=== PATIENT | female | born 1955 | race Caucasian/White ===

== ENCOUNTER 2020-11-03 13:29 | Outpatient (REF) | payer BC, SELFPAY ==
[2020-11-03 14:36] LABS: MANUAL DIFF FLAG NO
[2020-11-03 14:41] LABS: Appearance Urine CLEAR; Color Urine YELLOW; Glucose Urine UA NEG (NEG); Leukocyte Esterase Urine NEG (NEG); Nitrite Urine NEG (NEG); Specific Gravity - Urine 1.025 (1.005-1.025); Urine Blood NEG (NEG); Urine Ketones 15 MG/DL (NEG); Urine Protein NEG (NEG-TRACE)
[2020-11-03 14:41] LABS: Basophils Percent Auto 0.2 % (0-2); Eosinophils Absolute Auto 0.1 X10*3/uL (0.0-0.4); Eosinophils Percent Auto 1.7 % (0-4); Hemoglobin 13.1 g/dl (12.0-16.0); Imm Gran Abs Auto 0.02 X10*3/uL (0.00-0.03); Imm Gran Pct Auto 0.4 % (0.0-0.4); Lymphocytes Absolute Auto 1.1 X10*3/uL (1.2-4.9); Lymphocytes Percent Auto 20.3 % (20-40); Mean Corpuscular HGB Conc 32.8 g/dl (31.0-35.0); Mean Corpuscular Hemoglobin 29.4 pg (27.0-33.0); Mean Corpuscular Volume 89.7 fL (80-98); Mean Platelet Volume 10.5 fL (9.4-12.3); Monocytes Absolute Auto 0.4 X10*3/uL (0.1-1.2); Monocytes Percent Auto 6.7 % (2-11); Neutrophils Absolute Auto 3.7 X10*3/uL (2.0-8.3); Neutrophils Percent Auto 70.7 % (45-73); Platelet Count 250 X10*3/uL (160-400); Red Blood Count 4.46 X10*6/uL (4.20-5.50); Red Cell Distribution Width 12.8 % (11.0-16.0); White Blood Count 5.2 X10*3/uL (4.8-10.8)
[2020-11-03 15:00] LABS: Alanine Aminotransferase 8 U/L (0-31); Albumin Level 3.9 g/dL (3.5-5.0); Alkaline Phosphatase 62 U/L (39-117); Anion Gap 11 (12-20); Aspartate Amino Transferase 11 U/L (5-31); Bilirubin Total 0.7 mg/dL (0.0-1.0); Blood Urea Nitrogen 13 mg/dL (9-16); C Reactive Protein 6.83 mg/dL (< or = 0.50); Calcium 10.1 mg/dL (8.4-10.2); Carbon Dioxide 29 mmol/L (22-29); Chloride 104 mmol/L (96-108); Estimated Glomerular Filt Rate > 60; Glucose Random 127 mg/dL (60-115); Potassium 3.8 mmol/L (3.3-5.1); Sodium 140 mmol/L (135-145); Total Protein 6.4 g/dL (6.5-8.0)
== END 2020-11-03 13:30 | disposition home or self-care (01) ==
LOC: HO.LAB 13:29
PROVIDERS: PCP Internal Medicine; Visit Provider Internal Medicine
DX: R10.9 Unspecified abdominal pain (principal); K57.90 Diverticulosis of intestine, part unspecified, without perforation or abscess without bleeding
CPT/HCPCS: 36415; 80053; 81003; 85025; 86140; 87086

== ENCOUNTER 2020-11-12 06:26 | Outpatient (REF) | payer BC, SELFPAY ==
--- NOTE | ~2020-11-12 | CT_ITS ---
EXAMINATION: CT ABDOMEN AND PELVIS WITH CONTRAST CLINICAL INFORMATION: Abdominal pain. History of diverticulitis. COMPARISON: None TECHNIQUE: Multidetector volumetric images were obtained from the superior aspect of the liver through the pubic symphysis following administration 85 mL of Omnipaque 350 intravenous contrast. Sagittal and coronal reformatted images were obtained on the technologist's workstation. Oral contrast: Yes This CT examination was performed using dose optimization techniques as appropriate, variously including the following: *Automated exposure control *Adjustment of mA and/or kV according to patient size (this includes techniques or standardized protocols for targeted exams where dose is matched to indication/reason for exam; i.e. extremities or head) *Use of iterative reconstruction technique DLP: 443 mGy-cm FINDINGS: LUNG BASES: There is linear scarring or subsegmental atelectasis at the lung bases. LIVER, GALLBLADDER, AND BILIARY TREE: The liver is normal in size, shape, and attenuation. No focal hepatic lesion or biliary ductal dilatation is present. The gallbladder is unremarkable with no evidence of radiopaque gallstones, gallbladder wall thickening, or obvious pericholecystic inflammatory changes. PANCREAS: Unremarkable. SPLEEN: The spleen is normal appearing. The spleen is no longer appears enlarged. Previously identified splenic lesions are not appreciated on noncontrast enhanced CT scan. ADRENAL GLANDS: Unremarkable. KIDNEYS AND URETERS: There are are small bilateral nonobstructing renal stones. There are bilateral low-attenuation renal lesions probably representing cysts. The largest measures 2.5 cm in the medial left kidney. BLADDER: Not optimally distended but appears unremarkable. GASTROINTESTINAL TRACT: There is diverticulosis of the colon. There is wall thickening of the sigmoid colon and stranding of the surrounding fat suggestive of mild sigmoid diverticulitis. There is stool throughout the colon suggestive of constipation. No evidence of obstruction, perforation or abscess is seen. Small and large bowel is otherwise unremarkable. The appendix is unremarkable. The stomach is unremarkable. ABDOMINAL WALL: No significant hernia is appreciated. LYMPH NODES: There are no enlarged lymph nodes. The previously identified left retroperitoneal lymph nodes on February 2013 exam longer seen. There is no ascites. There is no evidence of peritoneal disease. VASCULAR: There is evidence of mild atherosclerotic disease. No aneurysm is seen. PELVIC VISCERA: Unremarkable. OSSEOUS STRUCTURES: There is degenerative disc disease at L5-S1. CT/CT abdomen pelvis w con IMPRESSION: Sigmoid diverticulitis. Constipation. Small bilateral renal stones. Bilateral renal cysts. Previously identified splenomegaly, lymphadenopathy and peritoneal disease on February 2013 exam is no longer seen. Findings will be communicated by the [employer] work flow automatic driller and reamer Jasmin Hernandez.
[2020-11-12] MEDS: Barium Sulfate Oral (Mocha) 450 ML ORAL.SUSP 900 ML PO (08:45)
== END 2020-11-12 06:27 | disposition home or self-care (01) ==
LOC: HO.CT 06:26
PROVIDERS: PCP Internal Medicine; Visit Provider Internal Medicine
DX: R10.0 Acute abdomen (principal); K57.32 Diverticulitis of large intestine without perforation or abscess without bleeding
CPT/HCPCS: 74177

== ENCOUNTER 2021-01-11 16:45 | Outpatient (REF) | payer BC, SELFPAY ==
[2021-01-11 17:29] LABS: Influenza A PCR NEGATIVE (Negative); Influenza B PCR NEGATIVE (Negative); Resp Syncy Virus RNA Qual PCR NEGATIVE (Negative); SARS COV2 PCR INHOUSE NEGATIVE (Negative)
== END 2021-01-11 16:46 | disposition home or self-care (01) ==
LOC: HO.LNP 16:45
PROVIDERS: Visit Provider Internal Medicine
DX: Z20.822 Contact with and (suspected) exposure to COVID-19 (principal)
CPT/HCPCS: 0241U

== ENCOUNTER 2022-01-20 11:53 | Outpatient (REF) | payer BC, SELFPAY ==
--- NOTE | ~2022-01-20 | XR_ITS ---
EXAMINATION: XR PELVIS CLINICAL INFORMATION: Pain COMPARISON: None TECHNIQUE: AP view of the pelvis. FINDINGS: Bone alignment is normal. No fracture or dislocation or bone lesion. There is bilateral hip arthritis, left greater than right. The sacroiliac joints are normal. Soft tissues are normal. There are degenerative changes of the visualized lower lumbar spine. XR/XR pelvis 1-2V IMPRESSION: Bilateral hip arthritis, left greater than right.
[2022-01-20 14:08] LABS: MANUAL DIFF FLAG NO
[2022-01-20 14:20] LABS: Basophils Percent Auto 0.4 % (0-2); Eosinophils Absolute Auto 0.1 X10*3/uL (0.0-0.4); Eosinophils Percent Auto 1.7 % (0-4); Hematocrit 40.8 % (37.0-47.0); Hemoglobin 13.6 g/dl (12.0-16.0); Imm Gran Abs Auto 0.01 X10*3/uL (0.00-0.03); Imm Gran Pct Auto 0.2 % (0.0-0.4); Lymphocytes Absolute Auto 1.2 X10*3/uL (1.2-4.9); Lymphocytes Percent Auto 22.3 % (20-40); Mean Corpuscular HGB Conc 33.3 g/dl (31.0-35.0); Mean Corpuscular Hemoglobin 29.4 pg (27.0-33.0); Mean Corpuscular Volume 88.3 fL (80.0-98.0); Mean Platelet Volume 9.5 fL (9.4-12.3); Monocytes Absolute Auto 0.7 X10*3/uL (0.1-1.2); Monocytes Percent Auto 12.8 % (2-11); Neutrophils Absolute Auto 3.3 x10*3/uL (2.0-8.3); Neutrophils Percent Auto 62.6 % (45-73); Platelet Count 249 X10*3/uL (160-400); Red Blood Count 4.62 X10*6/uL (4.20-5.50); Red Cell Distribution Width 12.8 % (11.0-16.0); White Blood Count 5.3 X10*3/uL (4.8-10.8)
[2022-01-20 14:37] LABS: Alanine Aminotransferase 8 U/L (0-31); Albumin Level 3.8 g/dL (3.5-5.0); Alkaline Phosphatase 64 U/L (39-117); Anion Gap 13 (12-20); Aspartate Amino Transferase 10 U/L (5-31); Bilirubin Total 0.5 mg/dL (0.0-1.0); Blood Urea Nitrogen 11 mg/dL (9-16); C Reactive Protein 5.24 mg/dL (< or = 0.50); Calcium 9.6 mg/dL (8.4-10.2); Carbon Dioxide 25 mmol/L (22-29); Chloride 105 mmol/L (96-108); Estimated Glomerular Filt Rate > 60; Glucose Random 90 mg/dL (60-115); Potassium 4.3 mmol/L (3.3-5.1); Sodium 139 mmol/L (135-145); Total Protein 6.6 g/dL (6.5-8.0)
[2022-01-21 21:16] LABS: Lyme Abs Screen <0.90 index
== END 2022-01-20 11:54 | disposition home or self-care (01) ==
LOC: HO.HMGCX 11:53
PROVIDERS: PCP Internal Medicine; Visit Provider Internal Medicine
DX: M79.10 Myalgia, unspecified site (principal); R10.2 Pelvic and perineal pain
CPT/HCPCS: 36415; 72170; 80053; 85025; 86140; 86617; 86618

== ENCOUNTER 2022-01-28 10:27 | Outpatient (REF) | payer BC, SELFPAY ==
[2022-01-28 11:20] LABS: Appearance Urine Clear; Color Urine Yellow; Glucose Urine UA Negative (Negative); Leukocyte Esterase Urine Trace (Negative); Nitrite Urine Negative (Negative); Specific Gravity - Urine 1.015 (1.005-1.025); Urine Blood Negative (Negative); Urine Ketones Negative (Negative); Urine Protein Negative (Neg-Trace)
[2022-01-28 11:23] LABS: Bacteria Urine None Seen (None Seen); Hyaline Casts Urine 0-2 /LPF (0-2); Squamous Epithelial Cell Urine 0-2 /HPF (0-2); WBC Urine 0-5 /HPF (0-5)
[2022-01-28 12:25] LABS: Vitamin D 25-OH Total 24.1 ng/mL (>30)
[2022-01-28 12:28] LABS: Cholesterol 280 mg/dL; HDL Cholesterol 56 mg/dL; LDL Cholesterol Calculated 198 mg/dl; Rheumatoid Factor < 15.0 IU/mL (<15.0); Triglycerides 132 mg/dL
[2022-02-01 22:32] LABS: Anti Nuclear Antibody Screen POSITIVE (NEGATIVE)
== END 2022-01-28 10:28 | disposition home or self-care (01) ==
LOC: HO.10HDL 10:27
PROVIDERS: Visit Provider Internal Medicine
DX: Z00.00 Encounter for general adult medical examination without abnormal findings (principal); R79.82 Elevated C-reactive protein (CRP); M25.559 Pain in unspecified hip; R30.0 Dysuria; E78.00 Pure hypercholesterolemia, unspecified
CPT/HCPCS: 36415; 80061; 81001; 82306; 86038; 86039; 86431; 87086; 87088; 87186

== ENCOUNTER 2022-03-10 17:13 | Emergency (ER) | payer BC, SELFPAY ==
--- NOTE | ~2022-03-10 | CT_ITS ---
EXAMINATION: CT BRAIN AND CT CERVICAL SPINE WITHOUT CONTRAST. CLINICAL INFORMATION: Status post fall. COMPARISON: None TECHNIQUE: 5 mm thin axial and reformatted 2 mm thin sagittal and coronal images of brain were obtained. Subsequently axial 3 mm thin and reformatted 2 mm thin sagittal and coronal images of cervical spine were obtained. DLP 1109 mGy FINDINGS: BRAIN: There is no acute intra-axial, extra-axial bleed, masses or midline shift. There is no acute infarction evolution. There is no edema. The saldana to white matter differentiation is maintained normal. The lateral ventricles are symmetrical in size and configuration without enlargement. There is no abnormality seen in the posterior fossa. Bone windows reveal no calvarial or scalp abnormality. Bilateral paranasal sinuses and mastoid air cells are well-aerated. CERVICAL SPINE: There is normal cervical lordosis. The vertebral heights and alignment is normal. There is loss of C5-C6, C6-C7 and C7-T1 disc heights with mild posterior spondylosis. The craniovertebral junction and the C1-C2 alignment is normal. There is no visible acute fracture, dislocation or subluxation. No aggressive lytic or sclerotic process seen. The prevertebral and paravertebral soft tissues are normal. CT/CT cervical spine wo IV con IMPRESSION: No acute intracranial process seen. No acute fracture, dislocation or subluxation seen in cervical spine. There are degenerative disc changes C5-C6, C6-C7 and C7-T1 disc levels.
--- NOTE | ~2022-03-10 | XR_ITS ---
Indication: Pain, fall EXAMINATION: Left hand, left ankle, left hip. Single view of the pelvis and 2 views of the left hip are obtained. Comparison previous dated 01/20/2022 No acute finding in the pelvic image. Detailed imaging of the left hip demonstrates degenerative change. The femoral head contour is smooth. There is a sclerotic density coursing in the region of the junction of the femoral head with the femoral neck. This was present previously and therefore may be chronic. Stress injury cannot be excluded 3 views of left ankle demonstrate degenerative changes. No convincing evidence for an acute fracture or dislocation. Point palpation would be recommended the level of the lateral malleolus. There is minimal lucency here in one view only. Degenerative changes are noted 3 views of left hand does not demonstrate evidence for an acute fracture or dislocation. XR/XR hip LT min 2V IMPRESSION: Multiple studies. Minimal lucency in the region of the distal fibula on one view only. Avulsion fracture distally cannot be completely excluded here but there is no significant overlying soft tissue change. Point palpation would be recommended Other findings are described above
--- NOTE | ~2022-03-10 | CT_ITS ---
EXAMINATION: CT BRAIN AND CT CERVICAL SPINE WITHOUT CONTRAST. CLINICAL INFORMATION: Status post fall. COMPARISON: None TECHNIQUE: 5 mm thin axial and reformatted 2 mm thin sagittal and coronal images of brain were obtained. Subsequently axial 3 mm thin and reformatted 2 mm thin sagittal and coronal images of cervical spine were obtained. DLP 1109 mGy FINDINGS: BRAIN: There is no acute intra-axial, extra-axial bleed, masses or midline shift. There is no acute infarction evolution. There is no edema. The saldana to white matter differentiation is maintained normal. The lateral ventricles are symmetrical in size and configuration without enlargement. There is no abnormality seen in the posterior fossa. Bone windows reveal no calvarial or scalp abnormality. Bilateral paranasal sinuses and mastoid air cells are well-aerated. CERVICAL SPINE: There is normal cervical lordosis. The vertebral heights and alignment is normal. There is loss of C5-C6, C6-C7 and C7-T1 disc heights with mild posterior spondylosis. The craniovertebral junction and the C1-C2 alignment is normal. There is no visible acute fracture, dislocation or subluxation. No aggressive lytic or sclerotic process seen. The prevertebral and paravertebral soft tissues are normal. CT/CT head/brain wo IV con IMPRESSION: No acute intracranial process seen. No acute fracture, dislocation or subluxation seen in cervical spine. There are degenerative disc changes C5-C6, C6-C7 and C7-T1 disc levels.
--- NOTE | ~2022-03-10 | XR_ITS ---
Indication: Pain, fall EXAMINATION: Left hand, left ankle, left hip. Single view of the pelvis and 2 views of the left hip are obtained. Comparison previous dated 01/20/2022 No acute finding in the pelvic image. Detailed imaging of the left hip demonstrates degenerative change. The femoral head contour is smooth. There is a sclerotic density coursing in the region of the junction of the femoral head with the femoral neck. This was present previously and therefore may be chronic. Stress injury cannot be excluded 3 views of left ankle demonstrate degenerative changes. No convincing evidence for an acute fracture or dislocation. Point palpation would be recommended the level of the lateral malleolus. There is minimal lucency here in one view only. Degenerative changes are noted 3 views of left hand does not demonstrate evidence for an acute fracture or dislocation. XR/XR hand LT min 3V IMPRESSION: Multiple studies. Minimal lucency in the region of the distal fibula on one view only. Avulsion fracture distally cannot be completely excluded here but there is no significant overlying soft tissue change. Point palpation would be recommended Other findings are described above
--- NOTE | ~2022-03-10 | XR_ITS ---
Indication: Pain, fall EXAMINATION: Left hand, left ankle, left hip. Single view of the pelvis and 2 views of the left hip are obtained. Comparison previous dated 01/20/2022 No acute finding in the pelvic image. Detailed imaging of the left hip demonstrates degenerative change. The femoral head contour is smooth. There is a sclerotic density coursing in the region of the junction of the femoral head with the femoral neck. This was present previously and therefore may be chronic. Stress injury cannot be excluded 3 views of left ankle demonstrate degenerative changes. No convincing evidence for an acute fracture or dislocation. Point palpation would be recommended the level of the lateral malleolus. There is minimal lucency here in one view only. Degenerative changes are noted 3 views of left hand does not demonstrate evidence for an acute fracture or dislocation. XR/XR ankle LT min 3V IMPRESSION: Multiple studies. Minimal lucency in the region of the distal fibula on one view only. Avulsion fracture distally cannot be completely excluded here but there is no significant overlying soft tissue change. Point palpation would be recommended Other findings are described above
[2022-03-10 17:26] VITALS: BP 192/83; PULSE 64; RESP 18; TEMP 36.4; O2SAT 98; BMI 25.8
--- NOTE | 2022-03-10 17:36 | ECG_ITS ---
Test Reason : fall Blood Pressure : / mmHG Vent. Rate : 063 BPM Atrial Rate : 063 BPM P-R Int : 156 ms QRS Dur : 130 ms QT Int : 432 ms P-R-T Axes : 047 -46 068 degrees QTc Int : 442 ms Normal sinus rhythm Right bundle branch block Left anterior fascicular block Bifascicular block Cannot rule out Inferior infarct (masked by fascicular block?) , age undetermined Abnormal ECG No previous ECGs available Referred By: Generic ED Physician Electronically Signed By:MICHELLE MCALLISTER MD
[2022-03-10 18:06] LABS: MANUAL DIFF FLAG NO
[2022-03-10 18:07] LABS: Basophils Percent Auto 0.3 % (0-2); Eosinophils Percent Auto 0.5 % (0-4); Hematocrit 42.5 % (37.0-47.0); Hemoglobin 14.5 g/dl (12.0-16.0); Imm Gran Abs Auto 0.01 X10*3/uL (0.00-0.03); Imm Gran Pct Auto 0.1 % (0.0-0.4); Lymphocytes Absolute Auto 0.9 X10*3/uL (1.2-4.9); Lymphocytes Percent Auto 10.3 % (20-40); Mean Corpuscular HGB Conc 34.1 g/dl (31.0-35.0); Mean Corpuscular Hemoglobin 29.7 pg (27.0-33.0); Mean Corpuscular Volume 86.9 fL (80.0-98.0); Mean Platelet Volume 8.9 fL (9.4-12.3); Monocytes Absolute Auto 0.3 X10*3/uL (0.1-1.2); Monocytes Percent Auto 3.4 % (2-11); Neutrophils Absolute Auto 7.5 x10*3/uL (2.0-8.3); Neutrophils Percent Auto 85.4 % (45-73); Platelet Count 260 X10*3/uL (160-400); Red Blood Count 4.89 X10*6/uL (4.20-5.50); Red Cell Distribution Width 12.9 % (11.0-16.0); White Blood Count 8.8 X10*3/uL (4.8-10.8)
[2022-03-10 18:30] LABS: Troponin-I High Sensitivity 4.7 ng/L (<3.5-17.0)
[2022-03-10 18:31] LABS: Alanine Aminotransferase 11 U/L (0-31); Albumin Level 4.4 g/dL (3.5-5.0); Alkaline Phosphatase 73 U/L (39-117); Anion Gap 16 (12-20); Aspartate Amino Transferase 15 U/L (5-31); Bilirubin Direct < 0.2 mg/dL (0.0-0.5); Bilirubin Total 0.5 mg/dL (0.0-1.0); Blood Urea Nitrogen 16 mg/dL (9-16); Calcium 10.5 mg/dL (8.4-10.2); Carbon Dioxide 25 mmol/L (22-29); Chloride 101 mmol/L (96-108); Creatinine Clr Calc Pharmacy 81.3; Estimated Glomerular Filt Rate > 60; Glucose Random 140 mg/dL (60-115); Lipase 32 U/L (8-78); Potassium 3.6 mmol/L (3.3-5.1); Sodium 138 mmol/L (135-145); Total Protein 7.3 g/dL (6.5-8.0)
[2022-03-10 21:19] VITALS: BP 176/82; PULSE 66; RESP 19; TEMP 36.8; O2SAT 97
--- OUTSIDE RECORDS SUMMARY | 2022-03-10 22:36 | XMS_ITS ---
:1955 Author Allergies Code Code System Name Reaction Severity Status Onset NKDA ? Medications None recorded. Problems None recorded. Procedures None recorded. Results Lab Results Date Name Specimen Result Interpretation Description Value Range Status Address ? 01/24/2021 SARS CoV 2 RNA ? Result negative ? ? [facility] [place] (COVID-19), QL, [place]: [address], [address] , Respiratory [place] Specimen Past Encounters 01/24/2021 Exposure to SARS-CoV-2 LINA Steward: [address], [place] [address], Ph. Social History Tobacco Smoking Status Never Smoker Vaccine List None recorded. Plan of Care Reminders Provider Appointments None recorded. ? ? Lab None recorded. ? ? Referral None recorded. ? ? Procedures None recorded. ? ? Surgeries None recorded. ? ? Imaging None recorded. ? ? Vitals None recorded.
[2022-03-10] MEDS: Butalb/Acetamin/Caff 50/325/40 TABLET 1 TAB PO (23:04)
--- NOTE | 2022-03-10 23:33 | ED_ITS ---
HPI - Fall General Chief Complaint: Fall Stated Complaint: fell of ladder today Time Seen by Provider: 03/10/22 22:45 Source: patient Mode of arrival: ambulatory Limitations: no limitations History of Present Illness HPI Narrative: Averted patient was standing on smaller 5 ft high lost balance fell hitting wall 1st and landed on her left side complaining of pain in left ankle left hand and left hip no loss of consciousness no chest pain no palpitation incident happened at 11:00 o'clock. Patient denies any head injury or loss of systems. Since 1300 patient complaining of headache mostly in the frontal area does with photosensitivity nausea patient does have history of migraine denies any neck pain Related Data Previous Rx's Medication Instructions Recorded yvaozlxnyh-xllnpkhwwybwp-cgajmiya 1 cap PO Q6H PRN headache #20 caps 03/10/22 50 mg-300 mg-40 mg capsule (Fioricet) Allergies Allergy/AdvReac Type Severity Reaction Status Date / Time No Known Allergies Allergy Mild Unverified 02/13/20 15:55 Review of Systems Review of Systems: Yes all other systems are reviewed and are negative [facility] Social History Social History Advance Directives: No Advance Directives Information Provided: No Physical Exam Vital Signs: Vital Signs: Last Vital Signs Temp 98.0 F 03/10/22 23:34 Pulse 74 03/10/22 23:34 Resp 16 03/10/22 23:34 BP 185/85 H 03/10/22 23:34 Pulse Ox 98 03/10/22 23:34 O2 Del Method 03/10/22 23:34 BMI result Body Mass Index 25.8 Appearance: Alert. Oriented X3. No acute distress. Eyes: PERRLA, No Nystagmus ENT: Pharynx normal. Oral Mucosa moist Neck: Normal inspection. Neck supple. CVS: Normal heart rate and rhythm. Pulses normal. Respiratory: No respiratory distress. Equal air entry bilateral, no wheezing/rales/rhonchi Abdomen: Soft and nontender. Bowel sounds are present, no mass palpable, no CVA tenderness Skin: Skin warm and dry. Normal skin color. Normal skin turgor. Extremities: No lower extremity edema. No calf tenderness, left hand 4th finger soft tissue swelling good range of movement Neuro: Oriented X 3. No motor deficit. No sensory deficit.No cerebellar signs , cranial nerves II-XII intact MDM - Fall Lab Data Attestation: I reviewed the patient's lab results. Result diagrams: 03/10/22 18:02 03/10/22 18:02 Labs: Lab Results 03/10/22 03/10/22 03/10/22 Range/Units 18:02 18:02 18:02 WBC 8.8 (4.8-10.8) X10*3/uL RBC 4.89 (4.20-5.50) X10*6/uL Hgb 14.5 (12.0-16.0) g/dl Hct 42.5 (37.0-47.0) % MCV 86.9 (80.0-98.0) fL MCH 29.7 (27.0-33.0) pg MCHC 34.1 (31.0-35.0) g/dl RDW 12.9 (11.0-16.0) % Plt Count 260 (160-400) X10*3/uL MPV 8.9 L (9.4-12.3) fL Immature Gran % (Auto) 0.1 (0.0-0.4) % Neut % (Auto) 85.4 H (45-73) % Lymph % (Auto) 10.3 L (20-40) % Hendricks % (Auto) 3.4 (2-11) % Eos % (Auto) 0.5 (0-4) % Baso % (Auto) 0.3 (0-2) % Lymph # (Auto) 0.9 L (1.2-4.9) X10*3/uL Hendricks # (Auto) 0.3 (0.1-1.2) X10*3/uL Eos # (Auto) 0.0 (0.0-0.4) X10*3/uL Baso # (Auto) 0.0 (0.0-0.2) X10*3/uL Abs Immat Gran (auto) 0.01 (0.00-0.03) X10*3/uL Absolute Neuts (auto) 7.5 (2.0-8.3) x10*3/uL Absolute Nucleated RBC 0.000 (0.0-0.012) X10*3/uL Nucleated RBC % (auto) 0.0 (0.0-0.2) /100WBC Sodium 138 (135-145) mmol/L Potassium 3.6 (3.3-5.1) mmol/L Chloride 101 (96-108) mmol/L Carbon Dioxide 25 (22-29) mmol/L Anion Gap 16 (12-20) BUN 16 (9-16) mg/dL Creatinine 0.73 (0.5-1.4) mg/dL Estim Creat Clear Calc 81.3 Estimated GFR > 60 Random Glucose 140 H (60-115) mg/dL Calcium 10.5 H D (8.4-10.2) mg/dL Total Bilirubin 0.5 (0.0-1.0) mg/dL Direct Bilirubin < 0.2 (0.0-0.5) mg/dL AST 15 D (5-31) U/L ALT 11 (0-31) U/L Alkaline Phosphatase 73 (39-117) U/L Troponin I High Sens 4.7 (<3.5-17.0) ng/L Total Protein 7.3 (6.5-8.0) g/dL Albumin 4.4 (3.5-5.0) g/dL Lipase 32 (8-78) U/L ECG Data Attestation: I personally reviewed and interpreted this ECG as follows: Interpretation: Normal sinus rhythm right bundle-branch block normal interval normal axis no acute ST wave changes Discharge Plan Discharge Clinical Impression: Fall (on) (from) other stairs and steps, initial encounter, Migraine Patient Disposition: Home, Self-Care Instructions: Migraine Headache (ED), Fall Prevention (ED) Additional Instructions: Rest at home Apply ice on the left hand fingers Fioricet for headaches Follow-up with PCP as needed Prescriptions: New gznwfggqyk-qwhudzszpqjln-vnlw [Fioricet] 50-300-40 mg capsule 1 cap PO Q6H PRN (Reason: headache) Qty: 20 0RF Interventions: ED Discharge Assessment Last Done: 03/10/22 23:38
[2022-03-10 23:34] VITALS: BP 185/85; PULSE 74; RESP 16; TEMP 36.7; O2SAT 98
== END 2022-03-10 23:39 | disposition home or self-care (01) ==
PROVIDERS: Emergency Provider Internal Medicine; PCP Internal Medicine
DX: Z04.3 Encounter for examination and observation following other accident (principal); M25.572 Pain in left ankle and joints of left foot; M79.642 Pain in left hand; M25.552 Pain in left hip; G43.909 Migraine, unspecified, not intractable, without status migrainosus
CPT/HCPCS: 36415; 70450; 72125; 73130; 73502; 73610; 80053; 82248; 83690; 84484; 85025; 93005; 99284

== ENCOUNTER 2022-06-22 11:44 | Outpatient (REF) | payer BC, SELFPAY ==
--- NOTE | ~2022-06-22 | XR_ITS ---
EXAMINATION: XR LUMBOSACRAL SPINE CLINICAL INFORMATION: Lower back pain COMPARISON: None TECHNIQUE: Three views of the lumbosacral spine. FINDINGS: No acute fracture or subluxation. Grade 1 anterolisthesis of L4 on L5. Disc space narrowing at L4-L5 and L5-S1. Facet arthropathy throughout. Small endplate osteophytes are noted. The sacroiliac joints are symmetric. The visualized sacrum is intact. Normal bowel gas pattern. XR/XR lumbar spine 2-3V IMPRESSION: Mild to moderate degenerative changes of the lower lumbar spine.
== END 2022-06-22 11:45 | disposition home or self-care (01) ==
LOC: HO.HMGCX 11:44
PROVIDERS: PCP Internal Medicine; Visit Provider Internal Medicine
DX: M54.50 Low back pain, unspecified (principal)
CPT/HCPCS: 72100

== ENCOUNTER 2022-11-02 16:13 | Outpatient (REF) | payer BC, SELFPAY ==
--- NOTE | ~2022-11-02 | XR_ITS ---
EXAMINATION: XR CHEST CLINICAL INFORMATION: Cough Pain, cough COMPARISON: Chest 02/11/2013 TECHNIQUE: 2 views of the chest were obtained. FINDINGS: The lungs are well expanded. Mild linear density at the left lung bases consistent with atelectasis and/or scar. No focal consolidation, interstitial pulmonary edema or pneumothorax. No significant abnormality is noted involving the heart, mediastinum, bony thorax or soft tissues. XR/XR chest 2V IMPRESSION: No acute disease.
== END 2022-11-02 16:14 | disposition home or self-care (01) ==
LOC: HO.XRAY 16:13
PROVIDERS: PCP Internal Medicine; Visit Provider Internal Medicine
DX: R05.9 Cough, unspecified (principal)
CPT/HCPCS: 71046

== ENCOUNTER 2022-12-14 12:04 | Day surgery (SDC) | payer BC, SELFPAY ==
--- NOTE | 2022-12-13 13:26 | HO.ANESPROP2 ---
Documented by User: Rola Mason NP 12/13/22 13:26 HPI - Anesthesia Eval Consult details Narrative: 67yo F for Colonoscopy [facility] Past Medical History Medical History (Updated 12/13/22 @ 12:29 by Samaria Maher RN) Elevated cholesterol HTN (hypertension) Lymphoma, splenic Surgical History Surgical History (Updated 12/13/22 @ 12:29 by Samaria Maher RN) H/O colonoscopy History of left hip replacement Social History Social History Advance Directives: No Advance Directives Information Provided: Yes Meds Allergies Allergy/AdvReac Type Severity Reaction Status Date / Time No Known Allergies Allergy Mild Unverified 02/13/20 15:55 Home Medications Medication Instructions Recorded Confirmed Last Taken Type Fish Oil 12/13/22 12/13/22 Unknown History aspirin 81 mg tablet,delayed 81 mg PO BID 12/13/22 12/13/22 Unknown History release losartan 25 mg tablet mg 12/13/22 Unknown History meloxicam 15 mg tablet 15 mg PO DAILY 12/13/22 12/13/22 Unknown History pravastatin 20 mg tablet 20 mg PO QPM 12/13/22 12/13/22 Unknown History prednisone 20 mg tablet 20 mg PO DAILY 12/13/22 12/13/22 Unknown History Exam Exam Date and Time: December 13, 20221325 Assessment and Plan Assessment Anesthesia Assessment: Chart Reviewed Documented by User: Car Arellano MD 12/14/22 12:36 [facility] Past Medical History Medical History (Updated 12/13/22 @ 12:29 by Samaria Maher RN) Elevated cholesterol HTN (hypertension) Lymphoma, splenic Family History Family history of problems with anesthesia: No Surgical History Surgical History (Updated 12/13/22 @ 12:29 by Samaria Maher RN) H/O colonoscopy History of left hip replacement History of Problems with Anesthesia: No Social History Social History Advance Directives: No Advance Directives Information Provided: Yes Meds Allergies Allergy/AdvReac Type Severity Reaction Status Date / Time No Known Allergies Allergy Mild Unverified 02/13/20 15:55 Home Medications Medication Instructions Recorded Confirmed Last Taken Type Fish Oil 12/13/22 12/13/22 Unknown History aspirin 81 mg tablet,delayed 81 mg PO BID 12/13/22 12/13/22 Unknown History release losartan 25 mg tablet mg 12/13/22 Unknown History meloxicam 15 mg tablet 15 mg PO DAILY 12/13/22 12/13/22 Unknown History pravastatin 20 mg tablet 20 mg PO QPM 12/13/22 12/13/22 Unknown History prednisone 20 mg tablet 20 mg PO DAILY 12/13/22 12/13/22 Unknown History Exam Airway Mallampati Class: II TM Dist: >3cm Neck ROM: Limited Heart: rrr Lungs: cta Assessment and Plan Assessment Anesthesia Assessment: Anesthesia Plan Discussed Final Anesthetic Review Family History of Problems with Anesthesia: No History of Problems with Anesthesia: No NPO: Yes ASA Class: II Patient Risk: Intermediate Procedure Risk: Low Anesthetic Plan Anesthetic Plan: MAC: and Agree w/ Assess. and Plan Disposition: Standard PACU
[2022-12-14] MEDS: Lactated Ringers 1,000 ML 100 ML IVCONT (12:54)
[2022-12-14 12:55] VITALS: BP 160/67; PULSE 68; RESP 18; TEMP 36.3; O2SAT 96
--- NOTE | 2022-12-14 13:01 | MHC.SHP ---
Pre-Procedural Eval Section A Date of Service: 12/14/22 The patient is an INPATIENT: No Changes since office visit: No Cold of Flu in the past 2 weeks, No New Medical Problems, No Changes in Medication and No Patient answered all questions The History & Physical has been completed within 30 days and I have reviewed it.: Yes Section B Chief Complaint: Encounter for screening for malignant neoplasm Allergies: Allergies Allergy/AdvReac Type Severity Reaction Status Date / Time No Known Allergies Allergy Mild Unverified 02/13/20 15:55 Plan I have reviewed the history and physical and performed a pertinent physical examination on my patient. No changes have occurred unless specified. Time Spent With Patient Time: Total time managing care of this patient today ____ minutes.
--- NOTE | 2022-12-14 13:30 | P.BOP_ITS ---
Brief Operative Note Date of Service: 12/14/22 Pre-op diagnosis: screening Post-op diagnosis: same Procedure: colonoscopy Surgeon: Gilson Farfan Anesthesia: MAC Was an Director Erp used for this Procedure?: No Estimated blood loss (mL): 0 Pathology: none sent Condition: stable Disposition: PACU
[2022-12-14 13:34] VITALS: BP 111/51; PULSE 63; RESP 16; TEMP 36.1; O2SAT 97
[2022-12-14 13:49] VITALS: BP 117/75; PULSE 73; RESP 16; TEMP 37; O2SAT 95
--- NOTE | 2022-12-14 13:53 | OP_ITS ---
DATE OF SERVICE: 12/14/2022 SURGEON: Gilson Farfan MD INDICATIONS: Colon cancer screening and personal history of colon polyps. PREOPERATIVE DIAGNOSIS: POSTOPERATIVE DIAGNOSIS: PROCEDURE PERFORMED: Colonoscopy to the terminal ileum. ESTIMATED BLOOD LOSS: COMPLICATIONS: ANESTHESIA: Monitored anesthesia care. ASSISTANTS: SPECIMENS: DESCRIPTION OF PROCEDURE: A history and physical was performed. The risks and benefits of the procedure were explained to the patient. Informed consent was obtained. The patient was placed in the left lateral decubitus position. A digital rectal exam was performed and was found to be normal. The Olympus pediatric video colonoscope was introduced into the rectum and advanced to the cecum without difficulty. The cecum was identified by transillumination, palpation, and identification of ileocecal valve. Examination was performed. The scope was removed. She tolerated the procedure well and was returned to the recovery area in stable condition. FINDINGS: The terminal ileum was examined and appeared normal. The visualized colonic mucosa was normal. The quality of the prep was good. No polyps were identified. There was mild diverticulosis in the distal transverse colon and moderate diverticulosis in the descending and sigmoid colon. Retroflexed examination was normal. IMPRESSION: Normal colonoscopy. RECOMMENDATION: 1. Follow up as needed. 2. Repeat colonoscopy should be considered in 5 years because of family history of colon polyps. MD JOHNATHAN Benavides/TARSHA / [id number]
[2022-12-14 14:03] VITALS: BP 133/75; PULSE 76; RESP 16; O2SAT 95
== END 2022-12-14 14:15 | disposition home or self-care (01) ==
PROVIDERS: PCP Internal Medicine; Visit Provider Internal Medicine Gastroenterology
PROC: 0DJD8ZZ Inspection of Lower Intestinal Tract, Via Natural or Artificial Opening Endoscopic (ICD-10-PCS; CPT 45378; principal; 2022-12-14 13:00)
DX: Z12.11 Encounter for screening for malignant neoplasm of colon (principal); K57.30 Diverticulosis of large intestine without perforation or abscess without bleeding; I10 Essential (primary) hypertension; E78.5 Hyperlipidemia, unspecified; Z86.010 Personal history of colon polyps; Z79.82 Long term (current) use of aspirin; Z79.899 Other long term (current) drug therapy
CPT/HCPCS: 45378

== ENCOUNTER 2023-01-05 13:05 | Outpatient (REF) | payer BC, SELFPAY ==
[2023-01-05 14:45] LABS: MANUAL DIFF FLAG NO
[2023-01-05 14:55] LABS: Basophils Percent Auto 0.4 % (0-2); Eosinophils Absolute Auto 0.1 X10*3/uL (0.0-0.4); Eosinophils Percent Auto 1.3 % (0-4); Hematocrit 43.1 % (37.0-47.0); Hemoglobin 14.2 g/dl (12.0-16.0); Imm Gran Abs Auto 0.01 X10*3/uL (0.00-0.03); Imm Gran Pct Auto 0.2 % (0.0-0.4); Lymphocytes Absolute Auto 0.9 X10*3/uL (1.2-4.9); Mean Corpuscular HGB Conc 32.9 g/dl (31.0-35.0); Mean Corpuscular Hemoglobin 29.8 pg (27.0-33.0); Mean Corpuscular Volume 90.4 fL (80.0-98.0); Mean Platelet Volume 10.4 fL (9.4-12.3); Monocytes Absolute Auto 0.5 X10*3/uL (0.1-1.2); Monocytes Percent Auto 9.1 % (2-11); Neutrophils Absolute Auto 3.8 x10*3/uL (2.0-8.3); Platelet Count 228 X10*3/uL (160-400); Red Blood Count 4.77 X10*6/uL (4.20-5.50); Red Cell Distribution Width 13.3 % (11.0-16.0); White Blood Count 5.3 X10*3/uL (4.8-10.8)
[2023-01-05 15:18] LABS: Alanine Aminotransferase 9 U/L (0-31); Albumin Level 4.1 g/dL (3.5-5.0); Alkaline Phosphatase 64 U/L (39-117); Anion Gap 13 (12-20); Aspartate Amino Transferase 14 U/L (5-31); Bilirubin Total 0.5 mg/dL (0.0-1.0); Blood Urea Nitrogen 12 mg/dL (9-16); C Reactive Protein 3.44 mg/dL (< or = 0.50); Calcium 10.7 mg/dL (8.4-10.2); Carbon Dioxide 28 mmol/L (22-29); Chloride 104 mmol/L (96-108); Estimated Glomerular Filt Rate > 60; Glucose Random 105 mg/dL (60-115); Sodium 141 mmol/L (135-145); Total Protein 7.7 g/dL (6.5-8.0)
[2023-01-05 15:24] LABS: Free T4 (Free Thyroxine) 1.05 ng/dL (0.71-1.85); Thyroid Stimulating Hormone 0.72 uIU/mL (0.32-4.0)
[2023-01-05 15:30] LABS: Vitamin B12 319 pg/mL (200-900)
[2023-01-05 15:38] LABS: Erythrocyte Sedimentation Rate 25 MM/HR (0-20)
[2023-01-09 17:53] LABS: Lyme Abs Screen <0.90 index
== END 2023-01-05 13:06 | disposition home or self-care (01) ==
LOC: HO.10HDL 13:05
PROVIDERS: Visit Provider Internal Medicine
DX: R53.83 Other fatigue (principal); E78.00 Pure hypercholesterolemia, unspecified; R63.5 Abnormal weight gain; T14.8XXD Other injury of unspecified body region, subsequent encounter; W57.XXXD Bitten or stung by nonvenomous insect and other nonvenomous arthropods, subsequent encounter
CPT/HCPCS: 36415; 80053; 82607; 84439; 84443; 85025; 85652; 86140; 86617; 86618

== ENCOUNTER 2023-03-13 11:56 | Outpatient (REF) | payer MEDICARE, SELFPAY ==
[2023-03-13 13:48] LABS: Appearance Urine Clear; Color Urine Yellow; Glucose Urine UA Negative (Negative); Leukocyte Esterase Urine Small (1+) (Negative); Nitrite Urine Negative (Negative); Specific Gravity - Urine <= 1.005 (1.005-1.025); UMIC TRIGGER UACC YES; Urine Blood Moderate (2+) (Negative); Urine Ketones Negative (Negative); Urine Protein Negative (Neg-Trace)
[2023-03-13 13:57] LABS: Bacteria Urine None Seen (None Seen); Hyaline Casts Urine 0-2 /LPF (0-2); RBC Urine 0-2 /HPF (0-2); Squamous Epithelial Cell Urine 0-2 /HPF (0-2); UACC Culture Trigger YES
== END 2023-03-13 11:57 | disposition home or self-care (01) ==
LOC: HO.10HDLNP 11:56
PROVIDERS: Visit Provider Internal Medicine
DX: R30.0 Dysuria (principal)
CPT/HCPCS: 81001; 87086

== ENCOUNTER 2023-03-15 09:14 | Outpatient (REF) | payer MEDICARE, SELFPAY ==
[2023-03-15 10:22] LABS: Urine Cytology See Pathology rpt
== END 2023-03-15 09:15 | disposition home or self-care (01) ==
LOC: HO.LAB 09:14
PROVIDERS: PCP Internal Medicine; Visit Provider Internal Medicine
DX: R30.0 Dysuria (principal)
CPT/HCPCS: 88112; 88305

== ENCOUNTER 2023-04-12 09:06 | Outpatient (REF) | payer MEDICARE, SELFPAY ==
[2023-04-12 11:14] LABS: MANUAL DIFF FLAG NO
[2023-04-12 11:25] LABS: Appearance Urine Cloudy; Color Urine Yellow; Glucose Urine UA Negative (Negative); Leukocyte Esterase Urine Large (3+) (Negative); Nitrite Urine Negative (Negative); PH 7.5 (5.0-9.0); UMIC TRIGGER UACC YES; Urine Blood Moderate (2+) (Negative); Urine Ketones Negative (Negative); Urine Protein 30 (1+) mg/dL (Neg-Trace)
[2023-04-12 11:41] LABS: Bacteria Urine 1+ (None Seen); RBC Urine >20 /HPF (0-2); Squamous Epithelial Cell Urine 0-2 /HPF (0-2); UACC Culture Trigger YES; WBC Urine >50 /HPF (0-5)
[2023-04-12 11:54] LABS: Basophils Percent Auto 0.7 % (0-2); Eosinophils Absolute Auto 0.1 X10*3/uL (0.0-0.4); Hematocrit 41.7 % (37.0-47.0); Hemoglobin 13.8 g/dl (12.0-16.0); Imm Gran Abs Auto 0.01 X10*3/uL (0.00-0.03); Imm Gran Pct Auto 0.2 % (0.0-0.4); Lymphocytes Absolute Auto 1.1 X10*3/uL (1.2-4.9); Lymphocytes Percent Auto 25.5 % (20-40); Mean Corpuscular HGB Conc 33.1 g/dl (31.0-35.0); Mean Corpuscular Hemoglobin 29.2 pg (27.0-33.0); Mean Corpuscular Volume 88.2 fL (80.0-98.0); Mean Platelet Volume 9.8 fL (9.4-12.3); Monocytes Absolute Auto 0.4 X10*3/uL (0.1-1.2); Neutrophils Absolute Auto 2.7 x10*3/uL (2.0-8.3); Neutrophils Percent Auto 61.6 % (45-73); Platelet Count 286 X10*3/uL (160-400); Red Blood Count 4.73 X10*6/uL (4.20-5.50); Red Cell Distribution Width 12.8 % (11.0-16.0); White Blood Count 4.3 X10*3/uL (4.8-10.8)
[2023-04-12 12:12] LABS: Alanine Aminotransferase 6 U/L (0-31); Albumin Level 3.8 g/dL (3.5-5.0); Alkaline Phosphatase 72 U/L (39-117); Anion Gap 9 (12-20); Aspartate Amino Transferase 13 U/L (5-31); Bilirubin Total 0.5 mg/dL (0.0-1.0); Blood Urea Nitrogen 8 mg/dL (9-16); C Reactive Protein 1.13 mg/dL (< or = 0.50); Calcium 9.5 mg/dL (8.4-10.2); Carbon Dioxide 28 mmol/L (22-29); Chloride 107 mmol/L (96-108); Cholesterol 228 mg/dL (<200); Estimated Glomerular Filt Rate > 60; Glucose Fasting 88 mg/dL (60-99); HDL Cholesterol 54 mg/dL (>40); LDL Cholesterol Calculated 160 mg/dL (<100); Potassium 3.8 mmol/L (3.3-5.1); Sodium 140 mmol/L (135-145); Total Protein 6.9 g/dL (6.5-8.0); Triglycerides 71 mg/dL (<150)
[2023-04-12 12:25] LABS: Rheumatoid Factor < 13.0 IU/mL (<15.0)
[2023-04-12 12:36] LABS: Erythrocyte Sedimentation Rate 25 MM/HR (0-20)
[2023-04-19 14:19] LABS: Anti Nuclear Antibody Screen POSITIVE (NEGATIVE)
== END 2023-04-12 09:07 | disposition home or self-care (01) ==
LOC: HO.HMGCLDS 09:06
PROVIDERS: PCP Internal Medicine; Visit Provider Internal Medicine
DX: E78.00 Pure hypercholesterolemia, unspecified (principal); M35.3 Polymyalgia rheumatica; K57.90 Diverticulosis of intestine, part unspecified, without perforation or abscess without bleeding; Z85.72 Personal history of non-Hodgkin lymphomas; R82.90 Unspecified abnormal findings in urine
CPT/HCPCS: 36415; 80053; 80061; 81001; 85025; 85652; 86038; 86039; 86140; 86431; 87086; 87088; 87186

== ENCOUNTER 2023-05-12 12:15 | Outpatient (REF) | payer MEDICARE, SELFPAY ==
[2023-05-12 13:03] LABS: Appearance Urine Cloudy; Color Urine Yellow; Glucose Urine UA Negative (Negative); Leukocyte Esterase Urine Large (3+) (Negative); Nitrite Urine Negative (Negative); UMIC TRIGGER UACC YES; Urine Blood Moderate (2+) (Negative); Urine Ketones Negative (Negative); Urine Protein 30 (1+) mg/dL (Neg-Trace)
[2023-05-12 13:06] LABS: Bacteria Urine None Seen (None Seen); Hyaline Casts Urine 0-2 /LPF (0-2); RBC Urine >20 /HPF (0-2); Squamous Epithelial Cell Urine 0-2 /HPF (0-2); UACC Culture Trigger YES; WBC Urine >50 /HPF (0-5)
== END 2023-05-12 12:16 | disposition home or self-care (01) ==
LOC: HO.10HDLNP 12:15
PROVIDERS: Visit Provider Internal Medicine
DX: R30.0 Dysuria (principal)
CPT/HCPCS: 81001; 87086

== ENCOUNTER 2023-05-31 14:13 | Outpatient (REF) | payer MEDICARE, SELFPAY ==
[2023-05-31 16:46] LABS: Anion Gap 12 (12-20); Blood Urea Nitrogen 13 mg/dL (9-16); C Reactive Protein 0.19 mg/dL (< or = 0.50); Calcium 10.2 mg/dL (8.4-10.2); Carbon Dioxide 29 mmol/L (22-29); Chloride 105 mmol/L (96-108); Estimated Glomerular Filt Rate > 60; Glucose Random 95 mg/dL (60-115); Sodium 142 mmol/L (135-145)
== END 2023-05-31 14:14 | disposition home or self-care (01) ==
LOC: HO.HMGCLDS 14:13
PROVIDERS: PCP Internal Medicine; Visit Provider Internal Medicine
DX: R30.0 Dysuria (principal); N39.0 Urinary tract infection, site not specified
CPT/HCPCS: 36415; 80048; 81001; 86140; 87086; 87088; 87186

== ENCOUNTER 2023-06-29 16:39 | Outpatient (REF) | payer MEDICARE, SELFPAY ==
[2023-06-29 17:22] LABS: Appearance Urine Cloudy; Color Urine Yellow; Glucose Urine UA Negative (Negative); Leukocyte Esterase Urine Large (3+) (Negative); Nitrite Urine Positive (Negative); PH 6.5 (5.0-9.0); UMIC TRIGGER UACC YES; Urine Blood Small (1+) (Negative); Urine Ketones Negative (Negative); Urine Protein 30 (1+) mg/dL (Neg-Trace)
[2023-06-29 17:23] LABS: Anion Gap 10 (12-20); Blood Urea Nitrogen 12 mg/dL (9-16); Calcium 9.7 mg/dL (8.4-10.2); Carbon Dioxide 27 mmol/L (22-29); Chloride 107 mmol/L (96-108); Estimated Glomerular Filt Rate > 60; Glucose Random 97 mg/dL (60-115); Magnesium 2.2 mg/dL (1.6-2.6); Potassium 3.8 mmol/L (3.3-5.1); Sodium 140 mmol/L (135-145)
[2023-06-29 17:39] LABS: Free T4 (Free Thyroxine) 1.03 ng/dL (0.71-1.85); Thyroid Stimulating Hormone 0.81 uIU/mL (0.32-4.0)
[2023-06-29 18:03] LABS: Bacteria Urine 4+ (None Seen); Calcium Oxalate Crystals Urine Present; Hyaline Casts Urine 0-2 /LPF (0-2); Squamous Epithelial Cell Urine 0-2 /HPF (0-2); UACC Culture Trigger YES; WBC Urine >50 /HPF (0-5)
== END 2023-06-29 16:40 | disposition home or self-care (01) ==
LOC: HO.LAB 16:39
PROVIDERS: PCP Internal Medicine; Visit Provider Internal Medicine
DX: R30.0 Dysuria (principal); R00.2 Palpitations
CPT/HCPCS: 36415; 80048; 81001; 83735; 84439; 84443; 87086; 87088; 87186

== ENCOUNTER → 2023-07-21 07:44 | Outpatient (REF) | payer MEDICARE, SELFPAY ==
--- NOTE | 2023-07-21 07:58 | CA_ITS ---
Transthoracic Echocardiogram Patient (Last, First, Middle): Lynne Martinez S Gender: Female Date of : 1955 Age: 68 Procedure Date: 07/21/2023 Procedure Type: Transthoracic Echocardiogram Location: OP Height: 175.26 cm Weight: 77.11 kg BSA: 1.93 m2 Heart Rate: 58 bpm BP: 122 / 78 mmHg Program Manager: SB Referring MD: Shawn Valderrama MD Repairer Hairspring: Joe Rivera MD Symptoms: I45.10 RBBB PALPITATIONS Study Quality: Good ECG Rhythm: Bradycardia Conclusions: - 1. Low normal LV ejection fraction 50-55% with impaired relaxation filling pattern 2. Mildly dilated left atrium 3. Mild mitral regurgitation 4. Upper limits of normal ascending aortic size 5. No gross pericardial effusion Findings Left Ventricle Normal left ventricular cavity size. There is normal left ventricular wall thickness. The left ventricular systolic function is low normal. The visually estimated ejection fraction is between 50-55%. Spectral Doppler is indicative of an impaired relaxation filling pattern. E/E prime ratio is between 8 and 15 consistent with indeterminate filling pressures. There is mild septal asymmetric hypertrophy. Peak GLS is -13.5%, which is moderately reduced. Right Ventricle Normal right ventricular cavity size and systolic function. Atria The left atrium is mildly dilated. There is no evidence of interatrial shunt. The right atrium is normal in size. Aortic Valve Normal aortic valve structure and function. There is no aortic valve stenosis. There is no aortic valve regurgitation. Mitral Valve There is mild anterior and posterior mitral leaflet thickening. There is mild mitral annular calcification. There is mild mitral valve regurgitation. There is no mitral valve stenosis. Pulmonic Valve The pulmonic valve is likely normal. There is trace pulmonic valve regurgitation. Tricuspid Valve Normal tricuspid valve structure. Tricuspid regurgitation envelope is inadequate for calculation of right ventricular systolic pressure. Normal right atrial pressure. Great Vessels The pulmonary artery was not well visualized. There is no dilatation of the ascending aorta measuring 3.60 cm. Venous The inferior vena cava is normal in size and collapses greater than 50% with inspiration. Pericardium/Pleural There is no evidence of pericardial effusion. Prior Study Comparison no previous study in the last 5 years for comparison Measurements 2D Linear Measurements IVSd: 1.26 0.6-0.9/0.6-1.0 cm LVIDd: 5.28 3.9-5.3/4.2-5.9 cm LVIDd Index: 2.74 2.4-3.2/2.2-3.1 cm/m2 LVIDs: 3.18 2.0-3.6 cm LVPWd: 0.93 0.7-1.1 cm LA Diam: 3.80 2.7-3.8/3.0-4.0 cm LAIDs Index: 1.97 1.5-2.3 cm/m2 LV Mass: 280.07 67-162/88-224 g LV Mass Index: 145.12 43-95/49-115 g/m2 LVOT Diam: 2.10 3.0+(-)1.3 cm 2D Systolic Function EF 4C: 54.20 >55% EF 2C: 52.10 >55% EF BiP: 52.30 >55% Mitral Valve MV Pk E: 0.59 MV PK A: 0.94 MV Decel Time: 293.00 E/A: 0.60 E'Lateral: 5.27 E'Medial: 3.24 E/E' Med: 18.10 E/E' Lat: 11.10 PHT: 86.00 MVA PHT: 2.56 Decel O'Brien: 2.00 Aortic Valve AoV Pk Parish: 1.22 AoV Pk Grad: 6.00 LVOT LVOT Pk Parish: 0.95 LVOT Mn Parish: 0.60 LVOT VTI: 0.20 LVOT Pk Grad: 4.00 LVOT Mn Grad: 2.00 LVOT Diam: 2.10 LVOT Area: 3.46 Diastolic Function MV Pk E: 0.59 MV Pk A: 0.94 E/A: 0.60 E'Medial: 3.24 E/E' Med: 18.10 E' Laterial: 5.27 E/E' Lat: 11.10 Right Ventricle TAPSE (mm): 17.00 TVS' Parish: 13.20 Tricuspid Valve RA Press: 3.00 Great Vessels Aorta Sinus of Valsalva: 3.50 2.0-3.5 cm Ao Asc: 3.60 2.1-3.4 cm Pulmonary Veins Pulm Vein S/D 2.00 Pulmonary Valve PV Pk Parish: 0.95 Peak PV Grad: 4.00 Updated in Other Vendor System with Status of Final Joe Rivera MD electronically signed on 07/22/2023 12:11:24 PM with status of Final
== END ==
LOC: HO.CARD 07:44
PROVIDERS: PCP Internal Medicine; Visit Provider Internal Medicine
DX: I45.10 Unspecified right bundle-branch block (principal)
CPT/HCPCS: 93306; 93356

== ENCOUNTER → 2023-07-21 07:58 | Outpatient (BNV) | payer MEDICARE, SELFPAY | PROVIDERS: PCP Internal Medicine; Visit Provider Internal Medicine Cardiovascular Disease | DX: I34.0 Nonrheumatic mitral (valve) insufficiency (principal) | CPT/HCPCS: 93306 ==

== ENCOUNTER 2023-08-15 13:40 | Outpatient (REF) | payer MEDICARE, SELFPAY ==
[2023-08-15 16:24] LABS: Appearance Urine Cloudy; Color Urine Yellow; Glucose Urine UA Negative (Negative); Leukocyte Esterase Urine Small (1+) (Negative); Nitrite Urine Negative (Negative); PH 5.5 (5.0-9.0); UMIC TRIGGER UACC YES; Urine Blood Small (1+) (Negative); Urine Ketones Trace mg/dL (Negative); Urine Protein 30 (1+) mg/dL (Neg-Trace)
[2023-08-15 16:28] LABS: Bacteria Urine 4+ (None Seen); Hyaline Casts Urine 0-2 /LPF (0-2); RBC Urine >20 /HPF (0-2); Squamous Epithelial Cell Urine 0-2 /HPF (0-2); UACC Culture Trigger YES; WBC Urine >50 /HPF (0-5)
== END 2023-08-15 13:41 | disposition home or self-care (01) ==
LOC: HO.HMGCLDS 13:40
PROVIDERS: PCP Internal Medicine; Visit Provider Internal Medicine
DX: R30.0 Dysuria (principal)
CPT/HCPCS: 81001; 87086; 87088; 87186

== ENCOUNTER → 2024-02-13 15:48 | Outpatient (REF) | payer MEDICARE, SELFPAY | LOC: HO.SL 15:48 | PROVIDERS: PCP Internal Medicine; Visit Provider Internal Medicine | DX: G47.33 Obstructive sleep apnea (adult) (pediatric) (principal) | CPT/HCPCS: 95806 ==

== ENCOUNTER → 2024-02-13 19:00 | Outpatient (BNV) | payer MEDICARE, SELFPAY | PROVIDERS: PCP Internal Medicine; Visit Provider Psychiatry & Neurology Neurology | DX: G47.33 Obstructive sleep apnea (adult) (pediatric) (principal) | CPT/HCPCS: 95806 ==

== ENCOUNTER 2024-04-08 12:58 | Outpatient (REF) | payer MEDICARE, SELFPAY ==
[2024-04-08 16:46] LABS: Anion Gap 14 (12-20); Blood Urea Nitrogen 13 mg/dL (9-16); Calcium 10.1 mg/dL (8.4-10.2); Carbon Dioxide 23 mmol/L (22-29); Chloride 107 mmol/L (96-108); Estimated Glomerular Filt Rate > 60; Glucose Random 87 mg/dL (60-115); Potassium 3.9 mmol/L (3.3-5.1); Sodium 140 mmol/L (135-145)
== END 2024-04-08 12:59 | disposition home or self-care (01) ==
LOC: HO.HMGCLDS 12:58
PROVIDERS: PCP Internal Medicine; Visit Provider Internal Medicine
DX: I10 Essential (primary) hypertension (principal)
CPT/HCPCS: 36415; 80048

== ENCOUNTER 2024-04-30 13:25 | Outpatient (REF) | payer MEDICARE, SELFPAY ==
--- NOTE | ~2024-04-30 | CT_ITS ---
EXAMINATION: CT ANGIOGRAM BRAIN, HEAD CLINICAL INFORMATION: Left temporal headache with cough or sneezing, rule out aneurysm COMPARISON: CT scan of brain on 03/10/2022 TECHNIQUE: Test bolus sequences followed by intravenous administration of 75 mL of Omnipaque 350 intravenous contrast. Helical imaging was performed in the axial plane from the skull base to the vertex. Delayed postcontrast imaging of the head was also performed. The data was processed at the system technologist workstation for generation of MIP sequences. Three-dimensional volume rendered reformatted images were also generated at an offline 3-D workstation. The degree of stenosis determined by NASCET criteria. This CT examination was performed using dose optimization techniques as appropriate, variously including the following: *Automated exposure control *Adjustment of mA and/or kV according to patient size (this includes techniques or standardized protocols for targeted exams where dose is matched to indication/reason for exam; i.e. extremities or head) *Use of iterative reconstruction technique DLP: 3217 mGy-cm EXAMINATION: CT brain. COMPARISON: None available. FINDINGS: Ventricles, sulci and cisterns are normal. There is no midline shift, no abnormal intra- or extra- axial fluid accumulation. [place] and white matter differentiation is normal. Postcontrast images show normal enhancement of major intracerebral blood vessels. No enhancing intracranial mass lesion or abnormal meningeal enhancement is seen. At the level of the wing of sphenoid, a skin calcification is seen in anterior left temporal, measuring 0.4 cm in diameter. Bone window images show no evidence of skull fracture. CT/CT angio head IMPRESSION: 1. Unchanged Normal CT scan of the brain. 2. No intracranial hemorrhage or skull fracture is seen. 3. No evidence of space occupying or enhancing intracranial mass lesion could be found. 4. The current plain CT scan of the brain shows no diagnostic evidence of acute cerebral infarction. EXAMINATION: CT angiogram of brain. COMPARISON: None available. FINDINGS: There is normal visualization of bilateral anterior, middle and posterior cerebral arteries, internal carotid arteries, basilar artery and terminal portions of bilateral vertebral arteries. Anterior communicating artery is normal. Bilateral posterior communicating arteries are normal. Bilateral internal carotid siphons are smoothly patent. The visualized bilateral superficial temporal arteries are symmetric, normal in caliber without inflammatory stranding. Timing of the bolus allows assessment of the major dural venous sinuses. The major cerebral venous sinuses show normal contrast filling. IMPRESSION: 1. Normal CT angiogram of the brain. 2. No focal cerebral arterial lesion or significant arterial stenosis is seen. 3. No evidence of superficial temporal arteritis or aneurysm could be found. Electronically signed by: Stephan Ascencio MD 05/01/2024 10:50 AM [facility]
[2024-04-30] MEDS: iohexoL 350 MG/ML 100 ML INFUS..BTL IV (14:14)
--- OUTSIDE RECORDS SUMMARY | 2024-05-07 14:27 | XMS_ITS ---
Author Name [facility] Organization Unknown History of Medication Use Medication Directions Dispensed Refills Start Date End Date [facility] sulfamethoxazole 800 mg-trimethoprim 160 mg tablet TAKE ONE TABLET BY MOUTH TWICE A DAY 09/03/2023 active methocarbamol 750 mg tablet TAKE 1 TABLET BY MOUTH EVERY 6 HOURS NEEDED 09/03/2023 completed cyclobenzaprine 10 mg tablet TAKE 1 TABLET BY MOUTH EVERY DAY AT BEDTIME NEEDED 09/03/2023 completed Senexon-S 8.6 mg-50 mg tablet TAKE 1 TABLET BY MOUTH TWICE A DAY 09/03/2023 completed pravastatin 09/03/2023 active tramadol 50 mg tablet TAKE 1 TABLET BY MOUTH TWICE A DAY NEEDED FOR PAIN 09/03/2023 completed pravastatin 20 mg tablet TAKE 1 TABLET BY MOUTH EVERY DAY IN THE EVENING 09/03/2023 active meloxicam 15 mg tablet TAKE 1 TABLET (15 MG) EVERY DAY BY ORAL ROUTE FOR 30 DAYS. 09/03/2023 active ciprofloxacin 500 mg tablet TAKE ONE TABLET BY MOUTH TWICE A DAY 09/03/2023 active aspirin 81 mg tablet,delayed release TAKE 1 TABLET BY MOUTH TWICE A DAY FOR 28 DAYS 09/03/2023 completed diazepam 2 mg tablet TAKE 1 TABLET BY MOUTH TWICE A DAY NEEDED FOR PAIN 09/03/2023 completed oxycodone 5 mg tablet TAKE 1-2 TABLETS BY MOUTH EVERY 4 HOURS NEEDED FOR PAIN 09/03/2023 completed estradiol 0.01% (0.1 mg/gram) vaginal cream 09/03/2023 ac tive cephalexin 500 mg capsule TAKE 1 CAPSULE BY MOUTH THREE TIMES A DAY 09/03/2023 completed ondansetron HCl 8 mg tablet DISSOLVE 1 TAB UNDER THE TONGUE EVERY 8 HOURS NEEDED FOR NAUSEA. 09/03/2023 completed prednisone 10 mg tablet TAKE 1 TABLET BY MOUTH EVERY DAY 09/03/2023 active amoxicillin 500 mg tablet TAKE FOUR TABLETS ONE HOUR PRIOR TO DENTAL PROCEDURE 09/03/2023 active pantoprazole 40 mg tablet,delayed release TAKE 1 TABLET BY MOUTH EVERY DAY 09/03/2023 completed Flowflex COVID-19 Antigen Home Test kit USE DIRECTED PER PACKAGE 09/03/2023 completed lansoprazole 30 mg capsule,delayed release 09/03/2023 active prednisone 20 mg tablet TAKE 1 TABLET BY MOUTH EVERY DAY 09/03/2023 completed vitamin E 09/03/2023 active Pain Relief Extra Strength (acetaminophen) 500 mg tablet TAKE 2 TABS BY MOUTH EVERY 8 HOURS X 28 DAYS 09/03/2023 completed omeprazole 40 mg capsule,delayed release Take 1 capsule every day by oral route for 28 days. 09/03/2023 completed prednisone 2.5 mg tablet PLEASE SEE ATTACHED FOR DETAILED DIRECTIONS 09/03/2023 active omeprazole 40 mg capsule,delayed release Take 1 capsule every day by oral route for 28 days. 11/17/2022 completed methocarbamol 750 mg tablet TAKE 1 TABLET BY MOUTH EVERY 6 HOURS NEEDED 11/17/2022 completed cyclobenzaprine 10 mg tablet TAKE 1 TABLET BY MOUTH EVERY DAY AT BEDTIME NEEDED 11/17/2022 completed vitamin E 11/17/2022 active amoxicillin 500 mg tablet TAKE FOUR TABLETS ONE HOUR PRIOR TO DENTAL PROCEDURE 11/17/2022 active Vitamin C 11/17/2022 active Senexon-S 8.6 mg-50 mg tablet TAKE 1 TABLET BY MOUTH TWICE A DAY 11/17/2022 completed pravastatin 11/17/2022 active Pain Relief Extra Strength (acetaminophen) 500 mg tablet TAKE 2 TABS BY MOUTH EVERY 8 HOURS X 28 DAYS 11/17/2022 completed meloxicam 15 mg tablet TAKE 1 TABLET (15 MG) EVERY DAY BY ORAL ROUTE FOR 30 DAYS. 11/17/2022 active pantoprazole 40 mg tablet,delayed release TAKE 1 TABLET BY MOUTH EVERY DAY 11/17/2022 completed tramadol 50 mg tablet TAKE 1 TABLET BY MOUTH TWICE A DAY NEEDED FOR PAIN 11/17/2022 completed aspirin 81 mg tablet,delayed release TAKE 1 TABLET BY MOUTH TWICE A DAY FOR 28 DAYS 11/17/2022 completed cephalexin 500 mg capsule TAKE 1 CAPSULE BY MOUTH THREE TIMES A DAY 11/17/2022 completed pravastatin 20 mg tablet TAKE 1 TABLET BY MOUTH EVERY DAY IN THE EVENING 11/17/2022 active ondansetron HCl 8 mg tablet DISSOLVE 1 TAB UNDER THE TONGUE EVERY 8 HOURS NEEDED FOR NAUSEA. 11/17/2022 completed oxycodone 5 mg tablet TAKE 1-2 TABLETS BY MOUTH EVERY 4 HOURS NEEDED FOR PAIN 11/17/2022 completed prednisone 10 mg tablet TAKE 1 TABLET BY MOUTH EVERY DAY 01/19/2023 active lansoprazole 30 mg capsule,delayed release 11/17/2022 active meloxicam 15 mg tablet 11/17/2022 active diazepam 2 mg tablet TAKE 1 TABLET BY MOUTH TWICE A DAY NEEDED FOR PAIN 11/17/2022 completed prednisone 20 mg tablet TAKE 1 TABLET BY MOUTH EVERY DAY 11/17/2022 completed Problems Problem Status Onset Date Problem Type Date of Resoluti on Source Osteoarthritis of left hip joint active 2022-08-11 ProblemAct [facility] Lumbar spondylolisthesis active 2022-12-05 ProblemAct [facility] Trochanteric bursitis of right hip active 2022-12-05 ProblemAct [facility] Low back pain active 2022-11-15 ProblemAct [facility] Lumbar spondylosis active 2022-12-05 ProblemAct [facility]
== END 2024-04-30 13:26 | disposition home or self-care (01) ==
LOC: HO.CT 13:25
PROVIDERS: PCP Internal Medicine; Visit Provider Internal Medicine
DX: G44.221 Chronic tension-type headache, intractable (principal)
CPT/HCPCS: 70496; Q9967

== ENCOUNTER 2024-08-14 14:08 | Outpatient (REF) | payer MEDICARE, SELFPAY ==
[2024-08-14 16:28] LABS: C Reactive Protein 0.18 mg/dL (< or = 0.50)
[2024-08-14 17:04] LABS: Erythrocyte Sedimentation Rate 12 MM/HR (0-20)
== END 2024-08-14 14:09 | disposition home or self-care (01) ==
LOC: HO.HMGCLDS 14:08
PROVIDERS: PCP Internal Medicine; Visit Provider Registered Nurse
DX: G44.209 Tension-type headache, unspecified, not intractable (principal)
CPT/HCPCS: 36415; 85652; 86140

== ENCOUNTER 2024-09-27 15:06 | Outpatient (AMB) | payer MEDICARE, SELFPAY ==
--- NOTE | 2024-09-27 15:08 | A.OFFVIS_ITS ---
Vital Signs 09/27/24 15:09 Height 5 ft 9 in Weight 189 lb 9.561 oz BMI 28.0 BP 158/82 H Blood Pressure Location Lt brachial Position Sitting Pulse 78 Pulse Source Pulse Oximeter Pulse Oximetry (%) 95 Oxygen Delivery Method Room Air Intake Visit Reasons: Obstructive sleep apnea Childbirth Educator Required: No Accompanied by: Self / Same As Patient Allergies No Known Allergies Allergy (Mild, Verified 09/27/24 15:12) HPI Comments Details: The patient is here for pulmonary evaluation. The patient is a 69 year woman with a known history of sleep apnea in addition to allergies presenting for further follow-up. Patient states that she was developing significant daytime drowsiness and apneic episodes that would wake her up short of breath. Ultimately, had a sleep study done on home. Had an AHI of 30 and has significant hypoxia. She was placed on APAP 6-20 with a fullface mask. She has been working closely with [employer]. She has been tolerating and now the AHI is down to less than 1. However, her mask has been uncomfortable. She did have a fullface mask that was initially rubbing her nasal bridge and then had a fullface mask below the nose that was irritating her nose that she keeps alternating back and forth. She went back to operative to try to find a mask t hat will work better but has not been able to do so. She is very happy overall with her CPAP therapy. I did adjust the pressure down to 6-14. In addition to that they provide her with an N30 I mask that she can use hopefully with a chinstrap. I will request 1 from [employer]. I am hopeful that with the AirTouch and 30 this often material will not irritate her nose as much. She has already try the AirTouch F 20 that does irritate her nasal bridge after little bit of time. She also has underlying allergies. Right now she is doing okay. She can try [id number] antiallergy medications and also nasal sprays. If however the nasal mask bothers her allergies and congestion she can always call and we can make further adjustments. The patient will follow-up in 6 months to assess her progress. If she has any issues prior to that she will call for an earlier assessment. [facility] Medical History (Updated 09/29/24 @ 21:58 by Dionisio Ventura MD) Chronic allergic rhinitis FARIDA (obstructive sleep apnea) Lymphoma, splenic HTN (hypertension) Elevated cholesterol Surgical History (Updated 12/13/22 @ 12:29 by Samaria Maher RN) History of left hip replacement H/O colonoscopy Social History (Updated 09/27/24 @ 15:17 by Graciela Ho CMA) Patient Tobacco Use Status: Never used Tobacco Review of Systems Const Denies chills, Denies fatigue, Denies fever(s), Denies weight gain and Denies weight loss Eyes Denies loss of vision ENT Denies dizziness, Reports nasal congestion and Reports nasal discharge Card Denies chest pain, Denies leg edema, Denies lightheadedness, Denies palpitations, Denies dyspnea on exertion, Denies orthopnea and Denies other Resp Denies cough, Denies dyspnea on exertion and Denies wheezing GI Reports no additional complaints Musc Denies abnormal gait, Denies muscle weakness, Denies numbness, Denies radiating pain into limb and Denies tingling Skin/Breast Denies nail changes and Denies rash Neuro Denies Abnormal speech present, Denies abnormal gait, Denies dizziness, Denies loss of vision, Denies memory loss, Denies numbness and Denies tingling Psych Denies depression and Denies memory loss Endo Denies fatigue and Denies palpitations Kurtis/Lymph Denies easy bruising Aller/Immun Denies wheezing Physical Exam Vital Signs: Last Vital Signs Pulse 78 09/27/24 15:09 BP 158/82 H 09/27/24 15:09 Pulse Ox 95 09/27/24 15:09 Oxygen Delivery Method Room Air 09/27/24 15:09 BMI result Body Mass Index 28.0 Const General: comfortable HEENT Head: Yes normocephalic Neck Neck: Yes supple Chest Chest palpation & inspection: normal inspection of the chest Resp Effort & Inspection: normal respiratory effort Auscultation: clear to auscultation bilaterally Cardio Rate: regular rate Heart sounds: S1 normal heart sound present and S2 normal heart sound present GI Palpation (GI): Soft to palpation Skin General skin exam: no rashes or lesions noted Neuro Speech: No Abnormal speech present Extrem General: Yes no clubbing, cyanosis or edema Assessment & Plan Assessment & Plan (1) FARIDA (obstructive sleep apnea): Code(s): G47.33 - Obstructive sleep apnea (adult) (pediatric) Category: Medical (2) Chronic allergic rhinitis: Code(s): J30.9 - Allergic rhinitis, unspecified Category: Medical Plan Continue APAP, pressures Trial N30i airtouch mask with chin strap (F40 and F20 Foam airtouch both irritate her nose) nasal rinsing allergy OTC medicine F/U 4-6 months Medications: Discontinued [id number]-ghfo 50-300-40 mg (Fioricet) Discontinued Reason: Patient no longer taking 1 cap PO Q6H PRN 20 caps 0RF headache Coding Level of Care Code New Pt Level 4 (00916) Diagnoses FARIDA (obstructive sleep apnea) G47.33 Chronic allergic rhinitis J30.9
[2024-09-27 15:09] VITALS: BP 158/82; PULSE 78; O2SAT 95; BMI 28.0
== END 2024-09-27 15:40 | disposition home or self-care (01) ==
LOC: HO.HPS 15:06
PROVIDERS: PCP Internal Medicine; Referring Provider Internal Medicine; Visit Provider Hospitalist
DX: G47.33 Obstructive sleep apnea (adult) (pediatric) (principal); J30.9 Allergic rhinitis, unspecified
CPT/HCPCS: 99204

== ENCOUNTER → 2024-09-27 15:06 | Outpatient (BNVA) | payer MEDICARE, SELFPAY | PROVIDERS: PCP Internal Medicine; Referring Provider Internal Medicine; Visit Provider Hospitalist | DX: G47.33 Obstructive sleep apnea (adult) (pediatric) (principal); J30.9 Allergic rhinitis, unspecified | CPT/HCPCS: 99202 ==

== ENCOUNTER 2024-10-25 14:40 | Outpatient (REF) | payer MEDICARE, SELFPAY ==
--- NOTE | ~2024-10-25 | XR_ITS ---
EXAMINATION: XR CHEST CLINICAL INFORMATION: R05.9 - Cough, unspecified COMPARISON: 11/02/2022. TECHNIQUE: 2 views of the chest were obtained. FINDINGS: The cardiac, hilar, and mediastinal contours are normal. Lungs demonstrate minimal linear type atelectasis left base. Lungs otherwise clear. No consolidations. There is no pneumothorax or pleural effusion. There is no focal osseous or soft tissue abnormality. There are mild spinal degenerative changes. XR/XR chest 2V IMPRESSION: No active pulmonary disease. Electronically signed by: Noel Odom MD 10/25/2024 03:25 PM EDT
== END 2024-10-25 14:41 | disposition home or self-care (01) ==
LOC: HO.HMGCX 14:40
PROVIDERS: PCP Internal Medicine; Visit Provider Physician Assistant
DX: R05.3 Chronic cough (principal); R19.7 Diarrhea, unspecified
CPT/HCPCS: 71046; 99212

== ENCOUNTER 2024-10-25 14:40 | Outpatient (AMB) | payer MEDICARE, SELFPAY ==
[2024-10-25 14:42] VITALS: BP 138/94; PULSE 73; TEMP 36.6; O2SAT 95; BMI 27.5
--- NOTE | 2024-10-25 14:42 | AM.OFFWIN_ITS ---
Intake Vital Signs 10/25/24 14:42 Height 5 ft 9 in Weight 186 lb 4 oz BMI 27.5 BP 138/94 H Blood Pressure Location Lt brachial Position Sitting Pulse 73 Pulse Source Pulse Oximeter Temp 97.8 F Temp Source Oral Pulse Oximetry (%) 95 Oxygen Delivery Method Room Air Intake Visit Reasons: EP shakes, nausea, vomiting, diarrhea Intake Note: Pt presents to the office today for c/o shakes,nausea,vomiting, diarrhea, headache, SOB x4 days. Patient Tobacco Use Status: Never used Tobacco Allergies No Known Allergies Allergy (Mild, Verified 10/25/24 14:45) HPI HPI Comments History of Present Illness Details History of Present Illness - The patient is a 69-year-old female pr esenting with shaking episodes with nausea and diarrhea. - Reported two episodes, the first at [facility]'s beginning, current episode started four days ago. - Symptoms include body tremors, nausea, vomiting, diarrhea, no fever. Diarrhea not bloody, black or watery. - Denies recent antibiotics, new medicat ions, except stopped suspected medications. - History of treatment for temporal head aches by Neurologist with amitriptyline, Topamax, meloxicam. - Ceased Topamax and meloxicam due to se mike side effects. - Reduced appetite, only minor food inta ke during episodes. - Similar episode resolved in September; denie s diabetes or hypoglycemia. - Persistent cough since Mar, was told i t was bronchitis, denies hx of GERD Physical Exam General: Cooperative, healthy appearing, comfortable, no acute distress and well developed Orientation: Patient oriented x3 Limitations: No limitations Head: Normal to inspection Ears: Hearing grossly normal bilaterally Nose: Normal External nose present Face and sinus: Normal facial exam Eyes: Appearance normal, both eyes and all related structures Neck: Normal visual inspection and Yes full ROM Respiratory: Normal respiratory effort and able to speak in complete sentences. GI: soft, no TTP, negative Jackson's, negative McBurney's, no guarding Skin: No rashes or lesions noted Neuro: Patient oriented x3 Extremities: Normal to inspection [facility] Medical History Chronic allergic rhinitis FARIDA (obstructive sleep apnea) Lymphoma, splenic HTN (hypertension) Elevated cholesterol Surgical History History of left hip replacement H/O colonoscopy Social History Patient Tobacco Use Status: Never used Tobacco Review of Systems Const All systems reviewed & are unremarkable except as noted in HPI and below Physical Exam Vital Signs: Last Vital Signs Temp 97.8 F 10/25/24 14:42 Pulse 73 10/25/24 14:42 BP 138/94 H 10/25/24 14:42 Pulse Ox 95 10/25/24 14:42 Oxygen Delivery Method Room Air 10/25/24 14:42 BMI result Body Mass Index 27.5 Assessment & Plan Assessment & Plan (1) Chronic cough: Code(s): R05.3 - Chronic cough Plan: Initiate omeprazole 20 mg twice daily for suspected reflux-related cough, adjusting to once daily after one week. If no improvement in cough noted, can stop omeprazole. Perform chest x-ray to exclude pulmonary complications from chronic cough. Conduct GI panel to assess diarrhea etiology; collect stool samples. Should omeprazole worsen diarrhea, modify to once daily dosing. Success with omeprazole may warrant a discussion about an upper endoscopy consultation with her primary care provider. Further steps will depend on test outcomes and symptom progression. Patient was informed and verbally consented to the use of an ambient scribe for clinic note documentation during this visit. (2) Diarrhea: Code(s): R19.7 - Diarrhea, unspecified Qualifiers: Diarrhea type: unspecified type Qualified Code(s): R19.7 - Diarrhea, unspecified Plan: as above Orders: Orders XR chest 2V Today R05.9 - Cough, unspecified GI Panel Today R19.7 - Diarrhea, unspecified Coding Level of Care Code Est Pt Level 4 (52763) Diagnoses Chronic cough R05.3 Diarrhea, unspecified type R19.7 Diarrhea type: unspecified type
--- OUTSIDE RECORDS SUMMARY | 2024-10-25 14:42 | XMS_ITS | Data Portability ---
Author Organization [place] [facility] [place] Address [address] [place] [address] Care Team Providers Care Cut Off Saw Tender Metal Name Role Phone REJI MCALLISTER Primary Care Provider [phone] REJI MCALLISTER Referring Provider [phone] REJI MCALLISTER Primary Care Provider [phone] Assessment Encounter Date Assessment Date Assessment LastModified by Organization Details LastModified Time 12/05/2022 12/05/2022 HPi: Jerilyn is a 67-year-old female who presents today for evaluation of her lumbar spine. She is status post a left total hip arthroplasty on August 16, [address] Abarca. Patient is doing very well in regards to her hip. In September 2022 she was making her bed and developed severe low back discomfort that she describes as back spasms . She was in bed for 1.5 weeks after that and started physical therapy. She had a similar flareup in May that improved after 1 week of rest and activity modification. Today, she note that the tightness in her back has improved, however she has right greater trochanteric pain and intermittent anterior groin discomfort. Her pain does not radiate down her leg. She does not have distal paresthesias. She describes some weakness of her right leg. She was evaluated by Dr. Abarca who recommended further evaluation of her lumbar spine. She gets improvement from meloxicam. Her pain is worse with transitioning positions. Pain disturbs sleep. No saddle anesthesia. No bowel or bladder incontinence. No fevers, chills, or unexplained weight loss. Today include vckg-btj-epugvnd medications, physical therapy, home exercises, traction, and activity modification. Plan Generally healthy 67-year-old female she has a grade 1 mobile spondylolisthesis at L4-5, she has severe disc space narrowing at L5-S1 with lower lumbar facet arthrosis. He has a right greater trochanteric pain greater than low back pain. She does not have distal radiculopathy or weakness. At this time we believe her symptoms are multifactorial. Her primary right greater trochanteric discomfort appears to be related to a right greater trochanteric bursitis. We did kallie bursitis including stretching, anti-inflammatories , conservative care, ice. Ambulate with a cane on the left. If her pain does not improve, bursal injection can be considered. She feels that her pain is improving. She would like to continue with physical therapy and stretching. We will send in a new prescription to meloxicam for her pharmacy. Risk and benefits were discussed. She will avoid other anti-inflammatories will take this medication. In addition, she should avoid noxious back activities due to her lumbar spine. She will follow-up with us in 3 to 4 weeks to update us on her progress [email or web address] Not available 12/05/2022 15:48:25 01/16/2023 01/16/2023 HPI: Jerilyn is a 67-year-old female who returns for continued mangement of her lumbar spine. She is status post a left total hip arthroplasty on August 16, [address] Abarca. she has a grade 1 mobile spondylolisthesis at L4-5, she has severe disc space narrowing at L5-S1 with lower lumbar facet arthrosis. She has a right greater trochanteric pain greater than low back pain. She does not have distal radiculopathy or weakness. Today, she informs me that she has been evaluated by her PCP and they diagnosed her with PMR. She had blood work with a CRP of 3.44 and ESR of 25. He started her on 10 mg of prednisone, this has significantly helped her pain. Her back pain and leg weakness have significantly improved. Since starting this regimen. She is scheduled to follow-up with them today. From an orthopedic standpoint she feels that her symptoms are well controlled. In addition, she notes that since starting the prednisone, she has had increased nocturia. She notes a history of nocturia, but now she has increased urgency at bedtime with dribbling if she cannot make it to the restroom fast enough. She does not have saddle anesthesia or bowel incontinence. Plan: Jerilyn has a grade 1 mobile spondylolisthesis at L4-5, she has severe disc space narrowing at L5-S1 with lower lumbar facet arthrosis. Since her last visit her PCP has diagnosed her with PMR. She is taking prednisone with great relief in her symptoms. She is scheduled to follow-up with her PCP today. We reviewed appropriate activity modification, she will continue self-directed care as indicated. She will follow-up with her PCP. We are happy to see her at anytime in the future for her lumbar spine. We reviewed kallie her orthopedic symptoms and her spondylolisthesis. We discussed her urinary symptoms, she does not have saddle anesthesia. She does not have marcela sphincter disorder. We recommended a rectal exam and MRI of her lumbar spine for completeness due to her new urinary symptoms since starting the prednisone. She declined and does not wish to proceed with this. Like to continue to follow-up with her PCP and follow-up with us on an as-needed basis. She was given strict emergency room precautions if she develops any worsening of her incontinence or develops saddle anesthesia. [email or web address] Not available 01/16/2023 12:01:43 09/01/2023 09/01/2023 HPI : ? Patient is here for 1 year follow-up from left total hip replacement. She is recovering well. Overall she feels great. Her main complaint is just some mild lateral sided tenderness. Overall she is functioning well. Overall, ?Patient reports good pain relief in the hip and satisfactory anabaptism of function in terms of activities of daily living. Physical Exam : Patient is well nourished, well-developed, in no acute distress, with appropriate mood and affect. The patient is oriented to time, place, and person. Respirations are even and unlabored. There is no inguinal adenopathy. Examination of the contralateral hip shows normal range of motion, strength, no tenderness, and intact skin. The operative limb is well-perfused, with well healed skin incision. The patient demonstrates good hip motion, stability, and strength. There is no pain with ROM Muscle strength is normal. Some mild tenderness along the greater trochanter area. Pedal pulses are palpable. Assessment/Plan : This patient is functioning well after LEFT total hip arthroplasty. She has mild IT band tendinitis. We are giving her IT band stretching exercises for this. Continue to work on hip conditioning exercises. Gmky-qdk-ckuowis medications as needed. Ultimate failure may occur due to mechanical wear, loosening or breakage. Follow-up is recommended to assess for the possibility of failure. Follow-up at 5 years from surgery with repeat x-rays of the left hip at that time. Not available 09/01/2023 13:22:43 10/11/2024 10/11/2024 69-year-old fema le with right knee pain. 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 She also has some mild osteoarthritis of the knee but the xray findings are focal to the medial compartment where clinically she is not having any symptoms. After discussion regarding treatment options she can trial Voltaren gel topically, routine ice applications, activity level modification and a course of physical therapy. Follow-up with me in 2 months. This patient was seen and evaluated by Queenie Hall MS, MADELYN in indirect conjunction with documenting/supervi sing provider Steven Abarca MD. He agrees with history, physical examination, tests/diagnostic imaging, and treatment plan. This document was generated using voice recognition software. As a result, there may be unintended spelling, grammatical and/or textual errors. [email or web address] Not available 10/11/2024 09:45:28 Plan of Treatment Reminders Order Date Submit Date Provider Last Modified By Organization Details Last Modified Time Details Appointments FOLLOW UP 2024 09:30A M QUEENIE HALL PA-C Not available Not available Not available Lab None recorded. Referral None recorded. Procedures None recorded. Surgeries None recorded. Imaging XR, knee, 4 or more view 2024 025 [email or web address] [facility], [address], [place], [address], 10/11/2024 11:38:19 XR, hip, unilatera l, 2 or 3 view 2023 024 [email or web address] [facility], [address], [place], [address], 09/01/2023 14:52:19 XR, lumbosacr al spine, 2 or 3 view 2022 023 [email or web address] [facility], [address], [place], [address], 12/05/2022 15:56:39 XR, lumbosacr al spine, 2 or 3 view, bending only 2022 023 [email or web address] [facility], [address], [place], [address], 12/05/2022 15:56:39 XR, hip, unilatera l, 2 or 3 view 2022 023 [email or web address] [facility], [address], [place], [address], 11/15/2022 16:39:40 XR, hip, unilatera l, 2 or 3 view 2022 023 [email or web address] [facility], [address], [place], [address], 11/15/2022 16:39:40 Medication Orders meloxicam 15 mg tablet 2022 023 [email or web address] [id number], [address] [place], [address], 09/01/2023 13:48:40 meloxicam 15 mg tablet 2022 023 [email or web address] [id number], [address] [place], [address], 09/01/2023 13:48:40 Patient TargetsNo targets recorded. Patient Instructions Encounter Date Encounter Id Patient Instructions Last Modified By Organization Details Last Modified Time 09/01/2023 [id number] AP pelvis, AP an d lateral radiographs of the left hip taken today demonstrate a left total hip replacement with components in appropriate position without any signs of hardware related complication. Not available 09/01/2023 13:22:54 10/11/2024 [id number] physical therapy * - Right knee pain secondary to IT band tendinitis/fricti on syndrome Evaluate and treat as indicated to reduce pain and to improve strength, mobility, stability, range of motion, and function. Please teach a home exercise plan and incorporate PT into patient's exercise routine. 2-3 sessions weekly for 6-8 weeks. [email or web address] Not available 10/18/2024 08:38:40 Reason for Referral None Reported. Problems Name Problem SNOMED Code Status Onset Date Resolution Date Notes Provider Name and Address Organization Details Recorded Time Low back pain 718456669 Active 2022 Steven Abarca MD [address], [place], [address], [place] [facility] 3 16:24:49 Trochanteri c bursitis of right hip 1599989798495 00 Active 2022 ESTHER ZARATE PA-C [address], [place], [address], [place] [facility] 3 15:43:36 Lumbar spondylolis thesis 8558103532826 02 Active 2022 ESTHER ZARATE PA-C [address], [place], [address], [place] [facility] 3 15:43:37 Lumbar spondylosis 354726342 Active 2022 ESTHER ZARATE PA-C [address], [place], [address], [place] [facility] 3 15:43:44 Osteoarthri tis of left hip joint 5932174356443 08 Active 2022 Steven Abarca MD [address], [place], [address], [place] [facility] 3 13:20:50 Iliotibial band friction syndrome of right knee 4760938198045 04 Active 2024 QUEENIE HALL PA-C [address], [place], [address], [place] [facility], 5 09:41:53 Problem Notes None recorded. Medical Equipment None Reported. Allergies No known drug allergies Medications Name Sig Start Date Stop Date Status Note LastModified by Organization Details LastModified Time cyclobenzap rine 10 mg tablet TAKE 1 TABLET BY MOUTH EVERY DAY AT BEDTIME NEEDED 11/15 completed Not Available Not Available Not Available prednisone 10 mg tablet TAKE 1 TABLET BY MOUTH EVERY DAY 08/31 completed Not Available Not Available Not Available ondansetron HCl 8 mg tablet DISSOLVE 1 TAB UNDER THE TONGUE EVERY 8 HOURS NEEDED FOR NAUSEA. 11/15 completed Not Available Not Available Not Available meloxicam 15 mg tablet TAKE 1 TABLET BY MOUTH DAILY active Not Available Not Available No t Available prednisone 20 mg tablet TAKE 1 TABLET BY MOUTH EVERY DAY 11/15 completed Not Available Not Available Not Available topiramate 25 mg tablet TAKE 1 TABLET BY MOUTH DAILY AT BEDTIME active Not Available Not Available No t Available trimethopri m 100 mg tablet TAKE 1 TABLET BY MOUTH DAILY NEEDED FOR UTI PREVENTIO N START AFTER YOU FINISH THE BACTRIM active Not Available Not Available No t Available ciprofloxac in 500 mg tablet TAKE ONE TABLET BY MOUTH TWICE A DAY active Not Available Not Available No t Available sulfamethox azole 800 mg-trimetho prim 160 mg tablet TAKE ONE TABLET BY MOUTH TWICE A DAY FOR 5 DAYS active Not Available Not Available No t Available omeprazole 40 mg capsule,del ayed release Take 1 capsule every day by oral route for 28 days. 11/15 completed Not Available Not Available Not Available aspirin 81 mg tablet,dale yed release TAKE 1 TABLET BY MOUTH TWICE A DAY FOR 28 DAYS 11/15 completed Not Available Not Available Not Available tramadol 50 mg tablet TAKE 1 TABLET BY MOUTH TWICE A DAY NEEDED FOR PAIN 11/15 completed Not Available Not Available Not Available amoxicillin 500 mg tablet TAKE FOUR TABLETS ONE HOUR PRIOR TO DENTAL PROCEDURE 08/31 completed Not Available Not Available Not Available methocarbam ol 750 mg tablet TAKE 1 TABLET BY MOUTH EVERY 6 HOURS NEEDED 11/15 completed Not Available Not Available Not Available amitriptyli ne 10 mg tablet TAKE TWO TABLETS BY MOUTH DAILY AT BEDTIME active Not Available Not Available No t Available diazepam 2 mg tablet TAKE 1 TABLET BY MOUTH TWICE A DAY NEEDED FOR PAIN 11/15 completed Not Available Not Available Not Available prednisone 2.5 mg tablet PLEASE SEE ATTACHED FOR DETAILED DIRECTION S 08/31 completed Not Available Not Available Not Available cephalexin 500 mg capsule TAKE 1 CAPSULE BY MOUTH THREE TIMES A DAY 11/15 completed Not Available Not Available Not Available pantoprazol e 40 mg tablet,dale yed release TAKE 1 TABLET BY MOUTH EVERY DAY 11/15 completed Not Available Not Available Not Available nortriptyli ne 10 mg capsule TAKE ONE CAPSULE BY MOUTH DAILY AT BEDTIME active Not Available Not Available No t Available lansoprazol e 30 mg capsule,del ayed release active Not Available Not Available Not Available pravastatin 20 mg tablet TAKE 1 TABLET BY MOUTH EVERY DAY IN THE EVENING active Not Available Not Available No t Available estradiol 0.01% (0.1 mg/gram) vaginal cream INSERT 1 GRAM VAGINALLY DAILY AT BEDTIME FOR 2 WEEKS, THEN USE TWICE WEEKLY active Not Available Not Available No t Available oxycodone 5 mg tablet TAKE 1-2 TABLETS BY MOUTH EVERY 4 HOURS NEEDED FOR PAIN 11/15 completed Not Available Not Available Not Available nitrofurant oin monohydrate /macrocryst als 100 mg capsule TAKE ONE CAPSULE BY MOUTH TWICE A DAY FOR 5 DAYS active Not Available Not Available No t Available Pain Relief Extra Strength (acetaminop hen) 500 mg tablet TAKE 2 TABS BY MOUTH EVERY 8 HOURS X 28 DAYS 11/15 completed Not Available Not Available Not Available Vitamin C active Not Available Not Katelin ilable Not Available vitamin E 08/31 completed Not Available Not Available Not Available Fish Oil active Not Available Not Avai lable Not Available flaxseed oil active Not Available Not Available Not Available Vitamin D active Not Available Not Katelin ilable Not Available pravastatin 08/31 completed Not Available Not Available Not Available Senexon-S 8.6 mg-50 mg tablet TAKE 1 TABLET BY MOUTH TWICE A DAY 11/15 completed Not Available Not Available Not Available Flowflex COVID-19 Antigen Home Test kit USE DIRECTED PER PACKAGE 11/15 completed Not Available Not Available Not Available Vitals Date Recorded Body height Body mass index (BMI) Body weight Provider Name and Address Organization Details Last Updated DateTime 01/16/2023 175.26 cm 25.7 kg/m2 60857.[address] [place] [facility] 01/16/2023 11:42:36 Social History None recorded. Functional Status None recorded. Mental Status None recorded. Family History Nothing Reported. Medical History No medical history recorded. Gynecological HistoryNo gynecological history recorded. Obstetrics History GPAL:G 0 P 0 0 0 0 Past Encounters Encounter ID Performer Location Encounter Start Date Encounter Closed Date Diagnosis/Indication Diagnosis SNOMED-CT Code Diagnosis ICD10 Code Diagnosis Note [id number] MD RAD [facility] [address] [address] 09/02/2022 09:57:31 09/02/2022 10:47:49 Aftercare 528051706 Z47.1 [id number] Steven Abarca MD [place] [id number] 11/15/2022 15:41:24 11/15/2022 16:29:07 History of total replacement of left hip joint 5813256799 236545 Z96.642 Pain of ri ght hip joint 5354841472 97541 M25.551 Aftercare 744831203 Z47. 1 Low back pain 106557515 M54.[id number] [address] 12/05/2022 14:24:52 12/05/2022 15:47:44 Low back pain 238061825 M54.50 Lumbar spondylolisthesis 5874483618 87900 M43.16 Trochanter ic bursitis of right hip 6492993877 18486 M70.61 Lumbar spondylosis 35305 0009 M47.[id number] [address] 01/16/2023 11:30:53 01/16/2023 12:02:55 Low back pain 768635957 M54.50 Lumbar spondylolisthesis 6453663830 71082 M43.16 Trochanter ic bursitis of right hip 6649437305 33931 M70.61 Lumbar spondylosis 19728 0009 M47.896 [id number] MD RAD [facility] [address] [facility] [address] [place] [address] 09/01/2023 12:48:42 09/01/2023 13:26:12 History of repair of hip joint 544602109 Z96.642 Additional diagnosis detail: History of left hip replacemen t Surgical follow-up 75441 4000 Z47.1 Z96.642 Additional diagnosis detail: Aftercare following left hip joint replacemen t surgery [id number] MADELYN NARAYAN [place] [address] [facility] [address] [place] [address] 10/11/2024 09:12:28 10/11/2024 11:38:19 Pain of right knee joint 3788833756 77038 M25.561 Iliotibial band friction syndrome of right knee 0715555982 88819 M76.31 Health Concerns Section Related Observation LastModified by Organization Detai ls LastModified Time None Recorded Concern Status LastModified by Organization Details LastModified Time None Recorded Advance Directives Directive None Recorded Payers Encounter Date Sequence Insurance Name Policy Number Policy Charles Covered Member ID Charles Member ID Guarantor Name 12/05/2022 1 [employer] [id number] Lazaro Martinez [id number] Lynne Martinez 01/16/2023 1 [place] [id number] Lazaro Martinez [id number] Lynne Martinez 09/01/2023 1 [place] (MEDICARE REPLACEMENT PPO) [id number] Lynne Martinez [id number] Lynne Martinez 10/11/2024 1 [place] - [place]) [id number] Lynne Martinez [id number] Lynne Martinez Notes Date Note Type Note Provider Name and Address Organization Details Recorded Time 11/15/2022 text/html HPI:Jerilyn comes in for follow-up for her left total hip replacement approximately 3 months, as well as new right-sided leg pain. Regarding her left hip she is recovering well. She reports minimal pain on the side. She is working on strengthening. She was happy with her progress on this left side. Unfortunate over the last few weeks she developed significant back pain. This back pain radiated now to the right leg. It goes down the right lower extremity. This pain is significant in intensity. The pain limits some activities of daily living. Pain and restriction of function are moderate at this time. Review of systems is negative for other rapidly progressive neurological disorder, chest pain, shortness of breath, fevers, chills, or any signs of active or persistent local or systemic infection. Physical Exam: Patient is well nourished, well-developed, in no acute distress, with appropriate mood and affect. The patient is oriented to time, place, and person. Respirations are even and unlabored. There is no inguinal adenopathy. Examination of the left hip shows a well-healed skin incision. Good range of motion and strength of the left hip. No hip range of motion pain. The right limb shows intact skin. Grossly normal motor and sensory examination. Some tenderness to palpation along the IT band. Mild pain with internal rotation of the hip. Pedal pulses are palpable. Assessment/Plan: Patient is 3 months from her left total hip replacement and is recovering well in regards to the left hip. Continue hip conditioning exercises. She will follow-up at 1 year from surgery. Her main issue at this time is low back pain radiating down to the right lower extremity. I do not think this is a intra-articular issue. She does have some IT band tendinitis, but this does not seem to be her main issue either. I would like her evaluated by our spine team. I am going to prescribe her meloxicam in the meantime. Steven Abarca MD [address], [place], [address], [place] [facility] 11/15/2022 16:25:18 01/16/2023 text/html prior visit 12/05 HPi: Jerilyn is a 67-year-old female who presents today for evaluation of her lumbar spine. She is status post a left total hip arthroplasty on August 16, [address] Abarca. Patient is doing very well in regards to her hip. In September 2022 she was making her bed and developed severe low back discomfort that she describes as back spasms . She was in bed for 1.5 weeks after that and started physical therapy. She had a similar flareup in May that improved after 1 week of rest and activity modification. Today, she note that the tightness in her back has improved, however she has right greater trochanteric pain and intermittent anterior groin discomfort. Her pain does not radiate down her leg. She does not have distal paresthesias. She describes some weakness of her right leg. She was evaluated by Dr. Abarca who recommended further evaluation of her lumbar spine. She gets improvement from meloxicam. Her pain is worse with transitioning positions. Pain disturbs sleep. No saddle anesthesia. No bowel or bladder incontinence. No fevers, chills, or unexplained weight loss. Today include kynz-mof-zjnukby medications, physical therapy, home exercises, traction, and activity modification. Plan Generally healthy 67-year-old female she has a grade 1 mobile spondylolisthesis at L4-5, she has severe disc space narrowing at L5-S1 with lower lumbar facet arthrosis. SHe has a right greater trochanteric pain greater than low back pain. She does not have distal radiculopathy or weakness. At this time we believe her symptoms are multifactorial. Her primary right greater trochanteric discomfort appears to be related to a right greater trochanteric bursitis. We did kallie bursitis including stretching, anti-inflammatories, conservative care, ice. Ambulate with a cane on the left. If her pain does not improve, bursal injection can be considered. She feels that her pain is improving. She would like to continue with physical therapy and stretching. We will send in a new prescription to meloxicam for her pharmacy. Risk and benefits were discussed. She will avoid other anti-inflammatories will take this medication. In addition, she should avoid noxious back activities due to her lumbar spine. She will follow-up with us in 3 to 4 weeks to update us on her progress ESTHER ZARATE PA-C [address], [place], [address], [place] [facility] 01/16/2023 12:03:00 10/11/2024 text/html 69-year-old fema jefferson presents with chief complaint of right knee pain. She reports the onset of her symptoms as far back as 1 year ago. There is no specific injury accident or trauma. Her symptoms are exclusively at the lateral aspect of the joint. She reports that early on if she changed into newer sneakers she would have resolution of her symptoms but more recently the symptoms have become persistent. She reports paddling her e-bike recently as reliably aggravating the pain. Getting in and out of the car aggravates pain as well. She took a recent dose of meloxicam and while it helped with the pain it caused upset stomach so she had to stop it. She denies a history of any prior surgery, injections or need for medical attention to the right knee in the past. QUEENIE HALL PA-C [address], [place], [address], [place] [facility] 10/11/2024 09:45:48 OBGyn Episode No OBEpisode recorded.
== END 2024-10-25 15:11 | disposition home or self-care (01) ==
PROVIDERS: PCP Internal Medicine; Visit Provider Physician Assistant
DX: R05.3 Chronic cough (principal); R19.7 Diarrhea, unspecified

== ENCOUNTER → 2024-10-25 15:09 | Outpatient (BNV) | payer MEDICARE, SELFPAY | PROVIDERS: PCP Internal Medicine; Visit Provider Radiology Diagnostic Radiology | DX: R05.9 Cough, unspecified (principal) | CPT/HCPCS: 71046 ==

== ENCOUNTER 2024-10-26 09:30 | Outpatient (REF) | payer MEDICARE, SELFPAY ==
[2024-10-27 13:10] LABS: Adenovirus F 40/41 Not Detected (Not Detect.); Astrovirus Not Detected (Not Detect.); Campylobacter Not Detected (Not Detect.); Cryptosporidium Not Detected (Not Detect.); Cyclospora cayetanensis Not Detected (Not Detect.); E. coli EAEC Not Detected (Not Detect.); E. coli EPEC Not Detected (Not Detect.); E. coli ETEC Not Detected (Not Detect.); E. coli STEC Not Detected (Not Detect.); Entamoeba histolytica Not Detected (Not Detect.); Giardia lamblia Not Detected (Not Detect.); Norovirus GI/GII Not Detected (Not Detect.); Plesiomonas shigelloides Not Detected (Not Detect.); Rotavirus A Not Detected (Not Detect.); Salmonella Not Detected (Not Detect.); Sapovirus Not Detected (Not Detect.); Shigella sp./EIEC Not Detected (Not Detect.); Vibrio Not Detected (Not Detect.); Vibrio Cholerae Not Detected (Not Detect.); Yersinia enterocolitica Not Detected (Not Detect.)
== END 2024-10-26 09:31 | disposition home or self-care (01) ==
LOC: HO.HMGCLNP 09:30
PROVIDERS: Visit Provider Physician Assistant
DX: R19.7 Diarrhea, unspecified (principal)
CPT/HCPCS: 87507

== ENCOUNTER 2024-10-30 15:15 | Outpatient (AMB) | payer MEDICARE, SELFPAY ==
--- OUTSIDE RECORDS SUMMARY | 2024-10-30 15:26 | XMS_ITS | Data Portability ---
Author Organization [place] [facility] Cathi Mark [place] Address [address] [place] [address] Care Team Providers Care Yard Hostler Name Role Phone REJI MCALLISTER Primary Care Provider REJI MCALLISTER Referring Provider [phone] REJI MCALLISTER Primary Care Provider Assessment Encounter Date Assessment Date Assessment LastModified [...] chills, or unexplained weight loss. Today include jtuc-blq-znfuwuy medications, physical therapy, home exercises, traction, and [...] weeks to update us on her progress [email or web address] Not available 12/05/2022 15:48:25 01/16/2023 01/16/2023 HPI: [...] of her incontinence or develops saddle anesthesia. Not available 01/16/2023 12:01:43 09/01/2023 09/01/2023 HPI : ? Patient is here for 1 year follow-up from left total hip replacement. She is recovering well. Overall she feels great. Her main complaint is just some mild lateral sided tenderness. Overall she is functioning well. Overall, ?Patient reports good pain relief in the hip and satisfactory jehovah's witness of function in terms of activities of [...] Continue to work on hip conditioning exercises. Edod-zkc-oipsdhc medications as needed. Ultimate failure may occur [...] more view 2024 025 [email or web address] [facility], [address], [place], [address], 10/11/2024 11:38:19 XR, hip, unilatera l, 2 or 3 view 2023 024 [email or web address] [facility], [address], [place], [address], 09/01/2023 14:52:19 XR, lumbosacr al spine, 2 or 3 view 2022 023 [facility], [address], [place], [address], 12/05/2022 15:56:39 XR, lumbosacr al spine, 2 or 3 view, bending only 2022 023 [email or web address] [facility], [address], [place], [address], 12/05/2022 15:56:39 XR, hip, unilatera l, 2 or 3 view 2022 023 [email or web address] [facility], [address], [place], [address], 11/15/2022 16:39:40 XR, hip, unilatera l, 2 or 3 view 2022 023 [email or web address] [facility], [address], [place], [address], 11/15/2022 16:39:40 Medication Orders meloxicam 15 mg tablet 2022 023 [email or web address] [id number], [address] [place], [address], 09/01/2023 13:48:40 meloxicam 15 mg tablet 2022 023 [email or web address] [id number], [address] [place], [address], 09/01/2023 13:48:40 Patient TargetsNo targets recorded. Patient Instructions Encounter Date Encounter Id Patient Instructions Last Modified By Organization Details Last Modified Time 09/01/2023 [id number] AP pelvis, AP an d lateral radiographs of the left hip taken today demonstrate a left total hip replacement with components in appropriate position without any signs of hardware related complication. Not available 09/01/2023 13:22:54 10/11/2024 [id number] physical therapy * - Right knee pain secondary to IT band tendinitis/fricti on syndrome Evaluate and treat as indicated to reduce pain and to improve strength, mobility, stability, range of motion, and function. Please teach a home exercise plan and incorporate PT into patient's exercise routine. 2-3 sessions weekly for 6-8 weeks. [email or web address] Not available 10/18/2024 08:38:40 Reason for Referral None Reported. Problems Name Problem SNOMED Code Status Onset Date Resolution Date Notes Provider Name and Address Organization Details Recorded Time Low back pain 538023542 Active 2022 Steven Abarca MD [address], [place], [address], [place] [facility] 3 16:24:49 Trochanteri c bursitis of right hip 6043765713475 00 Active 2022 ESTHER ZARATE PA-C [address], [place], [address], [place] [facility] 3 15:43:36 Lumbar spondylolis thesis 8698816431822 02 Active 2022 ESTHER ZARATE PA-C [address], [place], [address], [place] [facility] 3 15:43:37 Lumbar spondylosis 040372912 Active 2022 ESTHER ZARATE PA-C [address], [place], [address], [place] [facility] 3 15:43:44 Osteoarthri tis of left hip joint 7614837596376 08 Active 2022 Steven Abarca MD [address], [place], [address], [place] [facility] 3 13:20:50 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 Medical [...] Updated DateTime 01/16/2023 175.26 cm 25.7 kg/m2 63316.[address] [place] [facility] 01/16/2023 11:42:36 Social History None recorded. [...] Code Diagnosis Note [id number] MD RAD [facility] [address] [address] 09/02/2022 09:57:31 09/02/2022 10:47:49 Aftercare [id number] Z47.1 [id number] Steven Abarca MD [place] [address] 11/15/2022 15:41:24 11/15/2022 16:29:07 History of total replacement of left hip joint 6364256896 157972 Z96.642 Pain of ri ght hip joint 3295381104 62894 M25.551 Aftercare 662931963 Z47. 1 Low back pain 595187731 M54.[id number] [address] 12/05/2022 14:24:52 12/05/2022 15:47:44 Low back pain 918940474 M54.50 Lumbar spondylolisthesis 2873433861 99326 M43.16 Trochanter ic bursitis of right hip 5261681012 22916 M70.61 Lumbar spondylosis 33009 0009 M47.[id number] [address] 01/16/2023 11:30:53 01/16/2023 12:02:55 Low back pain 851508724 M54.50 Lumbar spondylolisthesis 3836029595 51188 M43.16 Trochanter ic bursitis of right hip 0692707725 83879 M70.61 Lumbar spondylosis 01218 0009 M47.896 [id number] MD RAD [facility] [address] [facility] [address] [place] [address] 09/01/2023 12:48:42 09/01/2023 13:26:12 History of repair of hip joint 223073293 Z96.642 Additional diagnosis detail: History of left hip replacemen t Surgical follow-up 62070 4000 Z47.1 Z96.642 Additional diagnosis detail: Aftercare following left hip joint replacemen t surgery [id number] MADELYN NARAYAN [place] [address] [facility] [address] [place] [address] 10/11/2024 09:12:28 10/11/2024 11:38:19 Pain of right knee joint 7191061731 01189 M25.561 Iliotibial band friction syndrome of right knee 5624801298 24866 M76.31 Health Concerns Section Related Observation LastModified by Organization Detai ls LastModified Time None Recorded Concern Status LastModified by Organization Details LastModified Time None Recorded Advance Directives Directive None Recorded Payers Encounter Date Sequence Insurance Name Policy Number Policy Charles Covered Member ID Charles Member ID Guarantor Name 12/05/2022 1 [place] [id number] Lazaro Martinez [id number] Lynne Martinez 01/16/2023 1 [place] [id number] Lazaro Martinez [id number] Lynne Martinez 09/01/2023 1 [place] (MEDICARE [place] PPO) [id number] Lynne Martinez [id number] Lynne Martinez 10/11/2024 1 [place] - [place]) [id number] Lynne Martinez [id number] Lynne Martinez Notes Date Note Type [...] Steven Abarca MD [address], [place], [address], [place] [facility] 11/15/2022 16:25:18 01/16/2023 text/html prior visit [...] chills, or unexplained weight loss. Today include haza-ijk-heuajos medications, physical therapy, home exercises, traction, and [...] ESTHER ZARATE PA-C [address], [place], [address], [place] [facility] 01/16/2023 12:03:00 10/11/2024 text/html 69-year-old fema [...] QUEENIE HALL PA-C [address], [place], [address], [place] [facility] 10/11/2024 09:45:48 OBGyn Episode No OBEpisode recorded.
--- NOTE | 2024-10-30 15:27 | MHC.PC.OV ---
Vital Signs 10/30/24 15:29 Height 5 ft 9 in Weight 86.183 kg BMI 28.1 BP 144/88 H Respiration 16 Pulse 77 Pulse Source Pulse Oximeter Temp 98.9 F Temp Source Temporal Artery Scan Pulse Oximetry (%) 94 Oxygen Delivery Method Room Air Intake Visit Reasons: Not feeling too well NO FEVER Heating And Ventilating Tender Required: No Accompanied by: Self / Same As Patient Allergies No Known Allergies Allergy (Mild, Verified 10/30/24 15:30) HPI HPI Comments History of Present Illness Details 69 year old female with history of hypercholesterolemia, hypertension, obstructive sleep apnea, splenic lymphoma presents to the office today for evaluation and to establish care. The patient reports she has been experiencing a chronic dry cough as well as temporal headache ongoing since March. She is following with neurology for the headache who believes it is secondary to the cough. She has been taking antihistamine for allergies which has not relieved her cough. She does also follow with Dr. Ventura in pulmonology for FARIDA, for which she is compliant with CPAP, but not the chronic cough. She reports over the last month she has had 2 episodes lasting about a week where she has had low-grade fevers around 99.8 with nausea, vomiting, myalgias/arthralgias, and fatigue. She states that she feels awful. She presented to an urgent care for evaluation and performed a chest x-ray which was negative. GI panel was also ordered and was negative. At that time, omeprazole 20 mg daily was recommended to see if this helped with the cough which could possibly be related to uncontrolled GERD. He does endorse a history of reflux. States the cough does worsen at night. She states the CPAP machine has actually improved the cough as well as the reflux. She does report that she is often outside but denies any known tick bites. She also follows with urogynecology, Ciara Jama NP, at [facility] for incontinence/recurrent UTI, now on estradiol and d-mannose with full relief of symptoms. ROS: General: see hpi HEENT: No blurred vision, diplopia. No sore throat, nasal congestion, rhinorrhea, sinus pain, ear pain Cardiovascular: No chest pain, palpitations, or leg edema Respiratory: No shortness of breath, wheezing. see hpi GI: see hpi : No dysuria, hematuria, increased urinary frequency, decreased urinary output MSK: see hpi Neuro: see hpi Skin: No rashes or lesions EXAM: Constitutional - Awake and Alert, No apparent distress Eyes - PERRLA, EOMI Cardiovascular - S1S2, RRR, No edema Respiratory - Normal lung expansion, Normal respiratory effort, No respiratory distress, CTA bilaterally Extremities - no calf tenderness bilaterally, no swelling Skin - Warm/Dry Neurological - Alert & oriented x3 Psychological - Appropriate affect PFSH Medical History (Updated 10/30/24 @ 16:30 by LINA Jean) Chronic allergic rhinitis FARIDA (obstructive sleep apnea) Lymphoma, splenic HTN (hypertension) Elevated cholesterol Surgical History (Updated 10/30/24 @ 16:11 by Tesha Paz) History of left hip replacement H/O colonoscopy (~12/14/22) Social History Patient Tobacco Use Status: Never used Tobacco Physical exam (Primary Care) Vital Signs: Last Vital Signs Temp 98.9 F 10/30/24 15:29 Pulse 77 10/30/24 15:29 Resp 16 10/30/24 15:29 BP 144/88 H 10/30/24 15:29 Pulse Ox 94 10/30/24 15:29 Oxygen Delivery Method Room Air 10/30/24 15:29 BMI result Body Mass Index 28.1 Tobacco/Smoking Status: Tobacco use Status Patient Tobacco Use Status Never used Tobacco 10/30/24 15:36 Coding Level of Care Code New Pt Level 4 (58012) Complex EM visit Add On G2211 Diagnoses Fatigue R53.83 Chronic cough R05.3 FARIDA (obstructive sleep apnea) G47.33 HTN (hypertension) I10 Elevated cholesterol E78.00 Assessment & Plan Assessment & Plan (1) Fatigue: Code(s): R53.83 - Other fatigue Category: Medical Plan: Given associated sx including myalgias, arthralgia, low-grade fever, nausea, malaise, concern for tick-borne illness. CBC and tick panel ordered. Additional labs including vitamin levels and TSH ordered given the ongoing fatigue. Ondansetron given for nausea (2) Chronic cough: Code(s): R05.3 - Chronic cough Category: Medical Plan: Possibly related to uncontrolled GERD. Advised to continue omeprazole 20 mg every morning and can increase to by daily dosing with 2nd dose taken around 16:00. Advised to take the medication and not eat or drink except water for about 30-60 minutes. Continue with loratadine. Recommend follow-up with pulmonology should symptoms persist (3) FARIDA (obstructive sleep apnea): Code(s): G47.33 - Obstructive sleep apnea (adult) (pediatric) Category: Medical Plan: Continue with CPAP. Follow-up with pulmonology as scheduled (4) HTN (hypertension): Code(s): I10 - Essential (primary) hypertension Category: Medical Plan: Uncontrolled but borderline, however was previously controlled through diet and exercise. However given ongoing malaise and fatigue she has not been as active. She will monitor her blood pressures at home and reach out should blood pressure is remain greater than 140/90. Low-sodium diet (5) Elevated cholesterol: Code(s): E78.00 - Pure hypercholesterolemia, unspecified Category: Medical Plan: Lipid panel ordered. Plan Follow up as scheduled. Labs to be completed today. Monitor bp Orders: Orders Basic Metabolic Panel Today R05.3 - Chronic cough, R11.0 - Nausea, R19.7 - Diarrhea, unspecified, R53.83 - Other fatigue Complete Blood Count Auto Diff Today R05.3 - Chronic cough, R11.0 - Nausea, R19.7 - Diarrhea, unspecified, R53.83 - Other fatigue TSH reflex Free T4 Today R05.3 - Chronic cough, R11.0 - Nausea, R19.7 - Diarrhea, unspecified, R53.83 - Other fatigue Tick-borne Disease Molecular Today R05.3 - Chronic cough, R11.0 - Nausea, R19.7 - Diarrhea, unspecified, R53.83 - Other fatigue Lipid Panel Today R05.3 - Chronic cough, R11.0 - Nausea, R19.7 - Diarrhea, unspecified, R53.83 - Other fatigue Vitamin B12 Today R05.3 - Chronic cough, R11.0 - Nausea, R19.7 - Diarrhea, unspecified, R53.83 - Other fatigue Vitamin D 25-OH Total Today R05.3 - Chronic cough, R11.0 - Nausea, R19.7 - Diarrhea, unspecified, R53.83 - Other fatigue Medications: New ondansetron 4 mg PO Q8H PRN 30 tabs 0RF nausea and vomiting
[2024-10-30 15:29] VITALS: BP 144/88; PULSE 77; RESP 16; TEMP 37.2; O2SAT 94; BMI 28.1
== END 2024-10-30 15:59 | disposition home or self-care (01) ==
LOC: HO.HMCHD 15:15
PROVIDERS: PCP Internal Medicine; Visit Provider Physician Assistant
DX: R53.83 Other fatigue (principal); R05.3 Chronic cough; G47.33 Obstructive sleep apnea (adult) (pediatric); I10 Essential (primary) hypertension; E78.00 Pure hypercholesterolemia, unspecified

== ENCOUNTER → 2024-10-30 15:15 | Outpatient (BNVA) | payer MEDICARE, SELFPAY | PROVIDERS: PCP Internal Medicine; Visit Provider Physician Assistant | DX: R05.3 Chronic cough (principal); G47.33 Obstructive sleep apnea (adult) (pediatric); E78.00 Pure hypercholesterolemia, unspecified; I10 Essential (primary) hypertension; R51.9 Headache, unspecified; R53.83 Other fatigue; R11.0 Nausea; R19.7 Diarrhea, unspecified; Z99.89 Dependence on other enabling machines and devices | CPT/HCPCS: 99202 ==

== ENCOUNTER 2024-10-31 09:23 | Outpatient (REF) | payer MEDICARE, SELFPAY ==
[2024-10-31 13:31] LABS: MANUAL DIFF FLAG NO
[2024-10-31 13:40] LABS: Basophils Percent Auto 0.5 % (0-2); Eosinophils Absolute Auto 0.1 X10*3/uL (0.0-0.4); Eosinophils Percent Auto 2.4 % (0-4); Hematocrit 36.4 % (37.0-47.0); Hemoglobin 11.8 g/dl (12.0-16.0); Imm Gran Abs Auto 0.01 X10*3/uL (0.00-0.03); Imm Gran Pct Auto 0.2 % (0.0-0.4); Lymphocytes Absolute Auto 1.1 X10*3/uL (1.2-4.9); Lymphocytes Percent Auto 19.7 % (20-40); Mean Corpuscular HGB Conc 32.4 g/dl (31.0-35.0); Mean Corpuscular Volume 89.4 fL (80.0-98.0); Mean Platelet Volume 10.2 fL (9.4-12.3); Monocytes Absolute Auto 0.5 X10*3/uL (0.1-1.2); Monocytes Percent Auto 8.9 % (2-11); Neutrophils Absolute Auto 3.9 x10*3/uL (2.0-8.3); Neutrophils Percent Auto 68.3 % (45-73); Platelet Count 327 X10*3/uL (160-400); Red Blood Count 4.07 X10*6/uL (4.20-5.50); Red Cell Distribution Width 13.8 % (11.0-16.0); White Blood Count 5.7 X10*3/uL (4.8-10.8)
[2024-10-31 15:02] LABS: Anion Gap 11 (12-20); Blood Urea Nitrogen 9 mg/dL (9-16); Calcium 9.5 mg/dL (8.4-10.2); Carbon Dioxide 26 mmol/L (22-29); Chloride 106 mmol/L (96-108); Cholesterol 184 mg/dL (<200); Estimated Glomerular Filt Rate > 60; Glucose Random 85 mg/dL (60-115); HDL Cholesterol 41 mg/dL (>40); LDL Cholesterol Calculated 128 mg/dL (<100); Sodium 139 mmol/L (135-145); Triglycerides 77 mg/dL (<150)
[2024-10-31 15:09] LABS: TSH reflex Free T4 0.83 uIU/mL (0.32-4.0); Vitamin D 25-OH Total 40.5 ng/mL (>30)
[2024-10-31 15:10] LABS: Vitamin B12 296 pg/mL (200-900)
[2024-11-01 14:42] LABS: A. Phagocytphilium DNA,RT-PCR NOT DETECTED (NOT DETECTED); Babesia Microti DNA, RT-PCR NOT DETECTED (NOT DETECTED); Borrelia Miyamotoi,DNA RT-PCR NOT DETECTED (NOT DETECTED); E.Chaffeensis DNA RT-PCR NOT DETECTED (NOT DETECTED); Lyme(Borrelia ssp)DNA RT-PCR NOT DETECTED (NOT DETECTED)
== END 2024-10-31 09:24 | disposition home or self-care (01) ==
LOC: HO.HMGCLDS 09:23
PROVIDERS: Visit Provider Physician Assistant
DX: R19.7 Diarrhea, unspecified (principal); R05.3 Chronic cough; R53.83 Other fatigue; R11.0 Nausea
CPT/HCPCS: 36415; 80048; 80061; 82306; 82607; 84443; 85025; 87468; 87469; 87478; 87484; 87798

== ENCOUNTER 2024-11-03 19:41 | Inpatient (IN) | payer MEDICARE, SELFPAY ==
--- NOTE | ~2024-11-03 | XR_ITS ---
CLINICAL HISTORY: fever, shortness of breath 2 view chest x-ray Comparison: 10/25/2024 Findings: Lungs are clear without acute infiltrates. No pneumothorax. Heart size enlarged. No acute bony abnormalities. Impression: No acute processes This document has been electronically signed by: Gt Eaton MD on 11/03/2024 21:28:17
--- NOTE | ~2024-11-03 | CT_ITS ---
EXAMINATION: CT ABDOMEN PELVIS WITHOUT IV CONTRAST HISTORY: recurrent uti COMPARISON: There are no prior studies available for comparison. TECHNIQUE: CT scan of the abdomen and pelvis was performed without contrast using standard departmental protocol. Coronal and sagittal reformatted images were generated and reviewed. Oral contrast material was not administered per department protocol. This CT exam was performed with one or more of the following dose reduction techniques: automated exposure control, adjustment of the mA and/or kV according to patient size, use of iterative reconstruction technique. DLP: 600 mGy-cm FINDINGS: LOWER CHEST: The visualized lung bases are clear. There is no pleural effusion. CARDIOVASCULATURE: The heart is mildly enlarged. There is no pericardial effusion. LIVER: The liver is normal in size and contour. The liver has an unremarkable unenhanced appearance. GALLBLADDER / BILE DUCTS: The gallbladder is unremarkable. There is no intra or extrahepatic biliary ductal dilatation. SPLEEN: The spleen is normal in size and has an unremarkable unenhanced appearance. PANCREAS: The pancreas has an unremarkable unenhanced appearance. ADRENAL GLANDS: Unremarkable. KIDNEYS/RETROPERITONEUM: There is a staghorn calculus at the upper pole of the right kidney. There is a 1.9 x 0.8 cm calculus in the renal pelvis. Additional smaller calculi are noted at the lower pole. There is a 2.4 cm cyst at the lower pole. On the left, there is a 3.1 cm cyst in the interpolar region and a 3.1 cm cyst at the lower pole. There is a small amount of excreted contrast in the bilateral renal collecting systems and ureters from a CT angiogram of the chest performed 11/03/2024. There is no hydronephrosis. LYMPH NODES: No retroperitoneal lymphadenopathy is identified in the abdomen or pelvis. VASCULATURE: The abdominal aorta demonstrates atherosclerotic calcification, but is normal in caliber. MESENTERY/PERITONEUM: No free fluid. No masses. There is no free intraperitoneal gas. STOMACH: There is a small hiatal hernia. The remainder of the stomach is collapsed. SMALL BOWEL: The small bowel is normal in caliber. COLON: There is extensive diverticulosis of the colon, without evidence of diverticulitis APPENDIX: Normal. URINARY BLADDER/PELVIC ORGANS: The urinary bladder is collapsed, limiting evaluation. The uterus has an unremarkable unenhanced appearance. BONES / SOFT TISSUES: The patient is status post left total hip arthroplasty. There is slight anterolisthesis of L4 on L5. There is degenerative disc disease at the L5-S1 level. CT/CT abdomen pelvis wo IV con IMPRESSION: 1. Staghorn calculus at the upper pole of the right kidney. 1.9 x 0.8 cm calculus in the right renal pelvis. Additional subcentimeter nonobstructing calculi at the lower pole of the right kidney. 2. Bilateral renal cysts as described. 3. Colonic diverticulosis without evidence of diverticulitis. Small hiatal hernia. Electronically signed by: Romain Mims MD 11/04/2024 09:24 AM EDT
--- NOTE | ~2024-11-03 | CT_ITS ---
CLINICAL HISTORY: low sats, high d-dimer, clear CXR CT angiogram chest/pulmonary arteries with contrast Multiplanar reconstructions and MIPS Comparison: None Findings: No filling defects are noted to suggest pulmonary embolus. Main pulmonary artery normal in caliber. Thoracic aorta normal caliber without dissection. Heart size enlarged. Great vessel origins patent. Dense coronary calcifications. Trace bilateral pleural effusions noted. Bilateral lower lobe subsegmental atelectasis. Emphysema without other abnormalities. No significant mediastinal or hilar adenopathy. No acute bony abnormality noted. Impression: No evidence of pulmonary embolus Trace pleural effusions with lower lobe atelectasis This document has been electronically signed by: Gt Eaton MD on 11/03/2024 23:17:13
[2024-11-03 19:43] VITALS: BP 166/86; PULSE 80; O2SAT 94
[2024-11-03 19:49] VITALS: BP 131/49; PULSE 92; RESP 16; TEMP 37.6; O2SAT 89; BMI 27.3
[2024-11-03 20:02] VITALS: TEMP 40; O2SAT 91
--- NOTE | 2024-11-03 20:04 | ED_ITS ---
HPI - General Adult General Chief complaint: General Medical Stated complaint: uncontrolled shakes since september 27 Time Seen by Provider: 11/03/24 20:04 History of Present Illness ED Provider: Joan ASH narrative: The patient is a 69-year-old woman who says that a month ago on September 27 she had an episode of shaking chills and she felt unwell for several days, possibly 5-7 days. She then started to feel better. She did not seek medical care at that time. She had a similar episode of shaking chills and felt unwell for a few days at the end of September, on October 22. She says that she ultimately went to an urgent care center a few days after that on October 25 and then again on October 30, 4 days ago. She had several tests done but did not receive a diagnosis. She says today at around 6:15 PM this evening she again had a sense of shaking chills. This time she also felt short of breath. She called an ambulance and was brought to the hospital. Here she was found to have a rectal temperature of 104. This is the first time with these episodes that she has had a documented fever. She denies any recent travel. No definite tick bites. No urinary discomfort or urgency or frequency. No chest pressure. Related Data Home Medications ?Medication ?Instructions ?Recorded ?Confirmed Fish Oil 1,000 mg PO DAILY 09/27/24 ascorbic acid (vitamin C) 500 mg mg PO 09/27/24 capsule (Vitamin C With Natalya Hips) tcracsd-tgstosnzirspm-esqcbdiq 250 2 tab PO Q6H PRN 09/27/24 mg-250 mg-65 mg tablet (Excedrin Migraine) calcium carbonate (Tums) 650 mg PO ONCE PRN 09/27/24 cholecalciferol (vitamin D3) 25 25 mcg PO 3XW 09/27/24 mcg (1,000 unit) capsule estradiol 0.01% (0.1 mg/gram) 1 g vaginal 2XW 09/27/24 vaginal cream flaxseed oil 1,000 mg capsule 1,000 mg PO DAILY 09/27/24 d-mannose 500 mg capsule (AZO mg PO 10/25/24 D-Mannose) loratadine 10 mg tablet (Claritin) 10 mg PO DAILY 10/30/24 omeprazole 20 mg capsule,delayed 20 mg PO DAILY 10/30/24 release Previous Rx's ?Medication ?Instructions ?Recorded ondansetron 4 mg disintegrating 4 mg PO Q8H PRN nausea and 10/30/24 tablet vomiting #30 tabs Allergies Allergy/AdvReac Type Severity Reaction Status Date / Time No Known Allergies Allergy Mild Verified 11/03/24 19:59 Review of Systems 2 Review of Systems: Yes all other systems are reviewed and are negative [facility] Past Medical History Medical History (Updated 11/04/24 @ 00:47 by Naif Quijano MD) Chronic allergic rhinitis FARIDA (obstructive sleep apnea) Lymphoma, splenic HTN (hypertension) Elevated cholesterol Surgical History (Updated 10/30/24 @ 16:11 by Tesha Paz) History of left hip replacement H/O colonoscopy (~12/14/22) Social History Social History Patient Tobacco Use Status: Never used Tobacco Smoked in Last 30 Days: No Use of substances other than those prescribed or required for medical reasons: No Advance Directives: No Advance Directives Information Provided: No Do you have a plan to hurt others: No Plan Physical Exam ED Vital Signs: Vital Signs - 24 hr 11/03/24 19:49 11/03/24 20:02 11/03/24 21:30 Temperature 99.7 F 104 F H 102.8 F H Pulse Rate 92 88 Respiratory Rate 16 17 Blood Pressure 131/49 L 126/66 Pulse Oximetry 89 L 91 L 95 Oxygen Delivery Method Room Air Nasal Cannula Nasal Cannula Oxygen Flow Rate 2 3 11/03/24 22:26 Temperature 100.8 F H Pulse Rate 85 Respiratory Rate 16 Blood Pressure 111/61 Pulse Oximetry 96 Oxygen Delivery Method Nasal Cannula Oxygen Flow Rate 3 BMI result Body Mass Index 27.6 Const Other: The patient was awake and alert. She looks mildly unwell but not in acute distress. Orientation/consciousness: patient oriented x3 HENMT Other: Face is symmetrical, mucous membranes moist, pharynx is unremarkable Eyes General: appearance normal, both eyes and all related structures Conjunctivae: conjunctivae normal Pupils: Equal, round and reactive pupils present EOM: EOMs intact bilaterally Neck Neck: Yes normal visual inspection, Yes full ROM, Yes no meningeal signs and Yes no JVD Resp Effort & Inspection: normal respiratory effort Auscultation: clear to auscultation bilaterally Cardio Rate: regular rate Rhythm: regular rhythm Heart sounds: S1 normal heart sound present, S2 normal heart sound present and Murmur heart sound present (No murmur heard) GI Other: Abdomen is soft and nontender Skin Other: Skin is dry and unremarkable Neuro General: patient oriented x3, tone normal, moves all extremities, no meningeal signs, no focal motor deficits and CN's II-XI intact bilaterally Cranial nerves: Yes Equal, round and reactive pupils present Extrem General: Yes no pedal edema and Yes no calf tenderness Medications Administered Generic Name Dose Route Start Last Admin Trade Name Freq PRN Reason Stop Dose Admin Heparin Sodium/Sodium Chloride 25,000 unit in 250 mls @ 0 mls/hr 11/04/24 01:00 11/04/24 01:22 Heparin Sodium,Porcine/1/2ns IVCONT 11.81 units/kg/hr .Q0M DERICK 10 mls/hr Administration Protocol Per Protocol Discontinued Medications Generic Name Dose Route Start Last Admin Trade Name Freq PRN Reason Stop Dose Admin Ceftriaxone Sodium 1 gm 11/03/24 21:15 11/03/24 21:29 Ceftriaxone Sodium 1 Gm Vial IVPUSH 11/03/24 21:16 1 gm ONCE ONE Administration Heparin Sodium (Porcine) 4,000 unit 11/04/24 00:51 11/04/24 01:20 Heparin Sodium,Porcine 5,000 Unit/Ml Vial IVPUSH 11/04/24 00:52 4,000 unit ONCE ONE Administration Sodium Chloride 1,000 mls @ 999 mls/hr 11/03/24 20:15 11/03/24 21:29 Ns IV 11/03/24 21:15 Infused .Q1H1M DERICK Infusion Acetaminophen 1,000 mg in 100 mls @ 400 mls/hr 11/03/24 20:15 11/03/24 20:59 Ofirmev IV 11/03/24 20:29 Infused ONCE ONE Infusion Doxycycline Hyclate 100 mg/ 250 mls @ 166.67 mls/hr 11/03/24 21:15 11/03/24 23:15 Sodium Chloride IV 11/03/24 22:44 Infused ONCE ONE Infusion Lactated Ringer's 1,000 mls @ 999 mls/hr 11/04/24 00:15 11/04/24 01:02 Lr IV 11/04/24 01:15 999 mls/hr .Q1H1M DERICK Administration Iohexol 65 ml 11/03/24 22:18 11/03/24 22:19 Iohexol 350 Mg/Ml 100 Ml Infus..Btl IV 11/03/24 22:19 65 ml ONCE ONE Administration Medical Decision Making Medical Decision Making [facility] Narrative: The patient is a 69-year-old female who presents with shaking chills and a rectal temperature of a 104 degrees. These symptoms began today in the evening rather abruptly. However she describes similar symptoms only less severe twice in the last month. She had outpatient lab work that was unremarkable 4 days ago. The patient is workup in the emergency [place] [address]. Somewhat elevated CRP of 6. No definite source of infection on exam however. Her chest x-ray was read as clear. Her abdomen is benign. Her urinalysis is abnormal but she denies urinary symptoms. I had ordered empiric IV fluids and antibiotics as my 1st impression was that the patient might have pneumonia. She was given IV ceftriaxone and doxycycline. Ultimately I also ordered a CT pulmonary angiogram since the patient has oxygen saturations were somewhat low and her D-dimer was elevated. A CT pulmonary angiogram did not show any definite pulmonary source of infection. A troponin has been drawn as part of her initial evaluation. This was elevated at 110. A repeat troponin was 319. The patient has an old right bundle branch block on her EKG but no definite new ischemic changes. I do not feel she describes an anginal syndrome so I do not have a high suspicion for a true acute coronary syndrome. I consulted the hospitalist for admission. The patient will be admitted to the medical service. The hospitalist has requested that the patient be started on heparin given the elevated troponin levels. The patient was admitted to telemetry. Lab Data 11/04/24 01:08 11/03/24 20:21 Labs: Lab Results 11/03/24 11/03/24 11/03/24 Range/Units 20:20 20:21 20:28 WBC 16.1 H (4.8-10.8) X10*3/uL RBC 4.09 L (4.20-5.50) X10*6/uL Hgb 11.9 L (12.0-16.0) g/dl Hct 35.4 L (37.0-47.0) % MCV 86.6 (80.0-98.0) fL MCH 29.1 (27.0-33.0) pg MCHC 33.6 (31.0-35.0) g/dl RDW 13.5 (11.0-16.0) % Plt Count 353 (160-400) X10*3/uL MPV 9.4 (9.4-12.3) fL Immature Gran % (Auto) 0.4 (0.0-0.4) % Neut % (Auto) 94.7 H (45-73) % Lymph % (Auto) 2.4 L (20-40) % [place] % (Auto) 2.1 (2-11) % Eos % (Auto) 0.2 (0-4) % Baso % (Auto) 0.2 (0-2) % Lymph # (Auto) 0.4 L (1.2-4.9) X10*3/uL [place] # (Auto) 0.3 (0.1-1.2) X10*3/uL Eos # (Auto) 0.0 (0.0-0.4) X10*3/uL Baso # (Auto) 0.0 (0.0-0.2) X10*3/uL Abs Immat Gran (auto) 0.06 H (0.00-0.03) X10*3/uL Absolute Neuts (auto) 15.2 H (2.0-8.3) x10*3/uL Absolute Nucleated RBC 0.000 (0.0-0.012) X10*3/uL Nucleated RBC % (auto) 0.0 (0.0-0.2) /100WBC PT 13.3 H (10.9-12.4) SEC INR 1.2 H (0.9-1.1) APTT 27.5 (26.0-36.8) SEC D-Dimer High Sensitivty 607 NG/ML Hold Blue Top SEE NOTE Sodium 139 (135-145) mmol/L Potassium 3.5 (3.3-5.1) mmol/L Chloride 107 (96-108) mmol/L Carbon Dioxide 24 (22-29) mmol/L Anion Gap 12 (12-20) BUN 10 (9-16) mg/dL Creatinine 0.70 (0.5-1.4) mg/dL Estim Creat Clear Calc 90.6 Estimated GFR > 60 Random Glucose 126 H (60-115) mg/dL Lactic Acid 1.2 (0.5-2.0) mmol/L Calcium 9.2 (8.4-10.2) mg/dL Magnesium 1.9 (1.6-2.6) mg/dL Total Bilirubin 0.5 (0.0-1.0) mg/dL Direct Bilirubin 0.2 (0.0-0.5) mg/dL AST 18 (5-31) U/L ALT 12 (0-31) U/L Alkaline Phosphatase 52 (39-117) U/L Troponin I High Sens 110.0 H* (<3.5-17.0) ng/L C-Reactive Protein 6.97 H (< or = 0.50) mg/dL Total Protein 6.9 (6.5-8.0) g/dL Albumin 3.6 (3.5-5.0) g/dL Hold Green Top See Note Urine Color Urine Appearance Urine pH (5.0-9.0) Ur Specific [place] (1.005-1.025) Urine Protein (Neg-Trace) mg/dL Urine Glucose (UA) (Negative) mg/dL Urine Ketones (Negative) mg/dL Urine Blood (Negative) Urine Nitrite (Negative) Ur Leukocyte Esterase (Negative) Urine RBC (0-2) /HPF Urine WBC (0-5) /HPF Ur Squamous Epith Cells (0-2) /HPF Urine Bacteria (None Seen) Hyaline Casts (0-2) /LPF Influenza Type A (PCR) NEGATIVE (Negative) Influenza Type B (PCR) NEGATIVE (Negative) RSV RNA Qual (PCR) NEGATIVE (Negative) SARS-CoV-2 RNA (RT-PCR) NEGATIVE (Negative) 11/03/24 11/03/24 Range/Units 20:49 23:42 WBC (4.8-10.8) X10*3/uL RBC (4.20-5.50) X10*6/uL Hgb (12.0-16.0) g/dl Hct (37.0-47.0) % MCV (80.0-98.0) fL MCH (27.0-33.0) pg MCHC (31.0-35.0) g/dl RDW (11.0-16.0) % Plt Count (160-400) X10*3/uL MPV (9.4-12.3) fL Immature Gran % (Auto) (0.0-0.4) % Neut % (Auto) (45-73) % Lymph % (Auto) (20-40) % [place] % (Auto) (2-11) % Eos % (Auto) (0-4) % Baso % (Auto) (0-2) % Lymph # (Auto) (1.2-4.9) X10*3/uL [place] # (Auto) (0.1-1.2) X10*3/uL Eos # (Auto) (0.0-0.4) X10*3/uL Baso # (Auto) (0.0-0.2) X10*3/uL Abs Immat Gran (auto) (0.00-0.03) X10*3/uL Absolute Neuts (auto) (2.0-8.3) x10*3/uL Absolute Nucleated RBC (0.0-0.012) X10*3/uL Nucleated RBC % (auto) (0.0-0.2) /100WBC PT (10.9-12.4) SEC INR (0.9-1.1) APTT (26.0-36.8) SEC D-Dimer High Sensitivty NG/ML Hold Blue Top Sodium (135-145) mmol/L Potassium (3.3-5.1) mmol/L Chloride (96-108) mmol/L Carbon Dioxide (22-29) mmol/L Anion Gap (12-20) BUN (9-16) mg/dL Creatinine (0.5-1.4) mg/dL Estim Creat Clear Calc Estimated GFR Random Glucose (60-115) mg/dL Lactic Acid (0.5-2.0) mmol/L Calcium (8.4-10.2) mg/dL Magnesium (1.6-2.6) mg/dL Total Bilirubin (0.0-1.0) mg/dL Direct Bilirubin (0.0-0.5) mg/dL AST (5-31) U/L ALT (0-31) U/L Alkaline Phosphatase (39-117) U/L Troponin I High Sens 319.5 H* D (<3.5-17.0) ng/L C-Reactive Protein (< or = 0.50) mg/dL Total Protein (6.5-8.0) g/dL Albumin (3.5-5.0) g/dL Hold Green Top Urine Color Yellow Urine Appearance Cloudy Urine pH 5.5 (5.0-9.0) Ur Specific [place] 1.015 (1.005-1.025) Urine Protein 30 (1+) H (Neg-Trace) mg/dL Urine Glucose (UA) Negative (Negative) mg/dL Urine Ketones Negative (Negative) mg/dL Urine Blood Moderate (2+) H (Negative) Urine Nitrite Positive H (Negative) Ur Leukocyte Esterase Moderate (2+) H (Negative) Urine RBC 6-10 H (0-2) /HPF Urine WBC >50 H (0-5) /HPF Ur Squamous Epith Cells 0-2 (0-2) /HPF Urine Bacteria Trace (None Seen) Hyaline Casts 0-2 (0-2) /LPF Influenza Type A (PCR) (Negative) Influenza Type B (PCR) (Negative) RSV RNA Qual (PCR) (Negative) SARS-CoV-2 RNA (RT-PCR) (Negative) Critical Care Time Critical Care Time Critical Care Time: Yes Total Critical Care Time: 35 Attestation: The patient was critically ill with a high probability of imminent or life- threatening deterioration. ?I spent greater than 30 minutes of discontinuous time evaluating the patient, delivering critical care at the bedside, discussing evaluating data with consultants. ?Critical care time does not include time spent performing separately billable procedures or teaching. ?Time spent performing critical care with 35 minutes. Discharge Plan Discharge Clinical Impression: Elevated troponin Fever Qualifiers: Fever type: unspecified Qualified Code(s): R50.9 - Fever, unspecified Patient Disposition: Admitted As Inpatient
--- NOTE | 2024-11-03 20:13 | ECG_ITS ---
Test Reason : sob Blood Pressure : */* mmHG Vent. Rate : 99 BPM Atrial Rate : 99 BPM P-R Int : 150 ms QRS Dur : 128 ms QT Int : 346 ms P-R-T Axes : 48 -31 31 degrees QTcB Int : 444 ms Sinus rhythm with sinus arrhythmia with occasional Premature ventricular complexes Left axis deviation Right bundle branch block Abnormal ECG When compared with ECG of 10-Mar-2022 17:46, Premature ventricular complexes are now Present Vent. rate has increased by 36 bpm Left anterior fascicular block is no longer Present Referred By: Jesus Franco Electronically Signed By: KAREEM CHA MD
[2024-11-03 20:32] LABS: MANUAL DIFF FLAG NO
[2024-11-03 20:34] LABS: Basophils Percent Auto 0.2 % (0-2); Eosinophils Percent Auto 0.2 % (0-4); Hematocrit 35.4 % (37.0-47.0); Hemoglobin 11.9 g/dl (12.0-16.0); Imm Gran Abs Auto 0.06 X10*3/uL (0.00-0.03); Imm Gran Pct Auto 0.4 % (0.0-0.4); Lymphocytes Absolute Auto 0.4 X10*3/uL (1.2-4.9); Lymphocytes Percent Auto 2.4 % (20-40); Mean Corpuscular HGB Conc 33.6 g/dl (31.0-35.0); Mean Corpuscular Hemoglobin 29.1 pg (27.0-33.0); Mean Corpuscular Volume 86.6 fL (80.0-98.0); Mean Platelet Volume 9.4 fL (9.4-12.3); Monocytes Absolute Auto 0.3 X10*3/uL (0.1-1.2); Monocytes Percent Auto 2.1 % (2-11); Neutrophils Absolute Auto 15.2 x10*3/uL (2.0-8.3); Neutrophils Percent Auto 94.7 % (45-73); Platelet Count 353 X10*3/uL (160-400); Red Blood Count 4.09 X10*6/uL (4.20-5.50); Red Cell Distribution Width 13.5 % (11.0-16.0); SCAN SMEAR FLAG 1; White Blood Count 16.1 X10*3/uL (4.8-10.8)
[2024-11-03] MEDS: Acetaminophen 1,000 MG/100 ML PIGGYBACK 400 MG IV (20:44)
[2024-11-03] MEDS: 0.9 % Sodium Chloride 1,000 ML 999 ML IV (20:44)
[2024-11-03 20:45] VITALS: BMI 27.6
[2024-11-03 20:51] LABS: Alanine Aminotransferase 12 U/L (0-31); Albumin Level 3.6 g/dL (3.5-5.0); Alkaline Phosphatase 52 U/L (39-117); Anion Gap 12 (12-20); Aspartate Amino Transferase 18 U/L (5-31); Bilirubin Direct 0.2 mg/dL (0.0-0.5); Bilirubin Total 0.5 mg/dL (0.0-1.0); Blood Urea Nitrogen 10 mg/dL (9-16); C Reactive Protein 6.97 mg/dL (< or = 0.50); Calcium 9.2 mg/dL (8.4-10.2); Carbon Dioxide 24 mmol/L (22-29); Chloride 107 mmol/L (96-108); Creatinine Clr Calc Pharmacy 90.6; Estimated Glomerular Filt Rate > 60; Glucose Random 126 mg/dL (60-115); Magnesium 1.9 mg/dL (1.6-2.6); Potassium 3.5 mmol/L (3.3-5.1); Sodium 139 mmol/L (135-145); Total Protein 6.9 g/dL (6.5-8.0)
--- OUTSIDE RECORDS SUMMARY | 2024-11-03 20:53 | XMS_ITS | Data Portability ---
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 Today include vcyt-tks-qxkmllc medications, physical therapy, home exercises, traction, and [...] weeks to update us on her progress [email or web address] Not available 12/05/2022 15:48:25 01/16/2023 01/16/2023 HPI: [...] of her incontinence or develops saddle anesthesia. [email or web address] Not available 01/16/2023 12:01:43 09/01/2023 09/01/2023 HPI : ? Patient is here for 1 year follow-up from left total hip replacement. She is recovering well. Overall she feels great. Her main complaint is just some mild lateral sided tenderness. Overall she is functioning well. Overall, ?Patient reports good pain relief in the hip and satisfactory congregational of function in terms of activities of [...] Continue to work on hip conditioning exercises. Gbon-prc-wdldqsi medications as needed. Ultimate failure may occur [...] more view 2024 025 [email or web address] [facility], [address], [place], [address], 10/11/2024 11:38:19 XR, hip, unilatera l, 2 or 3 view 2023 024 [email or web address] [facility], [address], [place], [address], 09/01/2023 14:52:19 XR, lumbosacr al spine, 2 or 3 view 2022 023 [facility], [address], [place], [address], 12/05/2022 15:56:39 XR, lumbosacr al spine, 2 or 3 view, bending only 2022 023 [email or web address] [facility], [address], [place], [address], 12/05/2022 15:56:39 XR, hip, unilatera l, 2 or 3 view 2022 023 [email or web address] [facility], [address], [place], [address], 11/15/2022 16:39:40 XR, hip, unilatera l, 2 or 3 view 2022 023 [email or web address] [facility], [address], [place], [address], 11/15/2022 16:39:40 Medication Orders meloxicam 15 mg tablet 2022 023 [email or web address] [id number], [address] [place], [address], 09/01/2023 13:48:40 meloxicam 15 mg tablet 2022 023 [email or web address] [id number], [address] [place], [address], 09/01/2023 13:48:40 Patient TargetsNo targets recorded. Patient Instructions Encounter Date Encounter Id Patient Instructions Last Modified By Organization Details Last Modified Time 09/01/2023 [id number] AP pelvis, AP an d lateral radiographs of the left hip taken today demonstrate a left total hip replacement with components in appropriate position without any signs of hardware related complication. Not available 09/01/2023 13:22:54 10/11/2024 [id number] physical therapy * - Right knee pain secondary to IT band tendinitis/fricti on syndrome Evaluate and treat as indicated to reduce pain and to improve strength, mobility, stability, range of motion, and function. Please teach a home exercise plan and incorporate PT into patient's exercise routine. 2-3 sessions weekly for 6-8 weeks. [email or web address] Not available 10/18/2024 08:38:40 Reason for Referral None Reported. Problems Name Problem SNOMED Code Status Onset Date Resolution Date Notes Provider Name and Address Organization Details Recorded Time Low back pain 187346039 Active 2022 Steven Abarca MD [address], [place], [address], [place] [facility] 3 16:24:49 Trochanteri c bursitis of right hip 7743731302866 00 Active 2022 ESTHER ZARATE PA-C [address], [place], [address], [place] [facility], [facility] 3 15:43:36 Lumbar spondylolis thesis 4797031014505 02 Active 2022 ESTHER ZARATE PA-C [address], [place], [address], [place] [facility], P 3 15:43:37 Lumbar spondylosis 437498966 Active 2022 ESTHER ZARATE PA-C [address], [place], [address], [place] [facility], P 3 15:43:44 Osteoarthri tis of left hip joint 4859842229427 08 Active 2022 Steven Abarca MD [address], [place], [address], [place] [facility], P 3 13:20:50 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 Medical [...] Updated DateTime 01/16/2023 175.26 cm 25.7 kg/m2 57460.[address] [place] [facility] P 01/16/2023 11:42:36 Social History None recorded. [...] Code Diagnosis Note [id number] MD RAD [facility] [address] [address] 09/02/2022 09:57:31 09/02/2022 10:47:49 Aftercare [id number] Z47.1 [id number] Steven Abarca MD [place] [id number] 11/15/2022 15:41:24 11/15/2022 16:29:07 History of total replacement of left hip joint 1192376539 542830 Z96.642 Pain of ri ght hip joint 2339656750 05574 M25.551 Aftercare 473618712 Z47. 1 Low back pain 614034839 M54.[id number] [address] 12/05/2022 14:24:52 12/05/2022 15:47:44 Low back pain 377020673 M54.50 Lumbar spondylolisthesis 3612303807 13638 M43.16 Trochanter ic bursitis of right hip 3936882218 79813 M70.61 Lumbar spondylosis 60324 0009 M47.896 [id number] [address] 01/16/2023 11:30:53 01/16/2023 12:02:55 Low back pain 268665954 M54.50 Lumbar spondylolisthesis 1019267519 79039 M43.16 Trochanter ic bursitis of right hip 2778563753 03741 M70.61 Lumbar spondylosis 31059 0009 M47.896 [id number] MD RAD [facility] [address] [facility] [address] [place] [address] 09/01/2023 12:48:42 09/01/2023 13:26:12 History of repair of hip joint 518300894 Z96.642 Additional diagnosis detail: History of left hip replacemen t Surgical follow-up 69546 4000 Z47.1 Z96.642 Additional diagnosis detail: Aftercare following left hip joint replacemen t surgery [id number] MADELYN NARAYAN [place] [address] [facility] [address] [place] [address] 10/11/2024 09:12:28 10/11/2024 11:38:19 Pain of right knee joint 8120317129 94107 M25.561 Iliotibial band friction syndrome of right knee 8208102197 07231 M76.31 Health Concerns Section Related Observation LastModified by Organization Detai ls LastModified Time None Recorded Concern Status LastModified by Organization Details LastModified Time None Recorded Advance Directives Directive None Recorded Payers Encounter Date Sequence Insurance Name Policy Number Policy Charles Covered Member ID Charles Member ID Guarantor Name 12/05/2022 1 [place] [id number] Lazaro Martinez [id number] Lynne Martinez 01/16/2023 1 [place] [id number] Lazaro Martinez [id number] Lynne Martinez 09/01/2023 1 [place] (MEDICARE REPLACEMENT PPO) [id number] Lynne Martinez [id number] Lynne Martinez 10/11/2024 1 [place] - [place]PO) [id number] Lynne Martinez [id number] Lynne Martinez Notes Date Note Type [...] Steven Abarca MD [address], [place], [address], [place] [facility], P 11/15/2022 16:25:18 01/16/2023 text/html prior visit [...] chills, or unexplained weight loss. Today include ocpg-iwt-oqtbxqq medications, physical therapy, home exercises, traction, and [...] ESTHER ZARATE PA-C [address], [place], [address], [place] [facility], P 01/16/2023 12:03:00 10/11/2024 text/html 69-year-old fema [...] QUEENIE HALL PA-C [address], [place], [address], [place] [facility] 10/11/2024 09:45:48 OBGyn Episode No OBEpisode recorded.
[2024-11-03 20:54] LABS: Lactic Acid 1.2 mmol/L (0.5-2.0)
[2024-11-03 21:13] LABS: Influenza A PCR NEGATIVE (Negative); Influenza B PCR NEGATIVE (Negative); Resp Syncy Virus RNA Qual PCR NEGATIVE (Negative); SARS COV2 PCR INHOUSE NEGATIVE (Negative)
[2024-11-03 21:13] LABS: Appearance Urine Cloudy; Color Urine Yellow; Glucose Urine UA Negative (Negative); Leukocyte Esterase Urine Moderate (2+) (Negative); Nitrite Urine Positive (Negative); PH 5.5 (5.0-9.0); Specific Gravity - Urine 1.015 (1.005-1.025); UMIC TRIGGER UACC YES; Urine Blood Moderate (2+) (Negative); Urine Ketones Negative (Negative); Urine Protein 30 (1+) mg/dL (Neg-Trace)
[2024-11-03] MEDS: Doxycycline Hyclate 100 MG in 0.9 % Sodium Chloride 250 ML 166.67 MG IV (21:28)
[2024-11-03] MEDS: cefTRIAXone sodium 1 GM VIAL IVPUSH (21:29)
[2024-11-03 21:30] VITALS: BP 126/66; PULSE 88; RESP 17; TEMP 39.3; O2SAT 95
[2024-11-03 21:40] LABS: D Dimer High Sensitivity 607 NG/ML
[2024-11-03] MEDS: iohexoL 350 MG/ML 100 ML INFUS..BTL 65 ML IV (22:19)
[2024-11-03 22:26] VITALS: BP 111/61; PULSE 85; RESP 16; TEMP 38.2; O2SAT 96
[2024-11-03 22:53] LABS: Bacteria Urine Trace (None Seen); Hyaline Casts Urine 0-2 /LPF (0-2); Squamous Epithelial Cell Urine 0-2 /HPF (0-2); UACC Culture Trigger YES; WBC Urine >50 /HPF (0-5)
[2024-11-04] VITALS (8 sets, daily range): BP systolic 99–133; BP diastolic 57–71; PULSE 69–87; RESP 15–22; TEMP 36.4–37.6; O2SAT 93–99; BMI 28.2
[2024-11-04 00:09] LABS: Troponin-I High Sensitivity 319.5 ng/L (<3.5-17.0)
--- NOTE | 2024-11-04 00:45 | PM.IMHP ---
History of Present Illness Date of Service: 11/04/24 Chief Complaint: Chills 69-year-old female with a past medical history of hypertension presented to the hospital with a chief complaint of chills and rigors. Patient reports that she intermittently has been having episodes of chills and rigors at least 3 times in the past 6-8 weeks. Today hip she felt chills hence presented to the ER for further evaluation. Also reports that over the past few months he has been having cough without any sputum production. Reports she has a history of tension headaches. Ativan if she coughs she feels like she is having headache. Denies any sick contacts. Recently has seen PCP and ordered for tick panel which were negative. Denies any chest pain or palpitations. Denies any lightheadedness or dizziness. Denies any urinary symptoms. Patient reports that she has history of recurrent UTIs. Review of all other systems is negative except mentioned above ER course: Per ER team, patient's exam was benign; EKG showed old right bundle branch block. EKG unchanged from prior. Troponins elevated 119-319. Empirically started on heparin drip. Urinalysis abnormal. Given ceftriaxone. CT chest showed no evidence of PE. [facility] Medical History (Updated 11/04/24 @ 00:47 by Naif Quijano MD) Chronic allergic rhinitis FARIDA (obstructive sleep apnea) Lymphoma, splenic HTN (hypertension) Elevated cholesterol Surgical History (Updated 10/30/24 @ 16:11 by Tesha Paz) History of left hip replacement H/O colonoscopy (~12/14/22) Social History Patient Tobacco Use Status: Never used Tobacco Smoked in Last 30 Days: No Use of substances other than those prescribed or required for medical reasons: No Advance Directives: No Advance Directives Information Provided: No Do you have a plan to hurt others: No Plan Meds Allergies Allergy/AdvReac Type Severity Reaction Status Date / Time No Known Allergies Allergy Mild Verified 11/03/24 19:59 Active Medications: Current Medications Lactated Ringer's (Lr) 1,000 mls @ 999 mls/hr IV .Q1H1M DERICK Stop: 11/04/24 01:15 Home Medications ?Medication ?Instructions ?Recorded ?Confirmed ?Last Taken ?Type Fish Oil 1,000 mg PO DAILY 09/27/24 Unknown History ascorbic acid (vitamin C) 500 mg mg PO 09/27/24 Unknown History capsule (Vitamin C With Natalya Hips) [id number]-[id number]-[id number] 250 2 tab PO Q6H PRN 09/27/24 Unknown History mg-250 mg-65 mg tablet (Excedrin Migraine) calcium carbonate (Tums) 650 mg PO ONCE PRN 09/27/24 Unknown History cholecalciferol (vitamin D3) 25 25 mcg PO 3XW 09/27/24 Unknown History mcg (1,000 unit) capsule estradiol 0.01% (0.1 mg/gram) 1 g vaginal 2XW 09/27/24 Unknown History vaginal cream flaxseed oil 1,000 mg capsule 1,000 mg PO DAILY 09/27/24 Unknown History d-mannose 500 mg capsule (AZO mg PO 10/25/24 Unknown History D-Mannose) loratadine 10 mg tablet (Claritin) 10 mg PO DAILY 10/30/24 Unknown History omeprazole 20 mg capsule,delayed 20 mg PO DAILY 10/30/24 Unknown History release Physical Exam Vital Signs and Narrative: Vital Signs: Last Vital Signs Temp 100.8 F H 11/03/24 22:26 Pulse 85 11/03/24 22:26 Resp 16 11/03/24 22:26 BP 111/61 11/03/24 22:26 Pulse Ox 96 11/03/24 22:26 O2 Del Method Nasal Cannula 11/03/24 22:26 O2 Flow Rate 3 11/03/24 22:26 BMI result Body Mass Index 27.6 Gen: Appears be in no acute distress HEENT: NCAT, Moist mucosa. Pulmonary: Vesicular breath sounds, fair air entry CVS: Normal S1-S2 Abdomen: BS+, Soft, Nontender Extremities: Warm well perfused Neuro: Alert and awake. Results Labs 11/03/24 20:21 11/03/24 20:21 Labs: Laboratory Results - last 24 hr 11/03/24 11/03/24 11/03/24 20:20 20:21 20:28 MCV 86.6 MCH 29.1 MCHC 33.6 RDW 13.5 Plt Count 353 MPV 9.4 Immature Gran % (Auto) 0.4 Neut % (Auto) 94.7 H Lymph % (Auto) 2.4 L Spink % (Auto) 2.1 Eos % (Auto) 0.2 Baso % (Auto) 0.2 Lymph # (Auto) 0.4 L Spink # (Auto) 0.3 Eos # (Auto) 0.0 Baso # (Auto) 0.0 Abs Immat Gran (auto) 0.06 H Absolute Neuts (auto) 15.2 H Absolute Nucleated RBC 0.000 Nucleated RBC % (auto) 0.0 D-Dimer High Sensitivty 607 Hold Blue Top SEE NOTE Anion Gap 12 Estim Creat Clear Calc 90.6 Estimated GFR > 60 Random Glucose 126 H Lactic Acid 1.2 Calcium 9.2 Magnesium 1.9 Total Bilirubin 0.5 Direct Bilirubin 0.2 AST 18 ALT 12 Alkaline Phosphatase 52 Troponin I High Sens 110.0 H* C-Reactive Protein 6.97 H Total Protein 6.9 Albumin 3.6 Hold Green Top See Note Urine Color Urine Appearance Urine pH Ur Specific [place] Urine Protein Urine Glucose (UA) Urine Ketones Urine Blood Urine Nitrite Ur Leukocyte Esterase Urine RBC Urine WBC Ur Squamous Epith Cells Urine Bacteria Hyaline Casts Influenza Type A (PCR) NEGATIVE Influenza Type B (PCR) NEGATIVE RSV RNA Qual (PCR) NEGATIVE SARS-CoV-2 RNA (RT-PCR) NEGATIVE 11/03/24 11/03/24 20:49 23:42 MCV MCH MCHC RDW Plt Count MPV Immature Gran % (Auto) Neut % (Auto) Lymph % (Auto) Spink % (Auto) Eos % (Auto) Baso % (Auto) Lymph # (Auto) Spink # (Auto) Eos # (Auto) Baso # (Auto) Abs Immat Gran (auto) Absolute Neuts (auto) Absolute Nucleated RBC Nucleated RBC % (auto) D-Dimer High Sensitivty Hold Blue Top Anion Gap Estim Creat Clear Calc Estimated GFR Random Glucose Lactic Acid Calcium Magnesium Total Bilirubin Direct Bilirubin AST ALT Alkaline Phosphatase Troponin I High Sens 319.5 H* D C-Reactive Protein Total Protein Albumin Hold Green Top Urine Color Yellow Urine Appearance Cloudy Urine pH 5.5 Ur Specific [place] 1.015 Urine Protein 30 (1+) H Urine Glucose (UA) Negative Urine Ketones Negative Urine Blood Moderate (2+) H Urine Nitrite Positive H Ur Leukocyte Esterase Moderate (2+) H Urine RBC 6-10 H Urine WBC >50 H Ur Squamous Epith Cells 0-2 Urine Bacteria Trace Hyaline Casts 0-2 Influenza Type A (PCR) Influenza Type B (PCR) RSV RNA Qual (PCR) SARS-CoV-2 RNA (RT-PCR) Assessment and Plan (1) Elevated troponin: Status: Acute (2) Fever: Qualifiers: Fever type: unspecified Qualified Code(s): R50.9 - Fever, unspecified Status: Acute Plan 69-year-old female with a past medical history of hypertension presented to the hospital with a chief complaint of chills and rigors. Admitted for following Fever: UTI: Patient has prior history of recurrent UTIs Currently asymptomatic Patient was febrile to 104, has leukocytosis. Blood pressure is stable. Continue ceftriaxone NSTEMI: Patient troponins elevated from 119-319. Patient denies any chest pain. EKG nonischemic. CT chest showed no evidence of PE. Echocardiogram Telemetry Cardiology consult Patient empirically started on heparin drip Aspirin. Will obtain lipid panel, TSH, A1c Headaches: Patient has known history of tension headaches. Denies any headache at the time of my interview. Neck is supple. No meningeal signs. Patient follows with neurology for her headaches. Takes Excedrin at home. DVT prophylaxis: Patient on heparin drip Code status: Full code Quality Stroke Does the patient have a stroke diagnosis?: No VTE Prior VTE?: No VTE Risk Level:: Medical - moderate - high VTE Device Contraindication: Treatment Not Indicated VTE Drug Contraindication: N/A - Med Ordered
[2024-11-04] MEDS: Lactated Ringers 1,000 ML 999 ML IV (01:02)
[2024-11-04 01:10] LABS: Hematocrit 33.7 % (37.0-47.0); Hemoglobin 11.2 g/dl (12.0-16.0); Mean Corpuscular HGB Conc 33.2 g/dl (31.0-35.0); Mean Corpuscular Hemoglobin 28.9 pg (27.0-33.0); Mean Corpuscular Volume 86.9 fL (80.0-98.0); Mean Platelet Volume 9.4 fL (9.4-12.3); Platelet Count 332 X10*3/uL (160-400); Red Blood Count 3.88 X10*6/uL (4.20-5.50); Red Cell Distribution Width 13.5 % (11.0-16.0); White Blood Count 15.8 X10*3/uL (4.8-10.8)
[2024-11-04 01:13] LABS: INTERNATIONAL NORM RATIO 1.2 (0.9-1.1); Partial Thromboplastin Time 27.5 SEC (26.0-36.8); Prothrombin Time 13.3 SEC (10.9-12.4)
[2024-11-04] MEDS: Heparin Sodium,Porcine 5,000 UNIT/ML VIAL 4000 UNIT IVPUSH (01:20)
[2024-11-04] MEDS: Heparin Sodium,Porcine/1/2NS 25,000 UNIT/250 ML IV.SOLN 10 UNIT IVCONT (01:22)
--- NOTE | 2024-11-04 01:37 | PC.NURSE ---
LATE ENTRY pt reports approx 1815 started feeling shakes/chills, states this happens frequently since september 27. seen here a few times for same with negative workups. states usually feels better after vomiting. c/o GRAVES, (chronic) cough, body aches currently. uses cpap for FARIDA. states has had multiple imaging, labs, etc. was seen at [facility] and PCP this past week. #20gLAC via ems, received 200 cc fluids. on arrival oral temp was 99.8F, pt was in agreement with obtaining rectal temp which was 104.0F. MD was notified and orders were placed. EMS obtained 20gLAC and 20gR forearm was placed on arrival. labs/ua/ekg were also obtained. ivf and iv tylenol given per jul with improvement to temp. ice packs also paced on pt to promote reducing temp. pt was 86-88% on RA on arrival was placed on 2LNC with improvement to 91%, then to 3L NC with improvement to 95%. trop resulted to be elevated, this RN spoke with MD and decision to order d-dimer was made then CTA for PE. pt and at bedside was educated on POC by this RN and MD. since arrival pt is axox4 ambulatory with steady gait. repeat troponin ordered per MD verbal at 2330. per result MD Quijano ordered heparin drip which was initiated per jul. accurate weight in chart obtained by this RN using standing scale. pt remains comfortable in ed25 at this time. denied cp since arrival, sob has improved. since approx 2315 pt has been on RA at 95%. pt is requesting to set up own CPAP machine, RT notified. call bhagat within reach.
--- NOTE | 2024-11-04 04:07 | PC.NURSE ---
pt verbalized discomfort in ed stretcher and noise within the ed. head charger confirmed pt will be in the ed overnight d/t bed unavailability on M/T unit. hospital bed obtained and pt moved to ed27 with door. cpap shrinking machine operator for pt and RT notified. pt is on continuous cardiac and o2 monitoring. extra pillows given for comfort. pt verbalizes being more comfortable and requested for lights to be turned off and door to be closed. pt uses call bhagat appropriately. all belongings within reach. pt does verbalize feeling better and denies cp/sob/n/d at this time. call bhagat also within reach.
[2024-11-04 05:31] LABS: Alanine Aminotransferase < 6 U/L (0-31); Albumin Level 2.9 g/dL (3.5-5.0); Alkaline Phosphatase 43 U/L (39-117); Anion Gap 10 (12-20); Aspartate Amino Transferase 13 U/L (5-31); Bilirubin Total 0.4 mg/dL (0.0-1.0); Blood Urea Nitrogen 8 mg/dL (9-16); Calcium 8.4 mg/dL (8.4-10.2); Carbon Dioxide 25 mmol/L (22-29); Chloride 111 mmol/L (96-108); Creatinine Clr Calc Pharmacy 107.4; Estimated Glomerular Filt Rate > 60; Glucose Random 116 mg/dL (60-115); Potassium 3.7 mmol/L (3.3-5.1); Sodium 142 mmol/L (135-145); Total Protein 5.6 g/dL (6.5-8.0)
--- NOTE | 2024-11-04 06:04 | PC.NURSE ---
contacted about ?repeat troponin, order placed for now.
--- NOTE | 2024-11-04 06:17 | PC.NURSE ---
Addendum entered by Chetna Bowser 11/04/24 06:48: suggested fiorecet which pt was agreeable for, notified. ordered and medicated per jul. pt requested saltines and water which also help migraine, given. pt also provided breakfast tray, sitting up and eating at this time. call bhagat within reach. Original Note: pt states woke up suddenly with GRAVES, 12/05, hx frequent migraines, states prn tylenol usually does not help. MD notified. pt requests excedrin unsure of availability in hospital.
[2024-11-04] MEDS: Butalb/Acetamin/Caff 50/325/40 TABLET 1 TAB PO ×3 (06:33→20:50)
--- NOTE | 2024-11-04 07:00 | CA_ITS ---
Transthoracic Echocardiogram Patient (Last, First, Middle): Lynne Martinez S Gender: Female Date of : 1955 Age: 69 Procedure Date: 11/04/2024 Procedure Type: Transthoracic Echocardiogram Location: ER Height: 175.26 cm Weight: 84.37 kg BSA: 2.00 m2 Heart Rate: 68 bpm BP: 99 / 57 mmHg [employer] Worker: SUSANNA Referring MD: Naif Quijano MD General Freight Agent: Joe Rivera MD Symptoms: Elevated troponins Study Quality: Adequate ECG Rhythm: Sinus Conclusions: - 1. Mildly reduced LV ejection fraction 45-50% 2. Mild mitral regurgitation 3. No gross pericardial effusion Findings Left Ventricle Normal left ventricular cavity size. There is mildly increased left ventricular wall thickness. The left ventricular systolic function is mildly decreased. The visually estimated ejection fraction is between 45-50%. Spectral Doppler is indicative of a normal filling pattern. E/E prime ratio is between 8 and 15 consistent with indeterminate filling pressures. Wall Motion Rest Echo Findings The basal inferior and basal inferoseptal segments are hypokinetic. All other scored wall segments showed normal motion. Right Ventricle Normal right ventricular cavity size and systolic function. Atria The left atrium is normal in size. Interatrial shunt cannot be excluded. The right atrium is normal in size. Aortic Valve Normal aortic valve structure and function. There is no aortic valve stenosis. There is no aortic valve regurgitation. Mitral Valve There is mild anterior and posterior mitral leaflet thickening. There is mild mitral valve regurgitation. There is no mitral valve stenosis. Pulmonic Valve The pulmonic valve was not well visualized. Tricuspid Valve Likely normal tricuspid valve structure and function. The right ventricular systolic pressure is not calculated. Indeterminate right atrial pressure. Great Vessels All visible segments of the aorta are normal in size. The pulmonary artery was not well visualized. There is no dilatation of the ascending aorta measuring 3.30 cm. Venous The inferior vena cava is moderately dilated. Pericardium/Pleural There is no evidence of pericardial effusion. Prior Study Comparison Changes noted compared to prior study dated: 07/21/2023. LV ejection fraction has marginally reduced Measurements 2D Linear Measurements IVSd: 1.21 0.6-0.9/0.6-1.0 cm LVIDd: 4.80 3.9-5.3/4.2-5.9 cm LVIDd Index: 2.40 2.4-3.2/2.2-3.1 cm/m2 LVIDs: 3.32 2.0-3.6 cm LVPWd: 1.01 0.7-1.1 cm LA Diam: 3.70 2.7-3.8/3.0-4.0 cm LAIDs Index: 1.85 1.5-2.3 cm/m2 LV Mass: 244.77 67-162/88-224 g LV Mass Index: 122.39 43-95/49-115 g/m2 LVOT Diam: 2.10 3.0+(-)1.3 cm 2D Systolic Function EF 4C: 49.40 >55% EF 2C: 46.60 >55% EF BiP: 48.30 >55% Mitral Valve MV Pk E: 0.91 MV PK A: 0.60 MV Decel Time: 246.00 E/A: 1.50 E'Lateral: 5.98 E'Medial: 4.90 E/E' Med: 18.60 E/E' Lat: 15.30 PHT: 72.00 MVA PHT: 3.06 Decel [place]: 3.70 Aortic Valve AoV Pk Parish: 1.21 AoV Pk Grad: 6.00 TANESHA: 2.84 LVOT LVOT Pk Parish: 0.96 LVOT Mn Parish: 0.66 LVOT VTI: 0.18 LVOT Pk Grad: 4.00 LVOT Mn Grad: 2.00 LVOT Diam: 2.10 LVOT Area: 3.46 Diastolic Function MV Pk E: 0.91 MV Pk A: 0.60 E/A: 1.50 E'Medial: 4.90 E/E' Med: 18.60 E' Laterial: 5.98 E/E' Lat: 15.30 Right Ventricle TAPSE (mm): 23.80 TVS' Parish: 11.50 Tricuspid Valve TR Pk Parish: 2.85 TR Pk Grad: 32.00 Great Vessels Aorta Sinus of Valsalva: 3.60 2.0-3.5 cm Ao Asc: 3.30 2.1-3.4 cm Pulmonary Valve PV Pk Parish: 0.80 Peak PV Grad: 3.00 Updated in Other Vendor System with Status of Final Joe Rivera MD electronically signed on 11/04/2024 12:26:30 PM with status of Final
--- NOTE | 2024-11-04 07:04 | PC.NURSE ---
assumed care of pt at 0700, pt resting quietly in bed, eating breakfast independently, vss, reports improvement in headache to 2/10. next PTT-HD due at 721. heparin running per JUL. no new orders at this time.
[2024-11-04 08:01] LABS: PTT Heparin Drip 44.1 SEC (53-77.9)
[2024-11-04 08:10] LABS: Troponin-I High Sensitivity 114.1 ng/L (<3.5-17.0)
[2024-11-04] MEDS: 0.9 % Sodium Chloride Flush 3 ML SYRINGE IVFLUSH ×3 (08:20→20:51)
[2024-11-04] MEDS: Heparin Sodium,Porcine 5,000 UNIT/ML VIAL 3400 UNIT IVPUSH (08:20)
--- NOTE | 2024-11-04 09:30 | P.CONCA_ITS ---
History of Present Illness History of Present Illness Date of Service: 11/04/24 Requesting physician: Slava Norman Consult reason: troponin elevation Chief complaint: UTI Narrative: I was consulted to see Lynne in cardiology consultation today for elevated troponin. 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 She came to the hospital with fever and chills. She says she has been having ongoing fever and chills for many months or weeks. She says she gets severe chills and came to the hospital. She was noted to be febrile with a temperature of 104 degrees. UA shows presence of infection but she does not think she has UTI as she says she has had UTIs in the past. She said she also gets a cough and with after coughing she develops headache on the left side and see neurologist and felt like this was attention/muscular headache. Patient has been started on antibiotics. Fevers improved. Troponins were drawn for unclear reason. She denies having absolutely no chest pain. She has no shortness of breath. She has no palpitations. EKGs does not show any ischemic changes shows old right bundle-branch block. Patient troponin was elevated initially in the 100 range subsequently in the 300 range and then downtrended to the 100 range. As clear rise and fall suggestive of myocardial injury. She was started on IV heparin yesterday. She says in between these episodes she is completely functional. She has no exertional chest pain or shortness of breath. She has a history of hyperlipidemia for which she is currently not on any statin therapy. Review of Systems 2 Constitutional: Constitutional: Reports chills, Reports fever(s), Reports headache(s), Denies lethargy and Denies weakness Eyes: Eyes: Denies no additional eye complaints ENT: Denies system reviewed and no additional complaints, except as documented and Reports headache(s) Cardiovascular: Cardiovascular: Denies no additional cardiovascular complaints Respiratory: Respiratory: Reports cough Gastrointestinal: Gastrointestinal: Reports no additional gastrointestinal complaints Genitourinary: Genitourinary: Reports no additional female genitourinary complaints Musculoskeletal: Musculoskeletal: Reports no additional musculoskeletal complaints Integumentary/Breasts: Skin/Breast: Reports system reviewed and no additional complaints, except as docu Neurologic: Reports headache(s) and Denies weakness [facility] Past Medical History Medical History Chronic allergic rhinitis FARIDA (obstructive sleep apnea) Lymphoma, splenic HTN (hypertension) Elevated cholesterol Surgical History Surgical History History of left hip replacement H/O colonoscopy (~12/14/22) Social History Social History Patient Tobacco Use Status: Never used Tobacco Smoked in Last 30 Days: No Use of substances other than those prescribed or required for medical reasons: No Advance Directives: No Advance Directives Information Provided: No Do you have a plan to hurt others: No Plan Nutrition Risks: No Nutritional Risk Meds Allergies Allergy/AdvReac Type Severity Reaction Status Date / Time No Known Allergies Allergy Mild Verified 11/03/24 19:59 Active Medications: Current Medications Acetaminophen (Acetaminophen 325 Mg Tablet) 650 mg PO Q6H PRN PRN Reason: Pain, Mild 1-3,fever,headache Calcium Carbonate (Calcium Carbonate 750 Mg Tab.Chew) 750 mg PO Q4H PRN PRN Reason: Heartburn Ceftriaxone Sodium (Ceftriaxone Sodium 1 Gm Vial) 1 gm IVPUSH Q24H DERICK Heparin Sodium (Porcine) (Heparin Sodium,Porcine 5,000 Unit/Ml Vial) 3,400 unit 40 unit/kg (3400 unit) IVPUSH PROTOCOL BOLUS PRN; Protocol PRN Reason: 40 unit/kg - Heparin Protocol Last Admin: 11/04/24 08:20 Dose: 3,400 unit Heparin Sodium (Porcine) (Heparin Sodium,Porcine 5,000 Unit/Ml Vial) 6,800 unit 80 unit/kg (6800 unit) IVPUSH PROTOCOL BOLUS PRN; Protocol PRN Reason: 80 unit/kg - Heparin Protocol Heparin Sodium/Sodium Chloride (Heparin Sodium,Porcine/1/2ns) 25,000 unit in 250 mls @ 0 mls/hr IVCONT .Q0M DERICK; Protocol Last Titration: 11/04/24 08:21 Dose: 13.81 units/kg/hr, 11.7 mls/hr Magnesium Hydroxide (Milk Of Magnesia 30 Ml Oral.Susp) 30 ml PO DAILY PRN PRN Reason: Constipation Melatonin (Melatonin 3 Mg Tablet) 6 mg PO BEDTIME PRN PRN Reason: Insomnia Sodium Chloride (0.9 % Sodium Chloride Flush 3 Ml Syringe) 3 ml IVFLUSH QSHIFT [facility] Last Admin: 11/04/24 08:20 Dose: 3 ml Home Medications ?Medication ?Instructions ?Recorded ?Confirmed ?Last Taken ?Type ascorbic acid (vitamin C) 500 mg mg PO 09/27/24 Unknown History capsule (Vitamin C With Natalya Hips) cholecalciferol (vitamin D3) 25 25 mcg PO 3XW 09/27/24 Unknown History mcg (1,000 unit) capsule estradiol 0.01% (0.1 mg/gram) 1 g vaginal 2XW 09/27/24 Unknown History vaginal cream flaxseed oil 1,000 mg capsule 1,000 mg PO DAILY 09/27/24 Unknown History d-mannose 500 mg capsule (AZO mg PO 10/25/24 Unknown History D-Mannose) omeprazole 20 mg capsule,delayed 20 mg PO DAILY 10/30/24 Unknown History release omega 7-aio-bhp-fish oil 1,000 mg 1 cap PO DAILY 11/04/24 11/04/24 11/03/24 History (120 mg-180 mg) capsule (Fish Oil) Physical Exam 2 Vital Signs: Vital Signs: Last Vital Signs Temp 98 F 11/04/24 06:17 Pulse 77 11/04/24 06:17 Resp 22 H 11/04/24 06:17 BP 133/67 11/04/24 06:17 Pulse Ox 99 11/04/24 06:17 O2 Del Method Room Air 11/04/24 06:17 O2 Flow Rate 3 11/03/24 22:26 BMI result Body Mass Index 27.6 Const: General: cooperative, comfortable, no acute distress, alert, awake and Physically active Nutritional Appearance: overweight O rientation/consciousness: patient oriented x3 Limitations: no limitations HEENT: Head: Yes normocephalic and Yes atraumatic Neck: Neck: Yes trachea midline, Yes supple and Yes no JVD Resp: Effort & Inspection: normal respiratory effort Auscultation: clear to auscultation bilaterally Cardio: Jugular venous distension: no JVD Palpation: normal PMI Rate: r egular rate Rhythm: regular rhythm Heart sounds: S1 normal heart sound present, S2 normal heart sound present, no click, no gallops and no murmurs GI: Auscultation: normal bowel sounds Skin: General skin exam: no rashes or lesions noted Neuro: General: patient oriented x3 and no focal motor deficits Extrem: General: Yes no clubbing, cyanosis or edema Psych: Appearance: grossly normal Objective Labs and Meds 11/04/24 01:08 11/04/24 04:26 Lab results: Laboratory Results - last 24 hr 11/03/24 11/03/24 11/03/24 20:20 20:21 20:28 WBC 16.1 H RBC 4.09 L Hgb 11.9 L Hct 35.4 L MCV 86.6 MCH 29.1 MCHC 33.6 RDW 13.5 Plt Count 353 MPV 9.4 Immature Gran % (Auto) 0.4 Neut % (Auto) 94.7 H Lymph % (Auto) 2.4 L [place] % (Auto) 2.1 Eos % (Auto) 0.2 Baso % (Auto) 0.2 Lymph # (Auto) 0.4 L [place] # (Auto) 0.3 Eos # (Auto) 0.0 Baso # (Auto) 0.0 Abs Immat Gran (auto) 0.06 H Absolute Neuts (auto) 15.2 H Absolute Nucleated RBC 0.000 Nucleated RBC % (auto) 0.0 PT 13.3 H INR 1.2 H APTT 27.5 aPTT Heparin Protocol D-Dimer High Sensitivty 607 Hold Blue Top SEE NOTE Sodium 139 Potassium 3.5 Chloride 107 Carbon Dioxide 24 Anion Gap 12 BUN 10 Creatinine 0.70 Estim Creat Clear Calc 90.6 Estimated GFR > 60 Random Glucose 126 H Lactic Acid 1.2 Calcium 9.2 Magnesium 1.9 Total Bilirubin 0.5 Direct Bilirubin 0.2 AST 18 ALT 12 Alkaline Phosphatase 52 Troponin I High Sens 110.0 H* C-Reactive Protein 6.97 H Total Protein 6.9 Albumin 3.6 Hold Green Top See Note Urine Color Urine Appearance Urine pH Ur Specific [place] Urine Protein Urine Glucose (UA) Urine Ketones Urine Blood Urine Nitrite Ur Leukocyte Esterase Urine RBC Urine WBC Ur Squamous Epith Cells Urine Bacteria Hyaline Casts Influenza Type A (PCR) NEGATIVE Influenza Type B (PCR) NEGATIVE RSV RNA Qual (PCR) NEGATIVE SARS-CoV-2 RNA (RT-PCR) NEGATIVE 11/03/24 11/03/24 11/04/24 20:49 23:42 01:08 WBC 15.8 H RBC 3.88 L Hgb 11.2 L Hct 33.7 L MCV 86.9 MCH 28.9 MCHC 33.2 RDW 13.5 Plt Count 332 MPV 9.4 Immature Gran % (Auto) Neut % (Auto) Lymph % (Auto) [place] % (Auto) Eos % (Auto) Baso % (Auto) Lymph # (Auto) [place] # (Auto) Eos # (Auto) Baso # (Auto) Abs Immat Gran (auto) Absolute Neuts (auto) Absolute Nucleated RBC 0.000 Nucleated RBC % (auto) 0.0 PT INR APTT aPTT Heparin Protocol D-Dimer High Sensitivty Hold Blue Top Sodium Potassium Chloride Carbon Dioxide Anion Gap BUN Creatinine Estim Creat Clear Calc Estimated GFR Random Glucose Lactic Acid Calcium Magnesium Total Bilirubin Direct Bilirubin AST ALT Alkaline Phosphatase Troponin I High Sens 319.5 H* D C-Reactive Protein Total Protein Albumin Hold Green Top Urine Color Yellow Urine Appearance Cloudy Urine pH 5.5 Ur Specific [place] 1.015 Urine Protein 30 (1+) H Urine Glucose (UA) Negative Urine Ketones Negative Urine Blood Moderate (2+) H Urine Nitrite Positive H Ur Leukocyte Esterase Moderate (2+) H Urine RBC 6-10 H Urine WBC >50 H Ur Squamous Epith Cells 0-2 Urine Bacteria Trace Hyaline Casts 0-2 Influenza Type A (PCR) Influenza Type B (PCR) RSV RNA Qual (PCR) SARS-CoV-2 RNA (RT-PCR) 11/04/24 11/04/24 04:26 07:42 WBC RBC Hgb Hct MCV MCH MCHC RDW Plt Count MPV Immature Gran % (Auto) Neut % (Auto) Lymph % (Auto) [place] % (Auto) Eos % (Auto) Baso % (Auto) Lymph # (Auto) [place] # (Auto) Eos # (Auto) Baso # (Auto) Abs Immat Gran (auto) Absolute Neuts (auto) Absolute Nucleated RBC Nucleated RBC % (auto) PT INR APTT aPTT Heparin Protocol 44.1 L D-Dimer High Sensitivty Hold Blue Top Sodium 142 Potassium 3.7 Chloride 111 H Carbon Dioxide 25 Anion Gap 10 L BUN 8 L Creatinine 0.59 Estim Creat Clear Calc 107.4 Estimated GFR > 60 Random Glucose 116 H Lactic Acid Calcium 8.4 D Magnesium Total Bilirubin 0.4 Direct Bilirubin AST 13 ALT < 6 Alkaline Phosphatase 43 Troponin I High Sens 114.1 H* D C-Reactive Protein Total Protein 5.6 L Albumin 2.9 L Hold Green Top Urine Color Urine Appearance Urine pH Ur Specific [place] Urine Protein Urine Glucose (UA) Urine Ketones Urine Blood Urine Nitrite Ur Leukocyte Esterase Urine RBC Urine WBC Ur Squamous Epith Cells Urine Bacteria Hyaline Casts Influenza Type A (PCR) Influenza Type B (PCR) RSV RNA Qual (PCR) SARS-CoV-2 RNA (RT-PCR) Imaging Radiologist's impression: Impressions Abdomen/Pelvis CT 11/04/24 07:32 IMPRESSION: 1. Staghorn calculus at the upper pole of the right kidney. 1.9 x 0.8 cm calculus in the right renal pelvis. Additional subcentimeter nonobstructing calculi at the lower pole of the right kidney. 2. Bilateral renal cysts as described. 3. Colonic diverticulosis without evidence of diverticulitis. Small hiatal hernia. Electronically signed by: Romain Mims MD 11/04/2024 09:24 AM EDT Assessment and Plan (1) Myocardial injury: Status: Acute Myocardial injury in this elderly woman with history of hypertension hyperlipidemia coming in for fever and chills. Possible differential diagnose include second-degree NSTEMI related to medical illness and possibly presence of underlying obstructive CAD, stress-induced cardiomyopathy and/or myocarditis which is less likely. At current point time does not appear to be a primary acute coronary syndrome event and I do not think this need for IV heparin at this point time. I would suggest an echocardiogram to evaluate LV function as well as any regional wall motion abnormality that may further guide therapy. She will eventually need ischemic workup to evaluate for obstructive coronary artery disease given her risk factors. Suggest aspirin and statins. Will sign of the case and follow as need be. Thank you for allowing me to partake in her care Procedures Date of Service Date of Service: 11/04/24
--- NOTE | 2024-11-04 09:34 | PHA.MEDREC ---
Addendum entered by Pema Campa RPh 11/04/24 13:08: Med rec was reviewed by [facility]. Addendum entered by Evan Garner 11/04/24 12:55: Spoke with pt about Meloxicam 15mg tabs and Topiramate 25mg tabs too see if she still takes these since the last fill for both was 09/26 for 30 days. PT states she is not taking either of those due to the Meloxicam creating a hole in her stomach and the Topiramate taking her taste buds away. Original Note: Pharmacy Consult ? Medication Reconciliation Pharmacy has completed the medication reconciliation. Spoke with pt and she was able to confirm her medications. Pt takes Estradiol Cream still twice a week on Mondays and . Pt confirmed she takes Omeprazole 20mg OTC and stated she was taking 1 (20mg) QD, but just recently started she taking 2 (40mg) BID. PT also confirmed she is/has been taking Vitamin D3 25mcg once a day now instead of 3XW.
--- NOTE | 2024-11-04 10:18 | HO.PM.IMPN ---
Subjective Subjective Date of Service: 11/04/24 Interval History: feeling better Physical Exam Vital Signs: Vital Signs: Last Vital Signs Temp 98.7 F 11/04/24 10:10 Pulse 69 11/04/24 10:10 Resp 15 11/04/24 10:10 BP 99/57 L 11/04/24 10:10 Pulse Ox 97 11/04/24 10:10 O2 Del Method Room Air 11/04/24 10:10 O2 Flow Rate 3 11/03/24 22:26 BMI result Body Mass Index 27.6 General: AO X 3, no acute distress Resp: CTA bilateral, no accessory muscles used CVS: S1,S2,RRR GI: soft, non tender, non distended Neuro: motor grossly intact, alert Psych: appropriate affect, appropriate insight Objective Data Active Medications Acetaminophen (Acetaminophen 325 Mg Tablet) 650 mg PO Q6H PRN PRN Reason: Pain, Mild 1-3,fever,headache Ascorbic Acid (Ascorbic Acid 500 Mg Tablet) 1,000 mg PO DAILY DERICK Calcium Carbonate (Calcium Carbonate 750 Mg Tab.Chew) 750 mg PO Q4H PRN PRN Reason: Heartburn Ceftriaxone Sodium (Ceftriaxone Sodium 1 Gm Vial) 1 gm IVPUSH Q24H DERICK Magnesium Hydroxide (Milk Of Magnesia 30 Ml Oral.Susp) 30 ml PO DAILY PRN PRN Reason: Constipation Melatonin (Melatonin 3 Mg Tablet) 6 mg PO BEDTIME PRN PRN Reason: Insomnia Non-Formulary Medication (Flaxseed Oil) 1,000 mg PO DAILY DERICK Non-Formulary Medication ([place] 4-Utt-Nbw-Fish Oil [Fish Oil]) 1 cap PO DAILY [facility] Omeprazole (Omeprazole 40 Mg Capsule.) 40 mg PO BID@0630,1630 [facility] Sodium Chloride (0.9 % Sodium Chloride Flush 3 Ml Syringe) 3 ml IVFLUSH QSHIFT [facility] Last Admin: 11/04/24 08:20 Dose: 3 ml Documented By: SUKHI Vitamin D (Cholecalciferol (Vitamin D3) 25 Mcg Tablet) 25 mcg PO DAILY [facility] Labs 11/04/24 01:08 11/04/24 04:26 Labs: Laboratory Results - last 24 hr 11/03/24 11/03/24 11/03/24 20:20 20:21 20:28 MCV 86.6 MCH 29.1 MCHC 33.6 RDW 13.5 Plt Count 353 MPV 9.4 Immature Gran % (Auto) 0.4 Neut % (Auto) 94.7 H Lymph % (Auto) 2.4 L [place] % (Auto) 2.1 Eos % (Auto) 0.2 Baso % (Auto) 0.2 Lymph # (Auto) 0.4 L [place] # (Auto) 0.3 Eos # (Auto) 0.0 Baso # (Auto) 0.0 Abs Immat Gran (auto) 0.06 H Absolute Neuts (auto) 15.2 H Absolute Nucleated RBC 0.000 Nucleated RBC % (auto) 0.0 PT 13.3 H INR 1.2 H APTT 27.5 aPTT Heparin Protocol D-Dimer High Sensitivty 607 Hold Blue Top SEE NOTE Anion Gap 12 Estim Creat Clear Calc 90.6 Estimated GFR > 60 Random Glucose 126 H Lactic Acid 1.2 Calcium 9.2 Magnesium 1.9 Total Bilirubin 0.5 Direct Bilirubin 0.2 AST 18 ALT 12 Alkaline Phosphatase 52 Troponin I High Sens 110.0 H* C-Reactive Protein 6.97 H Total Protein 6.9 Albumin 3.6 Hold Green Top See Note Urine Color Urine Appearance Urine pH Ur Specific [place] Urine Protein Urine Glucose (UA) Urine Ketones Urine Blood Urine Nitrite Ur Leukocyte Esterase Urine RBC Urine WBC Ur Squamous Epith Cells Urine Bacteria Hyaline Casts Influenza Type A (PCR) NEGATIVE Influenza Type B (PCR) NEGATIVE RSV RNA Qual (PCR) NEGATIVE SARS-CoV-2 RNA (RT-PCR) NEGATIVE 11/03/24 11/03/24 11/04/24 20:49 23:42 01:08 MCV 86.9 MCH 28.9 MCHC 33.2 RDW 13.5 Plt Count 332 MPV 9.4 Immature Gran % (Auto) Neut % (Auto) Lymph % (Auto) [place] % (Auto) Eos % (Auto) Baso % (Auto) Lymph # (Auto) [place] # (Auto) Eos # (Auto) Baso # (Auto) Abs Immat Gran (auto) Absolute Neuts (auto) Absolute Nucleated RBC 0.000 Nucleated RBC % (auto) 0.0 PT INR APTT aPTT Heparin Protocol D-Dimer High Sensitivty Hold Blue Top Anion Gap Estim Creat Clear Calc Estimated GFR Random Glucose Lactic Acid Calcium Magnesium Total Bilirubin Direct Bilirubin AST ALT Alkaline Phosphatase Troponin I High Sens 319.5 H* D C-Reactive Protein Total Protein Albumin Hold Green Top Urine Color Yellow Urine Appearance Cloudy Urine pH 5.5 Ur Specific [place] 1.015 Urine Protein 30 (1+) H Urine Glucose (UA) Negative Urine Ketones Negative Urine Blood Moderate (2+) H Urine Nitrite Positive H Ur Leukocyte Esterase Moderate (2+) H Urine RBC 6-10 H Urine WBC >50 H Ur Squamous Epith Cells 0-2 Urine Bacteria Trace Hyaline Casts 0-2 Influenza Type A (PCR) Influenza Type B (PCR) RSV RNA Qual (PCR) SARS-CoV-2 RNA (RT-PCR) 11/04/24 11/04/24 04:26 07:42 MCV MCH MCHC RDW Plt Count MPV Immature Gran % (Auto) Neut % (Auto) Lymph % (Auto) [place] % (Auto) Eos % (Auto) Baso % (Auto) Lymph # (Auto) [place] # (Auto) Eos # (Auto) Baso # (Auto) Abs Immat Gran (auto) Absolute Neuts (auto) Absolute Nucleated RBC Nucleated RBC % (auto) PT INR APTT aPTT Heparin Protocol 44.1 L D-Dimer High Sensitivty Hold Blue Top Anion Gap 10 L Estim Creat Clear Calc 107.4 Estimated GFR > 60 Random Glucose 116 H Lactic Acid Calcium 8.4 D Magnesium Total Bilirubin 0.4 Direct Bilirubin AST 13 ALT < 6 Alkaline Phosphatase 43 Troponin I High Sens 114.1 H* D C-Reactive Protein Total Protein 5.6 L Albumin 2.9 L Hold Green Top Urine Color Urine Appearance Urine pH Ur Specific [place] Urine Protein Urine Glucose (UA) Urine Ketones Urine Blood Urine Nitrite Ur Leukocyte Esterase Urine RBC Urine WBC Ur Squamous Epith Cells Urine Bacteria Hyaline Casts Influenza Type A (PCR) Influenza Type B (PCR) RSV RNA Qual (PCR) SARS-CoV-2 RNA (RT-PCR) Assessment and Plan (1) Fever: Status: Acute Plan 69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, JASON, presented with fevers and chills recurrent fevers, chills SIRS differential includes - sepsis due to UTI - though patient denies dysuria and is chronically colonized, continue empiric Rocephin, follow up cultures tick panel was negative, follow up repeat autoimmune - check ESR, if elevated will consider temporal US CT chest and abd unrevealing NSTEMI type II cardio appreciated, dc iv heparin echo jason cpap dvt prophylaxis - lovenox full code reason for continued hospitalization:fever work up Quality Stroke Does the patient have a stroke diagnosis?: No VTE Prior VTE?: No VTE Risk Level:: Medical - moderate - high VTE Device Contraindication: Treatment Not Indicated VTE Drug Contraindication: N/A - Med Ordered
--- NOTE | 2024-11-04 10:44 | PC.NURSE ---
pt a&ox4, ambulated independently to restroom - educated on unplugging and re-plugging media monitor back in. heparin d/c'd per MAR per provider order. med rec completed by pharmacy. echo at bedside. pending bed assignment.
--- NOTE | 2024-11-04 11:05 | PC.NURSE ---
critical lab : 05/30 (+) blood culture gram (-) rods. MD. Norman notifed via [employer] no new orders at this time.
[2024-11-04 11:32] LABS: Erythrocyte Sedimentation Rate 63 MM/HR (0-20)
[2024-11-04] MEDS: Ascorbic Acid 500 MG TABLET 1000 MG PO (16:25)
[2024-11-04] MEDS: Omeprazole 40 MG CAPSULE.DR PO (16:26)
--- NOTE | 2024-11-04 16:26 | MHC.CM.PN ---
PT REPORTS SHE LIVES WITH HER AND IS INDEPENDENT WITH CARE SHE HAS NO DME AND NO SERVICES COPY OF HCP REQUESTED, HER WILL BRING IT IN PCP: FATOU BAINS IMM DELIVERED DCP: HOME NO SERVICE VIA PRIVATE TRANSPORT
[2024-11-04] MEDS: Benzonatate 100 MG CAPSULE 200 MG PO (20:50)
[2024-11-04] MEDS: guaiFENesin 100 MG/5 ML 5 ML LIQUID PO (20:50)
[2024-11-05] VITALS: BP 108/63; PULSE 60; RESP 18; TEMP 36.3; O2SAT 97
[2024-11-05 03:12] VITALS: BP 103/47; PULSE 60; RESP 18; TEMP 36.4; O2SAT 97
[2024-11-05] MEDS: Omeprazole 40 MG CAPSULE.DR PO ×2 (06:12→15:58)
[2024-11-05 06:44] LABS: Hematocrit 31.3 % (37.0-47.0); Hemoglobin 10.2 g/dl (12.0-16.0); Mean Corpuscular HGB Conc 32.6 g/dl (31.0-35.0); Mean Corpuscular Hemoglobin 28.8 pg (27.0-33.0); Mean Corpuscular Volume 88.4 fL (80.0-98.0); Mean Platelet Volume 9.8 fL (9.4-12.3); Platelet Count 290 X10*3/uL (160-400); Red Blood Count 3.54 X10*6/uL (4.20-5.50); Red Cell Distribution Width 13.8 % (11.0-16.0); White Blood Count 4.8 X10*3/uL (4.8-10.8)
[2024-11-05 07:02] LABS: Anion Gap 10 (12-20); Blood Urea Nitrogen 8 mg/dL (9-16); Calcium 9.1 mg/dL (8.4-10.2); Carbon Dioxide 26 mmol/L (22-29); Chloride 110 mmol/L (96-108); Creatinine Clr Calc Pharmacy 98.5; Estimated Glomerular Filt Rate > 60; Glucose Random 97 mg/dL (60-115); Sodium 142 mmol/L (135-145)
[2024-11-05 08:00] VITALS: BP 128/60; PULSE 65; RESP 20; TEMP 36.3; O2SAT 95
[2024-11-05] MEDS: guaiFENesin 100 MG/5 ML 5 ML LIQUID PO ×2 (08:14→20:54)
[2024-11-05] MEDS: Ascorbic Acid 500 MG TABLET 1000 MG PO (08:14)
[2024-11-05] MEDS: Benzonatate 100 MG CAPSULE 200 MG PO ×2 (08:14→20:54)
[2024-11-05] MEDS: Cholecalciferol (Vitamin D3) 25 MCG TABLET PO (08:15)
[2024-11-05] MEDS: 0.9 % Sodium Chloride Flush 3 ML SYRINGE IVFLUSH ×3 (08:17→20:54)
[2024-11-05 11:54] VITALS: BP 130/60; PULSE 64; RESP 20; TEMP 36.3; O2SAT 97
--- NOTE | 2024-11-05 12:34 | HO.PM.IMPN ---
Subjective Subjective Date of Service: 11/05/24 Interval History: feels better Physical Exam Vital Signs: Vital Signs: Last Vital Signs Temp 97.4 F 11/05/24 11:54 Pulse 64 11/05/24 11:54 Resp 20 11/05/24 11:54 BP 130/60 11/05/24 11:54 Pulse Ox 97 11/05/24 11:54 O2 Del Method Room Air 11/05/24 11:54 O2 Flow Rate 3 11/03/24 22:26 BMI result Body Mass Index 28.2 General: AO X 3, no acute distress Resp: CTA bilateral, no accessory muscles used CVS: S1,S2,RRR GI: soft, non tender, non distended Neuro: motor grossly intact, alert Psych: appropriate affect, appropriate insight Objective Data Active Medications Acetaminophen (Acetaminophen 325 Mg Tablet) 650 mg PO Q6H PRN PRN Reason: Pain, Mild 1-3,fever,headache Acetaminophen/Butalbital/Caffeine (Butalb/Acetamin/Caff 50/325/40 Tablet) 1 tab PO Q4H PRN PRN Reason: Headache Last Admin: 11/04/24 20:50 Dose: 1 tab Documented By: ALEX Ascorbic Acid (Ascorbic Acid 500 Mg Tablet) 1,000 mg PO DAILY DERICK Last Admin: 11/05/24 08:14 Dose: 1,000 mg Documented By: REYNALDO Benzonatate (Benzonatate 100 Mg Capsule) 200 mg PO TID PRN PRN Reason: Cough Last Admin: 11/05/24 08:14 Dose: 200 mg Documented By: REYNALDO Calcium Carbonate (Calcium Carbonate 750 Mg Tab.Chew) 750 mg PO Q4H PRN PRN Reason: Heartburn Ceftriaxone Sodium (Ceftriaxone Sodium 1 Gm Vial) 1 gm IVPUSH Q24H DERIKC Enoxaparin Sodium (Enoxaparin Sodium 40 Mg/0.4 Ml Syringe) 40 mg SUBCUT Q24H [facility] Last Admin: 11/05/24 08:15 Dose: Not Given Documented By: REYNALDO Non-Admin Reason: Patient Refused Guaifenesin (Guaifenesin 100 Mg/5 Ml 5 Ml Liquid) 5 ml PO Q6H PRN PRN Reason: Cough Last Admin: 11/05/24 08:14 Dose: 5 ml Documented By: HO.RICCIAV Magnesium Hydroxide (Milk Of Magnesia 30 Ml Oral.Susp) 30 ml PO DAILY PRN PRN Reason: Constipation Melatonin (Melatonin 3 Mg Tablet) 6 mg PO BEDTIME PRN PRN Reason: Insomnia Non-Formulary Medication (Estradiol) 1 gm VAGINAL MOTH [facility] Omeprazole (Omeprazole 40 Mg Capsule.Dr) 40 mg PO BID@0630,1630 [facility] Last Admin: 11/05/24 06:12 Dose: 40 mg Documented By: ALEX Sodium Chloride (0.9 % Sodium Chloride Flush 3 Ml Syringe) 3 ml IVFLUSH QSHIFT [facility] Last Admin: 11/05/24 08:17 Dose: 3 ml Documented By: REYNALDO Vitamin D (Cholecalciferol (Vitamin D3) 25 Mcg Tablet) 25 mcg PO DAILY [facility] Last Admin: 11/05/24 08:15 Dose: 25 mcg Documented By: REYNALDO Labs 11/05/24 06:03 11/05/24 06:03 Labs: Laboratory Results - last 24 hr 11/05/24 06:03 MCV 88.4 MCH 28.8 MCHC 32.6 RDW 13.8 Plt Count 290 MPV 9.8 Absolute Nucleated RBC 0.000 Nucleated RBC % (auto) 0.0 Anion Gap 10 L Estim Creat Clear Calc 98.5 Estimated GFR > 60 Random Glucose 97 Calcium 9.1 D Microbiology Microbiology Results: Microbiology 11/03/24 Unknown Urine Culture - Preliminary Urine clean catch - Clean Catch Midstream Gram negative dylan 11/03/24 20:23 Blood Culture - Preliminary Blood - Venous Gram negative dylan 11/03/24 20:20 Blood Culture - Preliminary Blood - Venous Gram negative dylan Assessment and Plan (1) Fever: Status: Acute Plan 69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, FARIDA, presented with fevers and chills sepsis due to acute pylenephritis complicated by gnr bacteremia contineu rocephin, follow up cultures NSTEMI type II with basal infer hypokinesis, ef 45% cardio appreciated, dc iv heparin likely underlyin cAD with demand ischemic outpatient MIBI farida cpap dvt prophylaxis - lovenox full code reason for continued hospitalization: culture Quality Stroke Does the patient have a stroke diagnosis?: No VTE Prior VTE?: No VTE Risk Level:: Medical - moderate - high VTE Device Contraindication: Treatment Not Indicated VTE Drug Contraindication: N/A - Med Ordered
[2024-11-05 15:35] VITALS: BP 128/60; PULSE 65; RESP 16; TEMP 36.2; O2SAT 95
[2024-11-05] MEDS: D MANNOSE 1 EACH PO (15:56)
[2024-11-05 19:57] VITALS: BP 132/62; PULSE 70; RESP 16; TEMP 36.4; O2SAT 96
[2024-11-05] MEDS: cefTRIAXone sodium 1 GM VIAL IVPUSH (20:54)
[2024-11-06] VITALS: BP 127/64; PULSE 62; RESP 16; TEMP 36.5; O2SAT 96
[2024-11-06 00:28] LABS: A. Phagocytphilium DNA,RT-PCR NOT DETECTED (NOT DETECTED); Babesia Microti DNA, RT-PCR NOT DETECTED (NOT DETECTED); Borrelia Miyamotoi,DNA RT-PCR NOT DETECTED (NOT DETECTED); E.Chaffeensis DNA RT-PCR NOT DETECTED (NOT DETECTED); Lyme(Borrelia ssp)DNA RT-PCR NOT DETECTED (NOT DETECTED)
[2024-11-06 04:00] VITALS: BP 111/54; PULSE 58; RESP 18; TEMP 36.2; O2SAT 96
[2024-11-06] MEDS: Omeprazole 40 MG CAPSULE.DR PO (06:33)
[2024-11-06] MEDS: Butalb/Acetamin/Caff 50/325/40 TABLET 1 TAB PO (06:35)
[2024-11-06 07:08] VITALS: BP 145/80; PULSE 66; RESP 18; TEMP 36.5; O2SAT 96
[2024-11-06 07:54] LABS: Hematocrit 35.4 % (37.0-47.0); Hemoglobin 11.8 g/dl (12.0-16.0); Mean Corpuscular HGB Conc 33.3 g/dl (31.0-35.0); Mean Corpuscular Hemoglobin 28.8 pg (27.0-33.0); Mean Corpuscular Volume 86.3 fL (80.0-98.0); Mean Platelet Volume 9.7 fL (9.4-12.3); Platelet Count 376 X10*3/uL (160-400); Red Cell Distribution Width 13.7 % (11.0-16.0); White Blood Count 3.7 X10*3/uL (4.8-10.8)
[2024-11-06 08:14] LABS: Anion Gap 12 (12-20); Blood Urea Nitrogen 12 mg/dL (9-16); Calcium 9.9 mg/dL (8.4-10.2); Carbon Dioxide 25 mmol/L (22-29); Chloride 108 mmol/L (96-108); Cholesterol 191 mg/dL (<200); Creatinine Clr Calc Pharmacy 103.3; Estimated Glomerular Filt Rate > 60; Glucose Random 91 mg/dL (60-115); HDL Cholesterol 36 mg/dL (>40); Potassium 4.2 mmol/L (3.3-5.1); Sodium 141 mmol/L (135-145)
[2024-11-06 08:23] LABS: LDL Cholesterol Calculated 131 mg/dL (<100); Triglycerides 124 mg/dL (<150)
[2024-11-06] MEDS: Benzonatate 100 MG CAPSULE 200 MG PO (09:02)
[2024-11-06] MEDS: Ascorbic Acid 500 MG TABLET 1000 MG PO (09:02)
[2024-11-06] MEDS: Aspirin Enteric Coated 81 MG TABLET.DR PO (09:02)
[2024-11-06] MEDS: Cholecalciferol (Vitamin D3) 25 MCG TABLET PO (09:02)
[2024-11-06] MEDS: guaiFENesin 100 MG/5 ML 5 ML LIQUID PO (09:02)
[2024-11-06] MEDS: 0.9 % Sodium Chloride Flush 3 ML SYRINGE IVFLUSH (09:08)
--- NOTE | 2024-11-06 09:36 | PM.DS ---
DS: Providers Provider Date of Service: 11/06/24 Date of admission: 11/04/24 00:43 Date of discharge: 11/06/24 Primary care physician: Ana Bass MD Consults: 11/04/24 00:43 Consult to Cardiology Routine Consulting Provider: [facility] Reason for consultation: NSTEMI Has provider been notified: No DS: Diagnosis Discharge Diagnosis (1) Fever: Status: Acute DS: Summary Hospital Course Hospital Course: from initial hpi: 69-year-old female with a past medical history of hypertension presented to the hospital with a chief complaint of chills and rigors. Patient reports that she intermittently has been having episodes of chills and rigors at least 3 times in the past 6-8 weeks. Today hip she felt chills hence presented to the ER for further evaluation. Also reports that over the past few months he has been having cough without any sputum production. Reports she has a history of tension headaches. Ativan if she coughs she feels like she is having headache. Denies any sick contacts. Recently has seen PCP and ordered for tick panel which were negative. Denies any chest pain or palpitations. Denies any lightheadedness or dizziness. Denies any urinary symptoms. Patient reports that she has history of recurrent UTIs. Review of all other systems is negative except mentioned above ER course: Per ER team, patient's exam was benign; EKG showed old right bundle branch block. EKG unchanged from prior. Troponins elevated 119-319. Empirically started on heparin drip. Urinalysis abnormal. Given ceftriaxone. CT chest showed no evidence of PE. hospital course: Patient was admitted for sepsis due to acute pyelonephritis complicated by bacteremia due to pansensitive E coli. Was treated ceftriaxone sepsis resolved. We will be discharged on 1 week of levofloxacin. Course complicated by type 2 NSTEMI with basal inferior hypokinesis seen on echo with EF of 45%. Was seen by Cardiology who recommended aspirin, statin and outpatient follow-up for stress test. For obstructive sleep apnea was continued on CPAP. Patient is feeling better will be discharged home. Time Attestation Discharge Coordination Time (in mins): 32 Quality: Safe Use of Opioids Does Pt have an Active Cancer Diagnosis on the Problem List?: No Quality: Stroke Does the patient have a stroke diagnosis?: No Physical Exam Vital Signs: Vital Signs: Last Vital Signs Temp 97.7 F 11/06/24 07:08 Pulse 66 11/06/24 07:08 Resp 18 11/06/24 07:08 BP 145/80 H 11/06/24 07:08 Pulse Ox 96 11/06/24 07:08 O2 Del Method Room Air 11/06/24 07:08 O2 Flow Rate 3 11/03/24 22:26 BMI result Body Mass Index 28.2 General: AO X 3, no acute distress Resp: CTA bilateral, no accessory muscles used CVS: S1,S2,RRR GI: soft, non tender, non distended Neuro: motor grossly intact, alert Psych: appropriate affect, appropriate insight DS: Data Data Completed and Pending Labs on day of discharge: Laboratory Results - last 24 hr 11/03/24 11/06/24 20:21 07:01 WBC 3.7 L RBC 4.10 L Hgb 11.8 L Hct 35.4 L MCV 86.3 MCH 28.8 MCHC 33.3 RDW 13.7 Plt Count 376 D MPV 9.7 Absolute Nucleated RBC 0.000 Nucleated RBC % (auto) 0.0 Sodium 141 Potassium 4.2 Chloride 108 Carbon Dioxide 25 Anion Gap 12 BUN 12 Creatinine 0.62 Estim Creat Clear Calc 103.3 Estimated GFR > 60 Random Glucose 91 Calcium 9.9 D Triglycerides 124 Cholesterol 191 LDL Cholesterol, Calc 131 H HDL Cholesterol 36 L A.phagocytophil DNA PCR NOT DETECTED Babesia microti DNA PCR NOT DETECTED Borrelia sp DNA (PCR) NOT DETECTED Borrelia miyamotoi (PCR) NOT DETECTED E.chaffeensis DNA (PCR) NOT DETECTED Tick-borne Disease PCR SEE NOTE Discharge Plan Discharge Anticipated Discharge Date/Time: 11/06/24 09:30 Patient Disposition: Home, Self-Care Discharge Diagnosis: sepsis, uti, bacteremia, type II nstemi Referrals: Ana Bass MD [Primary Care Provider] - 1 Week Discharge Medications: New levofloxacin 750 mg tablet 750 mg PO DAILY Qty: 7 0RF rosuvastatin 10 mg tablet 10 mg PO BEDTIME Qty: 90 0RF aspirin 81 mg tablet 81 mg PO DAILY Qty: 90 0RF Continued omega 7-kcy-efr-fish oil [Fish Oil] 1,000 (120-180) mg Capsule 1 cap PO DAILY ascorbic acid (vitamin C) [Vitamin C With Natalya Hips] 500 mg capsule 1,000 mg PO DAILY flaxseed oil 1,000 mg capsule 1,000 mg PO DAILY Rx Instructions: administer with a meal cholecalciferol (vitamin D3) 25 mcg (1,000 unit) capsule 25 mcg PO DAILY estradiol 0.01 % (0.1 mg/gram) cream 1 g vaginal MOTH omeprazole 20 mg capsule,delayed release(DR/EC) 40 mg PO BID@0630,1630 AZO D-Mannose 500 mg capsule 1,000 mg PO DAILY Discharge Orders: Discharge Order (Routine); Ordered 11/06/24 Ordered By: Slava Norman Diet: Advance to usual diet Activity on Discharge: As tolerated Stand Alone Forms: Patient Portal Discharge page Print Language: Mosotho Care Plan Goals: recovery Health Concerns: uti, bacteremia, likely cad Plan of Treatment: 1 week of levofloxacin - watch for diarrhea, tendon pain, recurrent fever starting on aspirin and statin - watch for muscle pains, bleeding follow up with cardiology for stress test Assessment: see above
--- NOTE | 2024-11-06 12:17 | MHC.CM.PN ---
IMM 11/04/24 Patient discharged to home self care. She has arranged for transportation home.
== END 2024-11-06 10:53 | disposition home or self-care (01) | DRG 871 ==
LOC: HO.ED 11-04 00:28 → HO.EDOVER 11-04 00:55 → HO.IMC 11-04 11:38
PROVIDERS: Admitting Provider Hospitalist; Emergency Provider Emergency Medicine; PCP Internal Medicine; Visit Provider Internal Medicine
DX: A41.9 Sepsis, unspecified organism (principal); I21.A1 Myocardial infarction type 2; N10 Acute pyelonephritis; I25.10 Atherosclerotic heart disease of native coronary artery without angina pectoris; B96.20 Unspecified Escherichia coli [E. coli] as the cause of diseases classified elsewhere; G47.33 Obstructive sleep apnea (adult) (pediatric); Z20.822 Contact with and (suspected) exposure to COVID-19; Z85.72 Personal history of non-Hodgkin lymphomas; Z87.440 Personal history of urinary (tract) infections; Z79.899 Other long term (current) drug therapy
CPT/HCPCS: 0241U; 36415; 71046; 71275; 74176; 80048; 80053; 80061; 80076; 81001; 83605; 83735; 84484; 85025; 85027; 85379; 85610; 85652; 85730; 86140; 87040; 87077; 87086; 87088; 87186; 87205; 87468; 87469; 87478; 87484; 87798; 93005; 93306; 99285; J0131; J0696; J1271; J1644; J7120; Q9967

== ENCOUNTER → 2024-11-03 20:13 | Outpatient (BNV) | payer MEDICARE, SELFPAY | PROVIDERS: Admitting Provider Hospitalist; Emergency Provider Emergency Medicine; PCP Internal Medicine; Visit Provider Internal Medicine Cardiovascular Disease | DX: I49.3 Ventricular premature depolarization (principal); I49.9 Cardiac arrhythmia, unspecified; I45.10 Unspecified right bundle-branch block | CPT/HCPCS: 93010 ==

== ENCOUNTER → 2024-11-03 20:44 | Outpatient (BNV) | payer MEDICARE, SELFPAY | PROVIDERS: Emergency Provider Emergency Medicine; PCP Internal Medicine; Visit Provider Radiology Diagnostic Radiology | DX: R06.02 Shortness of breath (principal) | CPT/HCPCS: 71046 ==

== ENCOUNTER 2024-11-04 00:43 | Outpatient (BNV) | payer MEDICARE, SELFPAY | END 2024-11-04 07:32 | PROVIDERS: Admitting Provider Hospitalist; Emergency Provider Emergency Medicine; PCP Internal Medicine; Visit Provider Radiology Diagnostic Radiology | DX: N28.1 Cyst of kidney, acquired (principal) | CPT/HCPCS: 74176 ==

== ENCOUNTER → 2024-11-04 00:43 | Outpatient (BNV) | payer MEDICARE, SELFPAY | PROVIDERS: Admitting Provider Hospitalist; Emergency Provider Emergency Medicine; PCP Internal Medicine; Visit Provider Internal Medicine Cardiovascular Disease | DX: I34.0 Nonrheumatic mitral (valve) insufficiency (principal); I5A Non-ischemic myocardial injury (non-traumatic) | CPT/HCPCS: 93306; 99222 ==

== ENCOUNTER → 2024-11-04 00:43 | Outpatient (BNV) | payer MEDICARE, SELFPAY | PROVIDERS: Admitting Provider Hospitalist; Emergency Provider Emergency Medicine; PCP Internal Medicine; Visit Provider Internal Medicine | DX: R50.9 Fever, unspecified (principal) | CPT/HCPCS: 99499 ==

== ENCOUNTER 2024-11-18 13:02 | Outpatient (AMB) | payer MEDICARE, SELFPAY ==
--- NOTE | 2024-11-18 13:04 | MHC.PC.OV ---
Vital Signs 11/18/24 13:09 11/18/24 13:42 Height 5 ft 9 in Weight 85.729 kg BMI 27.9 BP 162/90 H 150/90 H Respiration 16 Pulse 71 Pulse Source Pulse Oximeter Temp 97.1 F Temp Source Temporal Artery Scan Pulse Oximetry (%) 96 Oxygen Delivery Method Room Air Intake Visit Reasons: ED F/U [employer] Required: No Accompanied by: Self / Same As Patient Allergies No Known Allergies Allergy (Mild, Verified 11/18/24 13:04) Medication List - Last Reconciled 11/18/24 by LINA Jean ascorbic acid (vitamin C) (Vitamin C With Natalya Hips) 1,000 mg PO DAILY aspirin 81 mg PO DAILY cholecalciferol (vitamin D3) 25 mcg PO DAILY d-mannose (AZO D-Mannose) 1,000 mg PO DAILY estradiol 0.01%(0.1mg/gram) 1 g vaginal MOTH flaxseed oil 1,000 mg PO DAILY loratadine (Claritin) 10 mg PO DAILY losartan 25 mg PO DAILY omega 1-xwi-vgj-fish oil 1,000 (120-180) mg (Fish Oil) 1 cap PO DAILY omeprazole 40 mg PO BID@0630,1630 rosuvastatin 10 mg PO BEDTIME HPI HPI Comments History of Present Illness Details 69 year old female with history of htn and recurrent UTi presents to the office for hospital discharge follow up. Presented to [facility] ED due to multiple episodes of rigors though she had not noted fevers at home. As previously noted in the former prior visit, for several weeks, the patient had been experiencing dry cough, chills though not rigors, headaches and myalgias. Had had extensive negative workup. At that time, no urinary symptoms. 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 In the ED, rectal temperature showed T-max 104 and leukocytosis of 16.1, consistent with sepsis. Lactic acid within normal limits. Urinalysis was significant for 2+ leukocytes, 2+ blood, positive nitrites, significant urinary sediment trace bacteria. CT of the abdomen/pelvis showed a staghorn calculus upper pole of the right kidney measuring 1.9 x 0.8 cm as well as several nonobstructing calculi. Was treated empirically with IV ceftriaxone for acute pyelonephritis with blood cultures ultimately growing E coli bacteria. Course was also complicated by elevated troponins ranging 119-319, likely type 2 NSTEMI with echocardiogram showing basilar inferior hypokinesis with decreased ejection fraction of 45%. She was evaluated by Cardiology and was initially treated with heparin drip per protocol. LDL elevated at 131. She was started on rosuvastatin 10 mg daily as well as a baby aspirin and was recommended for outpatient follow-up with nuclear stress test. She had not had any chest pain. She does have history of hypertension but has not been on antihypertensive agents and recent history. She does report she does not like taking medication. She is not keen on being on the Crestor or aspirin. We did discuss the low risk of side effects against the benefits of being on the medications and reducing further cardiovascular risk. She does have upcoming appointment for nuclear stress test as well as Cardiology appointment. She does report a chronic cough that she had been experiencing has resolved with the increase in omeprazole. Imaging in the ED did show a small hiatal hernia. Denies any dysphagia or globus sensation. She also tells me that she was recently seen by [facility] for pain in the right knee which showed osteoarthritis of the right knee and was also diagnosed with ITP band dysfunction. She will continue following. ROS: General: No fevers, malaise, unintentional weight loss HEENT: No blurred vision, diplopia. No sore throat, nasal congestion, rhinorrhea, sinus pain, ear pain Cardiovascular: No chest pain, palpitations, or leg edema Respiratory: No shortness of breath, wheezing. see hpi GI: No abdominal pain, nausea, vomiting, diarrhea, constipation, melena, hematochezia : No dysuria, hematuria, increased urinary frequency, decreased urinary output. +see hpi MSK: No myalgia, back pain Neuro: No headaches, weakness, paresthesias Skin: No rashes or lesions EXAM: Constitutional - Awake and Alert, No apparent distress Eyes - PERRL Cardiovascular - S1S2, RRR, No edema Respiratory - Normal lung expansion, Normal respiratory effort, No respiratory distress, CTA bilaterally Extremities - no calf tenderness bilaterally, no swelling Skin - Warm/Dry Neurological - Alert & oriented x3 Psychological - Appropriate affect [facility] Medical History (Updated 06/23/25 @ 14:23 by LINA Jean) HFrEF (heart failure with reduced ejection fraction) Chronic allergic rhinitis FARIDA (obstructive sleep apnea) Lymphoma, splenic HTN (hypertension) Elevated cholesterol Surgical History History of left hip replacement H/O colonoscopy (~12/14/22) Social History Household Members: Spouse Housing: House Do you presently have visiting nurse or other home services: Yes Patient Tobacco Use Status: Never used Tobacco service: No Questionnaire Thrive Questionnaire Date Thrive assessed: 11/04/24 Physical exam (Primary Care) Vital Signs: Last Vital Signs Temp 97.1 F 11/18/24 13:09 Pulse 71 11/18/24 13:09 Resp 16 11/18/24 13:09 BP 162/90 H 11/18/24 13:09 Pulse Ox 96 11/18/24 13:09 Oxygen Delivery Method Room Air 11/18/24 13:09 BMI result Body Mass Index 27.9 Tobacco/Smoking Status: Tobacco use Status Patient Tobacco Use Status Never used Tobacco 11/18/24 13:05 Thrive Assessment: Date of Thrive Assessment Date Thrive assessed 11/04/24 11/18/24 13:05 Coding Level of Care Code Est Pt Level 5 (56183) Complex EM visit Add On G2211 Diagnoses HTN (hypertension) I10 Myocardial injury I5A Elevated cholesterol E78.00 FARIDA (obstructive sleep apnea) G47.33 Hospital discharge follow-up Z09 Assessment & Plan Assessment & Plan (1) HTN (hypertension): Code(s): I10 - Essential (primary) hypertension Category: Medical Plan: Uncontrolled. Add losartan 25 mg daily. Counseled on dosing and side effects. Also recommend checking blood pressures at home (2) Myocardial injury: Code(s): I5A - Non-ischemic myocardial injury (non-traumatic) Category: Medical Plan: No anginal chest pain. Follow-up with cardiology and for nuclear stress test as scheduled (3) Elevated cholesterol: Code(s): E78.00 - Pure hypercholesterolemia, unspecified Category: Medical Plan: Uncontrolled with LDL 131, goal less than 70. Discussed the risks and benefits of statin medication. Will recheck cholesterol levels at upcoming visit. Diet low in saturated fats and highly processed foods as well as regular exercise recommended (4) FARIDA (obstructive sleep apnea): Code(s): G47.33 - Obstructive sleep apnea (adult) (pediatric) Category: Medical Plan: Continue CPAP usage (5) Hospital discharge follow-up: Code(s): Z09 - Encounter for follow-up examination after completed treatment for conditions other than malignant neoplasm Plan: Reviewed ED provider note, H&P, discharge summary, CT abdomen/pelvis, labs, Cardiology consult. Plan Follow up in the office as scheduled for annual physical exam. Labs to be completed several days prior to visit Time spent with patient 35 minutes. Time spent reviewing and documenting 10 minutes Orders: Orders Basic Metabolic Panel 2 Months D64.9 - Anemia, unspecified, E78.00 - Pure hypercholesterolemia, unspecified, I10 - Essential (primary) hypertension Lipid Panel 2 Months D64.9 - Anemia, unspecified, E78.00 - Pure hypercholesterolemia, unspecified, I10 - Essential (primary) hypertension Liver Panel 2 Months D64.9 - Anemia, unspecified, E78.00 - Pure hypercholesterolemia, unspecified, I10 - Essential (primary) hypertension Complete Blood Count Auto Diff 2 Months D64.9 - Anemia, unspecified, E78.00 - Pure hypercholesterolemia, unspecified, I10 - Essential (primary) hypertension IRON PROFILE 2 Months D64.9 - Anemia, unspecified, E78.00 - Pure hypercholesterolemia, unspecified, I10 - Essential (primary) hypertension Medications: New losartan 25 mg PO DAILY 90 tabs 1RF
[2024-11-18 13:09] VITALS: BP 162/90; PULSE 71; RESP 16; TEMP 36.2; O2SAT 96; BMI 27.9
[2024-11-18 13:42] VITALS: BP 150/90
--- OUTSIDE RECORDS SUMMARY | 2024-11-18 14:28 | XMS_ITS | Data Portability ---
Author Organization [place] [facility] Cathi Mark [place] [place] Address [address] [place] [address] Care Team Providers Care Dean Of Instruction Name Role Phone REJI MCALLISTER Primary Care Provider [phone] REJI MCALLISTER Referring Provider [phone] REJI MCALLISTER Primary Care Provider [phone] Assessment Encounter Date Assessment Date Assessment LastModified [...] chills, or unexplained weight loss. Today include hnum-osu-dquytwh medications, physical therapy, home exercises, traction, and [...] weeks to update us on her progress [email or web address] Not available 12/05/2022 15:48:25 01/16/2023 01/16/2023 HPI: [...] of her incontinence or develops saddle anesthesia. [email or web address] Not available 01/16/2023 12:01:43 09/01/2023 09/01/2023 HPI : Patient is here for 1 year follow-up from left total hip replacement. She is recovering well. Overall she feels great. Her main complaint is just some mild lateral sided tenderness. Overall she is functioning well. Overall, Patient reports good pain relief in the hip and satisfactory roman catholic of function in terms of activities of [...] Continue to work on hip conditioning exercises. Btqb-xkp-xaatvct medications as needed. Ultimate failure may occur [...] Hall MS, MADELYN in indirect conjunction with [facility] sing provider Steven Abarca MD. He agrees [...] more view 2024 025 [email or web address] [facility], [address], [place], [address], 10/11/2024 11:38:19 XR, hip, unilatera l, 2 or 3 view 2023 024 [email or web address] [facility], [address], [place], [address], 09/01/2023 14:52:19 XR, lumbosacr al spine, 2 or 3 view 2022 023 [email or web address] [facility], [address], [place], [address], 12/05/2022 15:56:39 XR, lumbosacr al spine, 2 or 3 view, bending only 2022 023 [email or web address] [facility], [address], [place], [address], 12/05/2022 15:56:39 XR, hip, unilatera l, 2 or 3 view 2022 023 [email or web address] [facility], [address], [place], [address], 11/15/2022 16:39:40 XR, hip, unilatera l, 2 or 3 view 2022 023 [email or web address] [facility], [address], [place], [address], 11/15/2022 16:39:40 Medication Orders meloxicam 15 mg tablet 2022 023 [email or web address] [id number], [address] [place], [address], 09/01/2023 13:48:40 meloxicam 15 mg tablet [id number], [address] [place], [address], 09/01/2023 13:48:40 Patient TargetsNo targets recorded. Patient Instructions Encounter Date Encounter Id Patient Instructions Last Modified By Organization Details Last Modified Time 09/01/2023 [id number] AP pelvis, AP an d lateral radiographs of the left hip taken today demonstrate a left total hip replacement with components in appropriate position without any signs of hardware related complication. Not available 09/01/2023 13:22:54 10/11/2024 [id number] physical therapy * - Right knee pain secondary to IT band tendinitis/fricti on syndrome Evaluate and treat as indicated to reduce pain and to improve strength, mobility, stability, range of motion, and function. Please teach a home exercise plan and incorporate PT into patient's exercise routine. 2-3 sessions weekly for 6-8 weeks. [email or web address] Not available 10/18/2024 08:38:40 Reason for Referral None Reported. Problems Name Problem SNOMED Code Status Onset Date Resolution Date Notes Provider Name and Address Organization Details Recorded Time Low back pain 805778803 Active [address], [place], [address], [place] [facility], P 3 16:24:49 Trochanteri c bursitis of right hip 5649738703930 00 Active 2022 ESTHER ZARATE PA-C [address], [place], [address], [place] [facility], P 3 15:43:36 Lumbar spondylolis thesis 3494963915427 02 Active 2022 ESTHER ZARATE PA-C [address], [place], [address], [place] [facility], P 3 15:43:37 Lumbar spondylosis 030783939 Active 2022 ESTHER ZARATE PA-C [address], [place], [address], [place] [facility], P 3 15:43:44 Osteoarthri tis of left hip joint 1576248795651 08 Active 2022 Steven Abarca MD [address], [place], [address], [place] [facility], P 3 13:20:50 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 Medical [...] Updated DateTime 01/16/2023 175.26 cm 25.7 kg/m2 45727.[address] [facility], 01/16/2023 11:42:36 Social History None recorded. Functional Status None recorded. Mental Status None recorded. Family History Nothing Reported. Medical History No medical history recorded. Gynecological HistoryNo gynecological history recorded. Obstetrics History GPAL:G 0 P 0 0 0 0 Past Encounters Encounter ID Performer Location Encounter Start Date Encounter Closed Date Diagnosis/Indication Diagnosis SNOMED-CT Code Diagnosis ICD10 Code Diagnosis Note [id number] MD RAD Medrano [facility] [address] [facility] [address] [facility] [place] [address] 09/02/2022 09:57:31 09/02/2022 10:47:49 Aftercare 462376020 Z47.1 [id number] [place] [address] 11/15/2022 15:41:24 11/15/2022 16:29:07 History of total replacement of left hip joint 4686645763 939770 Z96.642 Pain of ri ght hip joint 3463314528 75413 M25.551 Aftercare 080375135 Z47. 1 Low back pain 439113660 M54.50 [id number] [place] [address] 12/05/2022 14:24:52 12/05/2022 15:47:44 Low back pain 078722749 M54.50 Lumbar spondylolisthesis 8901881683 55023 M43.16 Trochanter ic bursitis of right hip 6570734347 96119 M70.61 Lumbar spondylosis 45811 0009 M47.896 [id number] [place] [address] 01/16/2023 11:30:53 01/16/2023 12:02:55 Low back pain 931546155 M54.50 Lumbar spondylolisthesis 2324606937 83039 M43.16 Trochanter ic bursitis of right hip 1313346370 22948 M70.61 Lumbar spondylosis 70697 0009 M47.896 [id number] MD RAD Medrano [facility] [address] [facility] [address] [facility] [place] [address] 09/01/2023 12:48:42 09/01/2023 13:26:12 History of repair of hip joint 627422708 Z96.642 Additional diagnosis detail: History of left hip replacemen t Surgical follow-up 97389 4000 Z47.1 Z96.642 Additional diagnosis detail: Aftercare following left hip joint replacemen t surgery [id number] MADELYN NARAYAN Whitt [address] [facility] [address] [place] [address] 10/11/2024 09:12:28 10/11/2024 11:38:19 Pain of right knee joint 0402852832 60805 M25.561 Iliotibial band friction syndrome of right knee 2034382411 06576 M76.31 Health Concerns Section Related Observation LastModified by Organization Detai ls LastModified Time None Recorded Concern Status LastModified by Organization Details LastModified Time None Recorded Advance Directives Directive None Recorded Payers Insurance Date Sequence Insurance Name Policy Number Policy Charles Covered Member ID Charles Member ID Guarantor Name 10/09/[address] [facility]: MEDIC[facility] PPO BLUE (MEDICARE REPLACEMENT PPO) [id number] Lynne Martinez [id number] Lynne Martinez 09/01/2023 1 ALBER (PPO) [id number] Lazaro Martinez [id number] Lynne Martinez Notes Date Note Type Note [...] meloxicam in the meantime. Steven Abarca MD [address], [place], [address], [place] [facility] 11/15/2022 16:25:18 01/16/2023 text/html prior visit [...] chills, or unexplained weight loss. Today include rqzr-bpc-osqliib medications, physical therapy, home exercises, traction, and [...] ESTHER ZARATE PA-C [address], [place], [address], [place] [facility] P 01/16/2023 12:03:00 10/11/2024 text/html 69-year-old [place] paulino presents with chief complaint of right knee [...] QUEENIE HALL PA-C [address], [place], [address], [place] [facility] 10/11/2024 09:45:48 OBGyn Episode No OBEpisode recorded.
== END 2024-11-18 14:14 | disposition home or self-care (01) ==
LOC: HO.HMCHD 13:03
PROVIDERS: PCP Internal Medicine; Visit Provider Physician Assistant
DX: I10 Essential (primary) hypertension (principal); I5A Non-ischemic myocardial injury (non-traumatic); E78.00 Pure hypercholesterolemia, unspecified; G47.33 Obstructive sleep apnea (adult) (pediatric); Z09 Encounter for follow-up examination after completed treatment for conditions other than malignant neoplasm

== ENCOUNTER → 2024-11-18 13:02 | Outpatient (BNVA) | payer MEDICARE, SELFPAY | PROVIDERS: PCP Internal Medicine; Visit Provider Physician Assistant | DX: Z09 Encounter for follow-up examination after completed treatment for conditions other than malignant neoplasm (principal); I10 Essential (primary) hypertension; I5A Non-ischemic myocardial injury (non-traumatic); G47.33 Obstructive sleep apnea (adult) (pediatric); E78.00 Pure hypercholesterolemia, unspecified | CPT/HCPCS: 99212 ==

== ENCOUNTER 2024-12-07 09:17 | Outpatient (REF) | payer MEDICARE, SELFPAY ==
[2024-12-07 13:35] LABS: Binax Now Covid-19 Ag Negative (Negative); Binax Performed by: HO.TORG
[2024-12-07 13:36] LABS: Binax Internal Control QC Valid; Binax Lot number: 869104
[2024-12-07 13:38] LABS: Resp Syncy Virus RNA Qual PCR NEGATIVE (Negative); SARS COV2 PCR INHOUSE NEGATIVE (Negative)
== END 2024-12-07 09:18 | disposition home or self-care (01) ==
LOC: HO.HMGCLDS 09:17
PROVIDERS: Physician Assistant Medical; PCP Internal Medicine; Visit Provider Internal Medicine
DX: J02.9 Acute pharyngitis, unspecified (principal); J06.9 Acute upper respiratory infection, unspecified; Z20.822 Contact with and (suspected) exposure to COVID-19
CPT/HCPCS: 87637; 87811; 87880; 99212

== ENCOUNTER 2024-12-07 09:17 | Outpatient (AMB) | payer MEDICARE, SELFPAY ==
--- OUTSIDE RECORDS SUMMARY | 2024-12-07 09:18 | XMS_ITS | Data Portability ---
Author Organization [place] [facility] [place] Address [address] [place] [address] Care Team Providers Care Campaign Management Senior Manager Name Role Phone REJI MCALLISTER Primary Care Provider REJI MCALLISTER Referring Provider [phone] REJI MCALLISTER Primary Care Provider Assessment Encounter [...] chills, or unexplained weight loss. Today include xslg-vll-qtwzuri medications, physical therapy, home exercises, traction, and [...] weeks to update us on her progress [email or web address] Not available 12/05/2022 15:48:25 01/16/2023 01/16/2023 HPI: [...] of her incontinence or develops saddle anesthesia. [email or web address] Not available 01/16/2023 12:01:43 09/01/2023 09/01/2023 HPI : Patient is here for 1 year follow-up from left total hip replacement. She is recovering well. Overall she feels great. Her main complaint is just some mild lateral sided tenderness. Overall she is functioning well. Overall, Patient reports good pain relief in the hip and satisfactory mu-ism of function in terms of activities of [...] Continue to work on hip conditioning exercises. Hisd-hsd-bcmiebt medications as needed. Ultimate failure may occur [...] seen and evaluated by Queenie Hall MS, PA-C in indirect conjunction with [facility] provider Steven Abarca MD. He agrees with history, physical examination, tests/diagnostic imaging, and treatment plan. This document was generated using voice recognition software. As a result, there may be unintended spelling, grammatical and/or textual errors. [email or web address] Not available 10/11/2024 09:45:28 Plan of Treatment Reminders Order Date Submit Date Provider Last Modified By Organization Details Last Modified Time Details Appointments None recorded. Lab None recorded. Referral None recorded. Procedures None recorded. Surgeries None recorded. Imaging XR, knee, 4 or more view 2024 025 [email or web address] [facility], [address], [place], [address], 5 11:38:19 XR, hip, unilateral, 2 or 3 view 2023 024 [email or web address] [facility], [address], [place], [address], 4 14:52:19 XR, lumbosacral spine, 2 or 3 view 2022 023 [email or web address] [facility], [address], [place], [address], 3 15:56:39 XR, lumbosacral spine, 2 or 3 view, bending only 2022 023 [email or web address] [facility], [address], [place], [address], 3 15:56:39 XR, hip, unilateral, 2 or 3 view 2022 023 [email or web address] [facility], [address], [place], [address], 3 16:39:40 XR, hip, unilateral, 2 or 3 view 2022 023 [email or web address] [facility], [address], [place], [address], 3 16:39:40 Medication Orders meloxicam 15 mg tablet 2022 023 [email or web address] [id number], [address] [place], [address], 4 13:48:40 meloxicam 15 mg tablet 2022 023 [email or web address] [id number], [address] [place], [address], 4 13:48:40 Patient TargetsNo targets recorded. Patient Instructions Encounter Date Encounter Id Patient Instructions Last Modified By Organization Details Last Modified Time 09/01/2023 [id number] AP pelvis, AP an d lateral radiographs of the left hip taken today demonstrate a left total hip replacement with components in appropriate position without any signs of hardware related complication. Not available 09/01/2023 13:22:54 10/11/2024 [id number] physical therapy * - Right knee pain secondary to IT band tendinitis/fricti on syndrome Evaluate and treat as indicated to reduce pain and to improve strength, mobility, stability, range of motion, and function. Please teach a home exercise plan and incorporate PT into patient's exercise routine. 2-3 sessions weekly for 6-8 weeks. [email or web address] Not available 10/18/2024 08:38:40 Reason for Referral None Reported. Problems Name Problem SNOMED Code Status Onset Date Resolution Date Notes Provider Name and Address Organization Details Recorded Time Low back pain 927770953 Active 2022 Steven Abarca MD [address], [place], [address], [place] [facility] 3 16:24:49 Trochanteri c bursitis of right hip 3900187835226 00 Active 2022 ESTHER ZARATE PA-C [address], [place], [address], [place] [facility] 3 15:43:36 Lumbar spondylolis thesis 5348604894998 02 Active 2022 ESTHER ZARATE PA-C [address], [place], [address], [place] [facility] 3 15:43:37 Lumbar spondylosis 133007902 Active 2022 ESTHER ZARATE PA-C [address], [place], [address], [place] [facility] 3 15:43:44 Osteoarthri tis of left hip joint 9027839779497 08 Active [address], [place], [address], [place] [facility] 3 13:20:50 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 [...] Updated DateTime 01/16/2023 175.26 cm 25.7 kg/m2 30466.[address] [facility] 01/16/2023 11:42:36 Social History None recorded. Functional Status None recorded. Mental Status None recorded. Family History Nothing Reported. Medical History No medical history recorded. Gynecological HistoryNo gynecological history recorded. Obstetrics History GPAL:G 0 P 0 0 0 0 Past Encounters Encounter ID Performer Location Encounter Start Date Encounter Closed Date Diagnosis/Indication Diagnosis SNOMED-CT Code Diagnosis ICD10 Code Diagnosis Note [id number] MD RAD [facility] [place] [address] 09/02/2022 09:57:31 09/02/2022 10:47:49 Aftercare [id number] Z47.1 [id number] MD RAD Medrano [address] [address] 11/15/2022 15:41:24 11/15/2022 16:29:07 History of total replacement of left hip joint 9074018244 586115 Z96.642 Pain of ri ght hip joint 4042503012 20203 M25.551 Aftercare 970138011 Z47. 1 Low back pain 174364397 M54.[id number] [address] 12/05/2022 14:24:52 12/05/2022 15:47:44 Low back pain 087622870 M54.50 Lumbar spondylolisthesis 3475211747 05707 M43.16 Trochanter ic bursitis of right hip 9795932768 59531 M70.61 Lumbar spondylosis 00166 0009 M47.896 [id number] MADELYN JANG [address] [address] 01/16/2023 11:30:53 01/16/2023 12:02:55 Low back pain 689120922 M54.50 Lumbar spondylolisthesis 0123651901 87320 M43.16 Trochanter ic bursitis of right hip 7536184845 26602 M70.61 Lumbar spondylosis 44170 0009 M47.896 [id number] MD RAD [facility]wna maldonado [address] [place] [address] 09/01/2023 12:48:42 09/01/2023 13:26:12 History of repair of hip joint 473551848 Z96.642 Additional diagnosis detail: History of left hip replacemen t Surgical follow-up 09600 4000 Z47.1 Z96.642 Additional diagnosis detail: Aftercare following left hip joint replacemen t surgery [id number] QUEENIE HALL PA-C [facility] [address] [facility] [address] [place] [address] 10/11/2024 09:12:28 10/11/2024 11:38:19 Pain of right knee joint 3237342425 43352 M25.561 Iliotibial band friction syndrome of right knee 7828156299 61749 M76.31 Health Concerns Section Related Observation LastModified by Organization Detai ls LastModified Time None Recorded Concern Status LastModified by Organization Details LastModified Time None Recorded Advance Directives Directive None Recorded Payers Insurance Date Sequence Insurance Name Policy Number Policy Charles Covered Member ID Charles Member ID Guarantor Name 10/09/2024 1 [facility]: MEDICARE PPO BLUE (MEDICARE REPLACEMENT PPO) [id number] Lynne Martinez [id number] Lynne Martinez 09/01/2023 1 [facility] [id number] Lazaro Martinez [id number] Lynne Martinez Notes Date Note Type [...] Steven Abarca MD [address], [place], [address], [place] [facility] 11/15/2022 16:25:18 01/16/2023 text/html prior visit [...] chills, or unexplained weight loss. Today include dhur-aea-pgstcoy medications, physical therapy, home exercises, traction, and [...] ESTHER ZARATE PA-C [address], [place], [address], [place] [facility] 01/16/2023 12:03:00 10/11/2024 text/html 69-year-old fema [...] QUEENIE HALL PA-C [address], [place], [address], [place] [facility] 10/11/2024 09:45:48 OBGyn Episode No OBEpisode recorded.
--- OUTSIDE RECORDS SUMMARY | 2024-12-07 09:18 | XMS_ITS | Patient Health Record ---
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 Name Role Phone Shawn Valderrama MD Primary Care Provider Gislon Mondragon Jr Unavailable Allergies No Known Allergies Reason For Referral No Information Medications Medication SIG (Take, Route, Frequency, Duration) Notes Start Date End Date Status Losartan Potassium 25 MG 1/2 tablet Oral ly Once a day Active Pravastatin Sodium 20 MG 1 tablet Orally Once a day for 30 day(s) Active Vitamin C 500 MG 1 tablet Orally Once a day Active AZO Cranberry 250-30 MG as directed Orally Active Vitamin D 50 MCG (1999) 1 tablet Oral ly Once a day Active Excedrin Migraine prn Ac tive Fish Oil Active Immunizations Vaccine Route Administration Date Status Comme nts Influenza Unknown 04/19/2022 Administered Problems Problem Type SNOMED Code ICD Code Onset Dates Problem Status W/U Status Risk Notes Problem 134513801 Colon cancer screening (Z12.11) Active confirmed Problem 15309620 Encounter for other preprocedural examination (Z01.818) Active confirmed Problem 008714583 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) Active confirmed Plan Of Treatment Future Test Test Name Order Date COLONOSCOPY 09/19/2012 COLONOSCOPY 11/15/2017 COLONOSCOPY 11/14/2022 Insurance Providers Payer Name Payer Address Payer Phone Subscriber Number Group Number Insured Name Patient Relationship to Insured Coverage Start Date Coverage End Date [facility] [address] [place], [place] [id number] CHICHI CHANDLER Self - patient is the insured Medical (General) History Medical History History ICD Code colonoscopy 02/13, benign polyps, five-ye ar followup migraine headaches elevated Cholesterol hypertension splenic lymphoma 2012, status post R. [facility] OP hip replacement left Surgical History Surgery Date(Month/Year) section left hip replacement 08/18
--- OUTSIDE RECORDS SUMMARY | 2024-12-07 09:19 | XMS_ITS ---
Author Name [facility] Organization Unknown History of Medication Use Medication Directions Dispensed Refills Start Date End Date [facility] meloxicam 15 mg tablet TAKE 1 TABLET (15 MG) EVERY DAY BY ORAL ROUTE FOR 30 DAYS. 11/15/2022 active prednisone 2.5 mg tablet PLEASE SEE ATTACHED FOR DETAILED DIRECTIONS 4 completed aspirin 81 mg tablet,delayed release TAKE 1 TABLET BY MOUTH TWICE A DAY FOR 28 DAYS 3 completed diazepam 2 mg tablet TAKE 1 TABLET BY MOUTH TWICE A DAY NEEDED FOR PAIN 3 completed methocarbamol 750 mg tablet TAKE 1 TABLET BY MOUTH EVERY 6 HOURS NEEDED 3 completed methocarbamol 750 mg tablet TAKE 1 TABLET BY MOUTH EVERY 6 HOURS NEEDED 3 completed ondansetron HCl 8 mg tablet DISSOLVE 1 TAB UNDER THE TONGUE EVERY 8 HOURS NEEDED FOR NAUSEA. 3 completed oxycodone 5 mg tablet TAKE 1-2 TABLETS BY MOUTH EVERY 4 HOURS NEEDED FOR PAIN 3 completed pravastatin 20 mg tablet TAKE 1 TABLET BY MOUTH EVERY DAY IN THE EVENING 3 active Senexon-S 8.6 mg-50 mg tablet TAKE 1 TABLET BY MOUTH TWICE A DAY 3 completed tramadol 50 mg tablet TAKE 1 TABLET BY MOUTH TWICE A DAY NEEDED FOR PAIN 3 completed Vitamin C 3 active amitriptyline 10 mg tablet TAKE TWO TABLETS BY MOUTH DAILY AT BEDTIME active amoxicillin 500 mg tablet TAKE FOUR TABLETS ONE HOUR PRIOR TO DENTAL PROCEDURE active ciprofloxacin 500 mg tablet TAKE ONE TABLET BY MOUTH TWICE A DAY active ciprofloxacin 500 mg tablet TAKE ONE TABLET BY MOUTH TWICE A DAY active estradiol 0.01% (0.1 mg/gram) vaginal cream INSERT 1 GRAM VAGINALLY DAILY AT BEDTIME FOR 2 WEEKS, THEN USE TWICE WEEKLY active lansoprazole 30 mg capsule,delayed release active nitrofurantoin monohydrate/macrocryst als 100 mg capsule TAKE ONE CAPSULE BY MOUTH TWICE A DAY FOR 5 DAYS active nortriptyline 10 mg capsule TAKE ONE CAPSULE BY MOUTH DAILY AT BEDTIME active pravastatin active prednisone 10 mg tablet TAKE 1 TABLET BY MOUTH EVERY DAY active sulfamethoxazole 800 mg-trimethoprim 160 mg tablet TAKE ONE TABLET BY MOUTH TWICE A DAY active sulfamethoxazole 800 mg-trimethoprim 160 mg tablet TAKE ONE TABLET BY MOUTH TWICE A DAY FOR 5 DAYS active topiramate 25 mg tablet TAKE 1 TABLET BY MOUTH DAILY AT BEDTIME active trimethoprim 100 mg tablet TAKE 1 TABLET BY MOUTH DAILY NEEDED FOR UTI PREVENTION START AFTER YOU FINISH THE BACTRIM active vitamin E active Problems Problem Status Onset Date Problem Type Date of Resoluti on Source Low back pain active 2022-11-15 ProblemAct [facility] Osteoarthritis of left hip joint active 2022-08-11 ProblemAct [facility] Lumbar spondylosis active 2022-12-05 ProblemAct [facility] Iliotibial band friction syndrome of right knee active 2024-10-11 ProblemAct [facility] Lumbar spondylolisthesis active 2022-12-05 ProblemAct [facility] Trochanteric bursitis of right hip active 2022-12-05 ProblemAct [facility] Encounters Encounter Type Encounter Reason Primary Diagnosis Location Date Ambulatory [facility] 10/11/2024 Ambulatory [facility] 10/09/2024 Ambulatory [facility] 10/09/2024 Ambulatory [facility] 09/04/2023 Ambulatory [facility] 09/01/2023 Ambulatory [facility] 08/31/2023 Ambulatory [facility] 08/31/2023 Ambulatory [facility] 01/16/2023 Ambulatory [facility] 12/29/2022 Ambulatory [facility] 12/29/2022 Ambulatory [facility] 12/02/2022 Ambulatory [facility] 12/02/2022 Ambulatory [facility] 11/15/2022 Ambulatory [facility] 11/15/2022 Ambulatory [facility] 11/15/2022 Ambulatory [facility] 10/14/2022 Ambulatory [facility] 09/02/2022 Care Team Organization Name Specialty Phone Email Start Date End Da te [facility] REJI MCALLISTER Primary Care 04/28/202201/14
--- OUTSIDE RECORDS SUMMARY | 2024-12-07 09:19 | XMS_ITS | Clinical Summary ---
Author Organization [facility] Address [address] [place] [address] Care Team Providers Care Bailiff Name Role Phone Shawn Valderrama MD Primary Care Provider [phone] Allergies No known active allergies Medications Medication Sig Dispensed Refills Start Date End Date Status pravastatin (PRAVACHOL) tablet 20 mg Take 1 tablet (20 mg total) by mouth every evening. 0 04/04/2022 Active ascorbic acid (VITAMIN C) 500 MG tablet Take 1 tablet (500 mg total) by mouth daily. With neno hips 0 Active Pumpkin Seed-Soy Germ (AZO BLADDER CONTROL/GO-LESS PO) Take by mouth daily as needed. 0 Active Cholecalciferol (D3) 50 MCG (1999 UT) TABS Take by mouth. 0 Active Aspirin-Acetaminophen- Caffeine (EXCEDRIN MIGRAINE PO) Take by mouth daily as needed. 0 Active Active Problems No known active problems Family History Medical History Relation Name Comments Hyperlipidemia Father Hypertension Father Cancer Mother lymphoma Hyperlipidemia Mother Hypertension Mother Crohn's disease Sister No Sig Med Hx Son 1 No Sig Med Hx Son 2 No Sig Med Hx Son 3 Relation Name Status Comments Father Mother Sister Son 1 Alive Son 2 Alive Son 3 Alive Social History Tobacco Use Types Packs/Day Years Used Date Smoking Tobacco: Never Alcohol Use Standard Drinks/Week Comments Not Asked 0 (1 standard drink = 0.6 oz pur e alcohol) socially Sex and Gender Information Value Date Recorded Sex Assigned at Not on file Gender Identity Not on file Sexual Orientation Not on file Job Start Date Occupation Industry Not on file Not on file Not on file Last Filed Vital Signs Vital Sign Reading Time Taken Comments Blood Pressure 158/86 08/12/2022 10:13 AM EDT Pulse 60 08/12/2022 10:13 AM EDT Temperature 35.7 C (96.2 F) 08/12/2022 10:13 AM EDT Respiratory Rate 16 08/12/2022 10:13 AM EDT Oxygen Saturation 99% 08/12/2022 10:13 AM EDT Inhaled Oxygen Concentration - - Weight 76.7 kg (169 lb) 08/12/2022 10:13 AM EDT Height 172 cm (5' 7.72 ) 08/12/2022 10:13 AM EDT Body Mass Index 25.91 08/12/2022 10:13 AM EDT Plan of Treatment Health Maintenance Due Date Last Done Comments Hepatitis C Screening 1957 COVID-19 Vaccine (#1) 1957 Depression Screening 1969 BMI Counseling 1975 Preventative Health Evaluation 1975 DTap / Tdap / Td (1 - Tdap) 1976 Colon Cancer Screening (Colonoscopy) 2002 Breast Cancer Screening (Mammogram) 2007 Shingrix-Zoster Vaccine (1 of 2) 2007 Fall Risk Assessment 2022 Osteoporosis Screening (DEXA Scan) 2022 Pneumococcal Vaccine (1 of 1 - PCV) 2022 Influenza Vaccine (#1) 2025 RSV Adult > 60+ Yrs or Pregn ant (1 - 1-dose 75+ series) 2032 Hepatitis B Vaccines Aged Out No long er eligible based on patient's age to complete this topic RSV Ped < 20 months Aged Out No longe r eligible based on patient's age to complete this topic Care Teams Bailiff Relationship Specialty Start Date End Date Shawn Valderrama MD [address] [place] [address] [address] [place] [address] PCP - General Quote Clerk 03/25/22
--- OUTSIDE RECORDS SUMMARY | 2024-12-07 09:19 | XMS_ITS | Patient Health Record ---
Author Organization [facility] Address [address] [facility] [place] [address] Care Team Providers Care Wireless Retail Manager Name Role Phone Shawn Valderrama MD Primary Care Provider Unavaila Meg Wan Unavailable [phone] Reason For Referral No Information Medications Medication SIG (Take, Route, Frequency, Duration) Notes Start Date End Date Status Excedrin Migraine 250-250-65 MG 2 tablets as needed Orally every 6 hrs Not-Taking Flax Seed Oil Active Zinc 100 MG 1 tablet with a meal Orally Once a day; Duration: 30 day(s) Not-Taking Keflex 500 MG 1 capsule Orally every 12 hrs; Duration: 10 day(s) 01/30/2020 Active Ciclopirox Olamine 0.77 % 1 application to affected area Externally Twice a day; Duration: 30 days 12/10/2012 Not-Taking Vitamin B Complex as directed Orally Not-Taking hydroCHLOROthiazide 12.5 MG 1 capsule Or ally Once a day; Duration: 30 day(s) Not-Taking Vitamin C 250 MG 1 tablet Orally Once a day; Duration: 30 day(s) Active Lisinopril 2.5 MG 1 tablet Orally Once a day; Duration: 30 day(s) Not-Taking Fish Oil 500 MG 1 capsule Orally Twice a day; Duration: 30 day(s) Active Nortriptyline HCl 10 MG 1 capsule Orally Three times a day; Duration: 30 day(s) Not-Taking Vitamin D3 Active Iron 28 MG 1 tablet Orally Once a day; Duration: 30 day(s) Not-Taking Calcium 150 MG as directed Orally Not-Taking Losartan Potassium N ot-Taking Social History Alcohol Screen Question Answer Notes Did you have a drink containing alcohol in the p ast year? No Points 0 Interpretation Negative Tobacco use other than smoking: Question Answer Notes Are you an other tobacco user? No Problems Problem Type SNOMED Code ICD Code Onset Dates Problem Status W/U Status Risk Notes Problem Acquired hammer toe of right foot (931809105520 9105) Other hammer toe(s) (acquired), right foot (M20.41) Active confirmed Problem PlantarFlexion o f metatarsal of right foot (M21.6X1) Active confirmed Plan Of Treatment Pending Test Test Name Order Date X ray : Foot, right 3V 12/10/2012 [id number] NAIL, 1-01/19/2015 [id number] NAIL, -06/03/2015 [id number] NAIL, -09/30/2015 [id number] NAIL, -01/20/2016 [id number] Plate 01/20/2016 [id number] Plate 09/26/2019 [id number] Plate 01/19/2015 [id number] 01/30/2020 27523- Debride <25 sq cm 02/13/2020 59770- Debride <25 sq cm 02/05/2015 Insurance Providers Payer Name Payer Address Payer Phone Subscriber Number Group Number Insured Name Patient Relationship to Insured Coverage Start Date Coverage End Date [facility] [address] [place] [address] [phone] [id number] Rian Martinezlas Spouse - patient is the spouse of the insured Medical (General) History Medical History History ICD Code headaches/migraines high blood pressure measles mumps chicken pox Lymphoma Surgical History Surgery Date(Month/Year) section
--- NOTE | 2024-12-07 09:23 | MHC.OFFWIV ---
Intake Vital Signs 12/07/24 09:24 Height 5 ft 9 in Weight 189 lb BMI 27.9 BP 134/72 Blood Pressure Location Lt brachial Position Sitting Respiration 15 Pulse 87 Pulse Source Pulse Oximeter Temp 98.1 F Temp Source Oral Pulse Oximetry (%) 96 Oxygen Delivery Method Room Air Intake Visit Reasons: EP sore throat Intake Note: Pt is here today c/o S/T x2 days just came back from vacation Patient Tobacco Use Status: Never used Tobacco Allergies No Known Allergies Allergy (Mild, Verified 11/18/24 13:04) PFSH Medical History HFrEF (heart failure with reduced ejection fraction) Chronic allergic rhinitis FARIDA (obstructive sleep apnea) Lymphoma, splenic HTN (hypertension) Elevated cholesterol Surgical History History of left hip replacement H/O colonoscopy (~12/14/22) Social History Household Members: Spouse Housing: House Do you presently have visiting nurse or other home services: Yes Patient Tobacco Use Status: Never used Tobacco service: No Review of Systems Const All systems reviewed & are unremarkable except as noted in HPI and below Physical Exam Vital Signs: Last Vital Signs Temp 98.1 F 12/07/24 09:24 Pulse 87 12/07/24 09:24 Resp 15 12/07/24 09:24 BP 134/72 12/07/24 09:24 Pulse Ox 96 12/07/24 09:24 Oxygen Delivery Method Room Air 12/07/24 09:24 BMI result Body Mass Index 27.9 Results AMB Rapid Strep AMB Rapid Strep Negative Last Edit by Audrey Jacobs CMA on 12/07/24 09:47 Results Reviewed Results Reviewed: Laboratory Last Values Strep Scn Rapid Clinic Negative 12/07/24 09:24 Assessment & Plan Assessment & Plan Orders: Orders AMB Rapid Strep Screen Today Z13.9 - Encounter for screening, unspecified BinaxNOW Covid-19 Ag Today Z20.822 - Contact with and (suspected) exposure to COVID-19 SARS-CoV2/FLU/RSV Today J06.9 - Acute upper respiratory infection, unspecified Medications: New Magic Mouthwash Diphen/Lido/Antacid 1:1:1 Lidocaine Viscous 2 % 80mL; diphenhydramine 12.5 mg/5 mL 80mL; aluminum-mag hydrox-simeth 228xe-973th-31qu/5mL 80mL Swishing around mouth and then spit it 10 mL PO TID 240 mL 0RF 5 days Coding Level of Care Code Est Pt Level 4 (67169)
[2024-12-07 09:24] VITALS: BP 134/72; PULSE 87; RESP 15; TEMP 36.7; O2SAT 96; BMI 27.9
== END 2024-12-07 10:14 | disposition home or self-care (01) ==
PROVIDERS: PCP Internal Medicine; Visit Provider Physician Assistant Medical
DX: Z13.9 Encounter for screening, unspecified (principal)

== ENCOUNTER → 2024-12-27 08:15 | Outpatient (REF) | payer MEDICARE, SELFPAY ==
--- NOTE | ~2024-12-27 | NM_ITS ---
EXERCISE MYOCARDIAL PERFUSION STUDY INDICATION: Coronary artery disease TECHNIQUE: The patient was brought in for an exercise perfusion study on 12/27/2024. Patient performed exercise as per Edwin protocol and was injected 30 mCi of sestamibi once target heart rate was achieved. Images were obtained using the SPECT gamma camera interlaced with the gating device. Images were obtained in supine position. Resting perfusion study was performed on 12/30/2024. Patient was administered 30 mCi of sestamibi intravenously at rest. Images were then obtained in supine position. Total DLP 152 mGy-cm. Arms by the patient's side. Images were processed with the software and compared side to side in short axis, horizontal long axis and vertical long axis views. FINDINGS: Raw aquisition reviewed. The stress perfusion study showed diminished tracer uptake along the inferior wall. There is also reduced tracer uptake in the mid anterior wall. With CT attenuation correction, there is improved uptake in the inferior wall which could indicate components of diaphragmatic attenuation artifact. The gated study shows normal LV systolic function with calculated LVEF of 54%. LV cavity is normal in size. The gated study shows diminished contractility in the inferior wall. Resting study shows diminished tracer uptake in the inferior wall. Some improvement with CT attenuation correction suggestive of diaphragmatic attenuation artifact. Gating at rest reveals reduced inferior wall contractility and ejection fraction of 50%. The findings are consistent with fixed inferior perfusion defect. Mild midanterior reversible defect. NM/NM cardiolite stress test IMPRESSION: 1. Myocardial perfusion imaging study shows nontransmural infarct in inferior wall; possible mild ischemia in mid anterior wall.. 2. Gated LVEF is 54% during stress and 50% during rest. 3. Transient ischemic dilatation not present. EKG component of the test reported separately. Electronically signed by: Aj Gao MD 12/31/2024 12:23 PM EDT
--- NOTE | 2024-12-27 08:18 | CA_ITS ---
Acquisition Time: 2024-12-27 08:52:29 Total Exercise Time: 00:07:41 Test Indications: myocardial injury (non traumatic) Medications: Protocol: MART Max HR: 137 BPM 89% of Pred: 153 BPM Max BP: 138/70 mmHG Max Work Load: 9.5 METS Exercise stress test with exercise 7 mins 41 secs of Mart Protocol, achieving 89% MPHR, with reports of mild SOB, no chest pain, with frequent PACs adn isolated PVCs, with normotensive response to exercise. Without any EKG changes meeting criteria for ischemia. In recovery, pt's breathing returned to baseline. Nuclear images pending. Test reviewed with Dr. Rivera. Referred By: Joe Rivera Electronically Signed By: Kike Luz
--- OUTSIDE RECORDS SUMMARY | 2024-12-27 08:23 | XMS_ITS | Patient Health Record ---
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 With Blind Name Role Phone Shawn Valderrama MD Primary Care Provider Unavaila Meg Wan Unavailable [phone] Reason For Referral No Information Medications Medication [...] Problem Acquired hammer toe of right foot ([id number] 9105) Other hammer toe(s) (acquired), right foot (M20.41) Active confirmed Problem PlantarFlexion o f metatarsal of right foot (M21.6X1) Active confirmed Plan Of Treatment Pending Test Test Name Order Date X ray : Foot, right 3V 12/10/2012 [id number] NAIL, 1-01/19/2015 [id number] NAIL, -06/03/2015 59698-[id number] NAIL, -09/30/2015 77205-[id number] NAIL, -01/20/2016 50929-Dwcsqdep Plate 01/20/2016 52770-Tugbzgzc Plate 09/26/2019 [id number]-Qxrvehme Plate 01/19/2015 [id number] 01/30/2020 73700- Debride <25 sq cm 02/13/2020 68035- Debride <25 sq cm 02/05/2015 Insurance Providers Payer Name Payer Address Payer Phone Subscriber Number Group Number Insured Name Patient Relationship to Insured Coverage Start Date Coverage End Date [facility] [address] [place] [address] [id number] 2 Rian Martinezlas Spouse - patient is the spouse of the insured Medical (General) History Medical History History ICD Code headaches/migraines high blood pressure measles mumps chicken pox Lymphoma Surgical History Surgery Date(Month/Year) section
--- OUTSIDE RECORDS SUMMARY | 2024-12-27 08:23 | XMS_ITS | Encounter Summary ---
Author Organization [facility] Address [address] [place] [address] Phone Care Team Providers Care Senior Compensation Analyst Name Role Phone Shawn Valderrama MD Unavailable [phone] Shawn Valderrama MD Primary Care Provider Encounter Details Date Type Department Care Team (Late st Contact Info) Description 07/11/2022 Procedure Pass [address] [place] [address] Social History Tobacco Use Types Packs/Day Years Used Date Smoking Tobacco: Never Assessed Comments No Sex and Gender Information Value Date Recorded Sex Assigned at Not on file Legal Sex Female 9:52 PM EDT Gender Identity Not on file Sexual Orientation Not on file documented as of this encounter Plan of Treatment Upcoming Encounters Date Type Department Care Team (Late st Contact Info) Description 08/16/2024 Procedure Pass [address] [place] [address] 02/28/2025 8:30 AM EDT Appointment [address] [place] [address] Shawn Valderrama MD [address] [place] [address] [place] [address] documented as of this encounter Visit Diagnoses Not on filedocumented in this encounter Care Teams Senior Compensation Analyst Relationship Specialty Start Date End Date Shawn Valderrama MD [address] [place] [address] [place] [address] PCP - General Internal Medicine 06/01/17 Shawn Valderrama MD [address] [place] [address] [place] [address] Historical LMR Provider 03/15/17 documented as of this encounter Additional Source Comments The information contained in this document represents components of the legal health record. It is not the complete legal health record.[facility]
--- OUTSIDE RECORDS SUMMARY | 2024-12-27 08:23 | XMS_ITS | Clinical Summary ---
Author Organization [facility] Address [address] [place] [address] Care Team Providers Care Angle Furnaceman Name Role Phone Shawn Valderrama MD Primary Care Provider [phone] Allergies No known active allergies Medications Medication [...] age to complete this topic Care Teams Angle Furnaceman Relationship Specialty Start Date End Date Shawn Valderrama MD [address] [place] [address] [address] [place] [address] PCP - General Dry Man 03/25/22
--- OUTSIDE RECORDS SUMMARY | 2024-12-27 08:23 | XMS_ITS | Patient Health Record ---
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) Active confirmed Plan Of Treatment Future Test Test Name Order Date COLONOSCOPY 09/19/2012 COLONOSCOPY 11/15/2017 COLONOSCOPY 11/14/2022 Insurance Providers Payer Name Payer Address Payer Phone Subscriber Number Group Number Insured Name Patient Relationship to Insured Coverage Start Date Coverage End Date [facility] [address] [place], [place] [id number] 01 CHICHI CHANDLER Self - patient is the insured Medical (General) History Medical History History ICD Code colonoscopy 02/13, benign polyps, five-ye ar followup migraine headaches elevated Cholesterol hypertension splenic lymphoma 2012, status post R. [facility] OP hip replacement left Surgical History Surgery Date(Month/Year) section left hip replacement 08/18
== END ==
LOC: HO.CARD 08:15
PROVIDERS: PCP Physician Assistant; Visit Provider Internal Medicine Cardiovascular Disease
DX: I5A Non-ischemic myocardial injury (non-traumatic) (principal); G47.33 Obstructive sleep apnea (adult) (pediatric); I10 Essential (primary) hypertension; R79.89 Other specified abnormal findings of blood chemistry
CPT/HCPCS: 78452; 93017; A9500

== ENCOUNTER → 2024-12-27 08:18 | Outpatient (BNV) | payer MEDICARE, SELFPAY | PROVIDERS: PCP Physician Assistant | DX: I25.10 Atherosclerotic heart disease of native coronary artery without angina pectoris (principal); I25.5 Ischemic cardiomyopathy | CPT/HCPCS: 78452; 93016; 93018 ==

== ENCOUNTER 2025-01-06 11:27 | Outpatient (AMB) | payer MEDICARE, SELFPAY ==
[2025-01-06 11:31] VITALS: BP 132/80; PULSE 85; BMI 27.5
--- NOTE | 2025-01-06 11:31 | MHC.OFFVIS ---
Vital Signs 01/06/25 11:31 Height 5 ft 9 in Weight 186 lb 8.177 oz BMI 27.5 BP 132/80 Blood Pressure Location Lt brachial Position Sitting Pulse 85 Pulse Source Pulse Oximeter Intake Visit Reasons: f/up [facility] and stress per NS Intake Note: Follow up [facility] and stress Accompanied by: Self / Same As Patient Allergies Zfblhds-MRC-WoQ Reductase Inhibitor Adverse Reaction (Severe, Verified 01/06/25 12:06) Muscle Pain Medication List - Last Reconciled 01/06/25 by Joe Rivera MD ascorbic acid (vitamin C) (Vitamin C With Natalya Hips) 1,000 mg PO DAILY aspirin 81 mg PO DAILY cholecalciferol (vitamin D3) 25 mcg PO DAILY d-mannose (AZO D-Mannose) 1,000 mg PO DAILY estradiol 0.01%(0.1mg/gram) 1 g vaginal MOTH flaxseed oil 1,000 mg PO DAILY loratadine (Claritin) 10 mg PO DAILY losartan 25 mg PO DAILY omega 1-bgq-jtg-fish oil 1,000 (120-180) mg (Fish Oil) 1 cap PO DAILY omeprazole 40 mg PO BID@0630,1630 HPI Comments Details: Lynne comes for follow-up after recent myocardial perfusion imaging which shows nontransmural infarct of the inferior wall consistent with echo findings during her hospitalization with inferior wall motion abnormality. Also showed ischemia of the anterior wall. This is suggestive of underlying coronary artery disease. However she continues to remain asymptomatic. She has been increasing her activity level and denies any exertional chest pain or shortness of breath. Has been taking her medications except for statins. She says she was recently restarted on rosuvastatin and developed significant muscle weakness and aches and had to stop statins. She is just about recuperated from that. She is taking aspirin. [facility] Medical History Chronic allergic rhinitis FARIDA (obstructive sleep apnea) Lymphoma, splenic HTN (hypertension) Elevated cholesterol Surgical History History of left hip replacement H/O colonoscopy (~12/14/22) Social History Household Members: Spouse Housing: House Do you presently have visiting nurse or other home services: Yes Patient Tobacco Use Status: Never used Tobacco service: No Review of Systems Const Denies daytime sleepiness, Denies difficulty sleeping, Denies snoring, Denies stops breathing during sleep and Denies weakness Card Denies chest pain, Denies rapid heart rate, Denies irregular heart rhythm, Denies claudication, Denies leg edema, Denies lightheadedness, Denies palpitations, Denies dyspnea, Denies dyspnea on exertion, Denies orthopnea, Denies paroxysmal nocturnal dyspnea and Denies slow heart rate Resp Denies cough, Denies dyspnea, Denies dyspnea on exertion and Denies snoring GI Reports no additional complaints, Denies hematochezia, Denies change in stool character and Denies dyspepsia Musc Denies abnormal gait, Denies muscle weakness and Denies numbness Neuro Denies abnormal gait, Denies numbness and Denies weakness Endo Denies palpitations Physical Exam Vital Signs: Last Vital Signs Pulse 85 01/06/25 11:31 BP 132/80 01/06/25 11:31 BMI result Body Mass Index 27.5 Const General: cooperative, comfortable, no acute distress, alert, awake and well groomed Nutritional Appearance: overweight Orientation/consciousness: patient oriented x3 Limitations: no limitations Neck Neck: Yes trachea midline, Yes supple and Yes no JVD Resp Effort & Inspection: normal respiratory effort Auscultation: clear to auscultation bilaterally Cardio Jugular venous distension: no JVD Palpation: normal PMI Rate: regular rate Rhythm: regular rhythm Heart sounds: S1 normal heart sound present, S2 normal heart sound present, no click, no gallops and no murmurs GI Auscultation: normal bowel sounds Skin General skin exam: no rashes or lesions noted Neuro General: patient oriented x3 and no focal motor deficits Extrem General: Yes no clubbing, cyanosis or edema Psych Appearance: grossly normal Assessment & Plan Assessment & Plan (1) CAD (coronary artery disease): Code(s): I25.10 - Atherosclerotic heart disease of [place] coronary artery without angina pectoris Category: Medical Plan: Patient with secondary NSTEMI when she was admitted with urinary tract infection with elevated troponins and mild cardiomyopathy with inferior wall motion abnormality. Her myocardial perfusion imaging is now suggestive of possible coronary disease in two-vessel distribution. Requires further workup. She is currently asymptomatic and we discussed options of anatomic evaluation with coronary CTA and invasive cardiac catheterization. Given lack of symptoms at this point time I think coronary CTA as appropriate. Will set her up for the same in the near future. Meanwhile I have advised her to continue with aspirin therapy. I have also advised her to continue participate in regular physical activity but avoid sudden strenuous exertion and pay attention to her symptoms. She is planning to travel in the near future which is appropriate at this point time. Seek emergency care if she develops sudden symptoms was discussed. Will check lipid panel. She has intolerance to statin therapy and will most likely require PCSK9 inhibitor therapy but she would like to try Zetia 1st. Will check lipid panel as CRP in near future. Further treatment based on the findings of coronary CTA. Continue aggressive blood pressure control which is currently well optimized. Will follow up in the clinic in 3 months time, sooner p.r.n.. Thank you for allowing me to partake in her care Orders: Orders Lipid Panel Today I25.10 - Atherosclerotic heart disease of [place] coronary artery without angina pectoris CT Cardiac Coronary Angio 1 Week I25.10 - Atherosclerotic heart disease of [place] coronary artery without angina pectoris CRP High Sensitivity Today E78.5 - Hyperlipidemia, unspecified, I25.10 - Atherosclerotic heart disease of [place] coronary artery without angina pectoris Coding Level of Care Code Est Pt Level 4 (76054) Complex EM visit Add On G2211 Diagnoses CAD (coronary artery disease) I25.10
--- OUTSIDE RECORDS SUMMARY | 2025-01-06 12:05 | XMS_ITS | Clinical Summary ---
Author Organization [facility] Address [address] [place] [address] Care Team Providers Care Line Erector Name Role Phone Shawn Valderrama MD Primary Care Provider [phone] Allergies No known active allergies Medications Medication [...] age to complete this topic Care Teams Line Erector Relationship Specialty Start Date End Date Shawn Valderrama MD [address] [place] [address] [address] [place] [address] PCP - General Interpretative Dancer 03/25/22
--- OUTSIDE RECORDS SUMMARY | 2025-01-06 12:05 | XMS_ITS | Encounter Summary ---
Author Organization [facility] Address [address] [place] [address] Phone Care Team Providers Care Contract Administrator Name Role Phone Shawn Valderrama MD Unavailable [phone] Shawn Valderrama MD Primary Care Provider Encounter Details Date Type Department Care Team (Late st Contact Info) Description 07/11/2022 Procedure Pass [address] [place] [address] Social History Tobacco Use Types Packs/Day Years [...] st Contact Info) Description 08/16/2024 Procedure Pass [address] [place] [address] 02/28/2025 8:30 AM EDT Appointment [address] [place] [address] Shawn Valderrama MD [address] [place] [address] [place] [address] documented as of this encounter Visit Diagnoses Not on filedocumented in this encounter Care Teams Contract Administrator Relationship Specialty Start Date End Date Shawn Valderrama MD [address] [place] [address] [place] [address] PCP - General Internal Medicine 06/01/17 Shawn Valderrama MD [address] [place] [address] [place] [address] Historical LMR Provider 03/15/17 documented as of this encounter Additional Source Comments The information contained in this document represents components of the legal health record. It is not the complete legal health record.[facility]
--- OUTSIDE RECORDS SUMMARY | 2025-01-06 12:05 | XMS_ITS | Patient Health Record ---
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) Active confirmed Plan Of Treatment Future Test Test Name Order Date COLONOSCOPY 09/19/2012 COLONOSCOPY 11/15/2017 COLONOSCOPY 11/14/2022 Insurance Providers Payer Name Payer Address Payer Phone Subscriber Number Group Number Insured Name Patient Relationship to Insured Coverage Start Date Coverage End Date [facility] [address] [place], [place] [id number] [phone] [id number] 01 CHICHI CHANDLER Self - patient is the insured Medical (General) History Medical History History ICD Code colonoscopy 02/13, benign polyps, five-ye ar followup migraine headaches elevated Cholesterol hypertension splenic lymphoma 2012, status post R. [facility] OP hip replacement left Surgical History Surgery Date(Month/Year) section left hip replacement 08/18
--- OUTSIDE RECORDS SUMMARY | 2025-01-06 12:05 | XMS_ITS | Patient Health Record ---
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) Active confirmed Plan Of Treatment Pending Test Test Name Order Date X ray : Foot, right 3V 12/10/2012 [id number] NAIL, 1-01/19/2015 97544-XYEHURY NAIL, -06/03/2015 [id number] NAIL, -09/30/2015 61533-[id number] NAIL, -01/20/2016 91006-Ebtceawn Plate 01/20/2016 92410-Evheugkd Plate 09/26/2019 79579-Qxeyobqr Plate 01/19/2015 96259-FOB 01/30/2020 57704- Debride <25 sq cm 02/13/2020 61545- Debride <25 sq cm 02/05/2015 Insurance Providers Payer Name Payer Address Payer Phone Subscriber Number Group Number Insured Name Patient Relationship to Insured Coverage Start Date [facility]age End Date [facility] [address] [place] [address] [id number] 2 Rian Martinezlas Spouse - patient is the spouse of the insured Medical (General) History Medical History History ICD Code headaches/migraines high blood pressure measles mumps chicken pox Lymphoma Surgical History Surgery Date(Month/Year) section
== END 2025-01-06 12:01 | disposition home or self-care (01) ==
LOC: HO.HCS 11:27
PROVIDERS: PCP Internal Medicine; Visit Provider Internal Medicine Cardiovascular Disease
DX: I25.10 Atherosclerotic heart disease of native coronary artery without angina pectoris (principal)
CPT/HCPCS: 99214; G2211

== ENCOUNTER → 2025-01-06 11:27 | Outpatient (BNVA) | payer MEDICARE, SELFPAY | PROVIDERS: PCP Internal Medicine; Visit Provider Internal Medicine Cardiovascular Disease | DX: I25.10 Atherosclerotic heart disease of native coronary artery without angina pectoris (principal); E78.5 Hyperlipidemia, unspecified | CPT/HCPCS: 99212 ==

== ENCOUNTER 2025-01-07 09:34 | Outpatient (REF) | payer MEDICARE, SELFPAY ==
--- OUTSIDE RECORDS SUMMARY | 2025-01-07 10:15 | XMS_ITS | Clinical Summary ---
Author Organization [facility] Address [address] [place] [address] Care Team Providers Care Owner Manager Name Role Phone Shawn Valderrama MD Primary Care Provider Allergies No known active allergies Medications Medication [...] age to complete this topic Care Teams Owner Manager Relationship Specialty Start Date End Date Shawn Valderrama MD [address] [place] [address] [address] [place] [address] PCP - General Regional Training Manager 03/25/22
--- OUTSIDE RECORDS SUMMARY | 2025-01-07 10:15 | XMS_ITS | Patient Health Record ---
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) Active confirmed Plan Of Treatment Pending Test Test Name Order Date X ray : Foot, right 3V 12/10/2012 [id number] NAIL, 1-01/19/2015 [id number] NAIL, -06/03/2015 [id number] NAIL, -09/30/2015 [id number] NAIL, -01/20/2016 13330-Bkeggder Plate 01/20/2016 63149-Zwfnyiwz Plate 09/26/2019 18611-Zpttxnjd Plate 01/19/2015 03398-JJS 01/30/2020 82283- Debride <25 sq cm 02/13/2020 55726- Debride <25 sq cm 02/05/2015 Insurance Providers Payer Name Payer Address Payer Phone Subscriber Number Group Number Insured Name Patient Relationship to Insured Coverage Start Date Coverage End Date [facility] [address] [place] [address] [id number] 2 Rian Martinezlas Spouse - patient is the spouse of the insured Medical (General) History Medical History History ICD Code headaches/migraines high blood pressure measles mumps chicken pox Lymphoma Surgical History Surgery Date(Month/Year) section
--- OUTSIDE RECORDS SUMMARY | 2025-01-07 10:15 | XMS_ITS | Encounter Summary ---
Author Organization [facility] Address [address] [place] [address] Phone Care Team Providers Care Plaque Maker Name Role Phone Shawn Valderrama MD Unavailable [phone] Shawn Valderrama MD Primary Care Provider Encounter Details Date Type Department Care Team (Late st Contact Info) Description 07/11/2022 Procedure Pass [address] [place] [address] Social History Tobacco Use Types Packs/Day Years [...] st Contact Info) Description 08/16/2024 Procedure Pass [address] [place] [address] 02/28/2025 8:30 AM EDT Appointment [address] [place] [address] Shawn Valderrama MD [address] [place] [address] [place] [address] documented as of this encounter Visit Diagnoses Not on filedocumented in this encounter Care Teams Plaque Maker Relationship Specialty Start Date End Date Shawn Valderrama MD [address] [place] [address] [place] [address] PCP - General Internal Medicine 06/01/17 Shawn Valderrama MD [address] [place] [address] [place] [address] Historical LMR Provider 03/15/17 documented as of this encounter Additional Source Comments The information contained in this document represents components of the legal health record. It is not the complete legal health record.[facility]
--- OUTSIDE RECORDS SUMMARY | 2025-01-07 10:15 | XMS_ITS | Patient Health Record ---
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) Active confirmed Plan Of Treatment Future Test Test Name Order Date COLONOSCOPY 09/19/2012 COLONOSCOPY 11/15/2017 COLONOSCOPY 11/14/2022 Insurance Providers Payer Name Payer Address Payer Phone Subscriber Number Group Number Insured Name Patient Relationship to Insured Coverage Start Date Coverage End Date [facility] [address] [place], [place] [id number] 01 CHICHI CHANDLER Self - patient is the insured Medical (General) History Medical History History ICD Code colonoscopy 02/13, benign polyps, five-ye ar followup migraine headaches elevated Cholesterol hypertension splenic lymphoma 2012, status post R. [facility] OP hip replacement left Surgical History Surgery Date(Month/Year) section left hip replacement 08/18
[2025-01-07 13:43] LABS: Cholesterol 228 mg/dL (<200); HDL Cholesterol 53 mg/dL (>40); Triglycerides 100 mg/dL (<150)
== END 2025-01-07 09:35 | disposition home or self-care (01) ==
LOC: HO.HMGCLDS 09:34
PROVIDERS: PCP Physician Assistant; Visit Provider Internal Medicine Cardiovascular Disease
DX: I25.10 Atherosclerotic heart disease of native coronary artery without angina pectoris (principal); E78.5 Hyperlipidemia, unspecified
CPT/HCPCS: 36415; 80061; 86141

== ENCOUNTER 2025-01-31 09:19 | Outpatient (AMB) | payer MEDICARE, SELFPAY ==
[2025-01-31 09:21] VITALS: BP 130/79; PULSE 72; TEMP 36.7; O2SAT 97; BMI 28.1
--- NOTE | 2025-01-31 09:21 | A.OFFVIS_ITS ---
Vital Signs 01/31/25 09:21 Height 5 ft 9 in Weight 86.183 kg BMI 28.1 BP 130/79 Blood Pressure Location Lt brachial Position Sitting Pulse 72 Pulse Source Pulse Oximeter Temp 98.0 F Temp Source Oral Pulse Oximetry (%) 97 Oxygen Delivery Method Room Air Intake Visit Reasons: Annual Intake Note: Patient is here for her annual exam today. 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 She currently lives at home with her and is retired. Upcoming vacation to the [place] [facility]. She reports rare alcohol use. No cigarette smoking. No illicit drug use or marijuana use. She is very active and follows a healthy diet. Hypertension-has been checking blood pressures at home and on average have been well-controlled. Continues on losartan 25 mg daily. Blood pressure in the office today is 130/79. Hypercholesterolemia/CAD-recently saw Dr. Rivera and underwent nuclear stress test which was suggestive of possible CAD. She will be undergoing CTA of the chest at [facility] which has not yet been scheduled. No ongoing anginal chest pain. Intolerant of statins. Started on Zetia. Being considered for Repatha FARIDA-on CPAP which has improved chronic cough Urge incontinence-following with Urogynecology, Ciara Jama. She is now on estradiol and D-mannose with relief of symptoms. Splenic lymphoma-remission Chronic cough-nearly resolved. Following with Dr. Ventura in pulmonology. Improved with antihistamine. Also improved with CPAP and management of reflux. Skin concerns-following with Dermatology with biopsy on the right face/chin showing thin melanoma in C2. Upcoming appointment with [facility] for further management. Does wear sunscreen religiously. Osteoarthritis right knee-completed physical therapy. Now following with physiatry and received cortisone injection with relief of pain. GERD-has been on omeprazole 40 mg daily enquiring about decreasing to 20 mg daily. 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 Concerns: As above Health maintenance: Will be receiving COVID-19 and flu vaccine. Will also be due for pneumonia vaccine. Zostavax x2 administered historically Last colonoscopy 11/2022, 5 year follow-up advised Last mammogram 12/2023. Mammograms and DEXA scans through [facility] Skin exams-following with Dermatology Annual eye exam Dental exams twice annually Reviewed past medical, surgical, family, social history. ROS: General: No fevers, malaise, unintentional weight loss HEENT: No blurred vision, diplopia. No sore throat, nasal congestion, rhinorrhea, sinus pain, ear pain. No hearing loss Neck - no adenopathy Cardiovascular: No chest pain, palpitations, or leg edema. See HPI Respiratory: No shortness of breath, wheezing, cough Breast: No pain, palpable lumps, nipple inversion GI: No dysphagia, odynophagia, globus sensation. No abdominal pain, nausea, vomiting, diarrhea, constipation, melena, hematochezia : No dysuria, hematuria, increased urinary frequency, decreased urinary output. See HPI TOOL HONING MACHINE SET UP OPERATOR: No abn vaginal bleeding or discharge MSK: No myalgia, back pain,. See HPI Neuro: No headaches, weakness, paresthesias Psych: no depression/anxiery. No AH/VH. No SI/HI Skin: No rashes. See HPI EXAM: Constitutional - Awake and Alert, No apparent distress Eyes - PERRLA, EOMI. Anicteric Ears - external ears normal, canals clear, TMs intact and pearly saldana with good cone of light Nose- septum midline, nares clear, no sinus tenderness Mouth/throat- mucosa moist, tongue and uvula midline, no erythema/edema or tonsillar adenopathy. Neck-trachea midline, thyroid symmetric without palpable nodules, no adenopathy Cardiovascular - S1S2, RRR, No edema Respiratory - Normal lung expansion, Normal respiratory effort, No respiratory distress, CTA bilaterally Gastrointestinal - NT / ND; +BS; No rebound or guarding - No CVA tenderness Extremities - no calf tenderness bilaterally, no swelling Musculoskeletal - Normal inspection, normal ROM Skin - Warm/Dry, no concerning lesions Neurological - Alert & oriented x3, CN II-XII in tact, 5/5 strength BUE and BLE, 2+ patellar reflexes, sensation intact Psychological - Appropriate affect [facility] Medical History (Updated 01/31/25 @ 10:37 by LINA Jean) Melanoma in situ GERD (gastroesophageal reflux disease) Osteoarthritis of right knee Chronic allergic rhinitis FARIDA (obstructive sleep apnea) Lymphoma, splenic HTN (hypertension) Elevated cholesterol Surgical History History of left hip replacement H/O colonoscopy (~12/14/22) Family History (Updated 01/31/25 @ 10:33 by LINA Jean) Mother Dementia Social History Household Members: Spouse Housing: House Do you presently have visiting nurse or other home services: Yes Alcohol intake: current Alcohol intake frequency: holidays/special occasions only Patient Tobacco Use Status: Never used Tobacco service: No Physical Exam Vital Signs: Last Vital Signs Temp 98.0 F 01/31/25 09:21 Pulse 72 01/31/25 09:21 BP 130/79 01/31/25 09:21 Pulse Ox 97 01/31/25 09:21 Oxygen Delivery Method Room Air 01/31/25 09:21 BMI result Body Mass Index 28.1 Assessment & Plan Assessment & Plan (1) Routine medical exam: Code(s): Z00.00 - Encounter for general adult medical examination without abnormal findings Plan: 69-year-old female presenting for annual exam. Plan as below (2) HTN (hypertension): Code(s): I10 - Essential (primary) hypertension Category: Medical Plan: Controlled. Continue losartan 25 mg daily. Can continue checking blood pressures at home (3) CAD (coronary artery disease): Code(s): I25.10 - Atherosclerotic heart disease of [place] coronary artery without angina pectoris Category: Medical Plan: Stable, no anginal chest pain. Continue following with cardiology. Follow for CTA of the chest. Reviewed last cardiology note/nuclear stress test result (4) Elevated cholesterol: Code(s): E78.00 - Pure hypercholesterolemia, unspecified Category: Medical Plan: Not at goal. Last LDL 155. Discussed that given history of CAD, goal is less than 70. Strongly recommend compliance with cholesterol-lowering medications. Did review ASCVD risk score with current risk factors compared to optimization of risk factors (5) FARIDA (obstructive sleep apnea): Code(s): G47.33 - Obstructive sleep apnea (adult) (pediatric) Category: Medical Plan: Continue CPAP use (6) Osteoarthritis of right knee: Code(s): M17.11 - Unilateral primary osteoarthritis, right knee Category: Medical Plan: Improved. Continue following with physiatry (7) GERD (gastroesophageal reflux disease): Code(s): K21.9 - Gastro-esophageal reflux disease without esophagitis Category: Medical Plan: Stable. Decrease omeprazole to 20 mg daily. (8) Melanoma in situ: Code(s): D03.9 - Melanoma in situ, unspecified Category: Medical Plan: Follow-up with dermatology. Records to be requested Plan Follow-up in 6 months Routine screening labs as ordered below Continue with screening mammograms, Pap smears, colonoscopies Continue following for annual skin exams and use sun protection Annual eye exams Wear seat belt in car Recommend regular exercise and healthy diet Coding Level of Care Code Est Pt Prev Care >65y(38888) Diagnoses Routine medical exam Z00.00 HTN (hypertension) I10 CAD (coronary artery disease) I25.10 Elevated cholesterol E78.00 FARIDA (obstructive sleep apnea) G47.33 Osteoarthritis of right knee M17.11 GERD (gastroesophageal reflux disease) K21.9 Melanoma in situ D03.9
--- OUTSIDE RECORDS SUMMARY | 2025-01-31 10:03 | XMS_ITS | Encounter Summary ---
Author Organization [facility] Address [address] [place] [address] Phone Care Team Providers Care Cross Cut Saw Operator Name Role Phone Shawn Valderrama MD Unavailable [phone] Maryann Ferguson USED CAR MAKE READY WORKER Unavailable [phone] Unavailable [email or web address] Shawn Valderrama MD Primary Care Provider Encounter Details Date Type Department Care Team (Late st Contact Info) Description 07/27/2020 Procedure Pass [address] [place] [address] Social History Tobacco Use Types Packs/Day Years [...] st Contact Info) Description 08/16/2024 Procedure Pass [address] [place] [address] 02/28/2025 8:30 AM EDT Appointment [address] [place] [address] Shawn Valderrama MD [address] [place] [address] [place] [address] documented as of this encounter Visit Diagnoses Not on filedocumented in this encounter Care Teams Cross Cut Saw Operator Relationship Specialty Start Date End Date Shawn Valderrama MD [address] [place] [address] [place] [address] PCP - General Internal Medicine 06/01/17 Shawn Valderrama MD [address] [place] [address] [place] [address] Historical LMR Provider 03/15/17 Maryann Ferguson NP [address] [place] [address] Historical LMR Provider 03/15/17 2 Audrey Maldonado, LUCIAN [email or web address] Historical LMR Provider 03/15/17 06/05/21 documented as of this encounter Additional Source Comments The information contained in this document represents components of the legal health record. It is not the complete legal health record.[facility]
--- OUTSIDE RECORDS SUMMARY | 2025-01-31 10:03 | XMS_ITS | Encounter Summary ---
Author Organization [facility] Address [address] [place] [address] [place] [address] Phone Care Team Providers Care Trackwalker Name Role Phone Shawn Valderrama MD Unavailable [phone] Maryann Ferguson CORPORATE DEVELOPMENT INTERN Unavailable [phone] Unavailable [email or web address] Shawn Valderrama MD Primary Care Provider Encounter Details Date Type Department Care Team (Late st Contact Info) Description 06/01/2017 Ancillary Orders Virtual Department [address] [place] [address] Shawn Valderrama MD [address] [place] [address] [place] [address] Breast screening Social History Tobacco Use Types Packs/Day Years Used Date Smoking Tobacco: Never Assessed Comments Unknown Sex and Gender Information Value Date Recorded Sex Assigned at Not on file Legal Sex Female 9:52 PM EDT Gender Identity Not on file Sexual Orientation Not on file documented as of this encounter Plan of Treatment Upcoming Encounters Date Type Department Care Team (Late st Contact Info) Description 08/16/2024 Procedure Pass [address] [place] [address] 02/28/2025 8:30 AM EDT Appointment [address] [place] [address] Shawn Valderrama MD [address] [place] [address] [place] [address] documented as of this encounter Results * BI MAMMOGRAM SCREENING WITH TOMOSYNTHESIS WITH CAD (BILATERAL) (11/17/2017 8:20 AM EDT) Anatomical Region Laterality Modality Breast Left, Breast Right, Breast Bilateral Bila teral Mammography 11/17/2017 9:02 AM EDT Impressions 11/17/2017 9:22 AM EDT BILATERAL BREASTS: Negative, no evidence of malignancy. Normal interval follow- up is recommended in 12 months. BI-RADS CATEGORY: 1 - Negative. DENSITY: There are scattered fibroglandular densities. POS - CDHMAMA Narrative 11/17/2017 9:22 AM EDT STUDY: Bilateral screening mammography with tomosynthesis and CAD TECHNIQUE: Bilateral full-field digital screening mammography is obtained and read in conjunction with computer-aided detection. Tomosynthesis as well as 2-D C view imaging were obtained. COMPARISON: Comparison made to multiple prior, most recent November 16, 2016, and most remote October 25, 2011. BREAST COMPOSITION: There are scattered areas of fibroglandular density BILATERAL BREASTS: No significant masses, calcifications or other abnormalities are seen. Procedure Note Goldy Brown MD - 11/17/2017 STUDY: Bilateral screening mammography with tomosynthesis and CAD TECHNIQUE: Bilateral full-field digital screening mammography is obtainedand read in conjunction with computer-aided detection. Tomosynthesis aswell as 2-D C view imaging were obtained. COMPARISON: Comparison made to multiple prior, most recent November 16, 2016,and most remote October 25, 2011. BREAST COMPOSITION: There are scattered areas of fibroglandulardensity BILATERAL BREASTS: No significant masses, calcifications or otherabnormalities are seen. IMPRESSION: BILATERAL BREASTS: Negative, no evidence of malignancy. Normal intervalfollow-up is recommended in 12 months. BI-RADS CATEGORY: 1 - Negative. DENSITY: There are scattered fibroglandular densities. POS - CDHMAMA Shawn Valderrama MD IMG MG EXAMS Final R esult documented in this encounter Visit Diagnoses Diagnosis Breast screening Breast screening, unspecified Breast screening Breast screening, unspecified documented in this encounter Care Teams Trackwalker Relationship Specialty Start Date End Date Shawn Valderrama MD [address] [place] [address] Dr MARK [address] [place] [address] PCP - General Internal Medicine 06/01/17 Shawn Valderrama MD [address] [place] [address] Dr MARK [address] [place] [address] Historical LMR Provider 03/15/17 Maryann Ferguson NP [address] [place] [address] Historical LMR Provider 03/15/17 2 Audrey Maldonado, LUCIAN [email or web address] Historical LMR Provider 03/15/17 06/05/21 documented as of this encounter Additional Source Comments The information contained in this document represents components of the legal health record. It is not the complete legal health record.[facility]
--- OUTSIDE RECORDS SUMMARY | 2025-01-31 10:03 | XMS_ITS | Clinical Summary ---
Author Organization [facility] Address [address] [place] [address] Care Team Providers Care Vocational Rehab Consultant Name Role Phone Shawn Valderrama MD Primary Care Provider [phone] Allergies No known active allergies Medications Medication [...] age to complete this topic Care Teams Vocational Rehab Consultant Relationship Specialty Start Date End Date Shawn Valderrama MD [address] [place] [address] [address] [place] [address] PCP - General Pai Gow Dealer 03/25/22
--- OUTSIDE RECORDS SUMMARY | 2025-01-31 10:03 | XMS_ITS | Encounter Summary ---
Author Organization [facility] Address [address] [place] [address] Phone Care Team Providers Care Hospital Intern Name Role Phone Shawn Valderrama MD Unavailable [phone] Shawn Valderrama MD Primary Care Provider Encounter Details Date Type Department Care Team (Late st Contact Info) Description 07/11/2022 Procedure Pass [address] [place] [address] Social History Tobacco Use Types Packs/Day Years [...] st Contact Info) Description 08/16/2024 Procedure Pass [address] [place] [address] 02/28/2025 8:30 AM EDT Appointment [address] [place] [address] Shawn Valderrama MD [address] [place] [address] [place] [address] documented as of this encounter Visit Diagnoses Not on filedocumented in this encounter Care Teams Hospital Intern Relationship Specialty Start Date End Date Shawn Valderrama MD [address] [place] [address] [place] [address] PCP - General Internal Medicine 06/01/17 Shawn Valderrama MD [address] [place] [address] [place] [address] Historical LMR Provider 03/15/17 documented as of this encounter Additional Source Comments The information contained in this document represents components of the legal health record. It is not the complete legal health record.[facility]
--- OUTSIDE RECORDS SUMMARY | 2025-01-31 10:04 | XMS_ITS | Encounter Summary ---
Author Organization [facility] Address [address] [address] [place] [address] Phone Care Team Providers Care Project Production Engineer Name Role Phone Shawn Valderrama MD Unavailable [phone] Shawn Valderrama MD Primary Care Provider Encounter Details Date Type Department Care Team (Late st Contact Info) Description 08/16/2024 Transcribe Orders Virtual Department [address] [place] [address] Shawn Valderrama MD [address] [place] [address] [place] [address] Breast screening (Primary Dx) Social History Tobacco Use Types Packs/Day Years Used Date Smoking Tobacco: Never Assessed Education Answer Date Recorded Are you interested in more education? Not on rosangela e 09/23/2022 Are you concerned about learning? Not on file 09/23/2022 No 09/23/2022 No 09/23/2022 Digital Access Answer Date Recorded No 10/24/2022 No 10/24/2022 Reliable internet access at home? Not on file 10/24/2022 Device with a working camera? Not on file Comments No Sex and Gender Information Value Date Recorded Sex Assigned at Not on file Legal Sex Female 9:52 PM EDT Gender Identity Not on file Sexual Orientation Not on file documented as of this encounter Plan of Treatment Upcoming Encounters Date Type Department Care Team (Late st Contact Info) Description 08/16/2024 Procedure Pass [address] [place] [address] 02/28/2025 8:30 AM EDT Appointment [address] [place] [address] Shawn Valderrama MD [address] [place] [address] [place] [address] Scheduled Orders Name Type Priority Associated Diagnoses Orde r Schedule Mammogram Screening (Bilateral) Imaging Routine Breast screening Expected: 09/16/2024, Expires: 08/16/2025 documented as of this encounter Visit Diagnoses Diagnosis Breast screening- Primary Breast screening, unspecified documented in this encounter Care Teams Project Production Engineer Relationship Specialty Start Date End Date Shawn Valderrama MD [address] [place] [address] [place] [address] PCP - General Internal Medicine 06/01/17 Shawn Valderrama MD [address] [place] [address] [place] [address] Historical LMR Provider 03/15/17 documented as of this encounter Additional Source Comments The information contained in this document represents components of the legal health record. It is not the complete legal health record.[facility]
--- OUTSIDE RECORDS SUMMARY | 2025-01-31 10:04 | XMS_ITS | Encounter Summary ---
Author Organization [facility] Address [address] [facility] [address] [place] [address] Phone Care Team Providers Care Family Service Assistant Name Role Phone Shawn Valderrama MD Unavailable [phone] Maryann Ferguson ASSOCIATE MEDICAL DIRECTOR Unavailable [phone] Unavailable [email or web address] Shawn Valderrama MD Primary Care Provider Encounter Details Date Type Department Care Team (Late st Contact Info) Description 07/23/2019 Ancillary Orders Virtual Department [address] [place] [address] Meron Newman MD [address] [place] [address] Drive [address] [place] [phone] Breast screening Social History Tobacco Use Types [...] st Contact Info) Description 08/16/2024 Procedure Pass [address] [place] [address] 02/28/2025 8:30 AM EDT Appointment [address] [place] [address] Shawn Valderrama MD [address] [place] [address] [place] [address] documented as of this encounter Results * BI MAMMOGRAM SCREENING WITH TOMOSYNTHESIS WITH CAD (BILATERAL) (12/25/2019 8:41 AM EDT) Anatomical Region Laterality Modality Breast Left, Breast Right, Breast Bilateral Bila teral Mammography 12/25/2019 9:37 PM EDT Impressions 12/30/2019 2:41 PM EDT BILATERAL BREASTS: Negative, no evidence of malignancy. Normal interval follow- up is recommended in 12 months. BI-RADS: BI-RADS CATEGORY: 1 - Negative. DENSITY: There are scattered fibroglandular densities. Narrative 12/30/2019 2:41 PM EDT STUDY: Bilateral screening mammography with tomosynthesis and CAD TECHNIQUE: Bilateral full-field digital screening mammography is obtained and read in conjunction with computer-aided detection. Tomosynthesis as well as 2-D C view imaging were obtained. COMPARISON: Comparison made to multiple prior, most recent November 19, 2018, and most remote November 05, 2013. BREAST COMPOSITION: There are scattered areas of fibroglandular density BILATERAL BREASTS: No significant masses, calcifications or other abnormalities are seen. Procedure Note Goldy Brown MD - 12/30/2019 STUDY: Bilateral screening mammography with tomosynthesis and CAD TECHNIQUE: Bilateral full-field digital screening mammography is obtainedand read in conjunction with computer-aided detection. Tomosynthesis aswell as 2-D C view imaging were obtained. COMPARISON: Comparison made to multiple prior, most recent November 19, 2018,and most remote November 05, 2013. BREAST COMPOSITION: There are scattered areas of fibroglandulardensity BILATERAL BREASTS: No significant masses, calcifications or otherabnormalities are seen. IMPRESSION: BILATERAL BREASTS: Negative, no evidence of malignancy. Normal intervalfollow-up is recommended in 12 months. BI-RADS: BI-RADS CATEGORY: 1 - Negative. DENSITY: There are scattered fibroglandular densities. Meron Newman MD IMG MG EXAMS Final Result documented in this encounter Visit Diagnoses Diagnosis Breast screening Breast screening, unspecified Breast screening Breast screening, unspecified documented in this encounter Care Teams Family Service Assistant Relationship Specialty Start Date End Date Shawn Valderrama MD [address] [place] [address] Dr [address] [place] [address] PCP - General Internal Medicine 06/01/17 Shawn Valderrama MD [address] [place] [address] Dr [address] [place] [address] Historical LMR Provider 03/15/17 Maryann Ferguson NP [address] [place] [address] Historical LMR Provider 03/15/17 2 Audrey Maldonado, LUCIAN [email or web address] Historical LMR Provider 03/15/17 06/05/21 documented as of this encounter Additional Source Comments The information contained in this document represents components of the legal health record. It is not the complete legal health record.[facility]
--- OUTSIDE RECORDS SUMMARY | 2025-01-31 10:04 | XMS_ITS | Patient Health Record ---
Author Organization [facility] Address [address] [facility] [place] [address] Care Team Providers Care Nurse'S Assistant Name Role Phone Shawn Valderrama MD Primary Care Provider Unavaila Meg Wan Unavailable [phone] Reason For Referral No Information Medications Medication [...] Problem Acquired hammer toe of right foot ([id number] 9105) Other hammer toe(s) (acquired), right foot (M20.41) Active confirmed Problem PlantarFlexion o f metatarsal of right foot (M21.6X1) Active confirmed Plan Of Treatment Pending Test Test Name Order Date X ray : Foot, right 3V 12/10/2012 [id number] NAIL, 1-01/19/2015 [id number] NAIL, -06/03/2015 [id number] NAIL, -09/30/2015 [id number] NAIL, -01/20/2016 [id number] Plate 01/20/2016 [id number] Plate 09/26/2019 [id number] Plate 01/19/2015 [id number] 01/30/2020 16487- Debride <25 sq cm 02/13/2020 98302- Debride <25 sq cm 02/05/2015 Insurance Providers Payer Name Payer Address Payer Phone Subscriber Number Group Number Insured Name Patient Relationship to Insured Coverage Start Date Coverage End Date [facility] [address] [place] [address] [id number] 2 Rian Martinezlas Spouse - patient is the spouse of the insured Medical (General) History Medical History History ICD Code headaches/migraines high blood pressure measles mumps chicken pox Lymphoma Surgical History Surgery Date(Month/Year) section
--- OUTSIDE RECORDS SUMMARY | 2025-01-31 10:04 | XMS_ITS | Encounter Summary ---
Author Organization [facility] Address [address] [place] [address] Phone Care Team Providers Care Paid Intern Name Role Phone Shawn Valderrama MD Unavailable [phone] Shawn Valderrama MD Primary Care Provider Encounter Details Date Type Department Care Team (Late st Contact Info) Description 07/29/2021 Procedure Pass [address] [place] [address] Social History Tobacco Use Types Packs/Day Years [...] st Contact Info) Description 08/16/2024 Procedure Pass [address] [place] [address] 02/28/2025 8:30 AM EDT Appointment [address] [place] [address] Shawn Valderrama MD [address] [place] [address] [place] [address] documented as of this encounter Visit Diagnoses Not on filedocumented in this encounter Care Teams Paid Intern Relationship Specialty Start Date End Date Shawn Valderrama MD [address] [place] [address] [place] [address] PCP - General Internal Medicine 06/01/17 Shawn Valderrama MD [address] [place] [address] [place] [address] Historical LMR Provider 03/15/17 documented as of this encounter Additional Source Comments The information contained in this document represents components of the legal health record. It is not the complete legal health record.[facility]
--- OUTSIDE RECORDS SUMMARY | 2025-01-31 10:04 | XMS_ITS | Encounter Summary ---
Author Organization [facility] Address [address] [facility] [address] [place] [address] Phone Care Team Providers Care Senior Care Assistant Name Role Phone Shawn Valderrama MD Unavailable [phone] Shawn Valderrama MD Primary Care Provider Encounter Details Date Type Department Care Team (Late st Contact Info) Description 06/14/2023 Procedure Pass [address] [place] [address] Social History Tobacco Use Types Packs/Day Years [...] st Contact Info) Description 08/16/2024 Procedure Pass [address] [place] [address] 02/28/2025 8:30 AM EDT Appointment [address] [place] [address] Shawn Valderrama MD [address] [place] [address] Dr MARK Ashwini [place], [place] [address] documented as of this encounter Visit Diagnoses Not on filedocumented in this encounter Care Teams Senior Care Assistant Relationship Specialty Start Date End Date Shawn Valderrama MD [address] [place] [address] [place] [address] PCP - General Internal Medicine 06/01/17 Shawn Valderrama MD [address] [place] [address] Dr MARK Ashwini [place] [address] Historical LMR Provider 03/15/17 documented as of this encounter Additional Source Comments The information contained in this document represents components of the legal health record. It is not the complete legal health record.[facility]
--- OUTSIDE RECORDS SUMMARY | 2025-01-31 10:04 | XMS_ITS | Patient Health Record ---
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) Active confirmed Plan Of Treatment Future Test Test Name Order Date COLONOSCOPY 09/19/2012 COLONOSCOPY 11/15/2017 COLONOSCOPY 11/14/2022 Insurance Providers Payer Name Payer Address Payer Phone Subscriber Number Group Number Insured Name Patient Relationship to Insured Coverage Start Date Coverage End Date [facility] [address] [place], [place] [id number] CHICHI CHANDLER Self - patient is the insured Medical (General) History Medical History History ICD Code colonoscopy 02/13, benign polyps, five-ye ar followup migraine headaches elevated Cholesterol hypertension splenic lymphoma 2012, status post R. CH OP hip replacement left Surgical History Surgery Date(Month/Year) section left hip replacement 08/18
--- OUTSIDE RECORDS SUMMARY | 2025-01-31 10:04 | XMS_ITS | Encounter Summary ---
Author Organization [facility] Address [address] [facility] [address] [place] [address] Phone Care Team Providers Care Automotive Drivability Technician Name Role Phone Shawn Valderrama MD Unavailable [phone] Maryann Ferguson FIRE EXTINGUISHER TESTER Unavailable [phone] Unavailable [email or web address] Shawn Valderrama MD Primary Care Provider Encounter Details Date Type Department Care Team (Late st Contact Info) Description 06/19/2018 Ancillary Orders Virtual Department 30 [place] [address] Meron Tang MD [address] [place] [address] [address] [place], [place] [id number] Breast screening Social History Tobacco Use Types [...] st Contact Info) Description 08/16/2024 Procedure Pass [address] [place] [address] 02/28/2025 8:30 AM EDT Appointment [address] [place] [address] Shawn Valderrama MD [address] [place] [address] [place] [address] documented as of this encounter Results * BI MAMMOGRAM SCREENING WITH TOMOSYNTHESIS WITH CAD (BILATERAL) (11/19/2018 7:09 AM EDT) Anatomical Region Laterality Modality Breast Left, Breast Right, Breast Bilateral Bila teral Mammography 11/20/2018 3:44 PM EDT Impressions 11/20/2018 3:46 PM EDT No mammographic evidence of malignancy. RECOMMENDED FOLLOWUP: Routine screening mammography is recommended, as clinically appropriate. The results will be sent to the patient. BI-RADS CATEGORY: 1 - Negative. BREAST DENSITY: There are scattered fibroglandular densities. POS - [id number] Narrative 11/20/2018 3:46 PM EDT BI MAMMOGRAM SCREENING WITH TOMOSYNTHESIS WITH CAD (BILATERAL) HISTORY: Screening. COMPARISON: Prior studies dating back to 10/31/2012, most recently 11/17/2017. TECHNIQUE: Digital breast tomosynthesis was performed in CC and MLO projections. Reconstructed 2-D C-views generated from the tomosynthesis images. Images interpreted in conjunction with R-2 Image Sap Crm Developer computer-aided detection (CAD). FINDINGS: BREAST DENSITY: There are scattered fibroglandular densities. There are no suspicious masses, suspicious areas of architectural distortion or suspicious clusters of microcalcifications. Procedure Note Amarilys Hartman MD - 11/20/2018 BI MAMMOGRAM SCREENING WITH TOMOSYNTHESIS WITH CAD (BILATERAL) HISTORY: Screening. COMPARISON: Prior studies dating back to 10/31/2012, most [id number]/22/2018. TECHNIQUE: Digital breast tomosynthesis was performed in CC and MLOprojections. Reconstructed 2-D C-views generated from the tomosynthesisimages. Images interpreted in conjunction with R-2 Image Checkercomputer-aided detection (CAD). FINDINGS: BREAST DENSITY: There are scattered fibroglandular densities. There are no suspicious masses, suspicious areas of architecturaldistortion or suspicious clusters of microcalcifications. IMPRESSION: No mammographic evidence of malignancy. RECOMMENDED FOLLOWUP: Routine screening mammography is recommended, asclinically appropriate. The results will be sent to the patient. BI-RADS CATEGORY: 1 - Negative. BREAST DENSITY: There are scattered fibroglandular densities. POS - [id number] Meron Tang MD IMG MG EXAMS Final Result documented in this encounter Visit Diagnoses Diagnosis Breast screening Breast screening, unspecified Breast screening Breast screening, unspecified documented in this encounter Care Teams Automotive Drivability Technician Relationship Specialty Start Date End Date Shawn Valderrama MD [address] [place] [address] Dr [address] [place] [address] PCP - General Internal Medicine 06/01/17 Shawn Valderrama MD [address] [place] [address] Dr MARK [address] [place] [address] Historical LMR Provider 03/15/17 Maryann Ferguson NP [address] [place] [address] Historical LMR Provider 03/15/17 2 Audrey Maldonado, LUCIAN Historical LMR Provider 03/15/17 06/05/21 documented as of this encounter Additional Source Comments The information contained in this document represents components of the legal health record. It is not the complete legal health record.[facility]
--- OUTSIDE RECORDS SUMMARY | 2025-01-31 10:04 | XMS_ITS | Clinical Summary ---
Author Organization [address] [place] [address] [place] [address] Phone Care Team Providers Care Liquefaction And Regasification Helper Name Role Phone Shawn Valderrama MD Primary Care Provider [phone] Surgical History Surgery Date Site/Laterality Comments SECTION PROCEDURE: SECTION;COMMENT:x3 WISDOM TOOTH EXTRACTION 1973 PROCEDURE:WISDOM TOOTH EXTRACTION Medical History Medical History Date Comments Lymphoma (CMS/HCC V24, CMS/HCC V28) 2014 DX:Lymphoma (HCC) Hyperlipidemia DX:Hyperlipidemi a Osteoarthritis DX:Osteoarthriti s Recurrent urinary tract infection DX:Recurrent urinary tract infection History of hypertension 2018 DX:Histo ry of hypertension;COMMENT:resolved with weight loss and Lisinopril was stopped by PCP Abnormal EKG DX:Abnormal EKG; COMMENT:RBBB Family History Medical History Relation Name Comments Hyperlipidemia Father Hypertension Father Cancer Mother lymphoma Hyperlipidemia Mother Hypertension Mother Crohn's disease Sister No Known Problems Son 1 No Known Problems Son 2 No Known Problems Son 3 Relation Name Status Comments Father Mother Sister Son 1 Alive Son 2 Alive Son 3 Alive Social History Tobacco Use Types Packs/Day Years Used Date Smoking Tobacco: Never Alcohol Use Standard Drinks/Week Comments Not Asked 0 (1 standard drink = 0.6 oz pur e alcohol) Comments Unknown Sex and Gender Information Value Date Recorded Sex Assigned at Not on file Legal Sex Female 8:46 PM EST Gender Identity Not on file Sexual Orientation Not on file Obstetrics History Last Filed Vital Signs Vital Sign Reading Time Taken Comments Blood Pressure 158/86 08/12/2022 10:13 AM EDT Sitting Left arm Pulse 60 08/12/2022 10:13 AM EDT Temperature - - Respiratory Rate - - Oxygen Saturation - - Inhaled Oxygen Concentration - - Weight 76.7 kg (169 lb) 08/12/2022 10:1 3 AM EDT Height 172 cm (5' 7.72 ) 08/12/2022 10: 13 AM EDT Body Mass Index 25.91 08/12/2022 10:13 AM EDT Plan of Treatment Upcoming Encounters Date Type Department Care Team (Late st Contact Info) Description 02/17/2025 8:30 AM EDT Consult [facility] [place] [address] [place] [address] Remy Hassan PA [address] [place] [address] Health Maintenance Due Date Last Done Comments Breast Cancer Screening 1957 DTaP,Tdap,and Td Vaccines (1 - Tdap) 1976 Pneumococcal Vaccine: 50+ Ye ars (1 of 1 - PCV) 2007 Zoster Vaccines (1 of 2) 2007 Colorectal Cancer Screening: Colonoscopy 06/23/2023 Falls Risk Assessment 06/23/2023 Hepatitis C Screening 06/23/2023 Medicare Annual Wellness Visit 06/23/2023 Osteoporosis Screening (Bone Density Screening) 06/23/2023 Social Influencers of Health Screening 06/23/2023 Depression Screening 05/29/2024 COVID-19 Vaccine ( - 2023-2 5 season) 2025 Influenza Vaccine (#1) 2025 RSV Immunization Adult Patie nts (1 - 1-dose 75+ series) 2032 HIB Vaccines Aged Out No longer eligi ble based on patient's age to complete this topic HPV Vaccines Aged Out No longer eligi ble based on patient's age to complete this topic Hepatitis A Vaccines Aged Out No long er eligible based on patient's age to complete this topic Hepatitis B Vaccines Aged Out No long er eligible based on patient's age to complete this topic IPV Vaccines Aged Out No longer eligi ble based on patient's age to complete this topic MMR Vaccines Aged Out No longer eligi ble based on patient's age to complete this topic Meningococcal ACWY Vaccine Aged Out N o longer eligible based on patient's age to complete this topic Meningococcal B Vaccine Aged Out No l onger eligible based on patient's age to complete this topic RSV Immunization Patients Un yumiko 20 months Aged Out No longer eligible b ased on patient's age to complete this topic Varicella Vaccines Aged Out No longer eligible based on patient's age to complete this topic Insurance BLUE CROSS - [place] MEDICARE ADVANTAGE Care Teams Liquefaction And Regasification Helper Relationship Specialty Start Date End Date Shawn Valderrama MD [address] [place] [address] Dr [place] PCP - General 03/25/22
--- OUTSIDE RECORDS SUMMARY | 2025-01-31 10:04 | XMS_ITS | Encounter Summary ---
Author Organization [facility] Address [address] [place] [address] [place] [address] Phone Care Team Providers Care Metal Caster Name Role Phone Shawn Valderrama MD Unavailable [phone] Maryann Ferguson FLEET ADMINISTRATOR Unavailable [phone] Unavailable [email or web address] Shawn Valderrama MD Primary Care Provider Encounter Details Date Type Department Care Team (Late st Contact Info) Description 07/27/2020 Ancillary Orders Virtual Department [address] [place] [address] Shawn Valderrama MD [address] [place] [address] [place] [address] Breast screening Social History Tobacco Use Types [...] st Contact Info) Description 08/16/2024 Procedure Pass [address] [place] [address] 02/28/2025 8:30 AM EDT Appointment [address] [place] [address] Shawn Valderrama MD [address] [place] [address] [place] [address] documented as of this encounter Results * BI MAMMOGRAM SCREENING WITH TOMOSYNTHESIS WITH CAD (BILATERAL) (12/25/2020 8:00 AM EDT) Anatomical Region Laterality Modality Breast Left, Breast Right, Breast Bilateral Bila teral Mammography 12/25/2020 12:2 0 PM EDT Impressions 12/25/2020 12:22 PM EDT BILATERAL BREASTS: Negative, no evidence of malignancy. Normal interval follow- up is recommended in 12 months. Bi-RADS: BI-RADS CATEGORY: 1 - Negative. DENSITY: There are scattered fibroglandular densities. Narrative 12/25/2020 12:22 PM EDT STUDY: Bilateral screening mammography with tomosynthesis and CAD TECHNIQUE: Bilateral full-field digital screening mammography is obtained and read in conjunction with computer-aided detection. Tomosynthesis as well as 2-D C view imaging were obtained. COMPARISON: Comparison made to multiple prior, most recent December 25, 2019, and most remote November 06, 2014. BREAST COMPOSITION: There are scattered areas of fibroglandular density BILATERAL BREASTS: No significant masses, suspicious calcifications or other abnormalities are seen. Procedure Note Goldy Brown MD - 12/25/2020 STUDY: Bilateral screening mammography with tomosynthesis and CAD TECHNIQUE: Bilateral full-field digital screening mammography is obtainedand read in conjunction with computer-aided detection. Tomosynthesis aswell as 2-D C view imaging were obtained. COMPARISON: Comparison made to multiple prior, most recent December 25, 2019,and most remote November 06, 2014. BREAST COMPOSITION: There are scattered areas of fibroglandulardensity BILATERAL BREASTS: No significant masses, suspicious calcifications orother abnormalities are seen. IMPRESSION: BILATERAL BREASTS: Negative, no evidence of malignancy. Normal intervalfollow-up is recommended in 12 months. Bi-RADS: BI-RADS CATEGORY: 1 - Negative. DENSITY: There are scattered fibroglandular densities. Shawn Valderrama MD IMG MG EXAMS Final R esult documented in this encounter Visit Diagnoses Diagnosis Breast screening Breast screening, unspecified Breast screening Breast screening, unspecified documented in this encounter Care Teams Metal Caster Relationship Specialty Start Date End Date Shawn Valderrama MD [address] [place] [address] [place] [address] PCP - General Internal Medicine 06/01/17 Shawn Valderrama MD [address] [place] [address] Dr MARK [address] [place] [address] Historical LMR Provider 03/15/17 Maryann Ferguson NP [address] [place] [address] Historical LMR Provider 03/15/17 2 Audrey Maldonado, LUCIAN Historical LMR Provider 03/15/17 06/05/21 documented as of this encounter Additional Source Comments The information contained in this document represents components of the legal health record. It is not the complete legal health record.[facility]
--- OUTSIDE RECORDS SUMMARY | 2025-01-31 10:04 | XMS_ITS | Encounter Summary ---
Author Organization [facility] Address [address] [facility] [address] [place] [address] Phone Care Team Providers Care Director Of Recruitment Name Role Phone Shawn Valderrama MD Unavailable [phone] Shawn Valderrama MD Primary Care Provider Encounter Details Date Type Department Care Team (Late st Contact Info) Description 06/14/2023 Transcribe Orders Virtual Department 30 [place] [address] Shawn Valderrama MD [address] [place] [address] [place] [address] Breast screening (Primary Dx) Social History Tobacco [...] st Contact Info) Description 08/16/2024 Procedure Pass [address] [place] [address] 02/28/2025 8:30 AM EDT Appointment [address] [place] [address] Shawn Valderrama MD [address] [place] [address] [place] [address] documented as of this encounter Results * BI MAMMOGRAM SCREENING WITH TOMOSYNTHESIS WITH CAD (BILATERAL) (01/16/2024 8:46 AM EDT) Anatomical Region Laterality Modality Breast Left, Breast Right, Breast Bilateral Bila teral Mammography 01/17/2024 8:41 AM EDT Impressions 01/17/2024 8:44 AM EDT No mammographic evidence of malignancy in either breast. Annual screening mammography is recommended. BI-RADS 2 BENIGN The patient will be notified of the results and recommendations. Narrative 01/17/2024 8:44 AM EDT BI MAMMOGRAM SCREENING WITH TOMOSYNTHESIS WITH CAD (BILATERAL) Additional patient information: Screening. COMPARISON: Comparison is made with relevant prior imaging. Breast composition: There are scattered areas of fibroglandular density. FINDINGS: Scattered, similar-appearing asymmetries bilaterally are unchanged compared with 2018. No abnormal masses, suspicious calcifications, or other significant findings are identified mammographically in either breast. There has been no interval change. Procedure Note Sherron Lui MD - 01/17/2024 BI MAMMOGRAM SCREENING WITH TOMOSYNTHESIS WITH CAD (BILATERAL) Additional patient information: Screening. COMPARISON: Comparison is made with relevant prior imaging. Breast composition: There are scattered areas of fibroglandular density. FINDINGS: Scattered, similar-appearing asymmetries bilaterally are unchangedcompared with 2018. No abnormal masses, suspicious calcifications, or other significantfindings are identified mammographically in either breast. There has been no interval change. IMPRESSION: No mammographic evidence of malignancy in either breast. Annual screening mammography is recommended. BI-RADS 2 BENIGN The patient will be notified of the results and recommendations. Shawn Valderrama MD IMG MG EXAMS Final R esult documented in this encounter Visit Diagnoses Diagnosis Breast screening- Primary Breast screening, unspecified Breast screening Breast screening, unspecified documented in this encounter Care Teams Director Of Recruitment Relationship Specialty Start Date End Date Shawn Valderrama MD [address] [place] [address] [place] [address] PCP - General Internal Medicine 06/01/17 Shawn Valderrama MD [address] [place] [address] [place] [address] Historical LMR Provider 03/15/17 documented as of this encounter Additional Source Comments The information contained in this document represents components of the legal health record. It is not the complete legal health record.[facility]
--- OUTSIDE RECORDS SUMMARY | 2025-01-31 10:04 | XMS_ITS | Clinical Summary ---
Author Organization [facility] Address [address] [facility] [address] [place] [address] Phone Care Team Providers Care Vp Platforms Name Role Phone Shawn Valderrama MD Unavailable [phone] Shawn Valderrama MD Primary Care Provider Family History Medical History Relation Comments CV disease Father 2 CV disease Mother 2 Hypertension Mother 2 CV disease Sibling 2 Relation Status Comments Father 1 Alive Father 2 Mother 1 Alive Mother 2 Sibling 1 Sibling 2 Social History Tobacco Use Types Packs/Day Years [...] on file Sexual Orientation Not on file Last Filed Vital Signs Vital Sign Reading Time Taken Comments Blood Pressure 128/80 01/16/2015 10:57 AM EDT Pulse 74 01/16/2015 10:57 AM EDT Temperature - - Respiratory Rate - - Oxygen Saturation - - Inhaled Oxygen Concentration - - Weight 94.6 kg (208 lb 9.6 oz) 01/16/2015 10:57 AM EDT Height 174 cm (5' 8.5 ) 01/16/2015 10:57 AM EDT Body Mass Index 31.26 01/16/2015 10:57 AM EDT Plan of Treatment Upcoming Encounters Date Type Department Care Team (Late st Contact Info) Description 08/16/2024 Procedure Pass [address] [place] [address] 02/28/2025 8:30 AM EDT Appointment [address] [place] [address] Shawn Valderrama MD [address] [place] [address] [place] [address] Medical Devices Not on file Insurance [place] MEDICARE PPO BLUE REPLACEMENT [facility] MEDICARE PPO BLUE REPLACEMENT Care Teams Vp Platforms Relationship Specialty Start Date End Date Shawn Valderrama MD [address] [place] [address] [place] [address] PCP - General Internal Medicine 06/01/17 Shawn Valderrama MD [address] [place] [address] [place] [address] Historical LMR Provider 03/15/17 Additional Source Comments The information contained in this document represents components of the legal health record. It is not the complete legal health record.[facility]
--- OUTSIDE RECORDS SUMMARY | 2025-01-31 10:04 | XMS_ITS | Encounter Summary ---
Author Organization Formerly [facility] Address [address] [place] [address] Phone Care Team Providers Care Medical Officer Name Role Phone Shawn Valderrama MD Unavailable [phone] Shawn Valderrama MD Primary Care Provider Encounter Details Date Type Department Care Team (Late st Contact Info) Description 07/29/2021 Transcribe Orders Virtual Department [address] [place] [address] Shawn Valdrerama MD [address] [place] [address] [place] [address] Breast screening (Primary Dx) Social History Tobacco [...] Encounters Date Type Department Care Team (Late Contact Info) Description 08/16/2024 Procedure Pass [address] [place] [address] 02/28/2025 8:30 AM EDT Appointment [address] [place] [address] Shawn Valderrama MD [address] [place] [address] [place] [address] documented as of this encounter Results * BI MAMMOGRAM SCREENING WITH TOMOSYNTHESIS WITH CAD (BILATERAL) (12/27/2021 7:45 AM EDT) Anatomical Region Laterality Modality Breast Left, Breast Right, Breast Bilateral Bila teral Mammography 12/27/2021 9:20 AM EDT Impressions 12/27/2021 9:23 AM EDT No mammographic evidence of malignancy. Recommend routine annual surveillance. BI-RADS CATEGORY: 1 - Negative. DENSITY: There are scattered fibroglandular densities. Narrative 12/27/2021 9:23 AM EDT 66-year-old female. Comparison made to previous on 12/25/2020 as far back as 09/17/2003. Interpretation made in conjunction with computer-aided detection and tomosynthesis. There are scattered areas of fibroglandular density. There are no suspicious masses, areas of architectural distortion, or suspicious clusters of microcalcifications. Procedure Note Fred Smith MD - 12/27/2021 66-year-old female. Comparison made to previous on 12/25/2020 as far backas 09/17/2003. Interpretation made in conjunction with computer-aideddetection and tomosynthesis. There are scattered areas of fibroglandular density. There are no suspicious masses, areas of architectural distortion, orsuspicious clusters of microcalcifications. IMPRESSION: No mammographic evidence of malignancy. Recommend routine annualsurveillance. BI-RADS CATEGORY: 1 - Negative. DENSITY: There are scattered fibroglandular densities. Shawn Valderrama MD IMG MG EXAMS Final R esult documented in this encounter Visit Diagnoses Diagnosis Breast screening- Primary Breast screening, unspecified Breast screening Breast screening, unspecified documented in this encounter Care Teams Medical Officer Relationship Specialty Start Date End Date Shawn Valderrama MD [address] [place] [address] [place] [address] PCP - General Internal Medicine 06/01/17 Shawn Valderrama MD [address] [place] [address] Dr [place], [place] [address] Historical LMR Provider 03/15/17 documented as of this encounter Additional Source Comments The information contained in this document represents components of the legal health record. It is not the complete legal health record.[facility]
== END 2025-01-31 10:25 | disposition home or self-care (01) ==
LOC: HO.HMCHD 09:20
PROVIDERS: PCP Physician Assistant; Visit Provider Physician Assistant
DX: Z00.00 Encounter for general adult medical examination without abnormal findings (principal); I10 Essential (primary) hypertension; I25.10 Atherosclerotic heart disease of native coronary artery without angina pectoris; E78.00 Pure hypercholesterolemia, unspecified; G47.33 Obstructive sleep apnea (adult) (pediatric); M17.11 Unilateral primary osteoarthritis, right knee; K21.9 Gastro-esophageal reflux disease without esophagitis; D03.9 Melanoma in situ, unspecified

== ENCOUNTER → 2025-01-31 09:19 | Outpatient (BNVA) | payer MEDICARE, SELFPAY | PROVIDERS: PCP Physician Assistant; Visit Provider Physician Assistant | DX: Z00.00 Encounter for general adult medical examination without abnormal findings (principal); I10 Essential (primary) hypertension; I25.10 Atherosclerotic heart disease of native coronary artery without angina pectoris; E78.00 Pure hypercholesterolemia, unspecified; G47.33 Obstructive sleep apnea (adult) (pediatric); M17.11 Unilateral primary osteoarthritis, right knee; K21.9 Gastro-esophageal reflux disease without esophagitis; D03.9 Melanoma in situ, unspecified; Z79.899 Other long term (current) drug therapy; Z99.89 Dependence on other enabling machines and devices | CPT/HCPCS: 99397 ==

== ENCOUNTER 2025-03-05 10:46 | Outpatient (AMB) | payer MEDICARE, SELFPAY ==
--- NOTE | 2025-03-05 10:18 | A.OFFPC_ITS ---
Vital Signs 03/05/25 10:50 Height 5 ft 9 in Weight 87.09 kg BMI 28.4 BP 122/80 Blood Pressure Location Lt brachial Position Sitting Respiration 14 Pulse 76 Pulse Source Pulse Oximeter Temp 96.4 F L Temp Source Temporal Artery Scan Pulse Oximetry (%) 96 Oxygen Delivery Method Room Air Intake Visit Reasons: TALIA redmond Lining Printer Required: No Accompanied by: Self / Same As Patient Allergies Lqenhfg-ZDH-PmP Reductase Inhibitor Adverse Reaction (Severe, Verified 03/05/25 10:18) Muscle Pain Medication List - Last Reconciled 03/05/25 by LINA Jean ascorbic acid (vitamin C) (Vitamin C With Natalya Hips) 1,000 mg PO DAILY aspirin 81 mg PO DAILY ycuqoxu-ffyrrsynzleop-fcyvcxjs 250-250-65 mg (Excedrin Migraine) 1 tab PO Q4-6H PRN cholecalciferol (vitamin D3) 25 mcg PO DAILY d-mannose (AZO D-Mannose) 1,000 mg PO DAILY estradiol 0.01%(0.1mg/gram) 1 g vaginal MOTH ezetimibe 10 mg PO DAILY flaxseed oil 1,000 mg PO DAILY loratadine (Claritin) 10 mg PO DAILY losartan 25 mg PO DAILY omega 8-krp-qhd-fish oil 1,000 (120-180) mg (Fish Oil) 1 cap PO DAILY omeprazole 20 mg PO .QD Tobacco use date assessed: 03/05/25 Fall risk assessment: No Falls in past year Last assessed Fall Risk: 03/05/25 Dental Screening Dental Screen Date: 03/05/25 HPI HPI Comments History of Present Illness Details 69 year old female with history of hyper cholesterolemia, hypertension, obstructive sleep apnea, splenic lymphoma presents to the office today for evaluation of upper respiratory symptoms ongoing for 3 days. She reports she woke up Monday morning with sweats, chills, myalgias. She has also had a nonproductive cough that she reports is deep and ?guttural?. No associated wheezing or chest pains. No barking cough. Did have fever of 101.2 last night. She has also been lethargic and weak with decreased appetite and headaches. She has been trying to keep up with fluid intake but has had decreased appetite. She has been taking Tylenol as needed as well as cold showers. She also took Robitussin DM last night. 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 Unsure of recent sick contacts. No congestion, otalgia, sore throat. She does have recent history of bacteremia secondary to UTI. Had similar symptoms including myalgias, fevers, rigors. Concerned about potential underlying infection. Does deny dysuria, hematuria, increased frequency but does endorse cloudy urine (longstanding) and new urinary incontinence when getting out of bed. ROS: General: No fevers, malaise, unintentional weight loss HEENT: No blurred vision, diplopia. No sore throat, nasal congestion, rhinorrhea, sinus pain, ear pain Cardiovascular: No chest pain, palpitations, or leg edema Respiratory: No shortness of breath, wheezing, cough GI: No abdominal pain, nausea, vomiting, diarrhea, constipation, melena, hematochezia : No dysuria, hematuria, increased urinary frequency, decreased urinary output MSK: No myalgia, back pain Neuro: No headaches, weakness, paresthesias Skin: No rashes or lesions EXAM: Constitutional - Awake and Alert, No apparent distress Eyes - PERRL Neck - no adenopathy Cardiovascular - S1S2, RRR, No edema Respiratory - Normal lung expansion, Normal respiratory effort, No respiratory distress, CTA bilaterally Extremities - no calf tenderness bilaterally, no swelling Skin - Warm/Dry Neurological - Alert & oriented x3 Psychological - Appropriate affect [facility] Medical History (Updated 03/05/25 @ 11:24 by LINA Jean) Melanoma in situ GERD (gastroesophageal reflux disease) Osteoarthritis of right knee Chronic allergic rhinitis FARIDA (obstructive sleep apnea) Lymphoma, splenic HTN (hypertension) Elevated cholesterol Surgical History History of left hip replacement H/O colonoscopy (~12/14/22) Family History (Updated 01/31/25 @ 10:33 by LINA Jean) Mother Dementia Social History (Updated 01/31/25 @ 10:33 by LINA Jean) Household Members: Spouse Housing: House Do you presently have visiting nurse or other home services: Yes Alcohol intake: current Alcohol intake frequency: holidays/special occasions only Patient Tobacco Use Status: Never used Tobacco e-Cigarette/Vaping Use: Never Used service: No Current occupational status: retired Questionnaire Thrive Questionnaire Date Thrive assessed: 11/04/24 AUDIT C Alcohol Use Questionnaire (AUDIT-C) 1. How often do you have a drink containing alcohol?: Monthly or less 2. How many drinks containing alcohol do you have on a typical day when you are drinking?: 1 or 2 3. How often do you have six or more drinks on one occasion?: Never Total Score: 1 Physical exam (Primary Care) Vital Signs: Last Vital Signs Temp 96.4 F L 03/05/25 10:50 Pulse 76 03/05/25 10:50 Resp 14 03/05/25 10:50 BP 122/80 03/05/25 10:50 Pulse Ox 96 03/05/25 10:50 Oxygen Delivery Method Room Air 03/05/25 10:50 BMI result Body Mass Index 28.4 Tobacco/Smoking Status: Tobacco use Status Tobacco use date assessed 03/05/25 03/05/25 10:20 Patient Tobacco Use Status Never used Tobacco 03/05/25 10:20 e-Cigarette/Vaping Use Never Used 03/05/25 10:56 Thrive Assessment: Date of Thrive Assessment Date Thrive assessed 11/04/24 03/05/25 10:20 Coding Level of Care Code Est Pt Level 4 (23983) Diagnoses Cough with fever R05.9; R50.9 Assessment & Plan Assessment & Plan (1) Cough with fever: Code(s): R05.9 - Cough, unspecified; R50.9 - Fever, unspecified Category: Medical Plan: Possibly viral etiology versus pneumonia. Check COVID/flu/RSV. Also evaluate chest x-ray. No shortness of breath or wheezing to necessitate albuterol or steroid use. Given a prescription for Tessalon Perles. Can use Coricidin cough and cold for high BP. Recommend against using any DM medications. Increase fluid intake. Tylenol or ibuprofen as needed. Plan to be adjusted pending results of studies. Given fevers, myalgias and recent history of bacteremia with similar symptoms, will evaluate UA though low suspicion for UTI at this time. Plan Follow-up as scheduled. Studies as below. Orders: Orders XR chest 2V Today R05.9 - Cough, unspecified, R09.89 - Other specified symptoms and signs involving the circulatory and respiratory systems, R50.9 - Fever, unspecified, R53.83 - Other fatigue SARS-CoV2/FLU/RSV Today R05.9 - Cough, unspecified, R09.89 - Other specified symptoms and signs involving the circulatory and respiratory systems, R50.9 - Fever, unspecified, R53.83 - Other fatigue Complete Blood Count Auto Diff Today R05.9 - Cough, unspecified, R09.89 - Other specified symptoms and signs involving the circulatory and respiratory systems, R50.9 - Fever, unspecified, R53.83 - Other fatigue UA ClnCatch+Micro w/rflx Cult Today R50.9 - Fever, unspecified, R82.90 - Unspecified abnormal findings in urine Medications: New benzonatate 100 mg PO TID PRN 30 caps 0RF cough
[2025-03-05 10:50] VITALS: BP 122/80; PULSE 76; RESP 14; TEMP 35.8; O2SAT 96; BMI 28.4
== END 2025-03-05 11:21 | disposition home or self-care (01) ==
LOC: HO.HMCHD 10:47
PROVIDERS: PCP Physician Assistant; Visit Provider Physician Assistant
DX: R05.9 Cough, unspecified (principal); R50.9 Fever, unspecified

== ENCOUNTER 2025-03-05 10:46 | Outpatient (REF) | payer MEDICARE, SELFPAY ==
--- NOTE | ~2025-03-05 | XR_ITS ---
EXAMINATION: XR CHEST CLINICAL INFORMATION: R05.9 - Cough, unspecified COMPARISON: 11/03/2024, 10/25/2024. TECHNIQUE: 2 views of the chest were obtained. FINDINGS: Borderline cardiac enlargement. Mediastinal and hilar contours appear normal. Mild aortic mural calcification. Lungs are well inspired. There is linear atelectasis or scarring in the left base, unchanged. Lungs are otherwise clear. There is no pneumothorax or pleural effusion. There is no focal osseous or soft tissue abnormality. There are mild spinal degenerative changes. XR/XR chest 2V IMPRESSION: No active pulmonary disease. Stable examination without change. Electronically signed by: Noel Odom MD 03/05/2025 11:58 AM EDT RP
== END 2025-03-05 10:47 | disposition home or self-care (01) ==
LOC: HO.XRAY 10:46
PROVIDERS: PCP Physician Assistant; Visit Provider Physician Assistant
DX: R05.9 Cough, unspecified (principal); R50.9 Fever, unspecified; R09.89 Other specified symptoms and signs involving the circulatory and respiratory systems; R53.83 Other fatigue
CPT/HCPCS: 71046

== ENCOUNTER 2025-03-05 11:18 | Outpatient (REF) | payer MEDICARE, SELFPAY ==
[2025-03-05 12:10] LABS: MANUAL DIFF FLAG NO
[2025-03-05 12:17] LABS: Hematocrit 39.4 % (37.0-47.0); Hemoglobin 12.9 g/dl (12.0-16.0); Imm Gran Abs Auto 0.02 X10*3/uL (0.00-0.03); Imm Gran Pct Auto 0.3 % (0.0-0.4); Lymphocytes Absolute Auto 1.2 X10*3/uL (1.2-4.9); Mean Corpuscular HGB Conc 32.7 g/dl (31.0-35.0); Mean Corpuscular Hemoglobin 28.6 pg (27.0-33.0); Mean Corpuscular Volume 87.4 fL (80.0-98.0); NRBC Abs Auto 0.000 X10*3/uL (0.0-0.012); NRBC Pct Auto 0.0 /100WBC (0.0-0.2); Platelet Count 258 X10*3/uL (160-400); Red Blood Count 4.51 X10*6/uL (4.20-5.50); White Blood Count 6.6 X10*3/uL (4.8-10.8)
[2025-03-05 12:19] LABS: Resp Syncy Virus RNA Qual PCR NEGATIVE (Negative); SARS COV2 PCR INHOUSE NEGATIVE (Negative)
[2025-03-05 12:32] LABS: Appearance Urine Turbid; Glucose Urine UA Negative (Negative); PH 6.0 (5.0-9.0); Specific Gravity - Urine 1.020 (1.005-1.025); UMIC TRIGGER UACC YES
[2025-03-05 12:46] LABS: UACC Culture Trigger YES
== END 2025-03-05 11:19 | disposition home or self-care (01) ==
LOC: HO.10HDL 11:18
PROVIDERS: Visit Provider Physician Assistant
DX: R09.89 Other specified symptoms and signs involving the circulatory and respiratory systems (principal); R50.9 Fever, unspecified; R53.83 Other fatigue; R05.9 Cough, unspecified; R82.90 Unspecified abnormal findings in urine
CPT/HCPCS: 81001; 85025; 87086; 87088; 87186; 87637; 99212

== ENCOUNTER → 2025-03-05 11:41 | Outpatient (BNV) | payer MEDICARE, SELFPAY | PROVIDERS: PCP Physician Assistant; Visit Provider Radiology Diagnostic Radiology | DX: R05.9 Cough, unspecified (principal) | CPT/HCPCS: 71046 ==

== ENCOUNTER 2025-03-31 11:37 | Outpatient (REF) | payer MEDICARE, SELFPAY ==
[2025-03-31 13:20] LABS: Anion Gap 10 (12-20); Blood Urea Nitrogen 15 mg/dL (9-16); Calcium 10.0 mg/dL (8.4-10.2); Carbon Dioxide 30 mmol/L (22-29); Chloride 105 mmol/L (96-108); Estimated Glomerular Filt Rate > 60; Potassium 3.7 mmol/L (3.3-5.1); Sodium 141 mmol/L (135-145)
--- OUTSIDE RECORDS SUMMARY | 2025-03-31 14:46 | XMS_ITS | Encounter Summary ---
Author Organization [facility] Address [address] [place] [address] Phone Care Team Providers Care Corn Husker Name Role Phone Shawn Valderrama MD Unavailable [phone] Shawn Valderrama MD Primary Care Provider Encounter Details Date Type Department Care Team (Late st Contact Info) Description 07/11/2022 Procedure Pass [facility] - [address] [place] [address] Social History Tobacco Use Types Packs/Day Years Used Date Smoking Tobacco: Never Assessed Comments No Sex and Gender Information Value Date Recorded Sex Assigned at Not on file Legal Sex Female 9:52 PM EDT Gender Identity Not on file Sexual Orientation Not on file documented as of this encounter Plan of Treatment Not on file documented as of this encounter Visit Diagnoses Not on filedocumented in this encounter Care Teams Corn Husker Relationship Specialty Start Date End Date Shawn Valderrama MD [address] [place] [address] [place] [address] PCP - General Internal Medicine 06/01/17 Shawn Valderrama MD [address] [place] [address] [place] [address] Historical LMR Provider 03/15/17 documented as of this encounter Additional Source Comments The information contained in this document represents components of the legal health record. It is not the complete legal health record.[facility]
--- OUTSIDE RECORDS SUMMARY | 2025-03-31 14:46 | XMS_ITS | Encounter Summary ---
Author Organization [facility] Address [address] [facility] [address] [place] [address] Phone Care Team Providers Care Grocery Clerk Checking Name Role Phone Shawn Valderrama MD Unavailable [phone] Maryann Freguson SURVEY WORKER Unavailable [phone] Unavailable [email or web address] Shawn Valderrama MD Primary Care Provider Encounter Details Date Type Department Care Team (Late st Contact Info) Description 06/01/2017 Ancillary Orders Virtual Department [address] [place] [address] Shawn Valderrama MD [address] [place] [address] [place] [address] Breast screening Social History Tobacco Use Types Packs/Day Years Used Date Smoking Tobacco: Never Assessed Comments Unknown Sex and Gender Information Value Date Recorded Sex Assigned at Not on file Legal Sex Female 9:52 PM EDT Gender Identity Not on file Sexual Orientation Not on file documented as of this encounter Plan of Treatment Not on file documented as of this encounter Results * [...] unspecified documented in this encounter Care Teams Grocery Clerk Checking Relationship Specialty Start Date End Date Shawn Valderrama MD [address] [place] [address] [place] [address] PCP - General Internal Medicine 06/01/17 Shawn Valderrama MD [address] [place] [address] [place] [address] Historical LMR Provider 03/15/17 Maryann Ferguson NP [address] [place] [address] Historical LMR Provider 03/15/17 [address] Maldonado, LUCIAN [email or web address] Historical LMR Provider 03/15/17 06/05/21 documented as of this encounter Additional Source Comments The information contained in this document represents components of the legal health record. It is not the complete legal health record.[facility]
--- OUTSIDE RECORDS SUMMARY | 2025-03-31 14:46 | XMS_ITS | Clinical Summary ---
Author Organization [address] [facility] Address [address] [place] [address] Phone Care Team Providers Care Freight Broker Name Role Phone Shawn Valderrama MD Primary Care Provider [phone] Allergies Active Allergy Reactions Criticality Noted Date Comments Hlwapag-Odi-Rmt Reductase Inhibitors Weakness 02/17/2025 Medications aspirin 81 mg EC tablet Take 1 tablet (81 mg total) by mouth 1 (one) time each day. 5 Active losartan (COZAAR) 25 mg tablet Take 1 tablet (25 mg total) by mouth 1 (one) time each day. 5 Active estradioL (ESTRACE) 0.01 % (0.1 mg/gram) vaginal cream INSERT 1 GRAM VAGINALLY AT BEDTIME TWICE WEEKLY Active cholecalciferol (VITAMIN D-3) 50 mcg (2,000 unit) tablet Take by mouth. Ac tive omeprazole (PriLOSEC) [address] capsule Take 1 capsule (40 mg total) by mouth 1 (one) time each day. Do not crush or chew. Active loratadine (CLARITIN) 10 mg tablet Take 1 tablet (10 mg total) by mouth 1 (one) time each day. Active ezetimibe (ZETIA) 10 mg tablet Take 1 tablet (10 mg total) by mouth 1 (one) time each day. Active Encounters Date Type Department Care Team Description 02/26/2025 Telephone Plastic & Reconstructive Surgery [facility] [address] [facility] [address] [place] [phone] Ventura Benton, 02/26/2025 Telephone Plastic & Reconstructive Surgery - [place] [address] [facility] [address] [place] [phone] Ventura Benton DO 02/17/2025 8:30 AM EDT Consult Plastic & Reconstructive Surgery [facility] [address] [address] Remy Hassan PA Melanoma in situ of face excluding eyelid, nose, lip, and ear ([facility] V24, [facility] V28) (Primary Dx); Family history of malignant melanoma from Last 3 Months Surgical History Surgery Date Site/Laterality Comments SECTION PROCEDURE: SECTION;COMMENT:x3 WISDOM TOOTH EXTRACTION 1973 PROCEDURE:WISDOM TOOTH EXTRACTION Medical History Medical History Date Comments Lymphoma ([facility] V24, [facility] V28) 2014 DX:Lymphoma ([facility]) Hyperlipidemia DX:Hyperlipidemi a Osteoarthritis DX:Osteoarthriti s Recurrent [...] Packs/Day Years Used Date Smoking Tobacco: Never Smokeless Tobacco: Never Tobacco Cessation:Counseling Given: Not Answered Alcohol Use Standard Drinks/Week Comments Yes 0 (1 standard drink = 0.6 oz pur e alcohol) occasionally Comments Unknown Sex and Gender Information Value Date Recorded Sex Assigned at Not on file Legal Sex Female 8:46 PM EST Gender Identity Not on file Sexual Orientation Not on file Obstetrics History Last Filed Vital Signs Vital Sign Reading Time Taken Comments Blood Pressure 151/97 02/17/2025 8:27 AM EDT Pulse 66 02/17/2025 8:27 AM EDT Temperature - - Respiratory Rate - - Oxygen Saturation - - Inhaled Oxygen Concentration - - Weight 88.5 kg (195 lb) 02/17/2025 8:27 AM EDT Height 175.3 cm (5' 9 ) 02/17/2025 8:27 AM EDT Body Mass Index 28.8 02/17/2025 8:27 AM EDT Plan of Treatment Health Maintenance Due Date Last Done Comments Colorectal Cancer Screening: Colonoscopy 1957 DTaP,Tdap,and Td Vaccines (1 - Tdap) 1976 Hepatitis B Vaccines (2 of 3 - 19+ 3-dose series) 06/26/1992 05/29/1992 Pneumococcal Vaccine: 50+ Years (1 of 1 - PCV) 2007 Falls Risk Assessment 06/23/2023 Hepatitis C Screening 06/23/2023 Medicare Annual Wellness Visit 06/23/2023 Osteoporosis Screening (Bone Density Screening) 06/23/2023 Social Influencers of Health Screening 06/23/2023 Depression Screening 05/29/2024 COVID-19 Vaccine ( season) 2025 03/14/2024, 03/19/2023, 03/03/2022, Additional history exists Influenza Vaccine (#1) 2025 , 03/03/2022, 03/08/2021, Additional history exists Breast Cancer Screening 01/15/2026 01/16/2024 RSV Immunization Adult Patients (1 - 1-dose 75+ series) 2032 Hepatitis A Vaccines Aged Out 03/27/2013, 08/28/19 13 No longer eligible based on patient's age to complete this topic Zoster Vaccines Completed 03/09/2024, 10/11/2023 HIB Vaccines Aged Out No longer eligi [...] to complete this topic RSV Immunization Patients Under 20 months Aged Out No longer eligible based on patient's age to complete this topic Varicella Vaccines Aged Out No longer eligible based on patient's age to complete this topic Insurance [employer] - [place] MEDICARE ADVANTAGE Care Teams Freight Broker Relationship Specialty Start Date End Date Shawn Valderrama MD [address] [place] [address] Dr Sofy [place] PCP - General 03/25/22
--- OUTSIDE RECORDS SUMMARY | 2025-03-31 14:46 | XMS_ITS | Encounter Summary ---
Author Organization [facility] Address [address] [facility] [address] [place] [address] Phone Care Team Providers Care Transfer Pumper Name Role Phone Shawn Valderrama MD Unavailable [phone] Shawn Valderrama MD Primary Care Provider Encounter Details Date Type Department Care Team (Late st Contact Info) Description 08/16/2024 Procedure Pass [facility], [address] [address] Social History Tobacco Use Types Packs/Day Years [...] on filedocumented in this encounter Care Teams Transfer Pumper Relationship Specialty Start Date End Date Shawn Valderrama MD [address] [place] [address] [place] [address] PCP - General Internal Medicine 06/01/17 Shawn Valderrama MD [address] [place] [address] [place] [address] Historical LMR Provider 03/15/17 documented as of this encounter Additional Source Comments The information contained in this document represents components of the legal health record. It is not the complete legal health record.[facility]
--- OUTSIDE RECORDS SUMMARY | 2025-03-31 14:46 | XMS_ITS | Patient Health Record ---
Author Organization [facility] Address [address] [place] [address] Care Team Providers Care Christmas Tree Farmer Name Role Phone Lavelle (RETIRED) Shawn MENA Primary Care Provide r Gilson Campos Jr Unavailable Allergies No Known Allergies Reason For Referral No Information Medications Medication SIG (Take, Route, Frequency, Duration) Notes Start Date End Date Status Losartan Potassium 25 MG 1/2 tablet Oral ly Once a day Active Pravastatin Sodium 20 MG 1 tablet Orally Once a day; Duration: 30 day(s) Active Vitamin C 500 MG [...] Problem Status W/U Status Risk Notes Problem Colon cancer screening (969592216) Colon cancer screening (Z12.11) Active confirmed Problem Pre-procedure evaluation check (483880834) Encounter for other preprocedural examination (Z01.818) Active confirmed Problem Incontinence of feces (64981259) 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) Active confirmed Plan Of Treatment Future Test Test Name Order Date COLONOSCOPY 09/19/2012 COLONOSCOPY 11/15/2017 COLONOSCOPY 11/14/2022 Insurance Providers Payer Name Payer Address Payer Phone Subscriber Number Group Number Insured Name Patient Relationship to Insured Coverage Start Date Coverage End Date [facility] [address] [place], [place] [id number] [phone] [id number] CHICHI CHANDLER Self - patient is the insured Medical (General) History Medical History History ICD Code colonoscopy 02/13, benign polyps, five-ye ar followup migraine headaches elevated Cholesterol hypertension splenic lymphoma 2012, status post R. CH OP hip replacement left Surgical History Surgery Date(Month/Year) section left hip replacement 08/18
--- OUTSIDE RECORDS SUMMARY | 2025-03-31 14:46 | XMS_ITS | Encounter Summary ---
Author Organization [facility] Address [address] [facility] [address] [place] [address] Phone Care Team Providers Care Scrap Drop Crane Operator Name Role Phone Shawn Valderrama MD Unavailable [phone] Shawn Valderrama MD Primary Care Provider Encounter Details Date Type Department Care Team (Late st Contact Info) Description 07/29/2021 Transcribe Orders Virtual Department [address] [place] [address] Shawn Valderrama MD [address] [place] [address] [place] [address] Breast screening (Primary Dx) Social History Tobacco [...] unspecified documented in this encounter Care Teams Scrap Drop Crane Operator Relationship Specialty Start Date End Date Shawn Valderrama MD [address] [place] [address] Dr [address] [place] [address] PCP - General Internal Medicine 06/01/17 Shawn Valderrama MD [address] [place] [address] [place] [address] Historical LMR Provider 03/15/17 documented as of this encounter Additional Source Comments The information contained in this document represents components of the legal health record. It is not the complete legal health record.[facility]
--- OUTSIDE RECORDS SUMMARY | 2025-03-31 14:46 | XMS_ITS | Encounter Summary ---
Author Organization [facility] Address [address] [facility] [address] [place] [address] Phone Care Team Providers Care Dyehouse Worker Name Role Phone Shawn Valderrama MD Unavailable [phone] Shawn Valderrama MD Primary Care Provider Encounter Details Date Type Department Care Team (Late st Contact Info) Description 08/16/2024 Transcribe Orders Virtual Department [address] [place], [place] [id number] Shawn Valderrama MD [address] [place] [address] [place] [address] Breast screening (Primary Dx) Social History Tobacco [...] MAMMOGRAM SCREENING WITH TOMOSYNTHESIS WITH CAD (BILATERAL) (02/26/2025 8:51 AM EDT) Anatomical Region Laterality Modality Breast Left, Breast Right, Breast Bilateral Bila teral Mammography 02/26/2025 12:5 0 PM EDT Impressions 02/26/2025 12:57 PM EDT No mammographic evidence of malignancy in either breast. Annual screening mammography is recommended. BI-RADS 1 NEGATIVE The patient will be notified of the results and recommendations. Narrative 02/26/2025 12:57 PM EDT BI MAMMOGRAM SCREENING WITH TOMOSYNTHESIS WITH CAD (BILATERAL) Additional patient information: Screening. COMPARISON: Comparison is made with relevant prior imaging. Breast composition: There are scattered areas of fibroglandular density. FINDINGS: No abnormal masses, suspicious calcifications, or other significant findings are identified mammographically in either breast. Procedure Note Sebastien Harris MD - 02/26/2025 BI MAMMOGRAM SCREENING WITH TOMOSYNTHESIS WITH CAD (BILATERAL) Additional patient information: Screening. COMPARISON: Comparison is made with relevant prior imaging. Breast composition: There are scattered areas of fibroglandular density. FINDINGS: No abnormal masses, suspicious calcifications, or other significantfindings are identified mammographically in either breast. IMPRESSION: No mammographic evidence of malignancy in either breast. Annual screening mammography is recommended. BI-RADS 1 NEGATIVE The patient will be notified of the results and recommendations. Shawn Valderrama MD IMG MG EXAMS Final R esult documented in this encounter Visit Diagnoses Diagnosis Breast screening- Primary Breast screening, unspecified Breast screening Breast screening, unspecified documented in this encounter Care Teams Dyehouse Worker Relationship Specialty Start Date End Date Shawn Valderrama MD [address] [place] [address] [place] [address] PCP - General Internal Medicine 06/01/17 Shawn Valderrama MD [address] [place] [address] [place] [address] Historical LMR Provider 03/15/17 documented as of this encounter Additional Source Comments The information contained in this document represents components of the legal health record. It is not the complete legal health record.[facility]
--- OUTSIDE RECORDS SUMMARY | 2025-03-31 14:47 | XMS_ITS | Clinical Summary ---
Author Organization [facility] Address [address] [facility] [address] [place] [address] Phone Care Team Providers Care Electrical Appliance Preparer Name Role Phone Shawn Valderrama MD Unavailable [phone] Shawn Valderrama MD Primary Care Provider Allergies Active Allergy Reactions Criticality Noted Date Comments Kgpautz-Xso-Qti Reductase Inhibitors 03/04/2025 Medications meloxicam (MOBIC) 15 MG tablet TAKE 1 TABLET (15 MG) EVERY DAY BY ORAL ROUTE FOR 30 DAYS. 01/09/2023 Active losartan (COZAAR) 25 MG tablet Take 25 mg by mouth. 11/18/2024 Active loratadine (CLARITIN) 10 mg tablet Take 10 mg by mouth. Active lisinopril (PRINIVIL,ZESTRI L) 2.5 MG tablet 2.5 mg. Act raymundo ezetimibe (ZETIA) 10 mg tablet Take 10 mg by mouth. Active aspirin 81 MG EC tablet Take 81 mg by mouth daily. Active Active Problems Problem Noted Date Diagnosed Date Melanoma in situ of cheek 03/04/2025 Encounters Date Type Department Care Team Description 03/20/2025 10:00 AM EDT Office Visit [facility] [address] [place] [address] Keke Osorio PA-C Gray, Mackenzie Malcolm, PA Postop check (Primary Dx); Visit for suture removal; Melanoma in situ of cheek 03/14/2025 Telephone [facility] [address] [place], [place] [phone] Marcia Yanez CMA Post-op 03/13/2025 9:00 AM EDT Procedure visit [facility] [address] [place] [address] Bryan Diaz MD Melanoma in situ of cheek (Primary Dx) 03/04/2025 1:30 PM EDT Office Visit [facility] [address] [place] [address] Keke Osorio PA-C Melanoma in situ of cheek (Primary Dx) 02/26/2025 8:33 AM EDT - 02/26/2025 11:59 PM EDT Hospital Encounter [address] [address] Shawn Valderrama MD Discharge Disposition: Home or Self Care 08/16/2024 Procedure Pass [address] [address] from Last 3 Months Family History Medical History Relation Comments CV disease Father CV disease Mother Hypertension Mother covid Mother CV disease Sibling Relation Status Comments Father Alive Mother Sibling Social History Tobacco Use Types Packs/Day Years Used Date Smoking Tobacco: Never Smokeless Tobacco: Never Tobacco Cessation:Counseling Given: Not Answered Alcohol Use Standard Drinks/Week Comments Never 0 (1 standard drink = 0.6 oz pur e alcohol) Education Answer Date Recorded Are you interested [...] Sign Reading Time Taken Comments Blood Pressure 134/88 03/04/2025 1:41 PM EDT Pulse 77 03/04/2025 1:41 PM EDT Temperature - - Respiratory Rate - - Oxygen Saturation - - Inhaled Oxygen Concentration - - Weight 94.3 kg (208 lb) 03/04/2025 1:41 PM EDT Height 172.7 cm (5' 8 ) 03/04/2025 1:41 PM EDT Body Mass Index 31.63 03/04/2025 1:41 PM EDT Plan of Treatment Health Maintenance Due Date Last Done Comments Adult Td,Tdap Booster 1955 CREATININE LEVEL 1957 LIPID PANEL 1957 POTASSIUM LEVEL 1957 DEPRESSION SCREENING 1969 HEPATITIS C SCREENING 1975 PNEUMOCOCCAL VACCINES (50+ years) (1 of 2 - PCV) 1976 ZOSTER VACCINES (1 of 2) 1976 SCREENING FOR DIABETES 1992 COLOGUARD 2002 COLONOSCOPY 2002 COLORECTAL CANCER SCREENING 2002 FIT TEST 2002 FOBT 2002 SIGMOIDOSCOPY 2002 VIRTUAL COLONOSCOPY 2002 OSTEOPOROSIS SCREENING INITIAL (ONE-TIME) 2022 INFLUENZA VACCINE (#1) 2024 COVID-19 VACCINE ( season) 2025 07/24/2020, 07/03/2020 MAMMOGRAM 02/26/2027 02/26/2025, 12/28, 01/10/2023, Additional history exists RSV VACCINE (1 - 1-dose 75+ series) 2032 SMOKING STATUS SCREENING (Once After 26 Yrs) Completed 03/04/2025 HEPATITIS A VACCINES Aged Out No long er eligible based on patient's age to complete this topic HIB VACCINES Aged Out No longer eligi ble based on patient's age to complete this topic MENINGOCOCCAL VACCINES (ACWY) Aged Out No longer eligible based on patient's age to complete this topic MENINGOCOCCAL VACCINES (B) Aged Out N o longer eligible based on patient's age to complete this topic Medical Devices Not on file Procedures Procedure Name Priority Date/Time Associated Diagnosis Comments ANATOMIC PATHOLOGY Routine 03/13/2025 12 :00 AM EDT BI MAMMOGRAM SCREENING WITH TOMOSYNTHESIS WITH CAD (BILATERAL) Routine 02/26/2025 8:51 AM EDT Breast screening from Last 3 Months Results * Anatomic Pathology (Non-MGB) (03/13/2025 12:00 AM EDT) Report [address] [address] Tso: Dario Santillan MD Surgical Pathology Report FINAL PATHOLOGIC DIAGNOSIS: SKIN, RIGHT LOWER CHEEK, EXCISION: MALIGNANT MELANOMA IN SITU. Size: 0.8 cm on the glass slide No dermal invasion, additional levels examined. Resection margins: Are negative by 0.4 cm or greater. Separate incidental dermal melanocytic nevus without atypia. Electronically Signed Out By Dario Santillan MD By his/her signature above, the pathologist listed as making the Final Diagnosis certifies that he/she has personally reviewed this case and confirmed or corrected the diagnosis. CLINICAL HISTORY Melanoma in situ of cheek (D03.39) SPECIMENS SUBMITTED: A: SKIN, RIGHT LOWER CHEEK, EXCISION GROSS DESCRIPTION SKIN, RIGHT LOWER CHEEK, EXCISION: Received in formalin is a 4.3 x 2.3 cm ellipse of skin excised to a depth of 0.8 cm with surgical dye designated as the 12:00 margin. The skin surface is wrinkled, rogers and exhibits a central, irregular, focally pigmented macule measuring 2.5 x 1.6 cm. The margin is inked blue from the 12:00 to 3:00 to 6:00 positions and green from the 6:00 to 9:00 to 12:00 positions. The specimen is serially sectioned and entirely submitted sequentially from the 12:00 to 6:00 tips labeled cassettes A1-A4. Grossed by: TRINA Chirinos, PA(ASCP) [id number] 03/14/2025 Grossing Staff: [id number] Patient Name: LYNNE CHANDLER : 1955 (Age: 69) Sex: F Institution: [facility] Location: [facility] Date of Operation: 03/13/2025 Date of Reported: 03/18/2025 08:55 Results To: Bryan Diaz MD, BA Shawn Valderrama MD [facility] Clinical History Melanoma in situ of cheek (D03.39) [facility] Final Diagnosis SKIN, RIGHT LOWER CHEEK, EXCISION: MALIGNANT MELANOMA IN SITU. Size: 0.8 cm on the glass slide No dermal invasion, additional levels examined. Resection margins: Are negative by 0.4 cm or greater. Separate incidental dermal melanocytic nevus without atypia. [facility] Gross Description SKIN, RIGHT LOWER CHEEK, EXCISION: Received in formalin is a 4.3 x 2.3 cm ellipse of skin excised to a depth of 0.8 cm with surgical dye designated as the 12:00 margin. The skin surface is wrinkled, rogers and exhibits a central, irregular, focally pigmented macule measuring 2.5 x 1.6 cm. The margin is inked blue from the 12:00 to 3:00 to 6:00 positions and green from the 6:00 to 9:00 to 12:00 positions. The specimen is serially sectioned and entirely submitted sequentially from the 12:00 to 6:00 tips labeled cassettes A1-A4. Grossed by: TRINA Chirinos, PA(ASCP) [facility] Conversion Type (Conversion Source) 03/13/2025 03/13/2025 3:21 PM EDT us Bryan Diaz MD LAB PATHOLOGY ORDERABLES Edited Result - Final [address] [address] * BI MAMMOGRAM SCREENING WITH TOMOSYNTHESIS WITH [...] MD IMG MG EXAMS Final R esult from Last [address] [facility] MEDICARE PPO BLUE REPLACEMENT [facility] MEDICARE PPO BLUE REPLACEMENT [facility] MEDICARE PPO BLUE REPLACEMENT [facility] MEDICARE PPO BLUE REPLACEMENT [facility] MEDICARE PPO BLUE REPLACEMENT [place] MEDIC[place] BLUE REPLACEMENT Care Teams Electrical Appliance Preparer Relationship Specialty Start Date End Date Shawn Valderrama MD [address] [place] [address] [place] [address] PCP - General Internal Medicine 06/01/17 Shawn Valderrama MD [address] [place] [address] [place] [address] Historical LMR Provider 03/15/17 Additional Source Comments The information contained in this document represents components of the legal health record. It is not the complete legal health record.[facility]
--- OUTSIDE RECORDS SUMMARY | 2025-03-31 14:47 | XMS_ITS | Encounter Summary ---
Author Organization [facility] Address [address] [facility] [address] [place] [address] Phone Care Team Providers Care Wire Walker Name Role Phone Shawn Valderrama MD Unavailable [phone] Shawn Valderrama MD Primary Care Provider Encounter Details Date Type Department Care Team (Late st Contact Info) Description 06/14/2023 Transcribe Orders Virtual Department [address] [place], [place] [phone] Shawn Valderrama MD [address] [place] [address] [place] [address] Breast screening (Primary Dx) Social History Tobacco [...] unspecified documented in this encounter Care Teams Wire Walker Relationship Specialty Start Date End Date Shawn Valderrama MD [address] [place] [address] [place] [address] PCP - General Internal Medicine 06/01/17 Shawn Valderrama MD [address] [place] [address] Dr Avalos, TORIE [address] Historical LMR Provider 03/15/17 documented as of this encounter Additional Source Comments The information contained in this document represents components of the legal health record. It is not the complete legal health record.[facility]
--- OUTSIDE RECORDS SUMMARY | 2025-03-31 14:47 | XMS_ITS | Encounter Summary ---
Author Organization [facility] Address [address] [place] [address] [place] [address] Phone Care Team Providers Care Floor Tech Name Role Phone Shawn Valderrama MD Unavailable [phone] Maryann Ferguson NP Unavailable [phone] Unavailable [email or web address] Shawn Valderrama MD Primary Care Provider Encounter Details Date Type Department Care Team (Late st Contact Info) Description 07/27/2020 Procedure Pass [address] [place] [address] Social History Tobacco Use Types Packs/Day Years [...] on filedocumented in this encounter Care Teams Floor Tech Relationship Specialty Start Date End Date Shawn Valderrama MD [address] [place] [address] [place] [address] PCP - General Internal Medicine 06/01/17 Shawn Valderrama MD [address] [place] [address] [place] [address] Historical LMR Provider 03/15/17 Maryann Ferguson NP [address] [place] [address] Historical LMR Provider 03/15/17 [address]CS [email or web address] Historical LMR Provider 03/15/17 06/05/21 documented as of this encounter Additional Source Comments The information contained in this document represents components of the legal health record. It is not the complete legal health record.[facility]
--- OUTSIDE RECORDS SUMMARY | 2025-03-31 14:47 | XMS_ITS | Encounter Summary ---
Author Organization [facility] Address [address] [place] [address] Phone Care Team Providers Care Unit Leader Name Role Phone Shawn Valderrama MD Unavailable [phone] Shawn Valderrama MD Primary Care Provider Encounter Details Date Type Department Care Team (Late st Contact Info) Description 07/29/2021 Procedure Pass [facility] - [address] [place] [address] Social History Tobacco Use Types Packs/Day Years [...] on filedocumented in this encounter Care Teams Unit Leader Relationship Specialty Start Date End Date Shawn Valderrama MD [address] [place] [address] [place] [address] PCP - General Internal Medicine 06/01/17 Shawn Valderrama MD [address] [place] [address] [place] [address] Historical LMR Provider 03/15/17 documented as of this encounter Additional Source Comments The information contained in this document represents components of the legal health record. It is not the complete legal health record.[facility]
--- OUTSIDE RECORDS SUMMARY | 2025-03-31 14:47 | XMS_ITS | Clinical Summary ---
Author Organization [facility] Address [address] [place] [address] Care Team Providers Care Supervisor Carbon Electrodes Name Role Phone Shawn Valderrama MD Primary Care Provider [phone] Allergies No known active allergies Medications Medication [...] age to complete this topic Care Teams Supervisor Carbon Electrodes Relationship Specialty Start Date End Date Shawn Valderrama MD [address] [place] [address] [address] [place] [address] PCP - General Machine Guide Base Winder 03/25/22
--- OUTSIDE RECORDS SUMMARY | 2025-03-31 14:47 | XMS_ITS | Encounter Summary ---
Author Organization [facility] Address [address] [facility] [address] [place] [address] Phone Care Team Providers Care Insert Cutter Name Role Phone Shawn Valderrama MD Unavailable [phone] Maryann Ferguson BATCH MIXING TRUCK DRIVER Unavailable [phone] Unavailable [email or web address] Shawn Valderrama MD Primary Care Provider Encounter Details Date Type Department Care Team (Late st Contact Info) Description 07/23/2019 Ancillary Orders Virtual Department [address] [place] [address] Meron Newman MD [address] [place] [address] [address] [place] [address] Breast screening Social History Tobacco Use Types [...] or other abnormalities are seen. Procedure Note Glody Brown MD - 12/30/2019 STUDY: Bilateral screening [...] unspecified documented in this encounter Care Teams Insert Cutter Relationship Specialty Start Date End Date Shawn Valderrama MD [address] [place] [address] [place] [address] PCP - General Internal Medicine 06/01/17 Shawn Valderrama MD [address] [place] [address] [place] [address] Historical LMR Provider 03/15/17 Maryann Ferguson NP [address] [place] [address] Historical LMR Provider 03/15/17 2 Audrey Maldonado, LUCIAN [email or web address] Historical LMR Provider 03/15/17 06/05/21 documented as of this encounter Additional Source Comments The information contained in this document represents components of the legal health record. It is not the complete legal health record.[facility]
--- OUTSIDE RECORDS SUMMARY | 2025-03-31 14:47 | XMS_ITS | Encounter Summary ---
Author Organization [facility] Address [address] [facility] [address] [place] [address] Phone Care Team Providers Care Frit Maker Name Role Phone Shawn Valderrama MD Unavailable [phone] Maryann Ferguson LOG YARD DERRICK OPERATOR Unavailable [phone] Unavailable [email or web address] Shawn Valderrama MD Primary Care Provider Encounter Details Date Type Department Care Team (Late st Contact Info) Description 07/27/2020 Ancillary Orders Virtual Department [address] [place] [address] Shawn Valderrama MD [address] [place] [address] [place] [address] Breast screening Social History Tobacco Use Types [...] unspecified documented in this encounter Care Teams Frit Maker Relationship Specialty Start Date End Date Shawn Valderrama MD [address] [place] [address] [place] [address] PCP - General Internal Medicine 06/01/17 Shawn Valderrama MD [address] [place] [address] [place] [address] Historical LMR Provider 03/15/17 Maryann Ferguson NP [address] [place] [address] Historical LMR Provider 03/15/17 2 Audrey Maldonado, LUCIAN [email or web address] Historical LMR Provider 03/15/17 06/05/21 documented as of this encounter Additional Source Comments The information contained in this document represents components of the legal health record. It is not the complete legal health record.[facility]
--- OUTSIDE RECORDS SUMMARY | 2025-03-31 14:47 | XMS_ITS | Data Portability ---
Author Organization [place] [facility] Cathi Mark AONE [place] Address [address] [place] [address] Care Team Providers Care Freelance Web Designer Name Role Phone REJI MCALLISTER Primary Care Provider REJI MCALLISTER Referring Provider [phone] REJI MCALLISTER Primary Care Provider [phone] Assessment Encounter Date Assessment Date Assessment LastModified [...] chills, or unexplained weight loss. Today include lqcw-amw-aiwgcir medications, physical therapy, home exercises, traction, and [...] weeks to update us on her progress [email or web address] Not available 12/05/2022 15:48:25 01/16/2023 01/16/2023 HPI: [...] of her incontinence or develops saddle anesthesia. [email or web address] Not available 01/16/2023 12:01:43 09/01/2023 09/01/2023 HPI : Patient is here for 1 year follow-up from left total hip replacement. She is recovering well. Overall she feels great. Her main complaint is just some mild lateral sided tenderness. Overall she is functioning well. Overall, P atient reports good pain relief in the hip [...] Continue to work on hip conditioning exercises. Cajb-owq-cjznfeq medications as needed. Ultimate failure may occur [...] Hall MS, PA-C in indirect conjunction with documenting/supervi sing provider [...] more view 2024 025 [email or web address] [facility], [address], [place], [address], 5 11:38:19 XR, hip, unilateral, 2 or 3 view 2023 024 [email or web address] [facility], [address], [place], [address], 4 14:52:19 XR, lumbosacral spine, 2 or 3 view 2022 023 [email or web address] [facility], [address], [place], [address], 3 15:56:39 XR, lumbosacral spine, 2 or 3 view, bending only 2022 023 [email or web address] [facility], [address], [place], [address], 3 15:56:39 XR, hip, unilateral, 2 or 3 view 2022 023 [email or web address] [facility], [address], [place], [address], 3 16:39:40 XR, hip, unilateral, 2 or 3 view 2022 023 [email or web address] [facility], [address], [place], [address], 3 16:39:40 Medication Orders meloxicam 15 mg tablet 2022 023 [email or web address] [id number], [address] [place], [address], 4 13:48:40 meloxicam 15 mg tablet 2022 023 [email or web address] [id number], [address] [place], [address], 4 13:48:40 Patient TargetsNo targets recorded. Patient Instructions Encounter Date Encounter Id Patient Instructions Last Modified By Organization Details Last Modified Time 09/01/2023 [id number] AP pelvis, AP an d lateral radiographs of the left hip taken today demonstrate a left total hip replacement with components in appropriate position without any signs of hardware related complication. Not available 09/01/2023 13:22:54 10/11/2024 [id number] physical therapy * - Right knee pain secondary to IT band tendinitis/fricti on syndrome Evaluate and treat as indicated to reduce pain and to improve strength, mobility, stability, range of motion, and function. Please teach a home exercise plan and incorporate PT into patient's exercise routine. 2-3 sessions weekly for 6-8 weeks. [email or web address] Not available 10/18/2024 08:38:40 Reason for Referral None Reported. Problems Name Problem SNOMED Code Status Onset Date Resolution Date Notes Provider Name and Address Organization Details Recorded Time Problem 95762147 Active No known active problems Not Available [facility] 5 23:47:45 Osteoarth ritis of left hip joint 31837487872 9108 Active 2022 Steven Abarca MD [address], [place], [address] , [place] [facility] 3 13:20:50 Low back pain 317194313 Active 2022 Steven Abarca MD [address] [facility], [place], [address] , [place] [facility] 3 16:24:49 Trochante nehemias bursitis of right hip 69483712070 9100 Active 2022 ESTHER ZARATE PA-C [address] [facility], [place], [address] , [place] [facility] 3 15:43:36 Lumbar spondylol isthesis 89011535683 9102 Active 2022 ESTHER ZARATE PA-C [address], [place], [address] , [place] [facility] 3 15:43:37 Lumbar spondylos is 188640556 Active 2022 ESTHER ZARATE PA-C [address], [place], [address] , [place] [facility] 3 15:43:44 Iliotibia l band friction syndrome of right knee 47074620240 9104 Active 2024 QUEENIE HALL PA-C [address], [place], [address] , [place] [facility] 5 09:41:53 Problem Notes None recorded. [...] active Not Available Not Available Not Available ascorbic acid (vitamin C) 500 mg chewable tablet Take 1 tablet (500 mg total) by mouth daily. With neno hips active Not Available Not Available No t Available pravastatin 20 mg tablet TAKE 1 [...] completed Not Available Not Available Not Available cholecalcif porfirio (vitamin D3) 50 mcg (2,000 unit) tablet Take by mouth. active Not Available Not Available No t Available Senexon-S 8.6 mg-50 mg tablet TAKE [...] Updated DateTime 01/16/2023 175.26 cm 25.7 kg/m2 [address] [facility] 01/16/2023 11:42:36 Social History None recorded. Functional Status None recorded. Mental Status None recorded. Family History Nothing Reported. Medical History No medical history recorded. Gynecological HistoryNo gynecological history recorded. Obstetrics History GPAL:G 0 P 0 0 0 0 Past Encounters Encounter ID Performer Location Encounter Start Date Encounter Closed Date Diagnosis/Indication Diagnosis SNOMED-CT Code Diagnosis ICD10 Code Diagnosis IMO Codes Diagnosis Note [id number] MD RAD [facility] [address] [address] 09/02/2022 09:57:31 09/02/2022 10:47:49 Aftercare [id number] Z47.1 [id number] MD RAD [facility] [address] [address] 11/15/2022 15:41:24 11/15/2022 16:29:07 History of total replacement of left hip joint 1692673455 703717 Z96.642 Pain of ri ght hip joint 7752319709 99305 M25.551 Aftercare 941015798 Z47. 1 Low back pain 531585324 M54.50 [id number] [address] 12/05/2022 14:24:52 12/05/2022 15:47:44 Low back pain 254479837 M54.50 Lumbar spondylolisthesis 9153724543 45674 M43.16 Trochanter ic bursitis of right hip 3929705122 42489 M70.61 Lumbar spondylosis 72191 0009 M47.896 [id number] [address] JANG [address] [address] 01/16/2023 11:30:53 01/16/2023 12:02:55 Low back pain 246570582 M54.50 Lumbar spondylolisthesis 3734774650 41088 M43.16 Trochanter ic bursitis of right hip 1548326842 94862 M70.61 Lumbar spondylosis 75249 0009 M47.896 [id number] MD RAD [facility] [address] [facility] [address] [place] [address] 09/01/2023 12:48:42 09/01/2023 13:26:12 History of repair of hip joint 385466152 Z96.642 Additional diagnosis detail: History of left hip replacemen t Surgical follow-up 12776 4000 Z47.1 Z96.642 Additional diagnosis detail: Aftercare following left hip joint replacemen t surgery [id number] MADELYN NARAYAN [place] [address] [facility] [address] [place] [address] 10/11/2024 09:12:28 10/11/2024 11:38:19 Pain of right knee joint 2880276322 77355 M25.561 845996 Iliotibial band friction syndrome of right knee 9485809397 73493 M76.31 [id number] Health Concerns Section Related Observation LastModified by Organization Detai ls LastModified Time None Recorded Concern Status LastModified by Organization Details LastModified Time None Recorded Advance Directives Directive None Recorded Payers Insurance Date Sequence Insurance Name Policy Number Policy Charles Covered Member ID Charles Member ID Guarantor Name 10/09/2024 1 [facility]: MEDICARE PPO BLUE (MEDICARE REPLACEMENT PPO) [id number] Lynne Martinez [id number] Lynne Martinez 09/01/2023 1 [employer] (PPO) [id number] Lazaro Martinez [id number] Lynne Martinez Notes Date Note Type [...] meantime. Steven Abarca MD [address], [place], [address], [place] [facility] 11/15/2022 16:25:18 01/16/2023 text/html prior visit 12/05/22 HPi: Jerilyn is a 67-year-old female who [...] chills, or unexplained weight loss. Today include wpjn-qbm-yjlqvag medications, physical therapy, home exercises, traction, and [...] weeks to update us on her progress [address], [place], [address], [place] [facility] 01/16/2023 12:03:00 10/11/2024 text/html 69-year-old female presents with chief complaint of right knee [...] QUEENIE HALL PA-C [address], [place], [address], [place] [facility] 10/11/2024 09:45:48 OBGyn Episode No OBEpisode recorded.
--- OUTSIDE RECORDS SUMMARY | 2025-03-31 14:47 | XMS_ITS | Encounter Summary ---
Author Organization [facility] Address [address] [facility] [address] [place] [address] Phone Care Team Providers Care International Travel Consultant Name Role Phone Shawn Valderrama MD Unavailable [phone] Shawn Valderrama MD Primary Care Provider Encounter Details Date Type Department Care Team (Late st Contact Info) Description 06/14/2023 Procedure Pass [facility] - [address] [place] [address] Social History Tobacco Use Types Packs/Day Years [...] on filedocumented in this encounter Care Teams International Travel Consultant Relationship Specialty Start Date End Date Shawn Valderrama MD [address] [place] [address] [place] [address] PCP - General Internal Medicine 06/01/17 Shawn Valderrama MD [address] [place] [address] [place] [address] Historical LMR Provider 03/15/17 documented as of this encounter Additional Source Comments The information contained in this document represents components of the legal health record. It is not the complete legal health record.[facility]
--- OUTSIDE RECORDS SUMMARY | 2025-03-31 14:47 | XMS_ITS | Patient Health Record ---
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) Active confirmed Plan Of Treatment Pending Test Test Name Order Date X ray : Foot, right 3V 12/10/2012 [id number] NAIL, 1-01/19/2015 [id number] NAIL, -06/03/2015 10379-MDSVRMY NAIL, -09/30/2015 00209-GKNIWPS NAIL, -01/20/2016 36409-Klesitlj Plate 01/20/2016 16178-Odbwnvsb Plate 09/26/2019 75334-Rgoqzcxg Plate 01/19/2015 40300-CXN 01/30/2020 01695- Debride <25 sq cm 02/13/2020 31580- Debride <25 sq cm 02/05/2015 Insurance Providers Payer Name Payer Address Payer Phone Subscriber Number Group Number Insured Name Patient Relationship to Insured Coverage Start Date Coverage End Date [facility] [address] [place] [address] [phone] [id number] Rian Martinezlas Spouse - patient is the spouse of the insured Medical (General) History Medical History History ICD Code headaches/migraines high blood pressure measles mumps chicken pox Lymphoma Surgical History Surgery Date(Month/Year) section
--- OUTSIDE RECORDS SUMMARY | 2025-03-31 14:47 | XMS_ITS | Encounter Summary ---
Author Organization [facility] Address [address] [facility] [address] [place] [address] Phone Care Team Providers Care Senior Ui Ux Designer Name Role Phone Shawn Valderrama MD Unavailable [phone] Maryann Ferguson SUBMARINE ADVISORY TEAM WATCH OFFICER Unavailable [phone] Unavailable [email or web address] Shawn Valderrama MD Primary Care Provider Encounter Details Date Type Department Care Team (Late st Contact Info) Description 06/19/2018 Ancillary Orders Virtual Department [address] [place] [address] Meron Tang MD [address] [place] [address] [address] [place], [place] [id number] Breast screening Social History Tobacco Use Types [...] Images interpreted in conjunction with R-2 Image Sales Driver computer-aided detection (CAD). FINDINGS: BREAST DENSITY: There are scattered fibroglandular densities. There are no suspicious masses, suspicious areas of architectural distortion or suspicious clusters of microcalcifications. Procedure Note Amarilys Hartman MD - 11/20/2018 BI MAMMOGRAM SCREENING WITH TOMOSYNTHESIS WITH CAD (BILATERAL) HISTORY: Screening. COMPARISON: Prior studies dating back to 10/31/2012, most aconlrxg50/22/2018. TECHNIQUE: Digital breast tomosynthesis was performed in [...] unspecified documented in this encounter Care Teams Senior Ui Ux Designer Relationship Specialty Start Date End Date Shawn Valderrama MD [address] [place] [address] [place] [address] PCP - General Internal Medicine 06/01/17 Shawn Valderrama MD [address] [place] [address] [place] [address] Historical LMR Provider 03/15/17 Maryann Ferguson NP [address] [place] [address] Historical LMR Provider 03/15/17 2 Audrey Maldonado, LUCIAN Historical LMR Provider 03/15/17 06/05/21 documented as of this encounter Additional Source Comments The information contained in this document represents components of the legal health record. It is not the complete legal health record.[facility]
== END 2025-03-31 11:38 | disposition home or self-care (01) ==
LOC: HO.HMGCLDS 11:37
PROVIDERS: PCP Physician Assistant; Visit Provider Internal Medicine Cardiovascular Disease
DX: I10 Essential (primary) hypertension (principal); I5A Non-ischemic myocardial injury (non-traumatic)
CPT/HCPCS: 36415; 80048

== ENCOUNTER 2025-05-20 10:16 | Outpatient (AMB) | payer MEDICARE, SELFPAY ==
[2025-05-20 10:19] VITALS: BP 160/90; PULSE 79; BMI 28.8
--- NOTE | 2025-05-20 10:19 | A.OFFVIS_ITS ---
Vital Signs 05/20/25 10:19 Height 5 ft 9 in Weight 194 lb 14.218 oz BMI 28.8 BP 160/90 H Blood Pressure Location Lt brachial Position Sitting Pulse 79 Pulse Source Pulse Oximeter Intake Visit Reasons: f/up cta rs Allergies Ujaawlc-HIQ-OoB Reductase Inhibitor Adverse Reaction (Severe, Verified 05/20/25 10:21) Muscle Pain Medication List - Last Reconciled 05/20/25 by MIKI Soto ascorbic acid (vitamin C) (Vitamin C With Natalya Hips) 1,000 mg PO DAILY aspirin 81 mg PO DAILY kiqckli-uinjaxkwabaob-szdyqetj 250-250-65 mg (Excedrin Migraine) 1 tab PO Q4-6H PRN cholecalciferol (vitamin D3) 25 mcg PO DAILY d-mannose (AZO D-Mannose) 1,000 mg PO DAILY estradiol 0.01%(0.1mg/gram) 1 g vaginal MOTH ezetimibe 10 mg PO DAILY flaxseed oil 1,000 mg PO DAILY loratadine (Claritin) 10 mg PO DAILY losartan 25 mg PO DAILY omega 2-vxl-dga-fish oil 1,000 (120-180) mg (Fish Oil) 1 cap PO DAILY omeprazole 20 mg PO .QD HPI HPI f/up cta rs: Details: The patient is a 69 year old female presenting for follow-up for coronary artery disease and management of hyperlipidemia. She has a history of a secondary STEMI in the setting of a UTI, 11/04/24, which led to the discovery of mild cardiomyopathy, EF 45-50%, an inferior wall motion abnormality. A nuclear stress test on 12/27/2024 showed a nontransmural infarct in the inferior wall with possible mild ischemia in the mid-anterior wall. A coronary CTA on 04/02/2025 revealed multivessel coronary artery disease, including 25-50% stenosis in the proximal to mid-LAD, 50-70% stenosis in the proximal D1, and 50-70% stenosis in the mid-RCA, though an FFR evaluation showed no hemodynamically significant lesions. She is currently doing well with no concerning symptoms. She denies chest pains, heart palpitations, shortness of breath. The patient has hyperlipidemia, with a family history of high cholesterol and a recent LDL of 155 mg/dL in 04/2025. She has a history of statin intolerance, citing joint pain, and is currently taking Zetia. She reports some knee and back pain, and is uncertain if it is related to the Zetia or underlying arthritis. Her current medications include aspirin, Zetia, and losartan. Home BPs are typically normal range. She denies any chest pain, shortness of breath, or palpitations and remains physically active, going to the gym three times a week or walking two miles. [facility] Medical History Melanoma in situ GERD (gastroesophageal reflux disease) Osteoarthritis of right knee Chronic allergic rhinitis FARIDA (obstructive sleep apnea) Lymphoma, splenic HTN (hypertension) Elevated cholesterol Surgical History History of left hip replacement H/O colonoscopy (~12/14/22) Family History Mother Dementia Social History Household Members: Spouse Housing: House Do you presently have visiting nurse or other home services: Yes Alcohol intake: current Alcohol intake frequency: holidays/special occasions only Patient Tobacco Use Status: Never used Tobacco e-Cigarette/Vaping Use: Never Used service: No Current occupational status: retired Review of Systems Const All systems reviewed & are unremarkable except as noted in HPI and below ENT Reports dizziness Card Denies chest pain, Denies chest pain at rest, Denies chest pain with activity, Denies rapid heart rate, Denies pedal edema, Denies edema, Denies leg edema, Denies lightheadedness, Denies palpitations, Denies dyspnea, Denies dyspnea on exertion and Denies orthopnea Resp Denies cough, Denies dyspnea and Denies dyspnea on exertion GI Denies hematochezia and Denies change in stool character Musc Denies abnormal gait, Denies limited range of motion, Denies muscle cramps, Denies muscle weakness, Denies numbness, Denies radiating pain into limb, Denies stiffness and Denies tingling Neuro Denies abnormal gait, Reports dizziness, Denies numbness and Denies tingling Endo Denies palpitations Physical Exam Vital Signs: Last Vital Signs Pulse 79 05/20/25 10:19 BP 160/90 H 05/20/25 10:19 BMI result Body Mass Index 28.8 Const General: cooperative, healthy appearing, comfortable and no acute distress Orientation/consciousness: patient oriented x3 Neck Neck: Yes normal visual inspection and Yes no JVD Resp Auscultation: clear to auscultation bilaterally, no crackles, no rales and no rhonchi Cardio Rate: regular rate Rhythm: regular rhythm Heart sounds: S1 normal heart sound present, S2 normal heart sound present, no gallops, no murmurs and no rubs GI Inspection: Yes normal to inspection Skin General skin exam: no rashes or lesions noted Neuro General: patient oriented x3 Extrem General: Yes normal to inspection, No no pedal edema and No calf tenderness Psych Appearance: grossly normal Mental Status: mental status grossly normal Speech and movement: Normal speech and movement present Assessment & Plan Assessment & Plan (1) CAD (coronary artery disease): Comment: Coronary CTA 04/02/2025 left main normal, lad proximal to mid 25-50% stenosis, D1 proximal 50-70% stenosis, left circumflex scattered plaques no more than 50% stenosis, RCA mid short-segment 50-70% stenosis, FFR wires with no hemodynamically significant stenosis Code(s): I25.10 - Atherosclerotic heart disease of [place] coronary artery without angina pectoris Category: Medical Plan: Recent CTA with newly confirmed mlnx-ae-ikfijooi CAD. Last echo at time of secondary NSTEMI with EF 45-50% and inferior wall motion abnormality. Currently no anginal symptoms. Continue with risk factor modification. Discussed diagnosis of CAD and med management. Continue aspirin indefinitely. Will add PCSK9 inhibitor. Continue Zetia. We will recheck limited echo to reassess EF and wall motion. Continue activity as tolerated. Cardiology follow-up 6 months, sooner if needed. (2) Myocardial injury: Code(s): I5A - Non-ischemic myocardial injury (non-traumatic) Category: Medical Plan: As above (3) HTN (hypertension): Code(s): I10 - Essential (primary) hypertension Category: Medical Plan: Blood pressure goal less than 130/80. Elevated today which she reports is atypical for her. Recheck done by me 152/92. She reports taking her med just prior to this visit. Monitor blood pressure at home and call if systolic running greater than 140. She may need an increase in the losartan dose. (4) Elevated cholesterol: Code(s): E78.00 - Pure hypercholesterolemia, unspecified Category: Medical Plan: [place] LDL goal less than 70. LDL uncontrolled at 155. Intolerant to statins. Recently put on Zetia but is she is reporting back and knee discomfort. Will have her trial holding Zetia to see if she has symptom improvement. Will order PCSK9 inhibitor for further cholesterol control. Fasting lipids in 2-3 months. Plan I reviewed the patient's recent cardiac workup, including the coronary CTA, which showed evidence of coronary artery disease with plaque buildup but no hemodynamically significant blockages that would require a stent at this time. I explained that the primary goal is to prevent the disease from getting worse by aggressively risk factor modification. I discussed her hyperlipidemia, noting her LDL of 155 is well above our goal of less than 70. Given her intolerance to statins, I recommended starting Repatha, an injectable medication administered twice a month, to significantly lower her cholesterol. I informed her that we would need to obtain prior authorization from her insurance. We also discussed her current medication, Zetia, and the possibility that it could be causing her knee and back pain. I advised a two- week trial off Zetia to assess for symptom improvement. Regarding her elevated blood pressure of 152/92, I advised her to monitor her readings at home and to call if they remain consistently high, as we may need to adjust her medication. I explained the plan for follow-up testing, which includes a limited echocardiogram to reassess heart function and a lipid panel about two months after starting Repatha. Orders: Orders [place] Echo Limited Today I25.10 - Atherosclerotic heart disease of [place] coronary artery without angina pectoris, I5A - Non-ischemic myocardial injury (non- traumatic) Lipid Panel 3 Months E78.00 - Pure hypercholesterolemia, unspecified Liver Panel 3 Months E78.00 - Pure hypercholesterolemia, unspecified Medications: New evolocumab (Repatha SureClick) 140 mg subcut Q2W 6 mL 3RF Patient Instructions: - Stop taking Zetia for the next two weeks and see if your back and knee pain get better. - We are ordering a new injectable cholesterol medication for you called Repatha. It requires insurance approval, which may take a few weeks. Call our office if you need help learning how to use the injection pen once you receive it. - Plan to have your cholesterol levels checked with a blood test about two months after you start the new injections. - Check your blood pressure at home over the next few weeks. Your goal is a reading below 130/80. Call us if your numbers are consistently high, especially if the top number is over 140 s. - Continue taking your daily aspirin and losartan. - Reduce the salt in your diet and stay physically active. - We will order an ultrasound of your heart (echocardiogram) to check on its pumping function. The scheduling department will call you. - Call us or seek immediate medical attention if you experience any new or worsening chest pain, shortness of breath, or heart palpitations. Patient was informed and verbally consented to the use of an ambient scribe for clinic note documentation during this visit. Visit time spent on chart review, interview, assessment, orders, documentation. Coding Level of Care Code Est Pt Level 4 (38164) Add On Problem Visit Only Diagnoses CAD (coronary artery disease) I25.10 Myocardial injury I5A HTN (hypertension) I10 Elevated cholesterol E78.00 Time Spent (min) 32
--- OUTSIDE RECORDS SUMMARY | 2025-05-20 11:22 | XMS_ITS | Clinical Summary ---
Author Organization [facility] Address [address] [facility] [address] [place] [address] Phone Care Team Providers Care Business Process Coordinator Name Role Phone Shawn Valderrama MD Unavailable [phone] Shawn Valderrama MD Primary Care Provider Allergies Active Allergy Reactions Criticality Noted Date Comments Abvcgoo-Ciu-Vgz Reductase Inhibitors 03/04/2025 Medications meloxicam (MOBIC) 15 [...] Encounters Date Type Department Care Team Description 04/14/2025 9:00 AM EST Office Visit [facility] [address] [place] [address] Meri Londono PA Postop check (Primary Dx); Visit for suture removal 03/20/2025 10:00 AM EDT Office Visit [facility] Plastic Surgery [facility] [address] [place] [address] Keke Osorio PA-C Gray, Mackenzie Malcolm, PA Postop check (Primary Dx); Visit for suture removal; Melanoma in situ of cheek 03/14/2025 Telephone [facility] [address] [place] [address] Marcia Yanez CMA Post-op 03/13/2025 9:00 AM EDT Procedure visit [facility] [address] [place] [address] Bryan Diaz MD Melanoma in situ of cheek (Primary Dx) 03/04/2025 1:30 PM EDT Office Visit [facility] Plastic Surgery [facility] [address] [place] [address] Keke Osorio PA-C Melanoma in situ of cheek (Primary Dx) 02/26/2025 8:33 AM EDT - 02/26/2025 11:59 PM EDT Hospital Encounter [address] [address] Shawn Valderrama MD Discharge Disposition: Home or Self Care 08/16/2024 Procedure Pass [address] [address] from Last 3 Months Family History Medical [...] INFLUENZA VACCINE (#1) 2024 COVID-19 VACCINE ( - season) 2025 07/24/2020, 07/03/2020 MAMMOGRAM 02/26/2027 02/26/2025, 08, 01/10/2023, Additional history exists RSV VACCINE (1 [...] Pathology (Non-MGB) (03/13/2025 12:00 AM EDT) [place] [address] Outboard Motorboat Rigger: Dario Santillan MD Surgical Pathology Report FINAL [...] labeled cassettes A1-A4. Grossed by: TRINA Chirinos, LINA(ASC) [id number] 03/14/2025 Grossing Staff: [id number] Patient Name: LYNNE CHANDLER : 1955 (Age: 69) Sex: F Institution: [facility] Location: [facility] Date of Operation: 03/13/2025 Date of Reported: 03/18/2025 08:55 Results To: Bryan Diaz MD, BA Shawn Valderrama MD [facility] Clinical History Melanoma in situ of cheek (D03.39) [facility] Final Diagnosis SKIN, RIGHT LOWER CHEEK, EXCISION: MALIGNANT MELANOMA IN SITU. Size: 0.8 cm on the glass slide No dermal invasion, additional levels examined. Resection margins: Are negative by 0.4 cm or greater. Separate incidental dermal melanocytic nevus without atypia. [facility] Gross Description SKIN, RIGHT LOWER CHEEK, EXCISION: [...] 6:00 tips labeled cassettes A1-A4. Grossed by: Blake Taylor S, PA(ASCP) [facility] Conversion Type (Conversion Source) 03/13/2025 03/13/2025 3:21 PM EDT us Bryan Diaz MD LAB PATHOLOGY ORDERABLES Edited Result - Final [facility] [address] [place] [address] * BI MAMMOGRAM SCREENING WITH TOMOSYNTHESIS WITH [...] R esult from Last 3 Months Insurance [place] BLUE REPLACEMENT [address] INCLUDE 234 BEDS AT THE [facility] MEDICARE PPO BLUE REPLACEMENT [place]AC[place] Care Teams Business Process Coordinator Relationship Specialty Start Date End Date Shawn Valderrama MD [address] [place] [address] [place] [address] PCP - General Internal Medicine 06/01/17 Shawn Valderrama MD [address] [place] [address] [place] [address] Historical LMR Provider 03/15/17 Additional Source Comments The information contained in this document represents components of the legal health record. It is not the complete legal health record.[facility]
--- OUTSIDE RECORDS SUMMARY | 2025-05-20 11:22 | XMS_ITS | Encounter Summary ---
Author Organization [facility] Address [address] [place] [address] Phone Care Team Providers Care Grinder Chipper Name Role Phone Shawn Valderrama MD Unavailable [phone] Shawn Valderrama MD Primary Care Provider Encounter Details Date Type Department Care Team (Late st Contact Info) Description 07/11/2022 Procedure Pass [facility] - [address] [place] [address] Social History Tobacco Use Types Packs/Day Years [...] on filedocumented in this encounter Care Teams Grinder Chipper Relationship Specialty Start Date End Date Shawn Valderrama MD [address] [place] [address] [place] [address] PCP - General Internal Medicine 06/01/17 Shawn Valderrama MD [address] [place] [address] [place] [address] Historical LMR Provider 03/15/17 documented as of this encounter Additional Source Comments The information contained in this document represents components of the legal health record. It is not the complete legal health record.[facility]
--- OUTSIDE RECORDS SUMMARY | 2025-05-20 11:22 | XMS_ITS | Encounter Summary ---
Author Organization [facility] Address [address] [facility] [address] [place] [address] Phone Care Team Providers Care Airline Pilot Name Role Phone Shawn Valderrama MD Unavailable [phone] Maryann Ferguson MUSIC PROMOTER Unavailable [phone] Unavailable [email or web address] Shawn Valderrama MD Primary Care Provider Encounter Details Date Type Department Care Team (Late st Contact Info) Description 07/27/2020 Ancillary Orders Virtual Department [address] [place] [address] Shawn Valderrama MD [address] [place] [address] [place] [address] Breast screening Social History Tobacco Use Types [...] unspecified documented in this encounter Care Teams Airline Pilot Relationship Specialty Start Date End Date Shawn Valderrama MD [address] [place] [address] [place] [address] PCP - General Internal Medicine 06/01/17 Shawn Valderrama MD [address] [place] [address] [place] [address] Historical LMR Provider 03/15/17 Maryann Ferguson NP [address] [place] [address] Historical LMR Provider 03/15/17 2 Aud[address] Maldonado, LUCIAN Historical LMR Provider 03/15/17 06/05/21 documented as of this encounter Additional Source Comments The information contained in this document represents components of the legal health record. It is not the complete legal health record.[facility]
--- OUTSIDE RECORDS SUMMARY | 2025-05-20 11:22 | XMS_ITS | Encounter Summary ---
Author Organization [facility] Address [address] [place] [address] [place] [address] Phone Care Team Providers Care Car Inspection And Repair Manager Name Role Phone Shawn Valderrama MD Unavailable [phone] Maryann Ferguson NP Unavailable [phone] Unavailable [email or web address] Shawn Valderrama MD Primary Care Provider Encounter Details Date Type Department Care Team (Late st Contact Info) Description 07/27/2020 Procedure Pass [address] [place] [address] Social History Tobacco Use Types Packs/Day Years [...] on filedocumented in this encounter Care Teams Car Inspection And Repair Manager Relationship Specialty Start Date End Date Shawn Valderrama MD [address] [place] [address] [place] [address] PCP - General Internal Medicine 06/01/17 Shawn Valderrama MD [address] [place] [address] [place] [address] Historical LMR Provider 03/15/17 Maryann Ferguson NP [address] [place] [address] Historical LMR Provider 03/15/17 [address]CS [email or web address] Historical LMR Provider 03/15/17 06/05/21 documented as of this encounter Additional Source Comments The information contained in this document represents components of the legal health record. It is not the complete legal health record.[facility]
--- OUTSIDE RECORDS SUMMARY | 2025-05-20 11:22 | XMS_ITS | Patient Health Record ---
Author Organization [facility] Address [address] [place] [address] Care Team Providers Care Bead Forming Machine Operator Name Role Phone Lavelle (RETIRED) Shawn MENA Primary Care Provide r Unavailable Gilson Farfan Jr Unavailable Allergies No Known Allergies Reason For Referral No Information Medications Medication SIG (Take, Route, Frequency, Duration) Notes Start Date End Date Status Losartan Potassium 25 MG Tablet 1/2 tablet Orally Once a day Active Pravastatin Sodium 20 MG Tablet 1 tablet Orally Once a day; Duration: 30 day(s) Active Vitamin C 500 MG Capsule 1 tablet Orally Once a day Active AZO Cranberry 250-30 MG Tablet as directed Orally Active Vitamin D 50 MCG (1999) Capsule 1 tablet Orally Once a day Active Excedrin Migraine prn Ac tive Fish Oil Active Immunizations Vaccine Route Administration Date Status Comme nts Influenza Unknown 04/19/2022 Administered Social History Social History Additional Details Category Social Info Options Details Miscellaneous: Marital status: 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 Problem Type SNOMED Code ICD Code Onset Dates Problem Status W/U Status Risk Notes Problem Colon cancer screening (805680445) Colon cancer screening (Z12.11) Active confirmed Problem Pre-procedure evaluation check (194356974) Encounter for other preprocedural examination (Z01.818) Active confirmed Problem Incontinence of feces (55438960) 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) Active confirmed Plan Of Treatment Future Test Test Name Order Date COLONOSCOPY 09/19/2012 COLONOSCOPY 11/15/2017 COLONOSCOPY 11/14/2022 Insurance Providers Payer Name Payer Address Payer Phone Subscriber Number Group Number Insured Name Patient Relationship to Insured Coverage Start Date Coverage End Date [facility] [address] [place], [place] [id number] CHICHI CHANDLER Self - patient is the insured Medical (General) History Medical History History ICD Code colonoscopy 02/13, benign polyps, five-ye ar followup migraine headaches elevated Cholesterol hypertension splenic lymphoma 2012, status post R. CH OP hip replacement left Surgical History Surgery Date(Month/Year) section left hip replacement 08/18
--- OUTSIDE RECORDS SUMMARY | 2025-05-20 11:22 | XMS_ITS | Encounter Summary ---
Author Organization [facility] Address [address] [facility] [address] [place] [address] Phone Care Team Providers Care Plant Ecologist Name Role Phone Shawn Valderrama MD Unavailable [phone] Maryann Ferguson ENERGY SPECIALIST Unavailable [phone] Unavailable [email or web address] Shawn Valderrama MD Primary Care Provider Encounter Details Date Type Department Care Team (Late st Contact Info) Description 06/01/2017 Ancillary Orders Virtual Department [address] [place] [address] Shawn Valderrama MD [address] [place] [address] [place] [address] Breast screening Social History Tobacco Use Types [...] unspecified documented in this encounter Care Teams Plant Ecologist Relationship Specialty Start Date End Date Shawn Valderrama MD [address] [place] [address] [place] [address] PCP - General Internal Medicine 06/01/17 Shawn Valderrama MD [address] [place] [address] [place] [address] Historical LMR Provider 03/15/17 Maryann Ferguson NP [address] [place] [address] Historical LMR Provider 03/15/17 2 Audrey Maldonado, LUCIAN [email or web address] Historical LMR Provider 03/15/17 06/05/21 documented as of this encounter Additional Source Comments The information contained in this document represents components of the legal health record. It is not the complete legal health record.[facility]
--- OUTSIDE RECORDS SUMMARY | 2025-05-20 11:22 | XMS_ITS | Clinical Summary ---
Author Organization [facility] Prior to 10/26/24 Address [address] [place] [address] Care Team Providers Care Pad Cutter Name Role Phone Shawn Valderrama MD Primary Care Provider [phone] Allergies No known active allergies Medications Medication [...] age to complete this topic Care Teams Pad Cutter Relationship Specialty Start Date End Date Shawn Valderrama MD [address] [place] [address] [address] [place] [address] PCP - General Special Warfare Combatant Crewman 03/25/22
--- OUTSIDE RECORDS SUMMARY | 2025-05-20 11:22 | XMS_ITS | Encounter Summary ---
Author Organization [facility] Address [address] [facility] [address] [place] [address] Phone Care Team Providers Care Thermal Cutter Hand Name Role Phone Shawn Valderrama MD Unavailable [phone] Shawn Valderrama MD Primary Care Provider Encounter Details Date Type Department Care Team (Late st Contact Info) Description 08/16/2024 Transcribe Orders Virtual Department [address] [place], [place] [id number] Shawn Valderrama MD [address] [place] [address] [place] [address] Breast screening (Primary Dx) Social History Tobacco [...] unspecified documented in this encounter Care Teams Thermal Cutter Hand Relationship Specialty Start Date End Date Shawn Valderrama MD [address] [place] [address] [place] [address] PCP - General Internal Medicine 06/01/17 Shawn Valderrama MD [address] [place] [address] [place] [address] Historical LMR Provider 03/15/17 documented as of this encounter Additional Source Comments The information contained in this document represents components of the legal health record. It is not the complete legal health record.[facility]
--- OUTSIDE RECORDS SUMMARY | 2025-05-20 11:22 | XMS_ITS | Encounter Summary ---
Author Organization [facility] Address [address] [facility] [address] [place] [address] Phone Care Team Providers Care Rock Crusher Name Role Phone Shawn Valderrama MD Unavailable [phone] Shawn Valderrama MD Primary Care Provider Encounter Details Date Type Department Care Team (Late st Contact Info) Description 07/29/2021 Transcribe Orders Virtual Department [address] [place] [address] Shawn Valderrama MD [address] [place] [address] [place] [address] Breast screening (Primary Dx) Social History Tobacco [...] unspecified documented in this encounter Care Teams Rock Crusher Relationship Specialty Start Date End Date Shawn Valderrama MD [address] [place] [address] Dr [address] [place] [address] PCP - General Internal Medicine 06/01/17 Shawn Valderrama MD [address] [place] [address] [place] [address] Historical LMR Provider 03/15/17 documented as of this encounter Additional Source Comments The information contained in this document represents components of the legal health record. It is not the complete legal health record.[facility]
--- OUTSIDE RECORDS SUMMARY | 2025-05-20 11:22 | XMS_ITS | Clinical Summary ---
Author Organization [address] [facility] Address [address] [place] [address] Phone Care Team Providers Care Budget Analyst Name Role Phone Shawn Valderrama MD Primary Care Provider Allergies Active Allergy Reactions Criticality Noted Date Comments Cpgxuco-Uuc-Igi Reductase Inhibitors Weakness 02/17/2025 Medications aspirin 81 [...] Description 02/26/2025 Telephone Plastic & Reconstructive Surgery [facility] [address] [facility] [address] [place] [address] Ventura Benton, 02/26/2025 Telephone Plastic & Reconstructive Surgery - [address] [place] [address] Ventura Benton DO from Last 3 Months Surgical History Surgery [...] [place] - [place] Care Teams Budget Analyst Relationship Specialty Start Date End Date Shawn Valderrama MD [address] [place] [address] Dr Sofy [place] PCP - General 03/25/22
--- OUTSIDE RECORDS SUMMARY | 2025-05-20 11:22 | XMS_ITS | Encounter Summary ---
Author Organization [facility] Address [address] [facility] [address] [place] [address] Phone Care Team Providers Care Livestock Producer Name Role Phone Shawn aVlderrama MD Unavailable Shawn Valderrama MD Primary Care Provider Encounter Details Date Type Department Care Team (Late st Contact Info) Description 08/16/2024 Procedure Pass [facility], [address] [address] Social History Tobacco Use Types Packs/Day Years [...] on filedocumented in this encounter Care Teams Livestock Producer Relationship Specialty Start Date End Date Shawn Valderrama MD [address] [place] [address] [place] [address] PCP - General Internal Medicine 06/01/17 Shawn Valderrama MD [address] [place] [address] [place] [address] Historical LMR Provider 03/15/17 documented as of this encounter Additional Source Comments The information contained in this document represents components of the legal health record. It is not the complete legal health record.[facility]
--- OUTSIDE RECORDS SUMMARY | 2025-05-20 11:22 | XMS_ITS | Encounter Summary ---
Author Organization [facility] Address [address] [place] [address] Phone Care Team Providers Care Flight Control Tower Operator Name Role Phone Shawn Valderrama MD Unavailable [phone] Shawn Valderrama MD Primary Care Provider Encounter Details Date Type Department Care Team (Late st Contact Info) Description 07/29/2021 Procedure Pass [facility] - [address] [place] [address] Social History Tobacco Use Types Packs/Day Years [...] on filedocumented in this encounter Care Teams Flight Control Tower Operator Relationship Specialty Start Date End Date Shawn Valderrama MD [address] [place] [address] [place] [address] PCP - General Internal Medicine 06/01/17 Shawn Valderrama MD [address] [place] [address] [place] [address] Historical LMR Provider 03/15/17 documented as of this encounter Additional Source Comments The information contained in this document represents components of the legal health record. It is not the complete legal health record.[facility]
--- OUTSIDE RECORDS SUMMARY | 2025-05-20 11:23 | XMS_ITS | Encounter Summary ---
Author Organization [facility] Address [address] [facility] [address] [place] [address] Phone Care Team Providers Care Seismic Prospecting Observer Name Role Phone Shawn Valderrama MD Unavailable [phone] Maryann Ferguson JUNIOR BUYER Unavailable [phone] Unavailable [email or web address] Shawn Valderrama MD Primary Care Provider Encounter Details Date Type Department Care Team (Late st Contact Info) Description 07/23/2019 Ancillary Orders Virtual Department [address] [place] [address] Meron Newman MD [address] [place] [address] [address] [place] [address] Breast screening Social History Tobacco [...] unspecified documented in this encounter Care Teams Seismic Prospecting Observer Relationship Specialty Start Date End Date Shawn Valderrama MD [address] [place] [address] [place] [address] PCP - General Internal Medicine 06/01/17 Shawn Valderrama MD [address] [place] [address] [place] [address] Historical LMR Provider 03/15/17 Maryann Ferguson NP [address] [place] [address] Historical LMR Provider 03/15/17 2 Audrey Maldonado, LUCIAN [email or web address] Historical LMR Provider 03/15/17 06/05/21 documented as of this encounter Additional Source Comments The information contained in this document represents components of the legal health record. It is not the complete legal health record.[facility]
--- OUTSIDE RECORDS SUMMARY | 2025-05-20 11:23 | XMS_ITS | Encounter Summary ---
Author Organization [facility] Address [address] [facility] [address] [place] [address] Phone Care Team Providers Care Compliance Assistant Name Role Phone Shawn Valderrama MD Unavailable [phone] Shawn Valderrama MD Primary Care Provider Encounter Details Date Type Department Care Team (Late st Contact Info) Description 06/14/2023 Transcribe Orders Virtual Department [address] [place], [place] [phone] Shawn Valderrama MD [address] [place] [address] [place] [address] Breast screening (Primary Dx) Social History Tobacco [...] unspecified documented in this encounter Care Teams Compliance Assistant Relationship Specialty Start Date End Date Shawn Valderrama MD [address] [place] [address] [place] [address] PCP - General Internal Medicine 06/01/17 Shawn Valderrama MD [address] [place] [address] Dr [place], [place] [address] Historical LMR Provider 03/15/17 documented as of this encounter Additional Source Comments The information contained in this document represents components of the legal health record. It is not the complete legal health record.[facility]
--- OUTSIDE RECORDS SUMMARY | 2025-05-20 11:23 | XMS_ITS | Patient Health Record ---
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 Plan Of Treatment Pending Test Test Name Order Date X ray : Foot, right 3V 12/10/2012 [id number] NAIL, 1-01/19/2015 [id number] NAIL, -06/03/2015 [id number] NAIL, -09/30/2015 [id number] NAIL, -01/20/2016 [id number] Plate 01/20/2016 [id number] Plate 09/26/2019 [id number] Plate 01/19/2015 [id number] 01/30/2020 49382- Debride <25 sq cm 02/13/2020 07122- Debride <25 sq cm 02/05/2015 Insurance Providers Payer Name Payer Address Payer Phone Subscriber Number Group Number Insured Name Patient Relationship to Insured Coverage Start Date Coverage End Date [facility] [address] [place] [address] [id number] Rian Martinezlas Spouse - patient is the spouse of the insured Medical (General) History Medical History History ICD Code headaches/migraines high blood pressure measles mumps chicken pox Lymphoma Surgical History Surgery Date(Month/Year) section
--- OUTSIDE RECORDS SUMMARY | 2025-05-20 11:23 | XMS_ITS | Encounter Summary ---
Author Organization [facility] Address [address] [facility] [address] [place] [address] Phone Care Team Providers Care Social Services Technician Name Role Phone Shawn Valderrama MD Unavailable [phone] Shawn Valderrama MD Primary Care Provider Encounter Details Date Type Department Care Team (Late st Contact Info) Description 06/14/2023 Procedure Pass [facility] - [address] [place] [address] Social History Tobacco Use Types Packs/Day Years [...] on filedocumented in this encounter Care Teams Social Services Technician Relationship Specialty Start Date End Date Shawn Valderrama MD [address] [place] [address] [place] [address] PCP - General Internal Medicine 06/01/17 Shawn Valderrama MD [address] [place] [address] [place] [address] Historical LMR Provider 03/15/17 documented as of this encounter Additional Source Comments The information contained in this document represents components of the legal health record. It is not the complete legal health record.[facility]
--- OUTSIDE RECORDS SUMMARY | 2025-05-20 11:23 | XMS_ITS | Encounter Summary ---
Author Organization [facility] Address [address] [place] [id number] Phone Care Team Providers Care Diesel Electrician Name Role Phone Shawn Valderrama MD Unavailable [phone] Maryann Ferguson BRAIN PICKER Unavailable [phone] Unavailable [email or web address] Shawn Valderrama MD Primary Care Provider Encounter Details Date Type Department Care Team (Late st Contact Info) Description 06/19/2018 Ancillary Orders Virtual Department [address] [place] [address] Meron Tang MD [address] [place] [address] [address] [place], [place] [id number] Breast screening Social History Tobacco Use Types [...] Images interpreted in conjunction with [employer] Manager computer-aided detection (CAD). FINDINGS: BREAST DENSITY: There are scattered fibroglandular densities. There are no suspicious masses, suspicious areas of architectural distortion or suspicious clusters of microcalcifications. Procedure Note Amarilys Hartman MD - 11/20/2018 BI MAMMOGRAM SCREENING WITH TOMOSYNTHESIS WITH CAD (BILATERAL) HISTORY: Screening. COMPARISON: Prior studies dating back to 10/31/2012, most nuexlrul36/[id number]/2018. TECHNIQUE: Digital breast tomosynthesis was performed in [...] unspecified documented in this encounter Care Teams Diesel Electrician Relationship Specialty Start Date End Date Shawn Valderrama MD [address] [place] [address] [place] [id number] PCP - General Internal Medicine 06/01/17 Shawn Valderrama MD [address] [place] [address] [place] [id number] Historical LMR Provider 03/15/17 Maryann Ferguson NP [address] [place] [id number] Historical LMR Provider 03/15/17 [address], LUCIAN Historical LMR Provider 03/15/17 06/05/21 documented as of this encounter Additional Source Comments The information contained in this document represents components of the legal health record. It is not the complete legal health record.[facility]
== END 2025-05-20 10:51 | disposition home or self-care (01) ==
LOC: HO.HCS 10:16
PROVIDERS: PCP Physician Assistant; Visit Provider Nurse Practitioner Family
DX: I25.10 Atherosclerotic heart disease of native coronary artery without angina pectoris (principal); I5A Non-ischemic myocardial injury (non-traumatic); I10 Essential (primary) hypertension; E78.00 Pure hypercholesterolemia, unspecified
CPT/HCPCS: 99214; G2211

== ENCOUNTER → 2025-05-20 10:16 | Outpatient (BNVA) | payer MEDICARE, SELFPAY | PROVIDERS: PCP Physician Assistant; Visit Provider Nurse Practitioner Family | DX: I25.10 Atherosclerotic heart disease of native coronary artery without angina pectoris (principal); I10 Essential (primary) hypertension; I5A Non-ischemic myocardial injury (non-traumatic); E78.00 Pure hypercholesterolemia, unspecified; I25.2 Old myocardial infarction; Z79.899 Other long term (current) drug therapy; Z79.82 Long term (current) use of aspirin | CPT/HCPCS: 99212 ==